=== PATIENT | female | born 1985 | race Caucasian/White ===

== ENCOUNTER 2016-05-11 23:15 | Emergency (ER) | payer MEDICAID ==
[2016-05-12 00:02] VITALS: BP 120/77
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
== END 2016-05-12 00:34 | disposition home or self-care (01) ==
LOC: JP.ED 23:15
DX: S42.91XD Fracture of right shoulder girdle, part unspecified, subsequent encounter for fracture with routine healing (principal); I10 Essential (primary) hypertension; J45.909 Unspecified asthma, uncomplicated; F41.9 Anxiety disorder, unspecified; F32.9 Major depressive disorder, single episode, unspecified; F17.210 Nicotine dependence, cigarettes, uncomplicated; E66.9 Obesity, unspecified; Z98.890 Other specified postprocedural states; Z79.899 Other long term (current) drug therapy; Z98.84 Bariatric surgery status; Z88.0 Allergy status to penicillin; Z88.1 Allergy status to other antibiotic agents; Z88.5 Allergy status to narcotic agent; Z88.8 Allergy status to other drugs, medicaments and biological substances; V89.2XXA Person injured in unspecified motor-vehicle accident, traffic, initial encounter
CPT/HCPCS: 99282; 99283

== ENCOUNTER 2016-05-13 16:12 | Emergency (ER) | payer MEDICAID ==
[2016-05-13 16:21] VITALS: BP 133/74
[2016-05-13] MEDS ORDERED: HYDROmorphone 1 MG/ML Syringe IVPUSH ONE ×2 (17:27→18:23)
[2016-05-13] MEDS ORDERED: Ondansetron 4 MG/2 ML SDV IVPUSH ONE (17:27)
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
[2016-05-13] MEDS ORDERED: Prochlorperazine 10 MG/2 ML SDV IVPUSH ONE (18:56)
[2016-05-13] MEDS ORDERED: levETIRAcetam 2,000 MG in Sodium Chloride 0.9% 100 ML IV ONE (20:15)
[2016-05-13] MEDS ORDERED: LORazepam 2 MG/ML MDV IVPUSH ONE (20:15)
[2016-05-13] MEDS ORDERED: Ketorolac 30 MG/ML SDV IVPUSH ONE (20:15)
[2016-05-13] MEDS ORDERED: Sodium Chloride 0.9% 100 ML ONE (20:46)
--- NOTE | 2016-05-14 08:32 | CR ---
Shoulder Comp Rt HISTORY: Fall, prior recent glenoid fracture COMPARISON: CT scan 05/09/2016. FINDINGS: Minimally displaced anterior inferior glenoid fracture seen on prior CT scan. No new fract ure or dislocation.
== END 2016-05-13 21:54 | disposition home or self-care (01) ==
LOC: JP.ED 16:12
DX: R56.9 Unspecified convulsions (principal); S00.31XA Abrasion of nose, initial encounter; S01.511A Laceration without foreign body of lip, initial encounter; W08.XXXA Fall from other furniture, initial encounter; Y92.019 Unspecified place in single-family (private) house as the place of occurrence of the external cause; R41.0 Disorientation, unspecified; M25.511 Pain in right shoulder; I10 Essential (primary) hypertension; J45.909 Unspecified asthma, uncomplicated; F41.8 Other specified anxiety disorders; D51.9 Vitamin B12 deficiency anemia, unspecified; F17.200 Nicotine dependence, unspecified, uncomplicated; Z88.0 Allergy status to penicillin; Z88.8 Allergy status to other drugs, medicaments and biological substances; Z79.899 Other long term (current) drug therapy
CPT/HCPCS: 36415; 70450; 70486; 73030; 80053; 80305; 81001; 83605; 84703; 85025; J0780; J1170; J1885; J1953; J2060; J2405; J7030; 96365; 96375; 96376; 99284; 99285-25

== ENCOUNTER 2016-06-06 11:21 | Emergency (ER) | payer MEDICAID ==
[2016-06-06 12:01] VITALS: BP 104/74
--- NOTE | 2016-06-06 12:06 | EDM.PDOC ---
[id number] TEETH AND FLU Time Seen by Provider: 06/06/16 12:04 Source of Information: Reports: Patient History Limitations: Reports: No limitations - History of Present Illness INITIAL COMMENTS - FREE TEXT/NARRATIVE: 31-year-old female with ongoing dental pain and also nausea and vomiting and diarrhea for the past 4 days. No fevers or chills. She was scheduled abdomen were done last week but was unable to make the appointment because of family emergencies. She took her last half of a hydrocodone earlier today, cannot get in to see her primary until Friday. She just finished clindamycin 3 days ago. Associated Symptoms: Reports: nausea/vomiting. Denies: fever/chills Tooth/Teeth Pain Score (Numeric/FACES): 9 - Related Data Allergies Allergy/AdvReac Type Severity Reaction Status Date / Time amoxicillin [Amoxicillin] Allergy Hives Verified 06/06/16 11:46 guaifenesin Allergy Cannot Verified 06/06/16 11:46 Remember meclizine Allergy Hives Verified 06/06/16 11:46 Penicillins Allergy Hives Verified 06/06/16 11:46 sulfamethoxazole Allergy Hives Verified 06/06/16 11:46 [From Bactrim] trimethoprim [From Bactrim] Allergy Hives Verified 06/06/16 11:46 oxycodone [Oxycodone] AdvReac Nausea and Verified 06/06/16 11:46 Vomiting propoxyphene AdvReac Nausea and Verified 06/06/16 11:46 Vomiting Home Meds: Home Meds Albuterol [Proventil Neb Soln] 1 ampule NEB Q4H PRN 12/09/12 [History] Albuterol [Ventolin HFA] 2 puff INH QID PRN 12/09/12 [History] Calcium Citrate/Vitamin D3 [Calcium Cit-Vit D 315-200] 1 tab PO BID 12/09/12 [ History] Cyanocobalamin/Folic Acid [B-12 1,000 Mcg Sub Tablet] 1 each SL DAILY 12/09/12 [ History] Ferrous Fumarate 1 mg PO DAILY 12/09/12 [History] Multivitamin [Multivitamins] 1 cap PO DAILY 12/09/12 [History] Vitamin B Complex [B Complex] 1 tab PO DAILY 12/09/12 [History] ALPRAZolam [Xanax] 0.5 mg PO BID PRN 09/28/14 [History] Ibuprofen [Advil] 800 mg PO QID PRN 09/28/14 [History] Gabapentin [Neurontin] 300 mg PO DAILY 04/12/16 [History] ARIPiprazole [Abilify] 2 mg PO DAILY 06/06/16 [History] Hydrocodone/Acetaminophen [[place] 10-325 Tablet] 1 each PO BID 06/06/16 [History] levETIRAcetam [Keppra Xr] 750 mg PO BID 06/06/16 [History] Past Medical History Cardiovascular History: Reports: Hypertension Respiratory History: Reports: Asthma, Bronchitis, recurrent, Pneumonia, recurrent Gastrointestinal History: Reports: Bowel obstruction, Cholelithiasis Genitourinary History: Reports: UTI, recurrent 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: Musculoskeletal History: Reports: Fracture Neurological History: Reports: Brain injury, Headaches, chronic, Migraines, Seizure, TIA Other Neuro History: minor stroke with meningitis Psychiatric History: Reports: Anxiety, Depression, Psych Hospitalization(s), Suicide attempt, Suicidal ideation Endocrine/Metabolic History: Reports: Obesity/BMI 30+ Hematologic History: Reports: Anemia, B12 deficiency, Blood transfusion(s), Folic acid - Infectious Disease History Infectious Disease History: Reports: Chicken pox - Past Surgical History HEENT Surgical History: Reports: Tonsillectomy GI Surgical History: Reports: Bariatric procedure, Colon, Colonoscopy, EGD Other GI Surgeries/Procedures: release SBO Female Surgical History: Reports: Breast biopsy, D&C Social & Family History - Tobacco Use Smoking Status *Q: Current Every Day Smoker Years of Tobacco use: 5 Packs/Tins Daily: 0.5 Used Tobacco, but Quit: No Month Tobacco Last Used: september Second Hand Smoke Exposure: Yes - Caffeine Use Caffeine Use: Reports: Coffee, Energy drinks, Soda, Tea - Alcohol Use Days Per Week of Alcohol Use: 0 - Recreational Drug Use Recreational Drug Use: No Other Recreational Drug Type: Pt. denies but sig. other states " I hope this isn 't because youre taking pills again" - Living Situation & Occupation Living situation: Reports: Occupation: unemployed (Lives with in [place], [place]) ED ROS GENERAL - Review of Systems Review Of Systems: See Below Constitutional: Denies: fever, chills HEENT: Reports: Dental pain Respiratory: Reports: No Symptoms GI/Abdominal: Reports: Diarrhea, Nausea, Vomiting. Denies: Abdominal pain : Reports: no symptoms Skin: Reports: no symptoms Neurological: Denies: Headache Psychiatric: Reports: No symptoms ED EXAM, GENERAL - Physical Exam Exam: See Below Exam Limited By: No limitations General Appearance: alert, no apparent distress Throat/Mouth: Other (Dental exam shows no obvious inflammation or deep caries) Respiratory/Chest: no respiratory distress, lungs clear GI/Abdominal: normal bowel sounds Neurological: alert, oriented Skin Exam: Warm, Dry Course - Vital Signs Last Recorded V/S: Last Vital Signs Temp 97.2 F 06/06/16 12:01 Pulse 85 06/06/16 12:01 Resp 16 06/06/16 12:01 BP 104/74 06/06/16 12:01 Pulse Ox 96 06/06/16 12:01 - Re-Assessments/Exams Free Text/Narrative Re-Assessment/Exam: 06/06/16 12:25 Patient will be started on Bactrim DS twice a day for the next 10 days, given some Zofran to use for nausea and will supply with 10 hydrocodone that she will make last until she can see her primary next week. I suggested a stool sample to check for C. difficile but she declined, so she was given a collection cup if the diarrhea persists. Departure - Departure Time of Disposition: 12:36 Disposition: Home, Self-Care 01 Condition: good Clinical Impression: Chronic dental pain, Gastroenteritis Instructions: Dental Caries Referrals: Karen Solitario MD [Primary Care Provider] - Forms: ED Department Discharge Care Plan Goals: Take antibiotic twice daily as prescribed. Use Zofran under your tongue 2-3 times daily for vomiting if needed, and hydrocodone for pain sparingly. Recheck with her regular doctor next week.
[2016-06-06] MEDS ORDERED: methylPREDNISolone Sodium Succinate 125 MG/2 ML SDV IVPUSH ONE (12:07)
== END 2016-06-06 12:36 | disposition home or self-care (01) ==
LOC: JP.ED 11:21
DX: K52.9 Noninfective gastroenteritis and colitis, unspecified (principal); K08.89 Other specified disorders of teeth and supporting structures; I10 Essential (primary) hypertension; J45.909 Unspecified asthma, uncomplicated; F41.9 Anxiety disorder, unspecified; F32.9 Major depressive disorder, single episode, unspecified; E66.9 Obesity, unspecified; F17.210 Nicotine dependence, cigarettes, uncomplicated; Z87.01 Personal history of pneumonia (recurrent); Z87.440 Personal history of urinary (tract) infections; Z79.899 Other long term (current) drug therapy; Z86.73 Personal history of transient ischemic attack (TIA), and cerebral infarction without residual deficits; Z86.2 Personal history of diseases of the blood and blood-forming organs and certain disorders involving the immune mechanism; Z98.890 Other specified postprocedural states; Z98.84 Bariatric surgery status; Z88.1 Allergy status to other antibiotic agents; Z88.0 Allergy status to penicillin; Z88.2 Allergy status to sulfonamides; Z88.8 Allergy status to other drugs, medicaments and biological substances
CPT/HCPCS: 96374; 99283; 99283-25

== ENCOUNTER 2016-06-24 12:01 | Emergency (ER) | payer MEDICAID ==
[2016-06-24 12:42] VITALS: BP 158/85
[2016-06-24] MEDS ORDERED: Ketorolac 60 MG/2 ML SDV IM ONE (13:34)
--- NOTE | 2016-06-24 13:37 | EDM.PDOC ---
ED HPI Trauma - General Chief Complaint: Upper Extremity Injury/Pain Stated Complaint: FELL GOING UPSTAIRS RT SHOULDER SEVER PAIN Time Seen by Provider: 06/24/16 12:45 Source: Reports: Patient History Limitations: Reports: No limitations - History of Present Illness INITIAL COMMENTS - FREE TEXT/NARRATIVE: 31-year-old female who was just recently healing from a right glenoid fracture fell forward on the stairs today injuring her right shoulder. She felt a popping sensation and is now having significant pain in the posterior shoulder. She feels she is unable to move her arm. No swelling or bruising. The incident happened just one half hour ago. Occurred When: just prior to arrival Occurred Where: home Method of Injury: direct blow, fall Severity: moderate Pain/Injury Location: Reports: upper extremity, right Consciousness: Reports: no loss of consciousness Associated Symptoms: Reports: denies other symptoms Allergies/ADRs: Allergies amoxicillin [Amoxicillin] Allergy (Verified 06/24/16 12:42) Hives guaifenesin Allergy (Verified 06/24/16 12:42) Cannot Remember meclizine Allergy (Verified 06/24/16 12:42) Hives Penicillins Allergy (Verified 06/24/16 12:42) Hives sulfamethoxazole [From Bactrim] Allergy (Verified 06/24/16 12:42) Hives trimethoprim [From Bactrim] Allergy (Verified 06/24/16 12:42) Hives oxycodone [Oxycodone] Adverse Reaction (Verified 06/24/16 12:42) Nausea and Vomiting States only the liquid causes problem. She states she does fine with the pills. propoxyphene Adverse Reaction (Verified 06/24/16 12:42) Nausea and Vomiting Home Medications: Ambulatory Orders Albuterol [Proventil Neb Soln] 1 ampule NEB Q4H PRN 12/09/12 [Confirmed 06/24/16 ] Albuterol [Ventolin HFA] 2 puff INH QID PRN 12/09/12 [Confirmed 06/24/16] Calcium Citrate/Vitamin D3 [Calcium Cit-Vit D 315-200] 1 tab PO BID 12/09/12 [ Confirmed 06/24/16] Cyanocobalamin/Folic Acid [B-12 1,000 Mcg Sub Tablet] 1 each SL DAILY 12/09/12 [ Confirmed 06/24/16] Ferrous Fumarate 1 mg PO DAILY 12/09/12 [Confirmed 06/24/16] Multivitamin [Multivitamins] 1 cap PO DAILY 12/09/12 [Confirmed 06/24/16] Vitamin B Complex [B Complex] 1 tab PO DAILY 12/09/12 [Confirmed 06/24/16] ALPRAZolam [Xanax] 0.5 mg PO BID PRN 09/28/14 [Confirmed 06/24/16] Ibuprofen [Advil] 800 mg PO QID PRN 09/28/14 [Confirmed 06/24/16] Gabapentin [Neurontin] 300 mg PO DAILY 04/12/16 [Confirmed 06/24/16] ARIPiprazole [Abilify] 2 mg PO DAILY 06/06/16 [Confirmed 06/24/16] Hydrocodone/Acetaminophen [[place] 10-325 Tablet] 1 each PO BID 06/06/16 [ Confirmed 06/24/16] levETIRAcetam [Keppra Xr] 750 mg PO BID 06/06/16 [Confirmed 06/24/16] Past Medical History Cardiovascular History: Reports: Hypertension Respiratory History: Reports: Asthma, Bronchitis, recurrent, Pneumonia, recurrent Gastrointestinal History: Reports: Bowel obstruction, Cholelithiasis Genitourinary History: Reports: UTI, recurrent 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: Musculoskeletal History: Reports: Fracture Neurological History: Reports: Brain injury, Headaches, chronic, Migraines, Seizure, TIA Other Neuro History: minor stroke with meningitis Psychiatric History: Reports: Anxiety, Depression, Psych Hospitalization(s), Suicide attempt, Suicidal ideation Endocrine/Metabolic History: Reports: Obesity/BMI 30+ Hematologic History: Reports: Anemia, B12 deficiency, Blood transfusion(s), Folic acid - Infectious Disease History Infectious Disease History: Reports: Chicken pox - Past Surgical History HEENT Surgical History: Reports: Tonsillectomy GI Surgical History: Reports: Bariatric procedure, Colon, Colonoscopy, EGD Other GI Surgeries/Procedures: release SBO Female Surgical History: Reports: Breast biopsy, D&C Social & Family History - Tobacco Use Smoking Status *Q: Current Every Day Smoker Years of Tobacco use: 5 Packs/Tins Daily: 0.5 Used Tobacco, but Quit: No Month Tobacco Last Used: september Second Hand Smoke Exposure: Yes - Caffeine Use Caffeine Use: Reports: Soda - Alcohol Use Days Per Week of Alcohol Use: 0 - Recreational Drug Use Recreational Drug Use: No Other Recreational Drug Type: Pt. denies but sig. other states " I hope this isn 't because youre taking pills again" - Living Situation & Occupation Living situation: Reports: Occupation: unemployed (Lives with in [place], [place]) Review of Systems - Review of Systems Review Of Systems: See Below Constitutional: Denies: fever Respiratory: Reports: No Symptoms Cardiovascular: Reports: no symptoms Musculoskeletal: Reports: shoulder pain Skin: Reports: no symptoms Trauma Exam - Physical Exam Exam: See Below Exam Limited By: No limitations General Appearance: Reports: alert, no apparent distress (Looks uncomfortable but not distressed) Head: Reports: atraumatic Respiratory Exam: Reports: no respiratory distress Cardiovascular: Reports: regular rate, rhythm Extremities: Reports: other (She has palpation tenderness over the a.c. joint and posterior right shoulder. There is no asymmetry or swelling or abrasion. She has discomfort with passive range of motion of the right shoulder.) Course - Vital Signs Last Recorded V/S: Last Vital Signs Temp 97.3 F 06/24/16 12:39 Pulse 97 06/24/16 12:39 Resp 20 06/24/16 12:39 BP 158/85 H 06/24/16 12:39 Pulse Ox 97 06/24/16 12:39 - Orders/Labs/Meds Meds: Medications Discontinued Medications Generic Name Dose Route Start Last Admin Trade Name Yisel PRN Reason Stop Dose Admin Ketorolac Tromethamine 60 mg 06/24/16 13:34 06/24/16 14:20 Toradol IM 06/24/16 13:35 60 mg ONETIME ONE Administration - Re-Assessments/Exams Free Text/Narrative Re-Assessment/Exam: 06/24/16 13:36 A right shoulder x-ray was obtained and is completely normal. She was given 60 mg of Toradol IM and I discussed her case with orthopedics at the clinic who is following her injury. 06/24/16 15:08 She is going to continue wearing her sling, avoid physical therapy until recheck with orthopedics later this week. They are going to give her a call. Departure - Departure Time of Disposition: 15:14 Disposition: Home, Self-Care 01 Condition: good Clinical Impression: Right shoulder strain Qualifiers: Encounter type: initial encounter Qualified Code(s): S46.911A - Strain of unspecified muscle, fascia and tendon at shoulder and upper arm level, right arm , initial encounter Referrals: PCP,None [Primary Care Provider] - Forms: ED Department Discharge Additional Instructions: APPT AT [facility] FridayJune AT 9AM WITH ORTHO Care Plan Goals: Wear sling for comfort, avoid physical therapy until recheck with orthopedics later this week. They will call you.
--- NOTE | 2016-06-24 13:46 | CR ---
Shoulder Comp Rt INDICATION: fall,pain FINDINGS: Negative right shoulder.
== END 2016-06-24 15:15 | disposition home or self-care (01) ==
LOC: JP.ED 12:01
DX: S46.911A Strain of unspecified muscle, fascia and tendon at shoulder and upper arm level, right arm, initial encounter (principal); I10 Essential (primary) hypertension; J45.909 Unspecified asthma, uncomplicated; F41.9 Anxiety disorder, unspecified; F32.9 Major depressive disorder, single episode, unspecified; F17.210 Nicotine dependence, cigarettes, uncomplicated; E66.9 Obesity, unspecified; Z68.38 Body mass index [BMI] 38.0-38.9, adult; Z98.84 Bariatric surgery status; Z98.890 Other specified postprocedural states; Z79.899 Other long term (current) drug therapy; Z88.0 Allergy status to penicillin; Z88.1 Allergy status to other antibiotic agents; Z88.5 Allergy status to narcotic agent; Z88.8 Allergy status to other drugs, medicaments and biological substances; W19.XXXA Unspecified fall, initial encounter; Y92.009 Unspecified place in unspecified non-institutional (private) residence as the place of occurrence of the external cause
CPT/HCPCS: 73030; 96372; 99284; J1885; 99283

== ENCOUNTER 2017-03-25 22:18 | Emergency (ER) | payer MEDICAID ==
[2017-03-25 22:38] VITALS: BP 121/64
--- NOTE | 2017-03-25 23:04 | EDM.PDOC ---
ED HPI GENERAL MEDICAL PROBLEM - General Chief Complaint: ENT Problem Stated Complaint: TOOT PAIN R SIDE Time Seen by Provider: 03/25/17 22:52 Source of Information: Reports: Patient History Limitations: Reports: No Limitations - History of Present Illness INITIAL COMMENTS - FREE TEXT/NARRATIVE: Dental Pain; this is a 32 year old female, presents to ER with her SO. She reports dental pain for the past 6 days. She is eating and drinking without nausea, vomiting, denies fever, chills or facial swelling. She is requesting pain medications to numb the pain. She has restricted MA. Duration: Day(s): (six), Chronic Location: Reports: Other (dental pain) Quality: Reports: Other (dental pain) Associated Symptoms: Reports: No Other Symptoms - Related Data Allergies Allergy/AdvReac Type Severity Reaction Status Date / Time amoxicillin [Amoxicillin] Allergy Hives Verified 06/24/16 12:42 guaifenesin Allergy Cannot Verified 06/24/16 12:42 Remember meclizine Allergy Hives Verified 06/24/16 12:42 Penicillins Allergy Hives Verified 06/24/16 12:42 sulfamethoxazole Allergy Hives Verified 06/24/16 12:42 [From Bactrim] trimethoprim [From Bactrim] Allergy Hives Verified 06/24/16 12:42 oxycodone [Oxycodone] AdvReac Nausea and Verified 06/24/16 12:42 Vomiting propoxyphene AdvReac Nausea and Verified 06/24/16 12:42 Vomiting Home Meds: Home Meds Albuterol [Proventil Neb Soln] 1 ampule NEB Q4H PRN 12/09/12 [History] Albuterol [Ventolin HFA] 2 puff INH QID PRN 12/09/12 [History] Calcium Citrate/Vitamin D3 [Calcium Cit-Vit D 315-200] 1 tab PO BID 12/09/12 [ History] Cyanocobalamin/Folic Acid [B-12 1,000 Mcg Sub Tablet] 1 each SL DAILY 12/09/12 [ History] Ferrous Fumarate 1 mg PO DAILY 12/09/12 [History] Multivitamin [Multivitamins] 1 cap PO DAILY 12/09/12 [History] Vitamin B Complex [B Complex] 1 tab PO DAILY 12/09/12 [History] ALPRAZolam [Xanax] 0.5 mg PO BID PRN 09/28/14 [History] Ibuprofen [Advil] 800 mg PO QID PRN 09/28/14 [History] Gabapentin [Neurontin] 300 mg PO DAILY 04/12/16 [History] ARIPiprazole [Abilify] 2 mg PO DAILY 06/06/16 [History] Hydrocodone/Acetaminophen [[place] 10-325 Tablet] 1 each PO BID 06/06/16 [History] levETIRAcetam [Keppra Xr] 750 mg PO BID 06/06/16 [History] Past Medical History Cardiovascular History: Reports: Hypertension Respiratory History: Reports: Asthma, Bronchitis, Recurrent, Pneumonia, Recurrent Gastrointestinal History: Reports: Bowel Obstruction, Cholelithiasis Genitourinary History: Reports: UTI, 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: Musculoskeletal History: Reports: Fracture Neurological History: Reports: Brain Injury, Headaches, Chronic, Migraines, Seizure, TIA Other Neuro History: minor stroke with meningitis Psychiatric History: Reports: Anxiety, Depression, Psych Hospitalization(s), Suicide Attempt, Suicidal Ideation Endocrine/Metabolic History: Reports: Obesity/BMI 30+ Hematologic History: Reports: Anemia, B12 Deficiency, Blood Transfusion(s), Folic Acid - Infectious Disease History Infectious Disease History: Reports: Chicken Pox - Past Surgical History HEENT Surgical History: Reports: Tonsillectomy GI Surgical History: Reports: Bariatric Procedure, Cholecystectomy, Colon, Colonoscopy, EGD Female Surgical History: Reports: Breast Biopsy, D&C Social & Family History - Tobacco Use Smoking Status *Q: Current Every Day Smoker Years of Tobacco use: 5 Packs/Tins Daily: 0.5 Used Tobacco, but Quit: No Month Tobacco Last Used: september Second Hand Smoke Exposure: Yes - Caffeine Use Caffeine Use: Reports: Soda - Alcohol Use Days Per Week of Alcohol Use: 0 - Recreational Drug Use Recreational Drug Use: No Other Recreational Drug Type: Pt. denies but sig. other states " I hope this isn 't because youre taking pills again" - Living Situation & Occupation Living situation: Reports: Occupation: Unemployed ED ROS ENT - Review of Systems Review Of Systems: See Below Constitutional: Reports: Other (dental pain) HEENT: Reports: Dental Pain ED EXAM, ENT - Physical Exam Exam: See Below Exam Limited By: No Limitations General Appearance: Alert, WD/WN, No Apparent Distress Eye Exam: Bilateral Eye: Normal Inspection Head: Atraumatic, Normocephalic, Other (no facial edema is noted) Neck: Supple Respiratory/Chest: No Respiratory Distress Course - Vital Signs Last Recorded V/S: Last Vital Signs Temp 36.1 C 03/25/17 22:42 Pulse 88 03/25/17 22:42 Resp 16 03/25/17 22:42 BP 121/64 03/25/17 22:42 Pulse Ox 100 03/25/17 22:42 - Re-Assessments/Exams Free Text/Narrative Re-Assessment/Exam: 03/25/17 Ms. Torres is having dental pain for 6 days without facial edema, fever, chills, nausea, vomiting. She is eating and drinking. request pain management only. discussed with Ms. Torres, she is restricted MA, this is a non-emergency dental condition, therefore she will need to follow up with her Primary Care Provider. Also advised can speak with Hospital Bodily Injury Adjuster to discuss complete details of restricted MA. Advised to take Tylenol or orajel for dental pain. At this point, Ms. Torres became very hostile, swearing at Provider, calling her a F_ _cking B_ _ch and other names. then got up off exam table, swore some more and left the room slamming the door. Departure - Departure Time of Disposition: 22:55 Disposition: Home, Self-Care 01 Condition: Good Clinical Impression: Chronic dental pain - Discharge Information Referrals: Shawna Laws, [employer] OPERATOR [Primary Care Provider] - Forms: ED Department Discharge Care Plan Goals: -Advised to follow up with Primary Care Provider -Take Tylenol or oragel for pain. - Problem List & Annotations (1) Chronic dental pain SNOMED Code(s): 64856498 Code(s): K08.9 - DISORDER OF TEETH AND SUPPORTING STRUCTURES, UNSPECIFIED; G89.29 - OTHER CHRONIC PAIN Status: Acute Priority: Low - Problem List Review Problem List Initiated/Reviewed/Updated: Yes - Assessment/Plan Plan: -Advised to follow up with Primary Care Provider -Take Tylenol or oragel for pain.
== END 2017-03-25 22:56 | disposition home or self-care (01) ==
LOC: JP.ED 22:18
DX: K08.89 Other specified disorders of teeth and supporting structures (principal); G89.29 Other chronic pain; I10 Essential (primary) hypertension; J45.909 Unspecified asthma, uncomplicated; F32.9 Major depressive disorder, single episode, unspecified; F17.210 Nicotine dependence, cigarettes, uncomplicated; Z79.899 Other long term (current) drug therapy; Z88.0 Allergy status to penicillin; Z88.1 Allergy status to other antibiotic agents; Z88.2 Allergy status to sulfonamides; Z88.8 Allergy status to other drugs, medicaments and biological substances; Z88.6 Allergy status to analgesic agent
CPT/HCPCS: 99282; 99283

== ENCOUNTER 2018-03-27 07:35 | Emergency (ER) | payer MEDICAID ==
[2018-03-27 07:59] VITALS: BP 166/108
--- NOTE | 2018-03-27 08:13 | EDM.PDOC ---
ED HPI GENERAL MEDICAL PROBLEM - General Chief Complaint: ENT Problem Stated Complaint: TOOTH PAIN Time Seen by Provider: 03/27/18 08:07 Source of Information: Reports: Patient History Limitations: Reports: No Limitations - History of Present Illness INITIAL COMMENTS - FREE TEXT/NARRATIVE: 33 years old female patient presented with a chief complaint of dental pain that has been going on for over 1 week. Worse last night. She has been taking Tylenol and Orajel that does not seem to be helping much. She stated that she wanted to see her doctor today but it's too early and the clinics not open yet. Denies any fever or facial swelling. She is scheduled for tooth extractions . Onset: Today Face/Facial Pain Score (Numeric/FACES): 10 - Related Data Allergies Allergy/AdvReac Type Severity Reaction Status Date / Time amoxicillin [Amoxicillin] Allergy Hives Verified 06/24/16 12:42 guaifenesin Allergy Cannot Verified 06/24/16 12:42 Remember meclizine Allergy Hives Verified 06/24/16 12:42 Penicillins Allergy Hives Verified 06/24/16 12:42 sulfamethoxazole Allergy Hives Verified 06/24/16 12:42 [From Bactrim] trimethoprim [From Bactrim] Allergy Hives Verified 06/24/16 12:42 oxycodone [Oxycodone] AdvReac Nausea and Verified 06/24/16 12:42 Vomiting propoxyphene AdvReac Nausea and Verified 06/24/16 12:42 Vomiting Home Meds: Home Meds Gabapentin [Neurontin] 300 mg PO DAILY 04/12/16 [History] levETIRAcetam [Keppra Xr] 750 mg PO BID 06/06/16 [History] Past Medical History - Past Health History Medical/Surgical History: Denies Medical/Surgical History Cardiovascular History: Reports: Hypertension Respiratory History: Reports: Asthma, Bronchitis, Recurrent, Pneumonia, Recurrent Gastrointestinal History: Reports: Bowel Obstruction, Cholelithiasis Genitourinary History: Reports: UTI, 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: Musculoskeletal History: Reports: Fracture Neurological History: Reports: Brain Injury, Headaches, Chronic, Migraines, Seizure, TIA Other Neuro History: minor stroke with meningitis Psychiatric History: Reports: Anxiety, Depression, Psych Hospitalization(s), Suicide Attempt, Suicidal Ideation Endocrine/Metabolic History: Reports: Obesity/BMI 30+ Hematologic History: Reports: Anemia, B12 Deficiency, Blood Transfusion(s), Folic Acid - Infectious Disease History Infectious Disease History: Reports: Chicken Pox - Past Surgical History HEENT Surgical History: Reports: Tonsillectomy GI Surgical History: Reports: Bariatric Procedure, Cholecystectomy, Colon, Colonoscopy, EGD Female Surgical History: Reports: Breast Biopsy, D&C Social & Family History - Tobacco Use Smoking Status *Q: Heavy Tobacco Smoker Years of Tobacco use: 15 Packs/Tins Daily: 0.5 - Caffeine Use Caffeine Use: Reports: None - Recreational Drug Use Recreational Drug Use: No - Living Situation & Occupation Living situation: Reports: Occupation: Unemployed ED ROS ENT - Review of Systems Review Of Systems: ROS reveals no pertinent complaints other than HPI. ED EXAM, ENT - Physical Exam Exam: See Below Exam Limited By: No Limitations General Appearance: Alert Nose: Normal Inspection Mouth/Throat: Normal Inspection, Other (Poor dentition., Dental caries. Mild abdominal erythema. No abscess swelling.). No: Throat Pain, Throat Swelling Respiratory/Chest: No Respiratory Distress, Lungs Clear Cardiovascular: Normal Peripheral Pulses, Regular Rate, Rhythm, No Murmur GI/Abdominal: Normal Bowel Sounds, Soft Course - Vital Signs Text/Narrative:: Patient was seen and examined shortly after arrival. Stable. Given 60 mg IM Toradol and 0.5 mg IM Dilaudid. Also given a prescription for clindamycin. Advised to follow with her primary doctor dentist as soon as possible. Come back if symptom Worsen. Continue Tylenol and ibuprofen, continue Orajel Patient agrees with the plan. Stable for discharge. Last Recorded V/S: Last Vital Signs Temp 36.2 C 03/27/18 07:56 Pulse 78 03/27/18 07:56 Resp 15 03/27/18 07:56 BP 166/108 H 03/27/18 07:56 Pulse Ox 98 03/27/18 07:56 - Orders/Labs/Meds Meds: Medications Discontinued Medications Generic Name Dose Route Start Last Admin Trade Name Freq PRN Reason Stop Dose Admin Hydromorphone HCl 0.5 mg 03/27/18 08:15 03/27/18 08:19 Dilaudid IM 03/27/18 08:16 0.5 mg ONETIME ONE Administration Ketorolac Tromethamine 60 mg 03/27/18 08:14 03/27/18 08:20 Toradol IM 03/27/18 08:15 60 mg ONETIME ONE Administration Departure - Departure Time of Disposition: 08:25 Disposition: Home, Self-Care 01 Condition: Good Clinical Impression: Pain, dental - Discharge Information Instructions: Tooth Injuries, [id number] Referrals: Matthew Corona MD [Primary Care Provider] - Forms: ED Department Discharge Additional Instructions: Continue Tylenol and ibuprofen for pain, Orajel, gargle with salt and water Close follow-up with your PCP See a dentist as soon as possible Come back if symptom worsen - Problem List Review Problem List Initiated/Reviewed/Updated: Yes - Assessment/Plan Plan: #1 clindamycin . 2 continue Tylenol and ibuprofen, Orajel for pain #3 close follow-up with PCP #4 follow-up with dentist as soon as possible Come back if symptom worsen
[2018-03-27] MEDS ORDERED: Ketorolac 60 MG/2 ML SDV IM ONE (08:14)
[2018-03-27] MEDS ORDERED: HYDROmorphone 0.5 MG/0.5 ML Syringe IM ONE (08:15)
== END 2018-03-27 08:30 | disposition home or self-care (01) ==
LOC: JP.ED 07:35
DX: K02.9 Dental caries, unspecified (principal); I10 Essential (primary) hypertension; F17.210 Nicotine dependence, cigarettes, uncomplicated; Z79.899 Other long term (current) drug therapy; Z88.8 Allergy status to other drugs, medicaments and biological substances; Z88.0 Allergy status to penicillin; Z88.2 Allergy status to sulfonamides
CPT/HCPCS: 96372; 99283; J1170; J1885

== ENCOUNTER 2018-04-02 23:22 | Emergency (ER) | payer MEDICAID ==
--- NOTE | 2018-04-03 00:03 | EDM.PDOC ---
ED HPI GENERAL MEDICAL PROBLEM - General Chief Complaint: Respiratory Problem Stated Complaint: COLD COUGH Time Seen by Provider: 04/02/18 23:45 Source of Information: Reports: Patient, Old Records History Limitations: Reports: No Limitations - History of Present Illness INITIAL COMMENTS - FREE TEXT/NARRATIVE: 33 yo female presents with fever, mild SOB, and an occasional cough. Has body aches. Did not have a flu vaccine this year. Is on clindamycin for a dental infection. Has been taking OTC antipyretics with only partial benefit. Onset: Gradual Onset Date: 04/02/18 Duration: Day(s): (1), Constant Location: Reports: Neck (throat), Chest, Other (extremities ache) Quality: Reports: Ache Severity: Moderate Improves with: Reports: Medication Worsens with: Reports: None Context: Reports: Other (See HPI) Associated Symptoms: Reports: Chest Pain, Cough, Fever/Chills, Shortness of Breath. 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 Anterior Chest Pain Score (Numeric/FACES): 10 - Related Data Allergies Allergy/AdvReac Type Severity Reaction Status Date / Time amoxicillin [Amoxicillin] Allergy Hives Verified 04/02/18 23:41 guaifenesin Allergy Cannot Verified 04/02/18 23:41 Remember meclizine Allergy Hives Verified 04/02/18 23:41 Penicillins Allergy Hives Verified 04/02/18 23:41 sulfamethoxazole Allergy Hives Verified 04/02/18 23:41 [From Bactrim] trimethoprim [From Bactrim] Allergy Hives Verified 04/02/18 23:41 oxycodone [Oxycodone] AdvReac Nausea and Verified 04/02/18 23:41 Vomiting propoxyphene AdvReac Nausea and Verified 04/02/18 23:41 Vomiting Home Meds: Home Meds Gabapentin [Neurontin] 300 mg PO BID 04/12/16 [History] levETIRAcetam [Keppra Xr] 750 mg PO BID 06/06/16 [History] Cephalexin [Keflex] 750 mg PO TID 04/02/18 [History] traMADol [Ultram] 50 mg PO Q4H PRN 04/02/18 [History] Past Medical History - Past Health History Medical/Surgical History: Denies Medical/Surgical History Cardiovascular History: Reports: Hypertension Respiratory History: Reports: Asthma, Bronchitis, Recurrent, Pneumonia, Recurrent Gastrointestinal History: Reports: Bowel Obstruction, Cholelithiasis Genitourinary History: Reports: UTI, Recurrent 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: Musculoskeletal History: Reports: Fracture Neurological History: Reports: Brain Injury, Headaches, Chronic, Migraines, Seizure, TIA Other Neuro History: minor stroke with meningitis Psychiatric History: Reports: Anxiety, Depression, Psych Hospitalization(s), Suicide Attempt, Suicidal Ideation Endocrine/Metabolic History: Reports: Obesity/BMI 30+ Hematologic History: Reports: Anemia, B12 Deficiency, Blood Transfusion(s), Folic Acid - Infectious Disease History Infectious Disease History: Reports: Chicken Pox - Past Surgical History HEENT Surgical History: Reports: Tonsillectomy GI Surgical History: Reports: Bariatric Procedure, Cholecystectomy, Colon, Colonoscopy, EGD Female Surgical History: Reports: Breast Biopsy, D&C Social & Family History - Tobacco Use Smoking Status *Q: Never Smoker Second Hand Smoke Exposure: No - Caffeine Use Caffeine Use: Reports: Coffee, Tea - Recreational Drug Use Recreational Drug Use: No - Living Situation & Occupation Living situation: Reports: Occupation: Unemployed ED ROS GENERAL - Review of Systems Review Of Systems: See Below Constitutional: Reports: No Symptoms HEENT: Reports: Throat Pain. Denies: Ear Discharge, Ear Pain, Eye Discharge, Eye Pain, Throat Swelling Respiratory: Reports: Shortness of Breath, Cough. Denies: Wheezing, Pleuritic Chest Pain, Sputum, Hemoptysis Cardiovascular: Reports: Dyspnea on Exertion. Denies: Edema Endocrine: Reports: No Symptoms GI/Abdominal: Reports: No Symptoms : Reports: No Symptoms Musculoskeletal: Reports: No Symptoms Skin: Reports: No Symptoms Neurological: Reports: No Symptoms ED EXAM, GENERAL - Physical Exam Exam: See Below Exam Limited By: No Limitations General Appearance: Alert, WD/WN, No Apparent Distress Eye Exam: Bilateral Eye: Normal Inspection Ears: Normal External Exam, Normal Canal, Hearing Grossly Normal, Normal TMs Ear Exam: Bilateral Ear: Auricle Normal, Canal Normal, TM normal Nose: Normal Inspection, Normal Mucosa, No Blood Throat/Mouth: Normal Inspection, Normal Lips, Normal Oropharynx, Normal Voice, No Airway Compromise Head: Atraumatic, Normocephalic Neck: Normal Inspection, Supple Respiratory/Chest: No Respiratory Distress, Lungs Clear, Normal Breath Sounds, No Accessory Muscle Use Cardiovascular: Regular Rate, Rhythm, No Edema, Tachycardia Extremities: Normal Inspection, Normal Range of Motion, Non-Tender, No Pedal Edema Neurological: Alert, Oriented, CN II-XII Intact, Normal Cognition, No Motor/ Sensory Deficits Psychiatric: Normal Affect, Normal Mood Skin Exam: Warm, Dry, Intact, Normal Color, No Rash Course - Vital Signs Last Recorded V/S: Last Vital Signs Temp 38.3 C H 04/02/18 23:40 Pulse 129 H 04/02/18 23:40 Resp 16 04/02/18 23:40 BP 136/66 04/02/18 23:40 Pulse Ox 97 04/02/18 23:40 - Orders/Labs/Meds Labs: Laboratory Tests 04/02/18 Range/Units 23:58 WBC 7.4 (4.5-11.0) K/uL RBC 4.36 (3.30-5.50) M/uL Hgb 12.8 D (12.0-15.0) g/dL Hct 40.1 (36.0-48.0) % MCV 92 (80-98) fL MCH 29 (27-31) pg MCHC 32 (32-36) % Plt Count 304 (150-400) K/uL Departure - Departure Time of Disposition: 00:37 Disposition: Home, Self-Care 01 Condition: Fair Clinical Impression: Viral syndrome - Discharge Information *PRESCRIPTION DRUG MONITORING PROGRAM REVIEWED*: No *COPY OF PRESCRIPTION DRUG MONITORING REPORT IN PATIENT GERRI: No Instructions: Viral Respiratory Infection, [id number] Referrals: Matthew Corona MD [Primary Care Provider] - Forms: ED Department Discharge Additional Instructions: Acetaminophen and ibuprofen per package instructions. Drink ample fluids so that your urine is light in color. Frequent hand washing to prevent spread. Rest. F/U with your provider if not improving.
[2018-04-03 00:38] VITALS: BP 136/66
== END 2018-04-03 00:46 | disposition home or self-care (01) ==
LOC: JP.ED 23:22
DX: B34.9 Viral infection, unspecified (principal); E66.9 Obesity, unspecified; Z88.1 Allergy status to other antibiotic agents; Z88.0 Allergy status to penicillin; Z88.8 Allergy status to other drugs, medicaments and biological substances
CPT/HCPCS: 36415; 85027; 87804; 87804-59; 99284

== ENCOUNTER 2018-04-23 22:20 | Emergency (ER) | payer MEDICAID ==
[2018-04-23 22:43] VITALS: BP 137/91
[2018-04-23] MEDS ORDERED: Ketorolac 60 MG/2 ML SDV IM ONE (23:06)
--- NOTE | 2018-04-23 23:13 | EDM.PDOC ---
ED HPI GENERAL MEDICAL PROBLEM - General Chief Complaint: ENT Problem Stated Complaint: DENTAL PAIN Time Seen by Provider: 04/23/18 22:47 Source of Information: Reports: Patient, Family (SO) History Limitations: Reports: No Limitations - History of Present Illness INITIAL COMMENTS - FREE TEXT/NARRATIVE: chief complaint: dental pain this is a 33 year old female presents to ER with SO and infant son. reports 1.5 weeks ago had 3 teeth pulled. has other multi teeth with severe decay. reports pain is worse and now has gum swelling. has tried to get into to see Dentist, no appointments available. this evening unable to tolerate the pain. has tried medicated mouth rinse, tramadol (out), Motrin and Tylenol without relief. now here for evaluation. 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, Home Treatments, NSAIDS dental pain Pain Score (Numeric/FACES): 10 - Related Data Allergies Allergy/AdvReac Type Severity Reaction Status Date / Time amoxicillin [Amoxicillin] Allergy Hives Verified 04/23/18 22:47 guaifenesin Allergy Cannot Verified 04/23/18 22:47 Remember meclizine Allergy Hives Verified 04/23/18 22:47 Penicillins Allergy Hives Verified 04/23/18 22:47 sulfamethoxazole Allergy Hives Verified 04/23/18 22:47 [From Bactrim] trimethoprim [From Bactrim] Allergy Hives Verified 04/23/18 22:47 oxycodone [Oxycodone] AdvReac Nausea and Verified 04/23/18 22:47 Vomiting propoxyphene AdvReac Nausea and Verified 04/23/18 22:47 Vomiting Home Meds: Home Meds Gabapentin [Neurontin] 300 mg PO BID 04/12/16 [History] levETIRAcetam [Keppra Xr] 750 mg PO BID 06/06/16 [History] ALPRAZolam [Xanax] 0.5 mg PO DAILY 04/23/18 [History] Escitalopram Oxalate 20 mg PO DAILY 04/23/18 [History] Past Medical History - Past Health History Medical/Surgical History: Denies Medical/Surgical History Cardiovascular History: Reports: Hypertension Respiratory History: Reports: Asthma, Bronchitis, Recurrent, Pneumonia, Recurrent Gastrointestinal History: Reports: Bowel Obstruction, Cholelithiasis Genitourinary History: Reports: UTI, Recurrent 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: Reports: Musculoskeletal History: Reports: Fracture Neurological History: Reports: Brain Injury, Headaches, Chronic, Migraines, Seizure, TIA Other Neuro History: minor stroke with meningitis Psychiatric History: Reports: Anxiety, Depression, Psych Hospitalization(s), Suicide Attempt, Suicidal Ideation Endocrine/Metabolic History: Reports: Obesity/BMI 30+ Hematologic History: Reports: Anemia, B12 Deficiency, Blood Transfusion(s), Folic Acid - Infectious Disease History Infectious Disease History: Reports: Chicken Pox - Past Surgical History HEENT Surgical History: Reports: Tonsillectomy GI Surgical History: Reports: Bariatric Procedure, Cholecystectomy, Colon, Colonoscopy, EGD Female Surgical History: Reports: Breast Biopsy, D&C Social & Family History - Tobacco Use Smoking Status *Q: Never Smoker - Caffeine Use Caffeine Use: Reports: Coffee - Recreational Drug Use Recreational Drug Use: No - Living Situation & Occupation Living situation: Reports: Occupation: Unemployed ED ROS ENT - Review of Systems Review Of Systems: See Below Constitutional: Reports: No Symptoms HEENT: Reports: Dental Pain Respiratory: Reports: No Symptoms Cardiovascular: Reports: No Symptoms Skin: Reports: No Symptoms ED EXAM, ENT - Physical Exam Exam: See Below Exam Limited By: No Limitations General Appearance: Alert, WD/WN, Mild Distress Eye Exam: Bilateral Eye: Normal Inspection Ears: Normal External Exam Nose: Normal Inspection Mouth/Throat: Dental Abcess (gum with inflammation, multi broken teeth due to cavities, 3 recent extractions noted.), Dental Pain, Dental Tenderness Head: Atraumatic, Normocephalic Neck: Normal Inspection, Supple, Non-Tender, Full Range of Motion Respiratory/Chest: No Respiratory Distress Course - Vital Signs Last Recorded V/S: Last Vital Signs Temp 36.2 C 04/23/18 22:50 Pulse 87 04/23/18 22:50 Resp 16 04/23/18 22:50 BP 137/91 H 04/23/18 22:50 Pulse Ox 97 04/23/18 22:50 - Orders/Labs/Meds Orders: toradol 60 mg im, given scripts for hydrocodone 5-325mg, clindamycin, Motrin. advise to follow up in Dental Clinic, return to ER if symptoms worsen or not improved Patient and SO agree with plan of care. Meds: Medications Discontinued Medications Generic Name Dose Route Start Last Admin Trade Name Yisel PRN Reason Stop Dose Admin Ketorolac Tromethamine 60 mg 04/23/18 23:06 Toradol IM 04/23/18 23:07 ONETIME ONE Departure - Departure Time of Disposition: 23:20 Disposition: Home, Self-Care 01 Condition: Good Clinical Impression: Dental caries, Pain, dental - Discharge Information *PRESCRIPTION DRUG MONITORING PROGRAM REVIEWED*: Not Applicable *COPY OF PRESCRIPTION DRUG MONITORING REPORT IN PATIENT GERRI: Not Applicable Instructions: Dental Extraction, Care After Referrals: Matthew Corona MD [Primary Care Provider] - Forms: ED Department Discharge Care Plan Goals: Dental Pain, dental infection -clindamycin 150mg ; take 2 tab every 8 hours til gone -Motrin 600mg one every 6 to 8 hours as needed for pain or fever -Hydrocodone 5-325mg one every 4 to 6 hours as needed for more acute pain -soft diet -follow up in Dental Clinic as soon as possible return to ER for any increase pain, fever, facial swelling, drainage or not improved - Problem List & Annotations (1) Dental caries SNOMED Code(s): 81365238 Code(s): K02.9 - DENTAL CARIES, UNSPECIFIED Status: Acute Priority: High Current Visit: Yes (2) Pain, dental SNOMED Code(s): 20988396 Code(s): K08.89 - OTHER SPECIFIED DISORDERS OF TEETH AND SUPPORTING STRUCTURES Status: Acute Priority: High Current Visit: Yes - Problem List Review Problem List Initiated/Reviewed/Updated: Yes - Assessment/Plan Plan: Dental Pain, dental infection -clindamycin 150mg ; take 2 tab every 8 hours til gone -Motrin 600mg one every 6 to 8 hours as needed for pain or fever -Hydrocodone 5-325mg one every 4 to 6 hours as needed for more acute pain -soft diet -follow up in Dental Clinic as soon as possible return to ER for any increase pain, fever, facial swelling, drainage or not improved
== END 2018-04-23 23:28 | disposition home or self-care (01) ==
LOC: JP.ED 22:20
DX: K02.9 Dental caries, unspecified (principal); J45.909 Unspecified asthma, uncomplicated; F32.9 Major depressive disorder, single episode, unspecified; F41.9 Anxiety disorder, unspecified; Z79.899 Other long term (current) drug therapy; Z88.1 Allergy status to other antibiotic agents; Z88.0 Allergy status to penicillin
CPT/HCPCS: 96372; 99283; J1885

== ENCOUNTER 2018-06-23 11:26 | Emergency (ER) | payer MEDICAID ==
[2018-06-23] MEDS ORDERED: HYDROmorphone 1 MG/ML Syringe IM ONE (13:19)
[2018-06-23] MEDS ORDERED: Baclofen 10 MG Tab PO ONE (13:19)
--- NOTE | 2018-06-23 14:18 | CRLCR ---
INDICATION: Fall with back pain TECHNIQUE: Lumbar spine with flexion-extension 4 view COMPARISON: None FINDINGS: Bones: Mild scoliosis. No subluxations. No fracture or bone lesion. No sign of abnormal motion on flexion and extension images. Joints: Disc spaces and facets are unremarkable. Soft tissues: Unremarkable. IMPRESSION: No sign of acute injury. Mild scoliosis. Otherwise unremarkable lumbar spine. Dictated by Shekhar Galvez MD @ 06/23/2018 2:15:56 PM Dictated by: Shekhar Galvez MD @ 06/23/2018 14:16:02 (Electronically Signed)
[2018-06-23 14:49] VITALS: BP 139/82
--- NOTE | 2018-06-23 15:06 | EDM.PDOC ---
ED HPI GENERAL MEDICAL PROBLEM - General Chief Complaint: Back Pain or Injury Stated Complaint: FELL DOWN STAIRS Time Seen by Provider: 06/23/18 12:40 Source of Information: Reports: Patient History Limitations: Reports: No Limitations - History of Present Illness INITIAL COMMENTS - FREE TEXT/NARRATIVE: pt fell 5-6 steps and she now has severe lower back pain radiating down the left leg. She has been using hydrocodone 10 and has not been getting relief of her pain. Onset: Other (Pt fell 2 days ago andthe painstarted at that time. ) Duration: Hour(s): Location: Reports: Back Associated Symptoms: Reports: No Other Symptoms Right Lower Back Pain Score (Numeric/FACES): 9 - Related Data Allergies Allergy/AdvReac Type Severity Reaction Status Date / Time amoxicillin [Amoxicillin] Allergy Hives Verified 06/23/18 12:39 guaifenesin Allergy Cannot Verified 06/23/18 12:39 Remember meclizine Allergy Hives Verified 06/23/18 12:39 Penicillins Allergy Hives Verified 06/23/18 12:39 sulfamethoxazole Allergy Hives Verified 06/23/18 12:39 [From Bactrim] trimethoprim [From Bactrim] Allergy Hives Verified 06/23/18 12:39 oxycodone [Oxycodone] AdvReac Nausea and Verified 06/23/18 12:39 Vomiting propoxyphene AdvReac Nausea and Verified 06/23/18 12:39 Vomiting Home Meds: Home Meds Gabapentin [Neurontin] 300 mg PO BID 04/12/16 [History] levETIRAcetam [Keppra Xr] 750 mg PO BID 06/06/16 [History] ALPRAZolam [Xanax] 0.5 mg PO DAILY 04/23/18 [History] Escitalopram Oxalate 20 mg PO DAILY 04/23/18 [History] Hydrocodone/Acetaminophen [Vicodin Hp 10-300 mg Tablet] 1 each PO Q6HR PRN 06/23 [History] Past Medical History - Past Health History Medical/Surgical History: Denies Medical/Surgical History HEENT History: Reports: Other (See Below) Other HEENT History: chronic dental pain Cardiovascular History: Reports: Hypertension Respiratory History: Reports: Asthma, Bronchitis, Recurrent, Pneumonia, Recurrent Gastrointestinal History: Reports: Bowel Obstruction, Cholelithiasis Genitourinary History: Reports: UTI, Recurrent 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: Musculoskeletal History: Reports: Fracture Neurological History: Reports: Brain Injury, Headaches, Chronic, Migraines, Seizure, TIA Other Neuro History: minor stroke with meningitis Psychiatric History: Reports: Anxiety, Depression, Psych Hospitalization(s), Suicide Attempt, Suicidal Ideation Endocrine/Metabolic History: Reports: Obesity/BMI 30+ Hematologic History: Reports: Anemia, B12 Deficiency, Blood Transfusion(s), Folic Acid - Infectious Disease History Infectious Disease History: Reports: Chicken Pox - Past Surgical History HEENT Surgical History: Reports: Tonsillectomy GI Surgical History: Reports: Bariatric Procedure, Cholecystectomy, Colon, Colonoscopy, EGD Female Surgical History: Reports: Breast Biopsy, D&C Social & Family History - Tobacco Use Smoking Status *Q: Former Smoker Used Tobacco, but Quit: Yes Month/Year Tobacco Last Used: 2 month - Caffeine Use Caffeine Use: Reports: Coffee, Energy Drinks, Soda, Tea - Recreational Drug Use Recreational Drug Use: No - Living Situation & Occupation Living situation: Reports: Occupation: Unemployed ED ROS GENERAL - Review of Systems Review Of Systems: See Below Constitutional: Reports: No Symptoms HEENT: Reports: No Symptoms Respiratory: Reports: No Symptoms Cardiovascular: Reports: No Symptoms Endocrine: Reports: No Symptoms GI/Abdominal: Reports: No Symptoms : Reports: No Symptoms Musculoskeletal: Reports: Other (pt has pain in the rt low back area. ) Skin: Reports: No Symptoms Neurological: Reports: Other (pt does have radicular pain down the rt leg. ) Psychiatric: Reports: Anxiety ED EXAM,LOWER BACK PAIN/INJURY - Physical Exam Exam: See Below Text/Narrative:: pt arrived with acute pain over the left buttock. This pain is worse with straight leg raising. She has no evidence of bruising. Exam Limited By: No Limitations General Appearance: Alert, Anxious, Moderate Distress Ears: Normal External Exam Nose: Normal Inspection Throat/Mouth: Normal Inspection Head: Atraumatic Neck: Normal Inspection Back Exam: Other (pt is tender over the rt buttock and at the exit of the sciatic nerve. She is not real tender over the spine. ) Course - Vital Signs Last Recorded V/S: Last Vital Signs Temp 35.4 C 06/23/18 12:28 Pulse 68 06/23/18 14:49 Resp 18 06/23/18 14:49 BP 139/82 06/23/18 14:49 Pulse Ox 100 06/23/18 14:49 - Orders/Labs/Meds Meds: Medications Discontinued Medications Generic Name Dose Route Start Last Admin Trade Name Yisel PRN Reason Stop Dose Admin Baclofen 10 mg 06/23/18 13:19 06/23/18 13:45 Lioresal PO 06/23/18 13:20 10 mg ONETIME ONE Administration Hydromorphone HCl 1 mg 06/23/18 13:19 06/23/18 13:45 Dilaudid IM 06/23/18 13:20 1 mg ONETIME ONE Administration - Re-Assessments/Exams Free Text/Narrative Re-Assessment/Exam: 06/23/18 15:08 xrays of the spine was obtained wich did not show fractures. Departure - Departure Time of Disposition: 15:08 Disposition: Home, Self-Care 01 Condition: Fair Clinical Impression: Right sciatic nerve pain - Discharge Information Instructions: Sciatica, [id number] Referrals: Matthew Corona MD [Primary Care Provider] - Forms: ED Department Discharge Care Plan Goals: rest, cool pack to the buttock area. appt in followup with Dr Corona in 5-6 days, increase hydrocodone 10 to 4 per day for the next 5 days with torodol 10mg tid, This was discussed wuith Dr Gonzales
== END 2018-06-23 15:22 | disposition home or self-care (01) ==
LOC: JP.ED 11:26
DX: M54.41 Lumbago with sciatica, right side (principal); M54.42 Lumbago with sciatica, left side; I10 Essential (primary) hypertension; J45.909 Unspecified asthma, uncomplicated; F41.9 Anxiety disorder, unspecified; F32.9 Major depressive disorder, single episode, unspecified; Z87.891 Personal history of nicotine dependence; Z88.1 Allergy status to other antibiotic agents; Z88.0 Allergy status to penicillin; Z88.2 Allergy status to sulfonamides; Z79.899 Other long term (current) drug therapy; Z88.8 Allergy status to other drugs, medicaments and biological substances; W10.9XXA Fall (on) (from) unspecified stairs and steps, initial encounter
CPT/HCPCS: 72110; 96372; 99283; A9270; J1170

== ENCOUNTER 2018-06-30 06:31 | Day surgery (SDC) | payer MEDICAID ==
[2018-06-30] MEDS ORDERED: Bupivacaine 0.5% 50 ML MDV ONE (06:47)
[2018-06-30] MEDS ORDERED: Lidocaine 1% with EPINEPHrine 1:100,000 50 ML MDV ONE (06:48)
[2018-06-30] MEDS ORDERED: Midazolam 1 MG/ML 2 ML SDV ONE (07:11)
[2018-06-30] MEDS ORDERED: fentaNYL 100 MCG/2 ML SDV ONE (07:11)
[2018-06-30] MEDS ORDERED: Propofol 200 MG/20 ML SDV ONE ×2 (07:11→07:54)
[2018-06-30] MEDS ORDERED: Levofloxacin/Dextrose 5%-Water 500 MG in Premix Bag 1 BAG IV ONE (07:20)
[2018-06-30] MEDS ORDERED: Glycopyrrolate 0.2 MG/ML 2 ML SDV IVPUSH ONE (07:20)
[2018-06-30] MEDS ORDERED: Dextrose 5%-Lactated Ringers 1,000 ML IV SCH (07:30)
[2018-06-30 09:12] VITALS: BP 125/77
--- NOTE | 2018-07-05 13:10 | OR ---
DATE OF PROCEDURE: 06/30/2018 PREOPERATIVE DIAGNOSES: 1. 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 2. Hidradenitis suppurativa of left thigh and perineal area. POSTOPERATIVE DIAGNOSES: 1. 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 2. Hidradenitis suppurativa involving left thigh and perineal area. OPERATIVE PROCEDURE: 1. Esophagogastroduodenoscopy with biopsies of gastric pouch for CLOtest (84094). 2. Excision of hidradenitis suppurativa left upper thigh and perineal area ([id number]). ANESTHESIA: Local plus IV sedation. INDICATION FOR PROCEDURE: This is a 33-year-old presenting with significant weight regain after previous successful Isma-en-Y gastric bypass to evaluate her anatomy and in anticipation of possible revision, she is undergoing upper GI endoscopy with biopsies and/or dilation as indicated. In addition, the patient has a focal area of what appears to be hidradenitis suppurativa in the upper left thigh and perineal area, which will be excised concurrently. Potential risks of the procedure including bleeding, infection, perforation at the time of the endoscopy were all reviewed, and the patient wishes to proceed. DETAILS OF PROCEDURE: The patient was taken to the operating room and placed in a left lateral decubitus position. IV sedation was administered, after which the upper GI endoscope was passed orally through the length of the esophagus into the gastric pouch and from there through the gastrojejunostomy and into Isma limb. 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 Through that opening, we visualized remainder of the bypassed stomach that could be well seen. It was also noted that the gastrojejunostomy itself was quite widened at this time and with those 2 factors in play, the patient at this point has relatively restriction present, biopsies were obtained from the gastric pouch and sent for CLOtest to assess for H. pylori status. Minimal bleeding from the biopsy site was seen and the procedure was then concluded. The patient was then placed in a supine position with the left leg somewhat frog-legged position. The area of hidradenitis suppurativa in the left upper thigh and perineal area was then prepped and draped and anesthetized with 1% lidocaine mixed with Marcaine. Elliptical incision in the transverse orientation was made, carried down through the skin and subcutaneous tissue, and the area of involvement which measured around 3 cm was then excised, maintaining a plane of dissection where there was definitely inflammation showing a complete removal of the area of concern. No purulence was encountered during the procedure. The incision was then closed with some 5-0 Vicryl stitch deep and a 5-0 Prolene stitch. Dressing applied. The patient was taken to the recovery room in satisfactory condition. The patient will be seen next Friday for followup. We will send out a letter of request to revise the Isma-en-Y gastric bypass to her insurance carrier at [facility]. Delgado Spears MD /[id number]
== END 2018-06-30 09:23 | disposition home or self-care (01) ==
LOC: JP.SDS 06:31
PROVIDERS: ATTEND Surgery
DX: K95.89 Other complications of other bariatric procedure (principal); L72.0 Epidermal cyst; E11.9 Type 2 diabetes mellitus without complications; F17.210 Nicotine dependence, cigarettes, uncomplicated; K21.9 Gastro-esophageal reflux disease without esophagitis; J45.909 Unspecified asthma, uncomplicated; E66.9 Obesity, unspecified; Z68.35 Body mass index [BMI] 35.0-35.9, adult
CPT/HCPCS: 11403; 12032; 43239; 81025; 87081; J1956; J2250; J2704; J3010; J3490; J7042; 88304

== ENCOUNTER 2018-08-05 18:35 | Emergency (ER) | payer MEDICAID ==
[2018-08-05 18:47] VITALS: BP 155/101
--- NOTE | 2018-08-05 19:08 | EDM.PDOC ---
ED HPI GENERAL MEDICAL PROBLEM - General Chief Complaint: ENT Problem Stated Complaint: TOOTH PAIN Time Seen by Provider: 08/05/18 18:52 Source of Information: Reports: Patient, Family, Old Records, RN Notes Reviewed History Limitations: Reports: No Limitations - History of Present Illness INITIAL COMMENTS - FREE TEXT/NARRATIVE: 33-year-old female presents emergency department today complaint of dental pain , she is severe dentition follows with dentistry and [place] however is unable to get into an appointment until September 21, she is currently on clindamycin and lidocaine topical for her dental pain. She is asking for further pain control if she feels she might have a breakthrough seizure due to her increasing pain Lower Gums Pain Score (Numeric/FACES): 9 - Related Data Allergies Allergy/AdvReac Type Severity Reaction Status Date / Time amoxicillin [Amoxicillin] Allergy Hives Verified 08/05/18 18:48 guaifenesin Allergy Cannot Verified 08/05/18 18:48 Remember meclizine Allergy Hives Verified 08/05/18 18:48 Penicillins Allergy Hives Verified 08/05/18 18:48 Sulfa (Sulfonamide Allergy Other Verified 08/05/18 18:48 Antibiotics) sulfamethoxazole Allergy Hives Verified 08/05/18 18:48 [From Bactrim] trimethoprim [From Bactrim] Allergy Hives Verified 08/05/18 18:48 oxycodone [Oxycodone] AdvReac Nausea and Verified 08/05/18 18:48 Vomiting propoxyphene AdvReac Nausea and Verified 08/05/18 18:48 Vomiting Home Meds: Home Meds Gabapentin [Neurontin] 300 mg PO TID 04/12/16 [History] levETIRAcetam [Keppra Xr] 750 mg PO BID 06/06/16 [History] Escitalopram Oxalate 20 mg PO DAILY 04/23/18 [History] Albuterol [Ventolin HFA] 2 puff IH QID 06/29/18 [History] Albuterol/Ipratropium [DuoNeb 3.0-0.5 MG/3 ML] 3 ml IH Q4H PRN 06/29/18 [History ] Cyanocobalamin (Vitamin B-12) [Cyanocobalamin Injection] 1,000 mcg PO ASDIRECTED 06/29/18 [History] Multivitamins with Iron [Chewable-Tramaine with Iron] 1 tab PO BID 06/29/18 [History ] Ondansetron [Zofran ODT] 4 mg PO Q4H PRN 06/29/18 [History] Past Medical History HEENT History: Reports: Impaired Vision, Other (See Below) Other HEENT History: chronic dental pain Cardiovascular History: Reports: Hypertension Respiratory History: Reports: Asthma, Bronchitis, Recurrent, Pneumonia, Recurrent Gastrointestinal History: Reports: Bowel Obstruction, Cholelithiasis Genitourinary History: Reports: UTI, Recurrent 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: Musculoskeletal History: Reports: Fracture Neurological History: Reports: Brain Injury, Headaches, Chronic, Migraines, Seizure, TIA Other Neuro History: minor stroke with meningitis Psychiatric History: Reports: Anxiety, Depression, Psych Hospitalization(s), Suicide Attempt, Suicidal Ideation Endocrine/Metabolic History: Reports: Obesity/BMI 30+ Hematologic History: Reports: Anemia, B12 Deficiency, Blood Transfusion(s), Folic Acid - Infectious Disease History Infectious Disease History: Reports: Chicken Pox - Past Surgical History Head Surgeries/Procedures: Reports: None HEENT Surgical History: Reports: Adenoidectomy, Tonsillectomy Respiratory Surgical History: Reports: None GI Surgical History: Reports: Bariatric Procedure, Cholecystectomy, Colon, Colonoscopy, EGD Female Surgical History: Reports: Breast Biopsy, D&C Neurological Surgical History: Reports: None Musculoskeletal Surgical History: Reports: None Dermatological Surgical History: Reports: None Social & Family History - Family History Family Medical History: Noncontributory - Tobacco Use Smoking Status *Q: Former Smoker Used Tobacco, but Quit: Yes Month/Year Tobacco Last Used: 06/2018 - Caffeine Use Caffeine Use: Reports: Coffee, Energy Drinks, Soda, Tea - Recreational Drug Use Recreational Drug Use: No - Living Situation & Occupation Living situation: Reports: Occupation: Unemployed ED ROS ENT - Review of Systems Review Of Systems: See Below Constitutional: Reports: No Symptoms HEENT: Reports: Dental Pain Respiratory: Reports: No Symptoms Cardiovascular: Reports: No Symptoms GI/Abdominal: Reports: No Symptoms ED EXAM, ENT - Physical Exam Exam: See Below Text/Narrative:: Mouth mucosa is moist and pink no erythema or exudate known soft palate dentition is poor multiple dental caries tenderness to palpation around the jaw neck is supple no thyromegaly no tracheal deviation no lymphadenopathy is appreciated Exam Limited By: No Limitations General Appearance: Alert, Mild Distress Respiratory/Chest: No Respiratory Distress Course - Vital Signs Last Recorded V/S: Last Vital Signs Temp 98.8 F 08/05/18 18:45 Pulse 102 H 08/05/18 18:45 Resp 17 08/05/18 18:45 BP 155/101 H 08/05/18 18:45 Pulse Ox 97 08/05/18 18:45 - Orders/Labs/Meds Meds: Medications Discontinued Medications Generic Name Dose Route Start Last Admin Trade Name Yisel PRN Reason Stop Dose Admin Fentanyl 100 mcg 08/05/18 19:03 Sublimaze IM 08/05/18 19:04 ONETIME ONE Departure - Departure Time of Disposition: 19:08 Disposition: Home, Self-Care 01 Condition: Poor Clinical Impression: Dental caries, Pain, dental - Discharge Information Referrals: Matthew Corona MD [Primary Care Provider] - Additional Instructions: Please report to the community [facility] tomorrow morning at 8 AM - Assessment/Plan Plan: Assessment Acuity = acute on chronic Site and laterality = dental pain Etiology = multiple dental caries Manifestations = none Location of injury = Home Lab values = none Plan Continue current medications of clindamycin and lidocaine topical, she was provided fentanyl 100 g 1 IM injection in the ED also set up for a referral to the community dental clinic for 8:00 in the morning This note was dictated using [employer] voice recognition software please call with any questions on syntax or grammar.
[2018-08-05] MEDS: fentaNYL 100 MCG/2 ML SDV IM ONE (19:11)
== END 2018-08-05 19:21 | disposition home or self-care (01) ==
LOC: JP.ED 18:35 → EEVIPCON 18:35 → JP.ED 19:21
DX: K02.9 Dental caries, unspecified (principal); I10 Essential (primary) hypertension; Z88.1 Allergy status to other antibiotic agents; Z88.8 Allergy status to other drugs, medicaments and biological substances; Z88.2 Allergy status to sulfonamides; Z79.899 Other long term (current) drug therapy; Z87.891 Personal history of nicotine dependence
CPT/HCPCS: 96372; 99282; J3010

== ENCOUNTER 2018-08-12 16:16 | Emergency (ER) | payer MEDICAID ==
[2018-08-12] MEDS ORDERED: Ketorolac 60 MG/2 ML SDV IM ONE (16:40)
[2018-08-12 16:53] VITALS: BP 136/75
--- NOTE | 2018-08-12 17:04 | EDM.PDOC ---
ED HPI GENERAL MEDICAL PROBLEM - General Chief Complaint: General Stated Complaint: SCIATIC NERVE PAIN, TOOTH PAIN Time Seen by Provider: 08/12/18 16:45 Source of Information: Reports: Patient, Old Records, RN History Limitations: Reports: No Limitations - History of Present Illness INITIAL COMMENTS - FREE TEXT/NARRATIVE: 33 yo female with chronic dental problems and intermittent episodes of R sided sciatica for years says her primary is not returning her calls. She is going to get a new provider. She has been promised a dental appt for tomorrow in [place] and john like pain meds to get her by until then. Has been taking any number of OTC agents without relief. No fever. Did have some teeth pulled recently and has more to go. Is on Keflex currently. Onset: Unknown/Unsure Duration: Chronic, Waxing/Waning Location: Reports: Face (mouth), Back (R buttocks and down her leg. 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: Acetaminophen, NSAIDS, Other Medication(s) (Gabapentin , topical agents) Lower Back Pain Score (Numeric/FACES): 8 - Related Data Allergies Allergy/AdvReac Type Severity Reaction Status Date / Time amoxicillin [Amoxicillin] Allergy Hives Verified 08/05/18 18:48 guaifenesin Allergy Cannot Verified 08/05/18 18:48 Remember meclizine Allergy Hives Verified 08/05/18 18:48 Penicillins Allergy Hives Verified 08/05/18 18:48 Sulfa (Sulfonamide Allergy Other Verified 08/05/18 18:48 Antibiotics) sulfamethoxazole Allergy Hives Verified 08/05/18 18:48 [From Bactrim] trimethoprim [From Bactrim] Allergy Hives Verified 08/05/18 18:48 oxycodone [Oxycodone] AdvReac Nausea and Verified 08/05/18 18:48 Vomiting propoxyphene AdvReac Nausea and Verified 08/05/18 18:48 Vomiting Home Meds: Home Meds Gabapentin [Neurontin] 300 mg PO TID 04/12/16 [History] levETIRAcetam [Keppra Xr] 750 mg PO BID 06/06/16 [History] Escitalopram Oxalate 20 mg PO DAILY 04/23/18 [History] Albuterol [Ventolin HFA] 2 puff IH QID 06/29/18 [History] Albuterol/Ipratropium [DuoNeb 3.0-0.5 MG/3 ML] 3 ml IH Q4H PRN 06/29/18 [History ] Cyanocobalamin (Vitamin B-12) [Cyanocobalamin Injection] 1,000 mcg PO ASDIRECTED 06/29/18 [History] Multivitamins with Iron [Chewable-Tramaine with Iron] 1 tab PO BID 06/29/18 [History ] Ondansetron [Zofran ODT] 4 mg PO Q4H PRN 06/29/18 [History] Acetaminophen/HYDROcodone [[place] 325-7.5 MG] 1 tab PO Q4H PRN #7 tab 08/12/18 [ Rx] Past Medical History - Past Health History Medical/Surgical History: Denies Medical/Surgical History HEENT History: Reports: Impaired Vision, Other (See Below) Other HEENT History: chronic dental pain Cardiovascular History: Reports: Hypertension Respiratory History: Reports: Asthma, Bronchitis, Recurrent, Pneumonia, Recurrent Gastrointestinal History: Reports: Bowel Obstruction, Cholelithiasis Genitourinary History: Reports: UTI, Recurrent 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: Musculoskeletal History: Reports: Fracture Neurological History: Reports: Brain Injury, Headaches, Chronic, Migraines, Seizure, TIA Other Neuro History: minor stroke with meningitis Psychiatric History: Reports: Anxiety, Depression, Psych Hospitalization(s), Suicide Attempt, Suicidal Ideation Endocrine/Metabolic History: Reports: Obesity/BMI 30+ Hematologic History: Reports: Anemia, B12 Deficiency, Blood Transfusion(s), Folic Acid - Infectious Disease History Infectious Disease History: Reports: Chicken Pox - Past Surgical History Head Surgeries/Procedures: Reports: None HEENT Surgical History: Reports: Adenoidectomy, Tonsillectomy Respiratory Surgical History: Reports: None GI Surgical History: Reports: Bariatric Procedure, Cholecystectomy, Colon, Colonoscopy, EGD Female Surgical History: Reports: Breast Biopsy, D&C Neurological Surgical History: Reports: None Musculoskeletal Surgical History: Reports: None Dermatological Surgical History: Reports: None Social & Family History - Family History Family Medical History: Noncontributory - Tobacco Use Smoking Status *Q: Never Smoker - Caffeine Use Caffeine Use: Reports: Soda - Recreational Drug Use Recreational Drug Use: No - Living Situation & Occupation Living situation: Reports: Occupation: Unemployed ED ROS GENERAL - Review of Systems Review Of Systems: See Below Constitutional: Reports: No Symptoms HEENT: Reports: Dental Pain Musculoskeletal: Reports: Back Pain (To R buttocks and down the back of her leg ) Skin: Reports: No Symptoms Neurological: Reports: Other (R sciatica) ED EXAM, GENERAL - Physical Exam Exam: See Below Exam Limited By: No Limitations General Appearance: Alert, WD/WN, No Apparent Distress Eye Exam: Bilateral Eye: Normal Inspection Ears: Normal External Exam, Normal Canal, Hearing Grossly Normal Ear Exam: Bilateral Ear: Auricle Normal, Canal Normal Nose: Normal Inspection, Normal Mucosa, No Blood Throat/Mouth: Normal Lips, Normal Oropharynx, Normal Voice, No Airway Compromise , Other (most teeth missing. Some have caps that are temporary.). No: Normal Teeth Head: Atraumatic, Normocephalic, Other (no facial swelling ) Neck: Normal Inspection. No: Lymphadenopathy (R), Lymphadenopathy (L) Respiratory/Chest: No Respiratory Distress, No Accessory Muscle Use Extremities: Normal Inspection Neurological: Alert, Oriented, CN II-XII Intact, Normal Cognition, No Motor/ Sensory Deficits Psychiatric: Normal Affect, Normal Mood Skin Exam: Warm, Dry, Intact, Normal Color, No Rash Course - Vital Signs Last Recorded V/S: Last Vital Signs Temp 36.9 C 08/12/18 16:24 Pulse 87 08/12/18 16:24 Resp 18 08/12/18 16:24 BP 136/75 08/12/18 16:24 Pulse Ox - Orders/Labs/Meds Meds: Medications Discontinued Medications Generic Name Dose Route Start Last Admin Trade Name Blackq PRN Reason Stop Dose Admin Ketorolac Tromethamine 60 mg 08/12/18 16:40 Toradol IM 08/12/18 16:41 ONETIME ONE Departure - Departure Time of Disposition: 17:06 Disposition: Home, Self-Care 01 Condition: Good Clinical Impression: Pain, dental Sciatica Qualifiers: Laterality: right Qualified Code(s): M54.31 - Sciatica, right side - Discharge Information *PRESCRIPTION DRUG MONITORING PROGRAM REVIEWED*: No *COPY OF PRESCRIPTION DRUG MONITORING REPORT IN PATIENT GERRI: No Prescriptions: Acetaminophen/HYDROcodone [[place] 325-7.5 MG] 1 tab PO Q4H PRN #7 tab PRN Reason: Pain Referrals: PCP,None [Primary Care Provider] -
== END 2018-08-12 17:23 | disposition home or self-care (01) ==
LOC: JP.ED 16:16
DX: M54.31 Sciatica, right side (principal); K08.89 Other specified disorders of teeth and supporting structures; I10 Essential (primary) hypertension; F41.9 Anxiety disorder, unspecified; F32.9 Major depressive disorder, single episode, unspecified; Z79.899 Other long term (current) drug therapy; Z88.0 Allergy status to penicillin; Z88.1 Allergy status to other antibiotic agents; Z88.6 Allergy status to analgesic agent; Z88.8 Allergy status to other drugs, medicaments and biological substances
CPT/HCPCS: 96372; 99282; J1885

== ENCOUNTER 2018-08-17 22:01 | Emergency (ER) | payer MEDICAID ==
[2018-08-17 22:20] VITALS: BP 130/83
[2018-08-17] MEDS ORDERED: LORazepam 2 MG/ML SDV IM ONE (22:59)
[2018-08-17] MEDS ORDERED: Ketorolac 60 MG/2 ML SDV IM ONE (23:01)
--- NOTE | 2018-08-17 23:06 | EDM.PDOC ---
ED HPI GENERAL MEDICAL PROBLEM - General Chief Complaint: Back Pain or Injury Stated Complaint: FELL DOWNSTAIRS Time Seen by Provider: 08/17/18 22:33 Source of Information: Reports: Patient, Family ( and Toddler at bedside) History Limitations: Reports: No Limitations - History of Present Illness INITIAL COMMENTS - FREE TEXT/NARRATIVE: chief complaint: acute generalized back pain and dental pain: this is a 33 year old female presents to ER with her and child. Reports this evening at about 8:30 pm was walking down the stairs, slipped and fell. sliding down the stairs on back and butt. During the fall bit down on her teeth which are already in pain from dental infection. She did not hit her head or have any alter consciousness. has bruising on her legs and side, also blisters on hands from trying to grab the rails to stop the fall. After fall she was able to get up and walk up the stairs, and out to car. And walked into the ER without any difficulty. She reports had a anxiety like attack from being in so much pain. Onset: Today Onset Date: 08/17/18 Onset Time: 20:30 Duration: Constant Location: Reports: Back Quality: Reports: Ache, Burning Severity: Moderate Improves with: Reports: Rest Worsens with: Reports: Movement Context: Reports: Other (fall at home) - Related Data Allergies Allergy/AdvReac Type Severity Reaction Status Date / Time amoxicillin [Amoxicillin] Allergy Hives Verified 08/17/18 22:20 guaifenesin Allergy Cannot Verified 08/17/18 22:20 Remember meclizine Allergy Hives Verified 08/17/18 22:20 Penicillins Allergy Hives Verified 08/17/18 22:20 Sulfa (Sulfonamide Allergy Other Verified 08/17/18 22:20 Antibiotics) sulfamethoxazole Allergy Hives Verified 08/17/18 22:20 [From Bactrim] trimethoprim [From Bactrim] Allergy Hives Verified 08/17/18 22:20 oxycodone [Oxycodone] AdvReac Nausea and Verified 08/17/18 22:20 Vomiting propoxyphene AdvReac Nausea and Verified 08/17/18 22:20 Vomiting Home Meds: Home Meds Gabapentin [Neurontin] 300 mg PO TID 04/12/16 [History] levETIRAcetam [Keppra Xr] 750 mg PO BID 06/06/16 [History] Escitalopram Oxalate 20 mg PO DAILY 04/23/18 [History] Albuterol [Ventolin HFA] 2 puff IH QID 06/29/18 [History] Albuterol/Ipratropium [DuoNeb 3.0-0.5 MG/3 ML] 3 ml IH Q4H PRN 06/29/18 [History ] Cyanocobalamin (Vitamin B-12) [Cyanocobalamin Injection] 1,000 mcg PO ASDIRECTED 06/29/18 [History] Multivitamins with Iron [Chewable-Tramaine with Iron] 1 tab PO BID 06/29/18 [History ] Ondansetron [Zofran ODT] 4 mg PO Q4H PRN 06/29/18 [History] Acetaminophen/HYDROcodone [[place] 325-7.5 MG] 1 tab PO Q4H PRN #7 tab 08/12/18 [ Rx] Past Medical History - Past Health History Medical/Surgical History: Denies Medical/Surgical History HEENT History: Reports: Impaired Vision, Other (See Below) Other HEENT History: chronic dental pain Cardiovascular History: Reports: Hypertension Respiratory History: Reports: Asthma, Bronchitis, Recurrent, Pneumonia, Recurrent Gastrointestinal History: Reports: Bowel Obstruction, Cholelithiasis Genitourinary History: Reports: UTI, Recurrent 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: Musculoskeletal History: Reports: Fracture Neurological History: Reports: Brain Injury, Headaches, Chronic, Migraines, Seizure, TIA Other Neuro History: minor stroke with meningitis Psychiatric History: Reports: Anxiety, Depression, Psych Hospitalization(s), Suicide Attempt, Suicidal Ideation Endocrine/Metabolic History: Reports: Obesity/BMI 30+ Hematologic History: Reports: Anemia, B12 Deficiency, Blood Transfusion(s), Folic Acid - Infectious Disease History Infectious Disease History: Reports: Chicken Pox - Past Surgical History Head Surgeries/Procedures: Reports: None HEENT Surgical History: Reports: Adenoidectomy, Tonsillectomy Respiratory Surgical History: Reports: None GI Surgical History: Reports: Bariatric Procedure, Cholecystectomy, Colon, Colonoscopy, EGD Female Surgical History: Reports: Breast Biopsy, D&C Neurological Surgical History: Reports: None Musculoskeletal Surgical History: Reports: None Dermatological Surgical History: Reports: None Social & Family History - Family History Family Medical History: Noncontributory - Tobacco Use Smoking Status *Q: Never Smoker - Caffeine Use Caffeine Use: Reports: Coffee, Energy Drinks, Soda - Recreational Drug Use Recreational Drug Use: No - Living Situation & Occupation Living situation: Reports: Occupation: Unemployed ED ROS GENERAL - Review of Systems Review Of Systems: See Below Constitutional: Reports: Other (generalized back pain and dental pain) HEENT: Reports: Dental Pain (chronic, awaiting dental procedure next week at [facility]) Respiratory: Reports: No Symptoms Cardiovascular: Reports: No Symptoms Endocrine: Reports: No Symptoms GI/Abdominal: Reports: Nausea (reports chronic nausea), Other (hx of gastric bypass) : Reports: No Symptoms Musculoskeletal: Reports: Back Pain (midline back pain, radiated to bilateral buttocks. ), Muscle Pain Skin: Reports: Bruising (lower legs, arms, blisters on palms of hands) Neurological: Reports: Pre-Existing Deficit Psychiatric: Reports: Anxiety (having a anxiety attack for fall and pain) Hematologic/Lymphatic: Reports: No Symptoms ED EXAM, GENERAL - Physical Exam Exam: See Below Exam Limited By: No Limitations General Appearance: Alert, WD/WN, Anxious, Moderate Distress, Obese Eye Exam: Bilateral Eye: EOMI, Normal Inspection, PERRL Ears: Normal External Exam, Normal Canal, Hearing Grossly Normal, Normal TMs Nose: Normal Inspection, Normal Mucosa, No Blood Throat/Mouth: Normal Inspection, Normal Lips, Normal Voice, No Airway Compromise , Inflammation (gum), Other (multi missing teeth, severe dental decay noted to remaining teeth. gums with inflammation) Head: Atraumatic, Normocephalic Neck: Normal Inspection, Supple, Non-Tender, Full Range of Motion Respiratory/Chest: No Respiratory Distress, Lungs Clear, Normal Breath Sounds, No Accessory Muscle Use, Chest Non-Tender Cardiovascular: Normal Peripheral Pulses, Regular Rate, Rhythm, No Edema, No Murmur Peripheral Pulses: 2+: Radial (L), Radial (R), Dorsalis Pedis (L), Dorsalis Pedis (R) GI/Abdominal: Normal Bowel Sounds, Soft, Non-Tender (Female) Exam: Deferred Rectal (Female) Exam: Deferred Back Exam: Normal Inspection (no bruising or abrasion are seen on buttocks or back.), Muscle Spasm (generalize back pain with palpation of spine, shoulders, buttocks. ) Extremities: Normal Inspection, Normal Range of Motion (able to move arms and legs without any limitations. walking without a limp.), Normal Capillary Refill Neurological: Alert, Oriented, CN II-XII Intact, Normal Cognition, Normal Gait, No Motor/Sensory Deficits Psychiatric: Anxious, Tearful Skin Exam: Warm, Dry, Intact, Ecchymosis (few scattered bruising noted to lower legs and arms. closed blisteres noted to palms of hands.) Lymphatic: No Adenopathy Course - Vital Signs Last Recorded V/S: Last Vital Signs Temp 36.6 C 08/17/18 22:17 Pulse 87 08/17/18 22:17 Resp 16 08/17/18 22:17 BP 130/83 08/17/18 22:17 Pulse Ox 98 08/17/18 22:17 - Orders/Labs/Meds Labs: Laboratory Tests 08/17/18 08/17/18 Range/Units 22:44 22:44 Urine Color Yellow Urine Appearance Clear Urine pH 5.0 (4.5-8.0) Ur Specific [place] 1.025 (1.008-1.030) Urine Protein Negative (NEGATIVE) mg/dL Urine Glucose (UA) Normal (NEGATIVE) mg/dL Urine Ketones Negative (NEGATIVE) mg/dL Urine Occult Blood Negative (NEGATIVE) Urine Nitrite Negative (NEGATIVE) Urine Bilirubin Negative (NEGATIVE) Urine Urobilinogen Normal (NORMAL) mg/dL Ur Leukocyte Esterase Negative (NEGATIVE) Urine RBC 0-5 (0-5) Urine WBC 0-5 (0-5) Ur Epithelial Cells Few Amorphous Sediment Urine Bacteria Few Urine Mucus Not seen Urine Opiates Screen Negative (NEGATIVE) Ur Oxycodone Screen Presumptive positive H (NEGATIVE) Urine Methadone Screen Negative (NEGATIVE) Ur Propoxyphene Screen Negative (NEGATIVE) Ur Barbiturates Screen Presumptive positive H (NEGATIVE) Ur Tricyclics Screen Negative (NEGATIVE) Ur Phencyclidine Scrn Negative (NEGATIVE) Ur Amphetamine Screen Negative (NEGATIVE) U Methamphetamines Scrn Negative (NEGATIVE) Urine MDMA Screen Negative (NEGATIVE) U Benzodiazepines Scrn Negative (NEGATIVE) U Cocaine Metab Screen Negative (NEGATIVE) U Marijuana (THC) Screen Negative (NEGATIVE) Meds: Medications Discontinued Medications Generic Name Dose Route Start Last Admin Trade Name Freq PRN Reason Stop Dose Admin Ketorolac Tromethamine 60 mg 08/17/18 23:01 Toradol IM 08/17/18 23:02 ONETIME ONE Lorazepam 1 mg 08/17/18 22:59 Ativan IM 08/17/18 23:00 ONETIME ONE - Re-Assessments/Exams Free Text/Narrative Re-Assessment/Exam: 08/17/18 discussed with Esther and , she is able to move all arms and legs without any limitations. exam is negative for acute bony injury. urine sample does not show any blood or infections. will treat for pain and panic attack. will give Ativan 1 mg IM and Toradol 60mg IM. Discharge medication Flexeril and Hydrocodone for pain and muscle spasms. advised to follow up in Primary Care Clinic for a recheck this week. Return to ER if has any worsen symptoms or any concerns. Esther and her agree with plan of care. Departure - Departure Time of Disposition: 23:01 Disposition: Home, Self-Care 01 Condition: Good Clinical Impression: Fall at home Qualifiers: Encounter type: initial encounter Qualified Code(s): W19.XXXA - Unspecified fall, initial encounter Back pain Qualifiers: Back pain location: back pain in unspecified location Back pain laterality: midline - Discharge Information *PRESCRIPTION DRUG MONITORING PROGRAM REVIEWED*: No *COPY OF PRESCRIPTION DRUG MONITORING REPORT IN PATIENT GERRI: No Instructions: Acute Back Pain, Adult Referrals: PCP,None [Primary Care Provider] - Forms: ED Department Discharge Care Plan Goals: Fall at home. acute back pain -Flexeril 10mg one tablet every 8 hours as needed for muscle pain #15 -continue over the counter Tylenol and Motrin for pain control -Hydrocodone 5-325mg one every 4 to 6 hours as needed for acute pain #6 -make appointment in Primary Care for recheck in next 2 to 3 days Return to ER if has increased pain, fever, chills, nausea, vomiting, rash or not improved. - Problem List & Annotations (1) Back pain SNOMED Code(s): 391027155 Code(s): M54.9 - DORSALGIA, UNSPECIFIED Status: Acute Priority: High Current Visit: Yes Qualifiers: Back pain location: back pain in unspecified location Back pain laterality : midline (2) Fall at home SNOMED Code(s): 54185050 Code(s): W19.XXXA - UNSPECIFIED FALL, INITIAL ENCOUNTER; Y92.009 - UNSP PLACE IN UNSP NON-INSTITUT (PRIVATE) RESIDENCE PLACE Status: Acute Priority: High Current Visit: Yes Qualifiers: Encounter type: initial encounter Qualified Code(s): W19.XXXA - Unspecified fall, initial encounter; Y92.009 - Unspecified place in unspecified non-institutional (private) residence as the place of occurrence of the external cause - Problem List Review Problem List Initiated/Reviewed/Updated: Yes - Assessment/Plan Plan: Fall at home. acute back pain -Flexeril 10mg one tablet every 8 hours as needed for muscle pain #15 -continue over the counter Tylenol and Motrin for pain control -Hydrocodone 5-325mg one every 4 to 6 hours as needed for acute pain #6 -make appointment in Primary Care for recheck in next 2 to 3 days Return to ER if has increased pain, fever, chills, nausea, vomiting, rash or not improved.
== END 2018-08-17 23:24 | disposition home or self-care (01) ==
LOC: JP.ED 22:01
DX: M54.9 Dorsalgia, unspecified (principal); I10 Essential (primary) hypertension; J45.909 Unspecified asthma, uncomplicated; F41.9 Anxiety disorder, unspecified; F32.9 Major depressive disorder, single episode, unspecified; Z88.1 Allergy status to other antibiotic agents; Z88.8 Allergy status to other drugs, medicaments and biological substances; Z88.5 Allergy status to narcotic agent; Z79.899 Other long term (current) drug therapy; Y92.009 Unspecified place in unspecified non-institutional (private) residence as the place of occurrence of the external cause; W10.9XXA Fall (on) (from) unspecified stairs and steps, initial encounter
CPT/HCPCS: 80305; 81001; 96372; 99283; J1885; J2060

== ENCOUNTER 2018-08-20 19:46 | Emergency (ER) | payer MEDICAID ==
[2018-08-20 20:06] VITALS: BP 148/89
[2018-08-20] MEDS ORDERED: Ketorolac 60 MG/2 ML SDV IM ONE (21:21)
--- NOTE | 2018-08-20 21:31 | EDM.PDOC ---
ED HPI GENERAL MEDICAL PROBLEM - General Chief Complaint: General Stated Complaint: SEVERE DENTAL PAIN Time Seen by Provider: 08/20/18 20:36 Source of Information: Reports: Patient, Family ( in room) History Limitations: Reports: No Limitations - History of Present Illness INITIAL COMMENTS - FREE TEXT/NARRATIVE: chief complaint: dental pain This is a 33 year old female presents to ER for dental pain. This is her 4 th. visit to the ER ( 08/05, 08/14, 08/17, 08/20) for pain control. She reports difficulty with contact to Primary Care Provider, was able to get Dental Appointment move to August 26 instead of the later date. report she is unable to eat or function due to the pain. denies fever or chills. 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, Home Treatments, NSAIDS, Other Medication(s) Tooth/Teeth Pain Score (Numeric/FACES): 10 - Related Data Allergies Allergy/AdvReac Type Severity Reaction Status Date / Time amoxicillin [Amoxicillin] Allergy Hives Verified 08/20/18 20:07 guaifenesin Allergy Cannot Verified 08/20/18 20:07 Remember meclizine Allergy Hives Verified 08/20/18 20:07 Penicillins Allergy Hives Verified 08/20/18 20:07 Sulfa (Sulfonamide Allergy Other Verified 08/20/18 20:07 Antibiotics) sulfamethoxazole Allergy Hives Verified 08/20/18 20:07 [From Bactrim] trimethoprim [From Bactrim] Allergy Hives Verified 08/20/18 20:07 oxycodone [Oxycodone] AdvReac Nausea and Verified 08/20/18 20:07 Vomiting propoxyphene AdvReac Nausea and Verified 08/20/18 20:07 Vomiting Home Meds: Home Meds Gabapentin [Neurontin] 300 mg PO TID 04/12/16 [History] levETIRAcetam [Keppra Xr] 750 mg PO BID 06/06/16 [History] Escitalopram Oxalate 20 mg PO DAILY 04/23/18 [History] Albuterol [Ventolin HFA] 2 puff IH QID 06/29/18 [History] Albuterol/Ipratropium [DuoNeb 3.0-0.5 MG/3 ML] 3 ml IH Q4H PRN 06/29/18 [History ] Cyanocobalamin (Vitamin B-12) [Cyanocobalamin Injection] 1,000 mcg PO ASDIRECTED 06/29/18 [History] Multivitamins with Iron [Chewable-Tramaine with Iron] 1 tab PO BID 06/29/18 [History ] Ondansetron [Zofran ODT] 4 mg PO Q4H PRN 06/29/18 [History] Past Medical History - Past Health History Medical/Surgical History: Denies Medical/Surgical History HEENT History: Reports: Impaired Vision, Other (See Below) Other HEENT History: chronic dental pain Cardiovascular History: Reports: Hypertension Respiratory History: Reports: Asthma, Bronchitis, Recurrent, Pneumonia, Recurrent Gastrointestinal History: Reports: Bowel Obstruction, Cholelithiasis Genitourinary History: Reports: UTI, Recurrent 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: Musculoskeletal History: Reports: Fracture Neurological History: Reports: Brain Injury, Headaches, Chronic, Migraines, Seizure, TIA Other Neuro History: minor stroke with meningitis Psychiatric History: Reports: Anxiety, Depression, Psych Hospitalization(s), Suicide Attempt, Suicidal Ideation Endocrine/Metabolic History: Reports: Obesity/BMI 30+ Hematologic History: Reports: Anemia, B12 Deficiency, Blood Transfusion(s), Folic Acid - Infectious Disease History Infectious Disease History: Reports: Chicken Pox - Past Surgical History Head Surgeries/Procedures: Reports: None HEENT Surgical History: Reports: Adenoidectomy, Tonsillectomy Cardiovascular Surgical History: Reports: None Respiratory Surgical History: Reports: None GI Surgical History: Reports: Bariatric Procedure, Cholecystectomy, Colon, Colonoscopy, EGD Female Surgical History: Reports: Breast Biopsy, D&C Endocrine Surgical History: Reports: None Neurological Surgical History: Reports: None Musculoskeletal Surgical History: Reports: None Dermatological Surgical History: Reports: None Social & Family History - Family History Family Medical History: Noncontributory - Tobacco Use Smoking Status *Q: Never Smoker Second Hand Smoke Exposure: No - Caffeine Use Caffeine Use: Reports: Coffee, Energy Drinks, Soda - Recreational Drug Use Recreational Drug Use: No - Living Situation & Occupation Living situation: Reports: Occupation: Unemployed ED ROS GENERAL - Review of Systems Review Of Systems: See Below Constitutional: Reports: Decreased Appetite, Other (dental pain) HEENT: Reports: Dental Pain Respiratory: Reports: No Symptoms Cardiovascular: Reports: No Symptoms Skin: Reports: No Symptoms Psychiatric: Reports: Agitation Hematologic/Lymphatic: Reports: No Symptoms Immunologic: Reports: No Symptoms ED EXAM, GENERAL - Physical Exam Exam: See Below Exam Limited By: No Limitations General Appearance: Moderate Distress (crying, holding face. confrontational), Obese, Other (neat and well groomed. wearing make up. but is in acute distress, making complaints about long waits in ER, not being treated with enought pain pills to last until appointment time. ) Eye Exam: Bilateral Eye: Normal Inspection, PERRL Ears: Normal External Exam, Normal Canal, Hearing Grossly Normal, Normal TMs Nose: Normal Inspection, Normal Mucosa Throat/Mouth: Other (multi missing teeth, remaining teeth are in poor conditions with severe cavities to gum line. gum with inflammation. no abscess or facial edema is noted.) Head: Atraumatic, Normocephalic, Facial Tenderness Neck: Normal Inspection, Supple, Non-Tender, Full Range of Motion Respiratory/Chest: No Respiratory Distress, Lungs Clear, Normal Breath Sounds Cardiovascular: Regular Rate, Rhythm, No Murmur Neurological: No Motor/Sensory Deficits Psychiatric: Anxious, Tearful (crying and hollaring about her pain.) Lymphatic: No Adenopathy Course - Vital Signs Last Recorded V/S: Last Vital Signs Temp 36.3 C 08/20/18 20:09 Pulse 78 08/20/18 20:09 Resp 16 08/20/18 20:09 BP 148/89 H 08/20/18 20:09 Pulse Ox 98 08/20/18 20:09 - Orders/Labs/Meds Meds: Medications Discontinued Medications Generic Name Dose Route Start Last Admin Trade Name Yisel PRN Reason Stop Dose Admin Ketorolac Tromethamine 60 mg 08/20/18 21:21 08/20/18 21:39 Toradol IM 08/20/18 21:22 60 mg ONETIME ONE Administration - Re-Assessments/Exams Free Text/Narrative Re-Assessment/Exam: 08/20/18 discussed with give Toradol 60 mg IM, InstyMeds will be Keflex 500mg , Hydrocodone 5-325mg one po every 4 to 6 hr prn #4. advise to follow up in Dental Clinic, will not give out large quantities of pain medication, its just not done in ER for dental pain. She will need to follow up in Primary Care for chronic pain medications. return to ER for acute pain management. Esther and her /Boyfriend agree with plan of care. Departure - Departure Time of Disposition: 21:26 Disposition: Home, Self-Care 01 Condition: Good Clinical Impression: Pain due to dental caries - Discharge Information *PRESCRIPTION DRUG MONITORING PROGRAM REVIEWED*: No *COPY OF PRESCRIPTION DRUG MONITORING REPORT IN PATIENT GERRI: No Instructions: Diet and Dental Disease Referrals: PCP,None [Primary Care Provider] - Forms: ED Department Discharge Care Plan Goals: Dental Pain, multi teeth with severe decay -start Keflex 500mg three times a day til gone -continue Motrin and Tylenol as directed for pain -Hydrocodone 5-325 mg take one every 4 to 6 hours as needed for pain #$ -apply warm heat to area of pain, example warm wash cloth to face for 20 minutes every 1 to 2 hours for comfort -keep Dental appoint, call in am for possible getting in sooner. Return to Clinic, Urgent Care or ER if not improved or symptoms worsen. - Problem List & Annotations (1) Pain due to dental caries SNOMED Code(s): 47121184, 43111193 Code(s): K02.9 - DENTAL CARIES, UNSPECIFIED Status: Acute Priority: Medium - Problem List Review Problem List Initiated/Reviewed/Updated: Yes - Assessment/Plan Assessment:: Dental Pain, multi teeth with severe decay -start Keflex 500mg three times a day til gone -continue Motrin and Tylenol as directed for pain -Hydrocodone 5-325 mg take one every 4 to 6 hours as needed for pain #$ -apply warm heat to area of pain, example warm wash cloth to face for 20 minutes every 1 to 2 hours for comfort -keep Dental appoint, call in am for possible getting in sooner. Return to Clinic, Urgent Care or ER if not improved or symptoms worsen.
== END 2018-08-20 21:43 | disposition home or self-care (01) ==
LOC: JP.ED 19:46
DX: K02.9 Dental caries, unspecified (principal); I10 Essential (primary) hypertension; J45.909 Unspecified asthma, uncomplicated; F41.9 Anxiety disorder, unspecified; F32.9 Major depressive disorder, single episode, unspecified; Z88.1 Allergy status to other antibiotic agents; Z88.8 Allergy status to other drugs, medicaments and biological substances; Z79.899 Other long term (current) drug therapy
CPT/HCPCS: 96372; 99282; J1885

== ENCOUNTER 2018-08-22 18:45 | Emergency (ER) | payer MEDICAID ==
[2018-08-22 20:42] VITALS: BP 130/84
--- NOTE | 2018-08-22 21:30 | EDM.PDOC ---
ED HPI GENERAL MEDICAL PROBLEM - General Chief Complaint: ENT Problem Stated Complaint: TOOTH Time Seen by Provider: 08/22/18 21:00 Source of Information: Reports: Patient History Limitations: Reports: No Limitations - History of Present Illness INITIAL COMMENTS - FREE TEXT/NARRATIVE: 33-year-old female with ongoing dental pain. Duration: Chronic Associated Symptoms: Denies: Fever/Chills, Nausea/Vomiting - Related Data Allergies Allergy/AdvReac Type Severity Reaction Status Date / Time amoxicillin [Amoxicillin] Allergy Hives Verified 08/22/18 20:35 guaifenesin Allergy Cannot Verified 08/22/18 20:35 Remember meclizine Allergy Hives Verified 08/22/18 20:35 Penicillins Allergy Hives Verified 08/22/18 20:35 Sulfa (Sulfonamide Allergy Other Verified 08/22/18 20:35 Antibiotics) sulfamethoxazole Allergy Hives Verified 08/22/18 20:35 [From Bactrim] trimethoprim [From Bactrim] Allergy Hives Verified 08/22/18 20:35 oxycodone [Oxycodone] AdvReac Nausea and Verified 08/22/18 20:35 Vomiting propoxyphene AdvReac Nausea and Verified 08/22/18 20:35 Vomiting Home Meds: Home Meds Gabapentin [Neurontin] 300 mg PO TID 04/12/16 [History] levETIRAcetam [Keppra Xr] 750 mg PO BID 06/06/16 [History] Escitalopram Oxalate 20 mg PO DAILY 04/23/18 [History] Albuterol [Ventolin HFA] 2 puff IH QID 06/29/18 [History] Albuterol/Ipratropium [DuoNeb 3.0-0.5 MG/3 ML] 3 ml IH Q4H PRN 06/29/18 [History ] Cyanocobalamin (Vitamin B-12) [Cyanocobalamin Injection] 1,000 mcg PO ASDIRECTED 06/29/18 [History] Multivitamins with Iron [Chewable-Tramaine with Iron] 1 tab PO BID 06/29/18 [History ] Ondansetron [Zofran ODT] 4 mg PO Q4H PRN 06/29/18 [History] Past Medical History - Past Health History Medical/Surgical History: Denies Medical/Surgical History HEENT History: Reports: Impaired Vision, Other (See Below) Other HEENT History: chronic dental pain Cardiovascular History: Reports: Hypertension Respiratory History: Reports: Asthma, Bronchitis, Recurrent, Pneumonia, Recurrent Gastrointestinal History: Reports: Bowel Obstruction, Cholelithiasis Genitourinary History: Reports: UTI, Recurrent 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: Musculoskeletal History: Reports: Fracture Neurological History: Reports: Brain Injury, Headaches, Chronic, Migraines, Seizure, TIA Other Neuro History: minor stroke with meningitis Psychiatric History: Reports: Anxiety, Depression, Psych Hospitalization(s), Suicide Attempt, Suicidal Ideation Endocrine/Metabolic History: Reports: Obesity/BMI 30+ Hematologic History: Reports: Anemia, B12 Deficiency, Blood Transfusion(s), Folic Acid - Infectious Disease History Infectious Disease History: Reports: Chicken Pox - Past Surgical History Head Surgeries/Procedures: Reports: None HEENT Surgical History: Reports: Adenoidectomy, Tonsillectomy Cardiovascular Surgical History: Reports: None Respiratory Surgical History: Reports: None GI Surgical History: Reports: Bariatric Procedure, Cholecystectomy, Colon, Colonoscopy, EGD Female Surgical History: Reports: Breast Biopsy, D&C Endocrine Surgical History: Reports: None Neurological Surgical History: Reports: None Musculoskeletal Surgical History: Reports: None Dermatological Surgical History: Reports: None Social & Family History - Family History Family Medical History: Noncontributory - Tobacco Use Smoking Status *Q: Current Every Day Smoker Years of Tobacco use: 12 Packs/Tins Daily: 0.2 - Caffeine Use Caffeine Use: Reports: Coffee, Energy Drinks, Soda - Living Situation & Occupation Living situation: Reports: Occupation: Unemployed ED ROS ENT - Review of Systems Review Of Systems: See Below Constitutional: Denies: Fever, Chills HEENT: Reports: Other (Dental pain, mostly mandibular on the left the second canine, also some molar tenderness in the upper bilateral maxillary molars) Respiratory: Reports: No Symptoms ED EXAM, ENT - Physical Exam Exam: See Below Exam Limited By: No Limitations General Appearance: Alert, Anxious, Other Mouth/Throat: Other (Acute distress but looks very uncomfortable widespread dental decay, edentulous over the majority of the gumline.) Head: Atraumatic Respiratory/Chest: No Respiratory Distress Neurological: Alert, Oriented Skin: Warm, Dry Course - Vital Signs Last Recorded V/S: Last Vital Signs Temp 96.6 F 08/22/18 20:41 Pulse 63 08/22/18 20:41 Resp 14 08/22/18 20:41 BP 130/84 08/22/18 20:41 Pulse Ox 98 08/22/18 20:41 - Re-Assessments/Exams Free Text/Narrative Re-Assessment/Exam: 08/22/18 23:24 Patient is transferring care to a new provider next week. She was given 20 hydrocodone to use sparingly over the next several days until she can establish care. Needs to continue the anti-inflammatories and keep her dental appointment as scheduled, it may be worthwhile to call to see if she can get on a waiting list to get her appointment moved sooner. Departure - Departure Time of Disposition: 21:55 Disposition: Home, Self-Care 01 Clinical Impression: Chronic dental pain - Discharge Information Instructions: Pain Medicine Instructions Referrals: PCP,None [Primary Care Provider] - Forms: ED Department Discharge Care Plan Goals: Continue with anti-inflammatories, antibiotic as directed and use stronger pain medication sparingly and keep your appointments as scheduled.
== END 2018-08-22 21:55 | disposition home or self-care (01) ==
LOC: JP.ED 18:45
DX: K08.89 Other specified disorders of teeth and supporting structures (principal); G89.29 Other chronic pain; I10 Essential (primary) hypertension; J45.909 Unspecified asthma, uncomplicated; Z88.1 Allergy status to other antibiotic agents; Z88.8 Allergy status to other drugs, medicaments and biological substances; Z88.2 Allergy status to sulfonamides; Z88.5 Allergy status to narcotic agent; Z79.899 Other long term (current) drug therapy
CPT/HCPCS: 99282

== ENCOUNTER 2018-08-30 18:21 | Emergency (ER) | payer MEDICAID ==
[2018-08-30 18:33] VITALS: BP 131/77
--- NOTE | 2018-08-30 19:04 | EDM.PDOC ---
ED HPI GENERAL MEDICAL PROBLEM - General Chief Complaint: ENT Problem Stated Complaint: TOOTH PAIN Time Seen by Provider: 08/30/18 18:35 Source of Information: Reports: Patient History Limitations: Reports: No Limitations - History of Present Illness INITIAL COMMENTS - FREE TEXT/NARRATIVE: 33 year old female present with concerns regarding right upper tooth pain and gum line pain. Tooth pain [id number] days ago and has progressively worsened. Pain as a constant pressure and stabling pain that worsens with eating, chewing , hot or cold exposure. Patient has not slept well for nearly a week. Patient is currently taking keflex due to PCN allergy and has 2-3 days of 10 days course remains. Patient admits to foul taste or drainage from painful tooth/ teeth. Patient has not noted some slight facial swelling and along the gum line. Patient states has noted a chip in the effected tooth. Patient has attempted to contacted a dentist for follow-up appointment in the near future. Patient haa been working with a dentist and majority of teeth have been pulled planning dentures. Patient does have a oral surgery appointment early September to get a number of her remaining teeth pulled. . Patient has taken any OTC some medications Tylenol, Ibuprofen, Naproxen, Lidocaine Viscous, Gabapentin today to help with pain and/or swelling. The OTC medications minimally improved symptoms. Patient denies any fever, chills, sweats, and shortness of breath, difficulty breathing or swallowing, chest pain, diarrhea, constipation. No pain or burning with urination. No upper respiratory tract symptoms. Tooth/Teeth Pain Score (Numeric/FACES): 10 - Related Data Allergies Allergy/AdvReac Type Severity Reaction Status Date / Time amoxicillin [Amoxicillin] Allergy Hives Verified 08/22/18 20:35 guaifenesin Allergy Cannot Verified 08/22/18 20:35 Remember meclizine Allergy Hives Verified 08/22/18 20:35 Penicillins Allergy Hives Verified 08/22/18 20:35 Sulfa (Sulfonamide Allergy Other Verified 08/22/18 20:35 Antibiotics) sulfamethoxazole Allergy Hives Verified 08/22/18 20:35 [From Bactrim] trimethoprim [From Bactrim] Allergy Hives Verified 08/22/18 20:35 oxycodone [Oxycodone] AdvReac Nausea and Verified 08/22/18 20:35 Vomiting propoxyphene AdvReac Nausea and Verified 08/22/18 20:35 Vomiting Home Meds: Home Meds Gabapentin [Neurontin] 300 mg PO TID 04/12/16 [History] levETIRAcetam [Keppra Xr] 750 mg PO BID 06/06/16 [History] Escitalopram Oxalate 20 mg PO DAILY 04/23/18 [History] Albuterol [Ventolin HFA] 2 puff IH QID 06/29/18 [History] Albuterol/Ipratropium [DuoNeb 3.0-0.5 MG/3 ML] 3 ml IH Q4H PRN 06/29/18 [History ] Cyanocobalamin (Vitamin B-12) [Cyanocobalamin Injection] 1,000 mcg PO ASDIRECTED 06/29/18 [History] Multivitamins with Iron [Chewable-Tramaine with Iron] 1 tab PO BID 06/29/18 [History ] Ondansetron [Zofran ODT] 4 mg PO Q4H PRN 06/29/18 [History] Chlorhexidine Gluconate 0.12% [Peridex 0.12% Rinse] 480 ml MM BID 10 Days #1 bottle 08/30/18 [Rx] Clindamycin HCl [Cleocin] 300 mg PO Q8H 10 Days #30 cap 08/30/18 [Rx] Gabapentin [Neurontin] 600 mg PO BEDTIME 30 Days #30 tablet 08/30/18 [Rx] Naproxen [Naprosyn] 500 mg PO Q8H PRN 10 Days #20 tab 08/30/18 [Rx] hydrOXYzine HCl [Atarax] 25 mg PO Q6H 10 Days #20 tab 08/30/18 [Rx] Past Medical History - Past Health History Medical/Surgical History: Denies Medical/Surgical History HEENT History: Reports: Impaired Vision, Other (See Below) Other HEENT History: chronic dental pain Cardiovascular History: Reports: Hypertension Respiratory History: Reports: Asthma, Bronchitis, Recurrent, Pneumonia, Recurrent Gastrointestinal History: Reports: Bowel Obstruction, Cholelithiasis Genitourinary History: Reports: UTI, Recurrent 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: Musculoskeletal History: Reports: Fracture Neurological History: Reports: Brain Injury, Headaches, Chronic, Migraines, Seizure, TIA Other Neuro History: minor stroke with meningitis Psychiatric History: Reports: Anxiety, Depression, Psych Hospitalization(s), Suicide Attempt, Suicidal Ideation Endocrine/Metabolic History: Reports: Obesity/BMI 30+ Hematologic History: Reports: Anemia, B12 Deficiency, Blood Transfusion(s), Folic Acid - Infectious Disease History Infectious Disease History: Reports: Chicken Pox - Past Surgical History Head Surgeries/Procedures: Reports: None HEENT Surgical History: Reports: Adenoidectomy, Tonsillectomy Cardiovascular Surgical History: Reports: None Respiratory Surgical History: Reports: None GI Surgical History: Reports: Bariatric Procedure, Cholecystectomy, Colon, Colonoscopy, EGD Female Surgical History: Reports: Breast Biopsy, D&C Endocrine Surgical History: Reports: None Neurological Surgical History: Reports: None Musculoskeletal Surgical History: Reports: None Dermatological Surgical History: Reports: None Social & Family History - Family History Family Medical History: Noncontributory - Caffeine Use Caffeine Use: Reports: Coffee, Energy Drinks, Soda - Recreational Drug Use Recreational Drug Use: No - Living Situation & Occupation Living situation: Reports: Occupation: Unemployed ED ROS ENT - Review of Systems Review Of Systems: ROS reveals no pertinent complaints other than HPI. ED EXAM, ENT - Physical Exam Exam: See Below Text/Narrative:: General: Alert attentive uncomfortable to due tooth pain. Eyes: EOMs intact. Conjunctivae without injection. Nose: Patent bilaterally. Mouth: Chipped tooth/teeth noted right upper and left posterior lower jaw. Tooth pain over Upper and lower gum line with ulceration at site were teeth are grinding or hitting soft gum tissue. No buccal mucosal swelling noted. Dental apical abscess is not with visualization or palpation over the affected tooth nerve root. Posterior oropharynx: No erythema, tonsillar exudates or enlargement noted. Ears: TMs pearly thomason, landmarks visualized. Neck: Supple. No midline tenderness. Full range of motion. No meningismus. Mild anterior cervical chain lymphadenopathy noted. Heart: Regular rate and rhythm without murmur. Chest: Clear to auscultation with good respiratory rate. No rhonchi, wheezes or rales heard throughout. No chest wall tenderness to palpation or retractions. Course - Vital Signs Last Recorded V/S: Last Vital Signs Temp 35.9 C 08/30/18 18:34 Pulse 78 08/30/18 18:34 Resp 16 08/30/18 18:34 BP 131/77 08/30/18 18:34 Pulse Ox 99 08/30/18 18:34 - Re-Assessments/Exams Free Text/Narrative Re-Assessment/Exam: Visit Evaluation/Treatment Course: Exam is completed shortly after patient arrived in examination room. EPIC was reviewed for patient's previous visits, past medical history, surgical history, current medications, allergies and immunizations. Discussed medications given. Stop Keflex and start Clindamycin. Discussed NSAID , Gabapentin, Tylenol, Ward mouth wash and Sensodyne tooth paste. Patient is instructed to see or contact dentist of choice for evaluation and further treatment. Patient is given numerous follow-up dental care options. The patient has no questions or continued concerns at time of discharge. 08/30/18 19:18 Departure - Departure Time of Disposition: 19:18 Disposition: Home, Self-Care 01 Clinical Impression: Fracture of tooth, Acute pain of mouth - Discharge Information Prescriptions: Chlorhexidine Gluconate 0.12% [Peridex 0.12% Rinse] 480 ml MM BID 10 Days #1 bottle Clindamycin HCl [Cleocin] 300 mg PO Q8H 10 Days #30 cap Gabapentin [Neurontin] 600 mg PO BEDTIME 30 Days #30 tablet hydrOXYzine HCl [Atarax] 25 mg PO Q6H 10 Days #20 tab Naproxen [Naprosyn] 500 mg PO Q8H PRN 10 Days #20 tab PRN Reason: Pain Instructions: Tooth Injuries, [id number], Dental Extraction, Care After, Easy -to-Read Referrals: Esther Mackenzie PA [Primary Care Provider] - Forms: ED Department Discharge Additional Instructions: DENTAL 1. STOP Keflex Start Clindamycin 300mg TID until gone. 2. STOP IBUPROFEN START NAPROXEN WITH FOOD DIRECTED FOR INFLAMMATION, PAIN AND SWELLING. 3. GABAPENTIN 300mg as directed. Increase to 600mg at night. 4. Sensodyne tooth paste (apply to painful tooth as much as needed to help wtih pain) 5. Purchase mouth guard to wear at night to prevent current teeth from rubbing soft gum line. 6. Peridex mouth wash as directed to decrease bacterial load in mouth. 7. Ward 1-2 as directed at night for moderate to severe pain #10 8. CONTINUE WORKING WITH YOUR DENTIST OF CHOICE FOR AVAILABLE APPOINTMENT. 9. Return for repeat evaluation if increase, changes, new or worsen symptoms. Discharge Instructions Dental Pain You have been seen today for a toothache. Your pain may be caused by an exposed nerve, an infection (pulpitis), a root abscess (pocket of pus), or other problems. You will need to see a dentist for a solution to your tooth problem. Emergency Department care is only to help control your problem until you can see a dentist; we cannot provide complete dental care. Today, we did not find any sign that your toothache was caused by any dangerous or life-threatening condition, but sometimes symptoms develop over time and cannot be found during an emergency visit, so it is very important that you follow up with your dentist. Please follow-up as instructed by your provider today. Return to the clinic or Local Emergency Department if: You develop a new fever over 100.4F. You cannot open your mouth normally, cannot move your tongue well, or cannot swallow. You have new or increased swelling of your face or neck. You develop drainage of pus or foul smelling material from around your tooth. What can I do to help myself? Take any antibiotic the provider may have prescribed for you today. Avoid very hot or very cold foods as both can cause pain. Make an appointment to see a dentist as soon as possible. Dentists are generally not on-staff at hospitals so we cannot refer to you to dentist but we may be able to provide a list of dental clinics to help you. If you were given a prescription for medicine here today, be sure toread all of the information (including the package insert) that comes with your prescription. This will include important information about the medicine, its side effects, and any warnings that you need to know about. The pharmacist who fills the prescription can provide more information and answer questions you may have about the medicine. If you have questions or concerns that the pharmacist cannot address, please call or return to the Emergency Department. Remember that you can always come back to the Emergency Department if you are not able to see your regular provider in the amount of time listed above, if you get any new symptoms, or if there is anything that worries you.
== END 2018-08-30 19:57 | disposition home or self-care (01) ==
LOC: JP.ED 18:21
DX: K03.81 Cracked tooth (principal); I10 Essential (primary) hypertension; F41.9 Anxiety disorder, unspecified; F32.9 Major depressive disorder, single episode, unspecified; J45.909 Unspecified asthma, uncomplicated; Z86.73 Personal history of transient ischemic attack (TIA), and cerebral infarction without residual deficits; Z79.899 Other long term (current) drug therapy; Z88.0 Allergy status to penicillin; Z88.2 Allergy status to sulfonamides; Z88.6 Allergy status to analgesic agent; Z88.8 Allergy status to other drugs, medicaments and biological substances
CPT/HCPCS: 99282

== ENCOUNTER 2018-09-07 10:29 | Emergency (ER) | payer MEDICAID ==
[2018-09-07 10:44] VITALS: BP 114/70
--- NOTE | 2018-09-07 11:42 | EDM.PDOC ---
ED HPI GENERAL MEDICAL PROBLEM - General Chief Complaint: ENT Problem Stated Complaint: TOOTH ACHE Time Seen by Provider: 09/07/18 11:25 Source of Information: Reports: Patient, Family History Limitations: Reports: No Limitations - History of Present Illness INITIAL COMMENTS - FREE TEXT/NARRATIVE: 33-year-old female with ongoing dental pain, saw her primary care provider and was given a prescription for hydrocodone to help with dental pain until she can have definitive treatment on September 21. Unfortunately the insurance company will not only not pay for it, but the pharmacy will not allow her to pay for the medication with her money. Calls to the dentist, her primary care, her pharmacy , and her insurance all told her to "go to the ER". Associated Symptoms: Reports: Headaches. Denies: Fever/Chills, Loss of Appetite Tooth/Teeth Pain Score (Numeric/FACES): 10 - Related Data Allergies Allergy/AdvReac Type Severity Reaction Status Date / Time amoxicillin [Amoxicillin] Allergy Hives Verified 09/07/18 10:55 guaifenesin Allergy Cannot Verified 09/07/18 10:55 Remember meclizine Allergy Hives Verified 09/07/18 10:55 Penicillins Allergy Hives Verified 09/07/18 10:55 Sulfa (Sulfonamide Allergy Other Verified 09/07/18 10:55 Antibiotics) sulfamethoxazole Allergy Hives Verified 09/07/18 10:55 [From Bactrim] trimethoprim [From Bactrim] Allergy Hives Verified 09/07/18 10:55 oxycodone [Oxycodone] AdvReac Nausea and Verified 09/07/18 10:55 Vomiting propoxyphene AdvReac Nausea and Verified 09/07/18 10:55 Vomiting Home Meds: Home Meds Gabapentin [Neurontin] 300 mg PO TID 04/12/16 [History] levETIRAcetam [Keppra Xr] 750 mg PO BID 06/06/16 [History] Escitalopram Oxalate 20 mg PO DAILY 04/23/18 [History] Albuterol [Ventolin HFA] 2 puff IH QID 06/29/18 [History] Albuterol/Ipratropium [DuoNeb 3.0-0.5 MG/3 ML] 3 ml IH Q4H PRN 06/29/18 [History ] Cyanocobalamin (Vitamin B-12) [Cyanocobalamin Injection] 1,000 mcg PO ASDIRECTED 06/29/18 [History] Multivitamins with Iron [Chewable-Tramaine with Iron] 1 tab PO BID 06/29/18 [History ] Ondansetron [Zofran ODT] 4 mg PO Q4H PRN 06/29/18 [History] Chlorhexidine Gluconate 0.12% [Peridex 0.12% Rinse] 480 ml MM BID 10 Days #1 bottle 08/30/18 [Rx] Clindamycin HCl [Cleocin] 300 mg PO Q8H 10 Days #30 cap 08/30/18 [Rx] Gabapentin [Neurontin] 600 mg PO BEDTIME 30 Days #30 tablet 08/30/18 [Rx] Naproxen [Naprosyn] 500 mg PO Q8H PRN 10 Days #20 tab 08/30/18 [Rx] hydrOXYzine HCl [Atarax] 25 mg PO Q6H 10 Days #20 tab 08/30/18 [Rx] Past Medical History - Past Health History Medical/Surgical History: Denies Medical/Surgical History HEENT History: Reports: Impaired Vision, Other (See Below) Other HEENT History: chronic dental pain Cardiovascular History: Reports: Hypertension Respiratory History: Reports: Asthma, Bronchitis, Recurrent, Pneumonia, Recurrent Gastrointestinal History: Reports: Bowel Obstruction, Cholelithiasis Genitourinary History: Reports: UTI, Recurrent 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: Musculoskeletal History: Reports: Fracture Neurological History: Reports: Brain Injury, Headaches, Chronic, Migraines, Seizure, TIA Other Neuro History: minor stroke with meningitis Psychiatric History: Reports: Anxiety, Depression, Psych Hospitalization(s), Suicide Attempt, Suicidal Ideation Endocrine/Metabolic History: Reports: Obesity/BMI 30+ Hematologic History: Reports: Anemia, B12 Deficiency, Blood Transfusion(s), Folic Acid - Infectious Disease History Infectious Disease History: Reports: Chicken Pox - Past Surgical History HEENT Surgical History: Reports: Adenoidectomy, Tonsillectomy GI Surgical History: Reports: Bariatric Procedure, Cholecystectomy, Colon, Colonoscopy, EGD Female Surgical History: Reports: Breast Biopsy, D&C Neurological Surgical History: Reports: None Social & Family History - Family History Family Medical History: Noncontributory - Tobacco Use Smoking Status *Q: Never Smoker - Caffeine Use Caffeine Use: Reports: Coffee, Energy Drinks, Soda - Recreational Drug Use Recreational Drug Use: No - Living Situation & Occupation Living situation: Reports: Occupation: Unemployed ED ROS ENT - Review of Systems Review Of Systems: See Below Constitutional: Denies: Fever, Chills Respiratory: Denies: Shortness of Breath Cardiovascular: Denies: Chest Pain GI/Abdominal: Denies: Abdominal Pain Neurological: Reports: Headache ED EXAM, ENT - Physical Exam Exam: See Below Exam Limited By: No Limitations General Appearance: Alert, No Apparent Distress (Looks uncomfortable but not distressed) Mouth/Throat: Other (She does have two extraction sites of the upper second molars which both look clean and healing. There is tenderness to palpation or percussion of the upper left first canine) Course - Vital Signs Last Recorded V/S: Last Vital Signs Temp 97.2 F 09/07/18 10:54 Pulse 71 09/07/18 10:54 Resp 12 09/07/18 10:54 BP 114/70 09/07/18 10:54 Pulse Ox 100 09/07/18 10:54 - Re-Assessments/Exams Free Text/Narrative Re-Assessment/Exam: 09/07/18 11:41 Discussed with her primary provider, Esther Mackenzie, the recent prescription and it was confirmed. Patient was discharged with 20 hydrocodone 5 mg tablets to use sparingly until her dentist appointment. She should continue with anti- inflammatories and antibiotics as prescribed. Departure - Departure Time of Disposition: 12:10 Disposition: Home, Self-Care 01 Clinical Impression: Acute pain of mouth - Discharge Information Instructions: Dental Abscess, [id number] Referrals: Esther Mackenzie PA [Primary Care Provider] - Forms: ED Department Discharge Care Plan Goals: Continue with antibiotics and anti-inflammatories, use stronger pain medications sparingly until you are able to be seen by the dentist for definitive treatment.
== END 2018-09-07 12:00 | disposition home or self-care (01) ==
LOC: JP.ED 10:29
DX: K13.79 Other lesions of oral mucosa (principal); I10 Essential (primary) hypertension; J45.909 Unspecified asthma, uncomplicated; Z88.1 Allergy status to other antibiotic agents; Z88.2 Allergy status to sulfonamides; Z88.0 Allergy status to penicillin; Z88.8 Allergy status to other drugs, medicaments and biological substances; Z79.899 Other long term (current) drug therapy; Z98.890 Other specified postprocedural states; Z90.49 Acquired absence of other specified parts of digestive tract; Z98.84 Bariatric surgery status; Z86.2 Personal history of diseases of the blood and blood-forming organs and certain disorders involving the immune mechanism
CPT/HCPCS: 99282

== ENCOUNTER 2018-12-01 13:00 | Inpatient (IN) | payer MEDICAID ==
[~2018-12-01 13:00] MED LIST: Acetaminophen 500 MG Tab PO ONE; Albuterol/Ipratropium 3.0-0.5 MG/3 ML Neb Soln NEB ONE; Dexamethasone 4 MG/ML SDV ONE; Dextrose 5%-Lactated Ringers 1,000 ML IV SCH; Gabapentin 300 MG Cap PO ONE; Glycopyrrolate 0.2 MG/ML 5 ML MDV ONE; Ketamine 50 MG in Sodium Chloride 0.9% 49.5 ML IV SCH; Ketamine 500 MG/5 ML MDV IV SCH; Lidocaine 0.4%/D5W 2 GM/500 ML BAG IV SCH; Lidocaine 2% 100 MG/5 ML Syringe IVPUSH SCH; Neostigmine Methylsulfate 1 MG/ML 5 ML Syringe ONE; Ondansetron 4 MG/2 ML SDV ONE; Propofol 200 MG/20 ML SDV ONE; Rocuronium 50 MG/5 ML Vial ONE; Scopolamine 1.5 MG Transdermal Patch TOP SCH; Succinylcholine 200 MG/10 ML MDV ONE; cefOXitin 2 GM in Sodium Chloride 0.9% 50 ML IV ONE; fentaNYL 250 MCG/5 ML SDV ONE
[2018-12-03] MEDS ORDERED: Acetaminophen 500 MG Tab PO ONE (06:00)
[2018-12-03] MEDS ORDERED: Scopolamine 1.5 MG Transdermal Patch TOP SCH (06:00)
[2018-12-03] MEDS ORDERED: cefOXitin 2 GM in Sodium Chloride 0.9% 50 ML IV ONE ×2 (06:00→07:30)
[2018-12-03] MEDS ORDERED: Gabapentin 300 MG Cap PO ONE (06:00)
[2018-12-03] MEDS ORDERED: Dextrose 5%-Lactated Ringers 1,000 ML IV SCH (06:00)
[2018-12-03] MEDS ORDERED: Albuterol/Ipratropium 3.0-0.5 MG/3 ML Neb Soln NEB ONE (06:00)
[2018-12-03] MEDS ORDERED: cefOXitin 2 GM Vial ONE (06:57)
[2018-12-03] MEDS ORDERED: Ondansetron 4 MG/2 ML SDV ONE (07:06)
[2018-12-03] MEDS ORDERED: Propofol 200 MG/20 ML SDV ONE (07:06)
[2018-12-03] MEDS ORDERED: Succinylcholine 200 MG/10 ML MDV ONE (07:06)
[2018-12-03] MEDS ORDERED: Dexamethasone 4 MG/ML SDV ONE (07:06)
[2018-12-03] MEDS ORDERED: fentaNYL 100 MCG/2 ML SDV ONE (07:06)
[2018-12-03] MEDS ORDERED: Rocuronium 50 MG/5 ML Vial ONE ×2 (07:06→08:39)
[2018-12-03] MEDS ORDERED: fentaNYL 250 MCG/5 ML SDV ONE ×2 (07:06→09:11)
[2018-12-03] MEDS ORDERED: Neostigmine Methylsulfate 1 MG/ML 5 ML Syringe ONE (07:06)
[2018-12-03] MEDS ORDERED: Glycopyrrolate 0.2 MG/ML 5 ML MDV ONE (07:06)
[2018-12-03] MEDS ORDERED: Meropenem 500 MG SDV ONE (07:36)
[2018-12-03] MEDS ORDERED: Ketamine 500 MG/5 ML MDV IV SCH (08:00)
[2018-12-03] MEDS ORDERED: Ketamine 50 MG in Sodium Chloride 0.9% 49.5 ML IV SCH (08:00)
[2018-12-03] MEDS ORDERED: Lidocaine 2% 100 MG/5 ML Syringe IVPUSH SCH (08:00)
[2018-12-03] MEDS ORDERED: Sodium Chloride 0.9% 10 ML ONE (08:08)
[2018-12-03] MEDS ORDERED: Lidocaine 1% with EPINEPHrine 1:100,000 50 ML MDV ONE (08:38)
[2018-12-03] MEDS ORDERED: Bupivacaine 0.5% 50 ML MDV ONE (08:38)
[2018-12-03] MEDS ORDERED: diphenhydrAMINE 50 MG/ML SDV IVPUSH PRN (10:38)
[2018-12-03] MEDS ORDERED: Metoclopramide 10 MG/2 ML SDV IVPUSH PRN (10:38)
[2018-12-03] MEDS ORDERED: Albuterol/Ipratropium 3.0-0.5 MG/3 ML Neb Soln INH PRN (10:38)
[2018-12-03] MEDS ORDERED: Ondansetron 4 MG/2 ML SDV IVPUSH PRN (10:38)
[2018-12-03] MEDS ORDERED: Labetalol 20 MG/4 ML Syringe IVPUSH PRN (10:38)
[2018-12-03] MEDS: Lidocaine 0.4%/D5W 2 GM/500 ML BAG IV SCH (11:13)
[2018-12-03] MEDS: HYDROmorphone 0.5 MG/0.5 ML Syringe IVPUSH PRN ×2 (11:14→13:30)
[2018-12-03] MEDS: Dextrose 5%-Lactated Ringers 1,000 ML IV SCH ×2 (11:20→18:01)
[2018-12-03] MEDS: Albuterol/Ipratropium 3.0-0.5 MG/3 ML Neb Soln INH SCH ×3 (12:08→20:05)
[2018-12-03] MEDS: hydrOXYzine HCl 100 MG/2 ML SDV IM PRN ×2 (12:08→17:12)
[2018-12-03] MEDS: HYDROmorphone 1 MG/ML Syringe IV PRN ×5 (13:33→22:14)
[2018-12-03] MEDS ORDERED: Pantoprazole 40 MG Vial IVPUSH SCH (14:00)
[2018-12-03] MEDS: cefOXitin 2 GM in Sodium Chloride 0.9% 50 ML IV SCH ×2 (14:33→19:47)
[2018-12-03] MEDS: Sodium Ferric Gluconate Cmplex 250 MG in Sodium Chloride 0.9% 100 ML IV SCH (14:34)
[2018-12-03] MEDS: Gabapentin 250 MG/5 ML Solution ML 470 ML Bottle PO SCH ×2 (14:35→20:05)
[2018-12-03] MEDS: Acetaminophen Soln 650 MG/20.3 ML UD Cup PO SCH ×2 (14:35→19:47)
[2018-12-03] MEDS ORDERED: MVI, Adult with Vitamin K 10 ML, Thiamine 200 MG, Chromium/Copper/Mang/Selen/Zn 1 ML in... IV SCH ×4 (16:00)
[2018-12-03] MEDS: Heparin Sodium 5,000 Units/ML Vial SUBCUT SCH (19:41)
[2018-12-03] MEDS: levETIRAcetam 250 MG Tab PO SCH (20:06)
[2018-12-03] MEDS ORDERED: KEPPRA 750 MG PO SCH (21:00)
[2018-12-03] MEDS: Zolpidem 5 MG Tab PO PRN (21:29)
[2018-12-04] MEDS: HYDROmorphone 1 MG/ML Syringe IV PRN ×3 (00:04→04:50)
[2018-12-04] MEDS: Dextrose 5%-Lactated Ringers 1,000 ML IV SCH ×3 (00:10→07:37)
[2018-12-04] MEDS: hydrOXYzine HCl 100 MG/2 ML SDV IM PRN ×3 (00:24→13:50)
[2018-12-04] MEDS: Acetaminophen Soln 650 MG/20.3 ML UD Cup PO SCH ×4 (01:25→19:51)
[2018-12-04] MEDS: cefOXitin 2 GM in Sodium Chloride 0.9% 50 ML IV SCH ×3 (01:25→17:33)
[2018-12-04] MEDS ORDERED: Iopamidol 612 MG/ML 50 ML SDV PO STA (03:44)
[2018-12-04] MEDS: Heparin Sodium 5,000 Units/ML Vial SUBCUT SCH ×2 (05:23→17:41)
--- NOTE | 2018-12-04 06:21 | CRLCR ---
INDICATION: Bowel resection. History of Isma-en-Y. TECHNIQUE: Two views of the abdomen/pelvis were obtained after administration of oral contrast. COMPARISON: 11/25/2018 CT abdomen and pelvis. FINDINGS: Nonspecific bowel gas pattern. Right upper quadrant surgical clips. Midline surgical charlie. Oral contrast material is noted opacifying the gastric pouch in the alimentary limb of the small bowel. No extraluminal contrast is identified. The imaged lung bases are clear. 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 No extraluminal contrast identified. Dictated by Torsten Ceja MD @ Dec 04 2018 6:15AM Signed by Dr. Torsten Ceja @ Dec 04 2018 6:20AM
[2018-12-04] MEDS: Albuterol/Ipratropium 3.0-0.5 MG/3 ML Neb Soln INH SCH ×4 (07:12→21:03)
[2018-12-04] MEDS: HYDROmorphone 2 MG Tab PO PRN ×5 (07:52→23:54)
[2018-12-04] MEDS: Celecoxib 200 MG Cap PO SCH (07:59)
[2018-12-04] MEDS: Lidocaine 0.4%/D5W 2 GM/500 ML BAG IV SCH (08:00)
[2018-12-04] MEDS: levETIRAcetam 250 MG Tab PO SCH ×2 (08:02→21:04)
[2018-12-04] MEDS: Multivitamins with Iron Tab.Chew PO SCH (08:03)
[2018-12-04] MEDS: SCOPOLAMINE PATCH CHECK TOP SCH (08:03)
[2018-12-04] MEDS ORDERED: Multivitamins with Iron/Calcium/Folic Acid/Minerals Tab PO SCH (09:00)
--- NOTE | 2018-12-04 09:44 | PN ---
DATE OF SERVICE: 12/04/2018 SUBJECTIVE: Esther is postoperative day #1. She has been up ambulating. She took her dressing off. Hunter intact. She has been getting her IV Dilaudid. Lidocaine will be done around 10 a.m. She has also received 1 dose of iron IV and will be getting the second dose today. Remains afebrile. Oral intake 2260. Urine output 4250. OBJECTIVE: GENERAL: Esther Fernandez is a 33-year-old female. She is alert and orientated. VITAL SIGNS: TPR 95.6, 89, 18. Blood pressure 103/90. HEENT: Negative. NECK: Supple. HEART: Regular rate and rhythm. LUNGS: Clear. ABDOMEN: Dressing is on. Dry and intact. Abdominal binder is on. EXTREMITIES: Without peripheral edema. ASSESSMENT: Exploratory laparotomy with lysis of extensive adhesions. 1. Reduction of small bowel volvulus and closure of internal hernia. 2. Small bowel resection. 3. Rectosigmoid colon resection. 4. Repair of recurrent incarcerated incisional hernia. 5. Repair of incarcerated umbilical hernia. 6. Placement of Interceed mesh. POSTOPERATIVE DIAGNOSES: Partial small bowel obstruction secondary to: 1. Small bowel volvulus. 2. 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 3. Chronic small bowel volvulus. 4. Recurrent incarcerated incisional hernia. 5. Incarcerated umbilical hernia. 6. Extensive intraabdominal adhesions. Surgeon Delgado Spears MD. Date of surgery 12/03/2018. PLAN: 1. Saline lock IV. 2. Step 3 gastric bypass diet. 3. Dilaudid 2 mg 1 to 2 every 4 hours p.r.n. pain. 4. Dressing off may shower. 5. Discontinue IV Dilaudid. 6. Plan discharge in a.m. 7. We will evaluate p.r.n. or in a.m. Cristine Rico PA-C /[id number]
[2018-12-04] MEDS: Gabapentin 250 MG/5 ML Solution ML 470 ML Bottle PO SCH ×3 (10:02→21:09)
[2018-12-04] MEDS: Sodium Ferric Gluconate Cmplex 250 MG in Sodium Chloride 0.9% 100 ML IV SCH (12:23)
--- NOTE | 2018-12-04 13:39 | OR ---
DATE OF PROCEDURE: 12/03/2018 SURGEON: Delgado Spears MD PREOPERATIVE DIAGNOSIS: Partial small bowel obstruction. POSTOPERATIVE DIAGNOSES: 1. Partial small bowel obstruction secondary to: a. Small bowel volvulus. b. 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 2. Chronic sigmoid colon volvulus. 3. Recurrent incarcerated incisional hernia. 4. Incarcerated umbilical hernia. 5. Extensive intraabdominal adhesions. OPERATIVE PROCEDURES: Exploratory laparotomy with lysis of extensive adhesions and: 1. Reduction of small bowel volvulus and closure of internal hernia (15983). 2. Small bowel resection (30068). 3. Rectosigmoid colon resection with coloproctostomy (89433). 4. Repair of recurrent incarcerated incisional hernia (65163). 5. Repair of incarcerated umbilical hernia (64592). 6. Placement of Vicryl mesh to displaced pelvic and abdominal wall from underlying viscera to limit recurrent adhesion formation (88650). ANESTHESIA: General. NECK CUTTER: Cristine Rico PA-C. INDICATION FOR PROCEDURE: This is a 33-year-old presenting with a picture of partial small bowel obstruction. Plan is to proceed with a limited exploratory laparotomy with lysis of adhesions, detection of any identifiable volvulus, possible bowel resection. Potential risks of the procedure including bleeding, infection, injury to underlying viscera, problems with staple lines leaking, as well as possible recurrence of the bowel obstruction problem over time were all reviewed with the patient, and she wishes to proceed. DETAILS OF PROCEDURE: The patient was taken to the operating room. After general endotracheal anesthesia was induced, the Mena catheter was inserted and the abdomen prepped and draped. An incision from the umbilicus roughly a handsbreadth towards the xiphoid was made and carried down through the full-thickness of the abdominal wall. Upon entering the cavity, the patient was noted to have some mesh present in the intraperitoneal location. This was divided for the length of the incision. Some adhesions from that to the omentum were taken down with a combination of electrocautery and surgical charlie. At that point, general exploration was undertaken. The patient noted to have an area of significant duskiness of the bowel. As one followed the Isma limb down, that appeared to be unremarkable. As one traced from the jejunojejunostomy to the biliopancreatic limb, that appeared to have prolapsed through a defect underlying the jejunojejunostomy. As this was reduced, this did become quite pink and venous congestion pattern resolved. The common limb likewise was noted to be in normal position. At this point, the point where the Isma limb entered the jejunojejunostomy was noted to be somewhat stenotic, and this area was therefore resected. The volvulus proximal to the jejunojejunostomy and Isma limb component was divided with a ANGEL stapler. Small bowel proximal to this was then divided and excised with ANGEL charlie at both the bowel side and the mesentery, and that specimen was delivered from the field. At this point, GI tract continuity was then reestablished with anastomosis of the Isma limb to the bowel roughly 20 cm distal to the original jejunojejunostomy. This was accomplished with internal firing of the Endo-ANGEL 60 mm stapler. Common opening was then closed transversely with the same stapler and the angles of anastomosis were reinforced with some 3- 0 Vicryl stitch. The mesenteric defect at both the old jejunojejunostomy and the new anastomosis were both closed separately with running 2-0 silk stitch to provide some permanency to the closure. An additional finding was that of a strikingly enlarged sigmoid colon. At the base of the omega type loop, there was a crease where the bowel was flipping over on itself, and this appeared to be a chronic sigmoid volvulus. This area was then untwisted, and then the bowel consisting of the upper rectum was divided, as was the mid sigmoid colon. The coloproctostomy was then accomplished with a [id number] anastomosis using 2 internal firings of the Endo-ANGEL 60 mm stapler. Common opening was then closed transversely with the same stapler and angles of anastomosis and mesenteric defect approximated with some 3-0 Vicryl stitch. This anastomosis was also reinforced with 4 mL of fibrin sealant. During course of the entry into the abdomen, the patient was noted to have recurrent incarcerated hernia. This was located just above the previous mesh level and this was excised. The patient also had an incarcerated umbilical hernia. Both of these contained some omentum and preperitoneal fat within them. Those contents were then also excised. The abdomen was irrigated with meropenem-containing saline solution. Bilateral subcostal transversus abdominis plane blocks were placed, and initially the lower half of the previously placed mesh was then closed with 0 prolene stitch. Once this was longterm closed, to limit recurrent adhesion formation, Interceed mesh was then placed underneath the area of the mesh and from there down towards the pelvis to displace the underlying viscera from those areas and to limit recurrent adhesion formation. The remainder of the mesh was then reapproximated with 0 Prolene stitch. Over this, the fascia was then closed with a #2 Vicryl stitch, subcutaneous tissue with a layer of 3-0 Vicryl stitch deep, and a 4-0 Vicryl subdermal stitch and charlie for the skin. Prior to closure of the fascia, the wound was also anesthetized with 0.5% Marcaine and 1% lidocaine. With the mesh being present within the bowel resection prior to initiating any of the bowel workup, meropenem soaked sponges were placed along the edges of the incision, thus covering up the mesh. Once the bowel component was completed, those areas were removed, as were all of the instruments and gloves used during that phase. Both resections and anastomoses were extremely clean with no gross spill however. The overall approach was designed to attempt to spare the mesh, knowing there would be a small chance of wound infection, but removal of the mesh would almost certainly result in recurrence of the hernia, so judgement was made to try to spare the mesh, as outlined above. The patient was taken to the recovery room in satisfactory condition. Physician pharmacy sales assistant, Cristine Rico, played an essential role in assisting in this case, helping to position the patient, retract structures as needed, as well as suturing and cutting sutures when indicated. Her presence improved patient safety and decreased operative time. One final note in this case is the final limb lengths included a Isma limb length of 100 cm, biliopancreatic limb length of 180 cm, and common limb length of 380 cm. Delgado Spears MD /[id number]
[2018-12-04] MEDS: FLUoxetine 10 MG Cap PO SCH (14:27)
[2018-12-04] MEDS ORDERED: Pantoprazole 40 MG Delayed-Release Granules 1 Packet PO SCH (16:30)
[2018-12-04] MEDS: Ondansetron 4 MG Tab.DIS PO PRN (18:24)
[2018-12-04] MEDS: Zolpidem 5 MG Tab PO PRN (21:03)
[2018-12-05] MEDS: Ondansetron 4 MG Tab.DIS PO PRN ×2 (02:58→08:59)
[2018-12-05] MEDS: Acetaminophen Soln 650 MG/20.3 ML UD Cup PO SCH ×2 (03:04→08:54)
[2018-12-05] MEDS: hydrOXYzine HCl 100 MG/2 ML SDV IM PRN ×2 (03:09→07:34)
[2018-12-05] MEDS: HYDROmorphone 2 MG Tab PO PRN ×2 (04:43→08:52)
[2018-12-05] MEDS: Heparin Sodium 5,000 Units/ML Vial SUBCUT SCH (06:15)
[2018-12-05 07:15] VITALS: BP 106/65; PULSE 103
[2018-12-05] MEDS: Albuterol/Ipratropium 3.0-0.5 MG/3 ML Neb Soln INH SCH (07:28)
[2018-12-05] MEDS: Celecoxib 200 MG Cap PO SCH (08:54)
[2018-12-05] MEDS: Multivitamins with Iron Tab.Chew PO SCH (08:55)
[2018-12-05] MEDS: levETIRAcetam 250 MG Tab PO SCH (08:55)
[2018-12-05] MEDS: SCOPOLAMINE PATCH CHECK TOP SCH (08:56)
[2018-12-05] MEDS: FLUoxetine 10 MG Cap PO SCH (09:00)
[2018-12-05] MEDS: Gabapentin 250 MG/5 ML Solution ML 470 ML Bottle PO SCH (09:00)
[2018-12-05] MEDS ORDERED: Cyanocobalamin (Vitamin B12) 1,000 MCG/ML SDV IM ONE (09:00)
--- NOTE | 2018-12-05 12:01 | DISCH ---
ADMISSION DIAGNOSES: Partial small bowel obstruction and low ferritin. DISCHARGE DIAGNOSES: Exploratory laparotomy with lysis of extensive adhesions and, 1. Reduction of small bowel volvulus and closure of internal hernia. 2. Small bowel resection. 3. Rectosigmoid colon resection with coloproctostomy. 4. Repair of recurrent incarcerated incisional hernia. 5. Repair of incarcerated umbilical hernia. 6. Placement of Vicryl mesh to displace pelvic and abdominal green from underlying viscera to limit recurrent adhesion formation for. Postoperative Diagnoses: 1. Partial small bowel obstruction secondary to. a. Small bowel volvulus. b. Stricture at the point of junction of the Isma limb with jejunojejunostomy. c. Chronic sigmoid colon volvulus. d. Recurrent incarcerated incisional hernia. e. Incarcerated umbilical hernia. f. Extensive intraabdominal adhesions. Low ferritin requiring iron infusions. HISTORY: Esther Fernandez is a 33-year-old who had a partial small bowel obstruction. After preoperative evaluation, discussion of possible risks and possible complications, she wished to proceed with surgical procedure. HOSPITAL COURSE: Esther Fernandez had her surgery on 12/03/2018. She had no complications. On postoperative day #1, her IV rate was decreased and saline locked. She was started on a step-3 gastric bypass diet and changed to Dilaudid for pain. Her dressing came off, and she was able to shower. On postoperative day #2, she had 2 bowel movements. Pain was managed. She was able to be discharged to home. PHYSICAL EXAMINATION: GENERAL: Esther Fernandez is a 33-year-old female. VITAL SIGNS: Height is 5 feet 4 inches. Weight is 261 pounds. TPR is 97.3, 103, 18, and blood pressure is 106/65. HEENT: Negative. NECK: Supple. HEART: Regular rate and rhythm. LUNGS: Clear. ABDOMEN: [place] intact. Abdominal binder is on. EXTREMITIES: Without peripheral edema. DISPOSITION: Discharged to home. CONDITION: Stable and improving. FOLLOWUP: Followup appointment with Cristine Rico PA-C, on 12/16/2018, at 11:00 a.m. DISCHARGE MEDICATIONS: Dilaudid 2 mg every 4 hours p.r.n. pain, #42. She is to resume home medications of Ventolin inhaler 2 puffs every 6 hours p.r.n., Prozac 10 mg oral daily, Neurontin 300 mg oral 3 times a day, Reglan 10 mg oral every 6 hours, multivitamin one tablet twice a day, Zofran 4 mg every 6 hours p.r.n. nausea, Ambien 10 mg oral at bedtime, hydroxyzine 25 mg every 6 hours for pain and itching, mg p.o. twice daily. DISCHARGE DIET: Step-3 gastric bypass diet. Drink 8 to 10 glasses of water a day. ACTIVITY: No lifting greater than 10 pounds for 6 weeks. Walk at least 6 times inside your house. Driving, do not drive for 1 week and while on pain medication. Shower/bathing: May shower. DISCHARGE INSTRUCTIONS: Notify provider if any fever, increased pain, nausea, or vomiting. Keep site clean and dry. Wear abdominal binder for 6 weeks and then as tolerated. Use incentive spirometer 10 times every hour while awake.
== END 2018-12-05 10:00 | disposition home or self-care (01) | DRG 330 ==
LOC: JP.SDSSCHI 12-03 05:35 → JP.SDS 12-03 05:35 → EDSTATUS 12-03 09:00 → JP.MS 12-03 09:40
PROVIDERS: ADMIT Surgery; ATTEND Surgery
PROC: 0DS80ZZ Reposition Small Intestine, Open Approach (ICD-10-PCS; principal; 2018-12-03)
PROC: 0WQF0ZZ Repair Abdominal Wall, Open Approach (ICD-10-PCS; 2018-12-03)
PROC: 0DB80ZZ Excision of Small Intestine, Open Approach (ICD-10-PCS; 2018-12-03)
PROC: 0DBN0ZZ Excision of Sigmoid Colon, Open Approach (ICD-10-PCS; 2018-12-03)
PROC: 0D1N0ZP Bypass Sigmoid Colon to Rectum, Open Approach (ICD-10-PCS; 2018-12-03)
PROC: 0DNW0ZZ Release Peritoneum, Open Approach (ICD-10-PCS; 2018-12-03)
PROC: 3E0M05Z Introduction of Adhesion Barrier into Peritoneal Cavity, Open Approach (ICD-10-PCS; 2018-12-03)
DX: K56.2 Volvulus (principal); K43.0 Incisional hernia with obstruction, without gangrene; K42.0 Umbilical hernia with obstruction, without gangrene; K90.9 Intestinal malabsorption, unspecified; Z68.41 Body mass index [BMI] 40.0-44.9, adult; K56.51 Intestinal adhesions [bands], with partial obstruction; F31.9 Bipolar disorder, unspecified; F17.210 Nicotine dependence, cigarettes, uncomplicated; M79.7 Fibromyalgia; E66.01 Morbid (severe) obesity due to excess calories; F41.0 Panic disorder [episodic paroxysmal anxiety]; K21.9 Gastro-esophageal reflux disease without esophagitis; K76.0 Fatty (change of) liver, not elsewhere classified; L68.0 Hirsutism; J45.20 Mild intermittent asthma, uncomplicated; Z79.891 Long term (current) use of opiate analgesic; Z79.899 Other long term (current) drug therapy; Z88.0 Allergy status to penicillin; Z88.1 Allergy status to other antibiotic agents; Z88.2 Allergy status to sulfonamides; Z88.5 Allergy status to narcotic agent; Z98.84 Bariatric surgery status; Z86.14 Personal history of Methicillin resistant Staphylococcus aureus infection
CPT/HCPCS: 74240; 81025; 88302; 88307; 94640; A9270-GY; C9113; J0171; J0330; J0694; J1100; J1170; J1644; J2001; J2185; J2405; J2704; J2710; J2795; J2916; J3010; J3410; J3411; J3420; J3490; J7030; J7042; J7050; J7620-GY; Q9967

== ENCOUNTER 2018-12-05 17:10 | Inpatient (IN) | payer MEDICAID ==
[2018-12-05] MEDS ORDERED: Ondansetron 4 MG/2 ML SDV IVPUSH ONE (17:22)
[2018-12-05] MEDS ORDERED: Sodium Chloride 0.9% 1,000 ML IV SCH ×2 (17:30→19:00)
--- NOTE | 2018-12-05 17:30 | EDM.PDOC ---
<Brielle Snell - Last Filed: 12/05/18 18:16> ED HPI GENERAL MEDICAL PROBLEM - General Chief Complaint: Chest Pain Stated Complaint: CHEST PAIN Time Seen by Provider: 12/05/18 17:23 Source of Information: Reports: Patient History Limitations: Reports: No Limitations - History of Present Illness INITIAL COMMENTS - FREE TEXT/NARRATIVE: pt arrived with chest pain. She has been vomiting all day. #-4 days ago she had surgery for a bowel obstruction and a hernia. She as discharged today and she has been vomiting all day. The chest pain started this afternoon. Onset: Today, Other (pt was discharged from the hosp and she started to vomit shortly after discharge. ) Duration: Hour(s): Location: Reports: Chest, Abdomen Associated Symptoms: Reports: Chest Pain, Diaphoresis, Nausea/Vomiting, Shortness of Breath - Related Data Allergies Allergy/AdvReac Type Severity Reaction Status Date / Time amoxicillin [Amoxicillin] Allergy Hives Verified 12/03/18 06:29 guaifenesin Allergy Cannot Verified 12/03/18 06:29 Remember meclizine Allergy Hives Verified 12/03/18 06:29 Penicillins Allergy Hives Verified 12/03/18 06:29 Sulfa (Sulfonamide Allergy Other Verified 12/03/18 06:29 Antibiotics) sulfamethoxazole Allergy Hives Verified 12/03/18 06:29 [From Bactrim] trimethoprim [From Bactrim] Allergy Hives Verified 12/03/18 06:29 oxycodone [Oxycodone] AdvReac Nausea and Verified 12/03/18 06:29 Vomiting propoxyphene AdvReac Nausea and Verified 12/03/18 06:29 Vomiting Home Meds: Home Meds Gabapentin [Neurontin] 300 mg PO TID 04/12/16 [History] Albuterol [Ventolin HFA] 2 puff IH QID 06/29/18 [History] Albuterol/Ipratropium [DuoNeb 3.0-0.5 MG/3 ML] 3 ml IH Q4H PRN 06/29/18 [History ] Multivitamins with Iron [Chewable-Tramaine with Iron] 1 tab PO BID 06/29/18 [History ] hydrOXYzine HCl [hydrOXYzine] 25 mg PO Q6H 10 Days #20 tab 08/30/18 [Rx] FLUoxetine [PROzac] 10 mg PO DAILY 11/27/18 [History] Ibuprofen [Motrin] 800 mg PO Q8H PRN 11/27/18 [History] Metoclopramide HCl [Reglan] 10 mg PO Q6H PRN 11/27/18 [History] Ondansetron HCl [Zofran] 4 mg PO Q6H PRN 11/27/18 [History] Zolpidem Tartrate [Ambien] 10 mg PO BEDTIME PRN 11/27/18 [History] levETIRAcetam [Levetiracetam] 1,125 mg PO BID 12/03/18 [History] HYDROmorphone [Dilaudid] 2 mg PO Q4H PRN #42 tab 12/04/18 [Rx] Past Medical History - Past Health History Medical/Surgical History: Denies Medical/Surgical History HEENT History: Reports: Impaired Vision, Other (See Below) Other HEENT History: chronic dental pain Cardiovascular History: Reports: Hypertension Respiratory History: Reports: Asthma, Bronchitis, Recurrent, Pneumonia, Recurrent Gastrointestinal History: Reports: Bowel Obstruction, Cholelithiasis Genitourinary History: Reports: UTI, Recurrent [employer] WORK[employer] History: Reports: Musculoskeletal History: Reports: Fracture Neurological History: Reports: Brain Injury, Headaches, Chronic, Migraines, Seizure, TIA Other Neuro History: minor stroke with meningitis Psychiatric History: Reports: Anxiety, Depression, Psych Hospitalization(s), Suicide Attempt, Suicidal Ideation Endocrine/Metabolic History: Reports: Obesity/BMI 30+ Hematologic History: Reports: Anemia, B12 Deficiency, Blood Transfusion(s), Folic Acid - Infectious Disease History Infectious Disease History: Reports: MRSA - Past Surgical History Head Surgeries/Procedures: Reports: None HEENT Surgical History: Reports: Adenoidectomy, Tonsillectomy GI Surgical History: Reports: Bariatric Procedure, Cholecystectomy, Colon, Colonoscopy, EGD Female Surgical History: Reports: Breast Biopsy, D&C Neurological Surgical History: Reports: None Dermatological Surgical History: Reports: None Social & Family History - Family History Family Medical History: Noncontributory - Caffeine Use Caffeine Use: Reports: Soda - Living Situation & Occupation Living situation: Reports: Occupation: Unemployed ED ROS GENERAL - Review of Systems Review Of Systems: See Below Constitutional: Reports: No Symptoms HEENT: Reports: No Symptoms Respiratory: Reports: No Symptoms Cardiovascular: Reports: Chest Pain Endocrine: Reports: No Symptoms GI/Abdominal: Reports: Nausea, Vomiting, Other (pt is having chest pain. ) : Reports: No Symptoms Musculoskeletal: Reports: No Symptoms Neurological: Reports: No Symptoms ED EXAM, GENERAL - Physical Exam Exam: See Below Free Text/Narrative:: pt arrived with marked vomiting and she has chest pain. She felt sob. Exam Limited By: No Limitations General Appearance: Alert, Anxious, Moderate Distress Ears: Normal TMs Nose: Normal Inspection Throat/Mouth: Normal Inspection Head: Atraumatic Neck: Normal Inspection Respiratory/Chest: No Respiratory Distress Cardiovascular: Regular Rate, Rhythm GI/Abdominal: Tender, Other (mild distention. ) Rectal (Female) Exam: Deferred Back Exam: Normal Inspection Extremities: Normal Inspection Course - Vital Signs Last Recorded V/S: Last Vital Signs Temp 99.6 F 12/06/18 03:00 Pulse 105 H 12/06/18 03:00 Resp 14 12/06/18 03:00 BP 118/64 12/06/18 03:00 Pulse Ox 96 12/06/18 03:00 - Orders/Labs/Meds Orders: Active Orders 24 hr Category Date Time Status EKG Documentation Completion [RC] ASDIRECTED Care 12/05/18 17:22 Active CULTURE URINE [RM] Stat Lab 12/05/18 18:50 Received Iopamidol [Isovue-300 (61%)] Med 12/05/18 19:00 Active 100 ml IV . DIRECTED Sodium Chloride 0.9% [Normal Saline] 1,000 ml Med 12/05/18 17:30 Active IV ASDIRECTED Sodium Chloride 0.9% [Normal Saline] 1,000 ml Med 12/05/18 19:00 Active IV ASDIRECTED Sodium Chloride 0.9% [Normal Saline] 100 ml Med 12/05/18 19:00 Active IV ASDIRECTED EKG 12 Lead [EK] Routine Ther 12/05/18 17:22 Ordered Medication Orders Benzocaine/Menthol (Cepacol Sore Throat) 1 lozenge MUCMEM Q1H PRN PRN Reason: Sore Throat Diphenhydramine HCl (Benadryl) 50 mg IVPUSH Q4H PRN PRN Reason: Itching Hydromorphone HCl (Dilaudid Automation Qa Tester 15 Mg In Ns 30 Ml) 0 mg IV ASDIRECTED PRN; Protocol PRN Reason: Pain Last Admin: 12/05/18 22:26 Dose: 15 mg Hydroxyzine HCl (Vistaril) 50 mg IM Q4H PRN PRN Reason: Nausea Sodium Chloride (Normal Saline) 1,000 mls @ 999 mls/hr IV ASDIRECTED DOMINIQUE Last Admin: 12/05/18 18:07 Dose: 999 mls/hr Sodium Chloride (Normal Saline) 100 mls @ 3 mls/sec IV ASDIRECTED DOMINIQUE Last Admin: 12/05/18 18:57 Dose: 3 mls/sec Sodium Chloride (Normal Saline) 1,000 mls @ 999 mls/hr IV ASDIRECTED DOMINIQUE Clindamycin Phosphate 900 mg/ (Sodium Chloride) 106 mls @ 200 mls/hr IV Q8H [facility] Last Admin: 12/05/18 23:56 Dose: 200 mls/hr Sodium Chloride (Normal Saline) 1,000 mls @ 125 mls/hr IV ASDIRECTED DOMINIQUE Iopamidol (Isovue-300 (61%)) 100 ml IV . DIRECTED [facility] Last Admin: 12/05/18 18:57 Dose: 100 ml Ketorolac Tromethamine (Toradol) 30 mg IVPUSH Q6H [facility] Stop: 12/06/18 16:31 Last Admin: 12/06/18 00:00 Dose: 30 mg Levetiracetam (Keppra) 1,125 mg PO BID [facility] Last Admin: 12/06/18 00:14 Dose: 1,125 mg Naloxone HCl (Narcan) 0.4 mg IVPUSH Q2M PRN PRN Reason: Respiratory Distress Promethazine HCl (Phenergan) 25 mg IM Q6H PRN PRN Reason: Nausea Zolpidem Tartrate (Ambien) 10 mg PO BEDTIME [facility] Last Admin: 12/06/18 00:04 Dose: 10 mg Labs: Laboratory Tests 12/05/18 12/05/18 12/05/18 Range/Units 17:34 17:34 17:34 WBC 9.0 (4.5-11.0) K/uL RBC 3.54 (3.30-5.50) M/uL Hgb 9.6 L D (12.0-15.0) g/dL Hct 31.8 L (36.0-48.0) % MCV 90 (80-98) fL MCH 27 (27-31) pg MCHC 30 L (32-36) % Plt Count 265 (150-400) K/uL Neut % (Auto) 70 H (36-66) % Lymph % (Auto) 14 L (24-44) % Reynolds % (Auto) 13 H (2-6) % Eos % (Auto) 3 (2-4) % Baso % (Auto) 0 (0-1) % Sodium 137 L (140-148) mmol/L Potassium 4.3 (3.6-5.2) mmol/L Chloride 102 (100-108) mmol/L Carbon Dioxide 27 (21-32) mmol/L Anion Gap 12.3 (5.0-14.0) mmol/L BUN 7 (7-18) mg/dL Creatinine 0.6 (0.6-1.0) mg/dL Est Cr Clr Drug Dosing TNP Estimated GFR (MDRD) > 60 (>60) Glucose 91 (74-106) mg/dL Calcium 8.7 (8.5-10.1) mg/dL Total Bilirubin 0.5 D (0.2-1.0) mg/dL AST 38 H D (15-37) U/L ALT 46 D (12-78) U/L Alkaline Phosphatase 88 (46-116) U/L Troponin I < 0.017 (0.000-0.056) ng/mL Total Protein 6.3 L (6.4-8.2) g/dL Albumin 3.0 L (3.4-5.0) g/dL Globulin 3.3 (2.3-3.5) g/dL Albumin/Globulin Ratio 0.9 L (1.2-2.2) Urine Color (YELLOW) Urine Appearance (CLEAR) Urine pH (5.0-8.0) Ur Specific [place] (1.008-1.030) Urine Protein (NEGATIVE) mg/dL Urine Glucose (UA) (NEGATIVE) mg/dL Urine Ketones (NEGATIVE) mg/dL Urine Occult Blood (NEGATIVE) Urine Nitrite (NEGATIVE) Urine Bilirubin (NEGATIVE) Urine Urobilinogen (0.2-1.0) EU/dL Ur Leukocyte Esterase (NEGATIVE) Urine RBC (0-5) Urine WBC (0-5) Ur Epithelial Cells Amorphous Sediment Urine Bacteria Urine Mucus 12/05/18 Range/Units 18:30 WBC (4.5-11.0) K/uL RBC (3.30-5.50) M/uL Hgb (12.0-15.0) g/dL Hct (36.0-48.0) % MCV (80-98) fL MCH (27-31) pg MCHC (32-36) % Plt Count (150-400) K/uL Neut % (Auto) (36-66) % Lymph % (Auto) (24-44) % Reynolds % (Auto) (2-6) % Eos % (Auto) (2-4) % Baso % (Auto) (0-1) % Sodium (140-148) mmol/L Potassium (3.6-5.2) mmol/L Chloride (100-108) mmol/L Carbon Dioxide (21-32) mmol/L Anion Gap (5.0-14.0) mmol/L BUN (7-18) mg/dL Creatinine (0.6-1.0) mg/dL Est Cr Clr Drug Dosing Estimated GFR (MDRD) (>60) Glucose (74-106) mg/dL Calcium (8.5-10.1) mg/dL Total Bilirubin (0.2-1.0) mg/dL AST (15-37) U/L ALT (12-78) U/L Alkaline Phosphatase (46-116) U/L Troponin I (0.000-0.056) ng/mL Total Protein (6.4-8.2) g/dL Albumin (3.4-5.0) g/dL Globulin (2.3-3.5) g/dL Albumin/Globulin Ratio (1.2-2.2) Urine Color Yellow (YELLOW) Urine Appearance Cloudy A (CLEAR) Urine pH 6.5 (5.0-8.0) Ur Specific [place] 1.025 (1.008-1.030) Urine Protein Negative (NEGATIVE) mg/dL Urine Glucose (UA) Negative (NEGATIVE) mg/dL Urine Ketones Negative (NEGATIVE) mg/dL Urine Occult Blood Small H (NEGATIVE) Urine Nitrite Positive H (NEGATIVE) Urine Bilirubin Negative (NEGATIVE) Urine Urobilinogen 0.2 (0.2-1.0) EU/dL Ur Leukocyte Esterase Small H (NEGATIVE) Urine RBC 10-20 H (0-5) Urine WBC 5-10 H (0-5) Ur Epithelial Cells Many Amorphous Sediment Not seen Urine Bacteria Many Urine Mucus Not seen Meds: Medications Generic Name Dose Route Start Last Admin Trade Name Freq PRN Reason Stop Dose Admin Benzocaine/Menthol 1 lozenge 12/05/18 22:24 Cepacol Sore Throat MUCMEM Q1H PRN Sore Throat Diphenhydramine HCl 50 mg 12/05/18 22:24 Benadryl IVPUSH Q4H PRN Itching Hydromorphone HCl 0 mg 12/05/18 22:26 12/05/18 22:26 Dilaudid Automation Qa Tester 15 Mg In Ns 30 Ml IV 15 mg ASDIRECTED PRN Administration Pain Protocol Hydroxyzine HCl 50 mg 12/05/18 22:24 Vistaril IM Q4H PRN Nausea Sodium Chloride 1,000 mls @ 999 mls/hr 12/05/18 17:30 12/05/18 18:07 Normal Saline IV 999 mls/hr ASDIRECTED DOMINIQUE Administration Sodium Chloride 100 mls @ 3 mls/sec 12/05/18 19:00 12/05/18 18:57 Normal Saline IV 3 mls/sec ASDIRECTED DOMINIQUE Administration Sodium Chloride 1,000 mls @ 999 mls/hr 12/05/18 19:00 Normal Saline IV ASDIRECTED DOMINIQUE Clindamycin Phosphate 900 mg/ 106 mls @ 200 mls/hr 12/05/18 22:30 12/05/18 23 :56 Sodium Chloride IV 200 mls/hr Q8H DOMINIQUE Administration Sodium Chloride 1,000 mls @ 125 mls/hr 12/05/18 23:45 Normal Saline IV ASDIRECTED DOMINIQUE Iopamidol 100 ml 12/05/18 19:00 12/05/18 18:57 Isovue-300 (61%) IV 100 ml . DIRECTED DOMINIQUE Administration Ketorolac Tromethamine 30 mg 12/05/18 22:30 12/06/18 00:00 Toradol IVPUSH 12/06/18 16:31 30 mg Q6H DOMINIQUE Administration Levetiracetam 1,125 mg 12/05/18 23:45 12/06/18 00:14 Keppra PO 1,125 mg BID DOMINIQUE Administration Naloxone HCl 0.4 mg 12/05/18 22:26 Narcan IVPUSH Q2M PRN Respiratory Distress Promethazine HCl 25 mg 12/05/18 22:24 Phenergan IM Q6H PRN Nausea Zolpidem Tartrate 10 mg 12/05/18 23:44 12/06/18 00:04 Ambien PO 10 mg BEDTIME DOMINIQUE Administration Discontinued Medications Generic Name Dose Route Start Last Admin Trade Name Yisel PRN Reason Stop Dose Admin Dexamethasone Confirm 12/05/18 20:44 Dexamethasone Administered 12/05/18 20:45 Dose 4 mg .ROUTE .STK-MED ONE Fentanyl Confirm 12/05/18 20:43 Sublimaze Administered 12/05/18 20:44 Dose 250 mcg .ROUTE .STK-MED ONE Fentanyl Confirm 12/05/18 21:29 Sublimaze Administered 12/05/18 21:30 Dose 250 mcg .ROUTE .STK-MED ONE Glycopyrrolate Confirm 12/05/18 20:44 Robinul Administered 12/05/18 20:45 Dose 1 mg .ROUTE .STK-MED ONE Ceftriaxone Sodium 1 gm/ 50 mls @ 100 mls/hr 12/05/18 19:23 12/05/18 19:55 Sodium Chloride IV 12/05/18 19:52 100 mls/hr ONETIME ONE Administration Lactated Ringer's Confirm 12/05/18 21:11 Ringers, Lactated Administered 12/05/18 21:12 Dose 1,000 mls @ as directed .ROUTE .STK-MED ONE Sodium Chloride Confirm 12/05/18 21:48 Normal Saline Administered 12/05/18 21:49 Dose 10 mls @ as directed .ROUTE .STK-MED ONE Lactated Ringer's Confirm 12/05/18 22:16 Ringers, Lactated Administered 12/05/18 22:17 Dose 1,000 mls @ as directed .ROUTE .STK-MED ONE Meropenem Confirm 12/05/18 21:48 12/05/18 21:50 Merrem Administered 12/05/18 21:49 500 mg Dose Administration 500 mg .ROUTE .STK-MED ONE Neostigmine Methylsulfate Confirm 12/05/18 20:44 Neostigmine Administered 12/05/18 20:45 Dose 5 mg .ROUTE .STK-MED ONE Ondansetron HCl 4 mg 12/05/18 17:22 12/05/18 18:07 Zofran IVPUSH 12/05/18 17:23 4 mg ONETIME ONE Administration Ondansetron HCl Confirm 12/05/18 20:44 Zofran Administered 12/05/18 20:45 Dose 4 mg .ROUTE .STK-MED ONE Propofol Confirm 12/05/18 20:44 Diprivan 20 Ml Administered 12/05/18 20:45 Dose 200 mg .ROUTE .STK-MED ONE Rocuronium Rippey Confirm 12/05/18 20:44 Zemuron Administered 12/05/18 20:45 Dose 50 mg .ROUTE .STK-MED ONE Rocuronium Rippey Confirm 12/05/18 21:39 Zemuron Administered 12/05/18 21:40 Dose 50 mg .ROUTE .STK-MED ONE Sodium Chloride 10 ml 12/05/18 18:46 12/05/18 18:57 Saline Flush FLUSH 12/05/18 18:47 10 ml ONETIME ONE Administration Zolpidem Tartrate 10 mg 12/06/18 21:00 Ambien PO BEDTIME DOMINIQUE - Re-Assessments/Exams Free Text/Narrative Re-Assessment/Exam: 12/05/18 18:18 pt has a normal trop. . Her abdoman is tender and does feel mildly distended. Departure - Departure Disposition: Admitted As Inpatient 68 Clinical Impression: Small bowel obstruction UTI (urinary tract infection) Qualifiers: Urinary tract infection type: acute cystitis Hematuria presence: without hematuria Qualified Code(s): N30.00 - Acute cystitis without hematuria Nausea and vomiting Qualifiers: Vomiting type: unspecified Vomiting Intractability: non-intractable Qualified Code(s): R11.2 - Nausea with vomiting, unspecified <Sylvain Joseph - Last Filed: 12/06/18 03:37> Course - Re-Assessments/Exams Free Text/Narrative Re-Assessment/Exam: 12/05/18 19:25 Care turned over from Dr. Snell. Patient looked improved after IV fluids. Urine is positive for nitrite, many bacteria so culture was initiated and she' ll be given 1 g of Rocephin IV. CT of the abdomen and pelvis pending. She wants to go home if possible. 12/05/18 19:39 IMPRESSION: 1. Severe distention of the Isma-en-Y limb is noted measuring up to 5.5 cm and extending to the distal anastomosis. Findings are consistent with small bowel obstruction and possibly due to anastomotic obstruction or stricture. Dictated by Gerson Gee MD @ 12/05/2018 7:28:[address] findings were discussed with Cristine Rico, and she will discuss with surgery for admission and definitive care. Departure - Departure Time of Disposition: 21:03
[2018-12-05] MEDS ORDERED: Sodium Chloride 0.9% 10 ML Syringe FLUSH ONE (18:46)
[2018-12-05] MEDS ORDERED: Sodium Chloride 0.9% 100 ML IV SCH (19:00)
[2018-12-05] MEDS ORDERED: Iopamidol 612 MG/ML 100 ML Bottle IV SCH (19:00)
[2018-12-05] MEDS ORDERED: cefTRIAXone 1 GM in Sodium Chloride 0.9% 50 ML IV ONE (19:23)
--- NOTE | 2018-12-05 19:30 | CRLCT ---
INDICATION: Vomiting and distended abdomen TECHNIQUE: CT Abdomen and pelvis with i.v. contrast. Coronal and sagittal reformats were obtained. CONTRAST: 100 mL Isovue 300 COMPARISON: 11/25/2018 FINDINGS: Lower chest: Unremarkable. Liver: Unremarkable. Spleen: Unremarkable. Pancreas: Unremarkable. Gallbladder: Previous cholecystectomy noted without significant intra- or extrahepatic biliary ductal dilatation seen. Kidney: There is a 1.3 cm cyst present in the lower pole of the right kidney. Adrenal: Unremarkable. Bowel: Patient status post gastric bypass. Severe distention of the Isma-en-Y limb is noted measuring up to 5.5 cm and extending to the distal anastomosis. Moderate to severe fluid distention of the distal esophagus is present and likely due to gastroesophageal reflux. The appendix is normal in appearance and size. The lumen of the appendix is hyperdense which may be due to retained barium. Vascular: Unremarkable. Lymph: Unremarkable. Peritoneum: Unremarkable. No pneumoperitoneum is seen. No significant ascites is noted. Pelvis: Unremarkable. Soft tissue: Unremarkable. Bone: Unremarkable for age. IMPRESSION: 1. Severe distention of the Isma-en-Y limb is noted measuring up to 5.5 cm and extending to the distal anastomosis. Findings are consistent with small bowel obstruction and possibly due to anastomotic obstruction or stricture. Dictated by Gerson Gee MD @ 12/05/2018 7:28:40 PM Please note that all CT scans at this facility use dose modulation, iterative reconstruction, and/or weight-based dosing when appropriate to reduce radiation dose to as low as reasonably achievable. Dictated by: Gerson Gee MD @ 12/05/2018 19:29:26 (Electronically Signed)
[2018-12-05] MEDS ORDERED: fentaNYL 250 MCG/5 ML SDV ONE ×2 (20:43→21:29)
[2018-12-05] MEDS ORDERED: Neostigmine Methylsulfate 1 MG/ML 5 ML Syringe ONE (20:44)
[2018-12-05] MEDS ORDERED: Ondansetron 4 MG/2 ML SDV ONE (20:44)
[2018-12-05] MEDS ORDERED: Propofol 200 MG/20 ML SDV ONE (20:44)
[2018-12-05] MEDS ORDERED: Glycopyrrolate 0.2 MG/ML 5 ML MDV ONE (20:44)
[2018-12-05] MEDS ORDERED: Dexamethasone 4 MG/ML SDV ONE (20:44)
[2018-12-05] MEDS ORDERED: Rocuronium 50 MG/5 ML Vial ONE ×2 (20:44→21:39)
[2018-12-05] MEDS ORDERED: Lactated Ringers 1,000 ML ONE ×2 (21:11→22:16)
[2018-12-05] MEDS ORDERED: Sodium Chloride 0.9% 10 ML ONE (21:48)
[2018-12-05] MEDS ORDERED: Meropenem 500 MG SDV ONE (21:48)
[2018-12-05] MEDS ORDERED: diphenhydrAMINE 50 MG/ML SDV IVPUSH PRN (22:24)
[2018-12-05] MEDS ORDERED: Benzocaine/Cetylpyridinium/Menthol Lozenge MUCMEM PRN (22:24)
[2018-12-05] MEDS ORDERED: HYDROmorphone/Normal Saline 15 MG/30 ML PCA IV PRN (22:26)
[2018-12-05] MEDS ORDERED: Naloxone 0.4 MG/ML SDV IVPUSH PRN (22:26)
[2018-12-05] MEDS ORDERED: Clindamycin Phosphate 900 MG in Sodium Chloride 0.9% 100 ML IV SCH (22:30)
[2018-12-06] MEDS: Zolpidem 5 MG Tab PO SCH ×2 (00:04→21:12)
[2018-12-06] MEDS: levETIRAcetam 250 MG Tab PO SCH ×3 (00:14→20:33)
[2018-12-06] MEDS: Ketorolac 30 MG/ML SDV IVPUSH SCH ×4 (04:48→16:15)
[2018-12-06] MEDS: Sodium Chloride 0.9% 1,000 ML IV SCH ×3 (06:22→23:49)
[2018-12-06] MEDS: Clindamycin Phosphate 900 MG in Sodium Chloride 0.9% 100 ML IV SCH ×2 (08:46→16:15)
--- NOTE | 2018-12-06 11:08 | PN ---
DATE OF SERVICE: 12/06/2018 SUBJECTIVE: The patient is doing well today. Pain is well controlled. No nausea, vomiting, shortness of breath, or chest pain. She is passing small amount of gas. OBJECTIVE: VITAL SIGNS: Stable. Temperature 98.4, blood pressure 115/58, and pulse 70. RESPIRATORY: Lungs clear to auscultation bilaterally. CARDIOVASCULAR: Regular rhythm and rate. ABDOMEN: Dressing intact. Drain output is 125 mL, serosanguineous. LABORATORY DATA: Laboratory results show a normal white blood cell count, hemoglobin 9.1, and creatinine is 0.5. ASSESSMENT: Status post revision of jejunojejunal anastomosis. PLAN: We will continue to await GI function. Continue IV fluids at this time. Miguel Gunderson MD /[id number]
[2018-12-06] MEDS: Promethazine 25 MG/ML SDV IM PRN ×2 (14:19→20:33)
[2018-12-06] MEDS: hydrOXYzine HCl 100 MG/2 ML SDV IM PRN ×2 (14:28→19:17)
[2018-12-06] MEDS ORDERED: Zolpidem 5 MG Tab PO SCH (21:00)
[2018-12-07] MEDS: Clindamycin Phosphate 900 MG in Sodium Chloride 0.9% 100 ML IV SCH ×2 (00:24→07:43)
[2018-12-07] MEDS: hydrOXYzine HCl 100 MG/2 ML SDV IM PRN (01:45)
[2018-12-07 07:36] VITALS: BP 106/56; PULSE 105
[2018-12-07] MEDS: Sodium Chloride 0.9% 1,000 ML IV SCH (07:43)
[2018-12-07] MEDS ORDERED: HYDROmorphone 2 MG Tab PO PRN (07:51)
[2018-12-07] MEDS ORDERED: Non-Formulary Medication 1 Each (Zolpidem Tartrate [Ambien] 10 MG) PO PRN (07:53)
--- NOTE | 2018-12-07 08:08 | CONS ---
DATE OF SERVICE: 12/05/2018 REFERRING PHYSICIAN: Brielle Snell MD CONSULTING PHYSICIAN: Miguel Gunderson MD REASON FOR CONSULTATION: Abdominal pain. HISTORY OF PRESENT ILLNESS: This is a 33-year-old female who has had ongoing abdominal pain. The patient has been discharged less than 24 hours previously. She underwent an exploratory laparotomy with lysis of adhesions, reduction of small bowel volvulus with internal hernia, small bowel resection, rectosigmoid colon resection, repair of incarcerated incisional hernia, repair of incarcerated umbilical hernia, and placement of Vicryl mesh on 12/03/2018. The patient notes she has not been passing gas nor has she had bowel movements. She has had significant nausea and vomiting. Her pain is described, on a 1 to 10 scale, she rates it a 10/10. PAST MEDICAL HISTORY: Chronic dental issues, asthma, bronchitis, pneumonia, history of multiple bowel obstructions, cholelithiasis, urinary tract infections, brain injury, chronic migraine, seizures, TIAs, history of stroke, meningitis, anxiety, depression, suicidal attempts, gallbladder resection, colonoscopy, EGDs, breast biopsies, D and Cs, adenoids, and tonsillectomy. SOCIAL HISTORY: She does smoke. REVIEW OF SYSTEMS: GENERAL: As above. CONSTITUTIONAL: The patient has abdominal pain. HEENT: No upper respiratory tract infections. RESPIRATORY: History of pneumonia, however, no reported symptoms today. CARDIOVASCULAR: No chest pain. ENDOCRINE: Not applicable. GI: As above. GENITOURINARY: No dysuria. MUSCULOSKELETAL: No history. NEUROLOGIC: No history. PHYSICAL EXAMINATION: VITAL SIGNS: Temperature 98.6, blood pressure 135/77, pulse 104, and respirations 18. GENERAL: The patient has abdominal pain. Lying flat in the bed. HEENT: Pupils are equal. NECK: Supple. LUNGS: Clear. CARDIOVASCULAR: Regular rhythm and rate. ABDOMEN: Distended/obese. EXTREMITIES: Full range of motion. NEUROLOGIC: Oriented x3. PSYCH: No gross depression. LABORATORY DATA: Laboratory results show a white blood cell count of 9,000 and creatinine is 0.5. IMAGING: I did review the CT scan, which showed severe distention of the Isma-en-Y limb up to 5.5 cm consistent with small bowel obstruction at anastomosis. ASSESSMENT: Small bowel obstruction. PLAN: The patient will be taken to the operating room for reopening of recent laparotomy and evaluation of current status of her GI tract. Most likely, this is a narrowing or an adhesion of the jejunojejunal anastomosis. The patient was counseled on risks, benefits, alternatives, and limitations including, but not limited to infection, bleeding, injury to abdominal structures, requirement for revisional intestinal operations, pneumonia, respiratory tract issues, cardiovascular issues, and other risks not listed here. The patient understands these risks and wishes to proceed. Miguel Gunderson MD /[id number]
--- NOTE | 2018-12-07 08:18 | OR ---
DATE OF PROCEDURE: 12/05/2018 SURGEON: Miguel Gunderson MD PROCEDURES: 1. Reopening of recent laparotomy (71868). 2. New anastomosis of the Isma-en-Y limb to the common channel (37841). 3. New anastomosis of the biliopancreatic limb to the common channel ([id number]). 4. Repair of ventral/incisional hernia, recurrent (41778). COMPLICATIONS: None. MACHINE QUILT STUFFER: None. ANESTHESIA: General/local. RISKS: Risks, benefits, alternatives, and limitations including, but not limited to infection, bleeding, anastomotic failure, abscess formation, cardiovascular compromise, my experience with the procedure, and other risks not listed here were explained to the patient, and they wished to proceed. PROCEDURE IN DETAIL: The patient was placed in supine position, prepped and draped. The hunter from the previous laparotomy were removed. This was then carried down, removing and cutting the Vicryl sutures. The abdomen was entered, and the mesh was encountered. This was mobilized and deflected inferiorly. The small bowel Isma-en-Y limb was encountered immediately. This was significantly distended, approximately 6 cm in size. This was carried down to the anastomosis, and it was noted that the common channel was completely decompressed with the Isma-en-Y limb being significantly large in size. Fluid was not able to be passed from the Isma-en-Y limb to the common channel. Therefore, the decision was made at this time to re-do the jejunojejunal anastomosis. This was performed by removing the old anastomosis by transecting these with hernandez load staplers and using Gy 45s for the vascular aspect of the small bowel. Once this was removed, this was sent for specimen. Of note, there was no evidence of perforation or leak associated with this anastomosis. The Isma-en-Y limb would be reconstructed upstream. This was performed extracorporeally with several towels and lap sponges to maximize the protection from gross spillage. This was performed in a double-staple load fashion using two 60 tans by creating a defect in the antimesenteric side of the small bowel, performing the staple firings and then using 4 Allis clamps to close the defect and subsequently closing with hernandez load stapler. The anastomosis at this point would then be larger than 6 cm. Of note, Vicryl stitches were used to approximate the bowel prior to firing. The biliopancreatic/common channel anastomosis was performed next. This was performed in the exact same manner and fashion, also extracorporeally double-load hunter and transection of the opening. This also had a nice viable pathway as fluid could be moved between this without difficulty. The mesenteric defects were then closed in running Vicryl sutures. The towels, laps, and gloves were then all exchanged, after thorough extracorporeal irrigation of both anastomoses with meropenem-based solution. Tisseel was then used to reinforce the anastomosis. This was then placed back in the abdomen. Of note, the patient, in the recent laparotomy, had a colon anastomosis also. The colon was not pulled, mobilized, or interrogated due to the concern that manipulating this will lead to anastomotic failure and a leak. Therefore, this was not inspected during this procedure, as a CT scan was noted the Isma-en-Y was the underlying issue, which was found during this procedure to be true. A 10 flat Prashant-H[place]os[place] drain was then placed in proximity to the anastomosis. The hernia was then repaired by reapproximating the mesh with interrupted Vicryl sutures. The fascia was then closed with #1 Vicryl suture in a running fashion. Subcutaneous tissues were closed with 3-0 Vicryl after reapproximating. Glove and gowns were then changed again. Hunter were applied. Dressings were applied. The patient tolerated the procedure well. Miguel Gunderson MD /[id number]
[2018-12-07] MEDS ORDERED: LEVETIRACETAM PO SCH (09:00)
[2018-12-07] MEDS ORDERED: Gabapentin 300 MG Cap PO SCH (09:00)
[2018-12-07] MEDS ORDERED: FLUoxetine 10 MG Cap PO SCH (09:00)
[2018-12-07] MEDS ORDERED: Acetaminophen 325 MG Tab PO PRN (09:34)
[2018-12-07] MEDS ORDERED: Albuterol 8 GM Inhaler INH SCH (11:00)
[2018-12-07] MEDS: levETIRAcetam 250 MG Tab PO SCH (11:02)
[2018-12-07] MEDS ORDERED: Cefdinir 300 MG Cap PO SCH (12:00)
--- NOTE | 2018-12-08 21:16 | DISCH ---
DISCHARGE DIAGNOSIS: Status post revision of jejunojejunal anastomosis. SUMMARY OF HOSPITAL COURSE: A 33-year-old female, who presented with intense abdominal pain. The patient underwent a CT scan which showed approximately 6 cm Isma-en-Y limb with an obstruction at the jejunojejunal anastomosis. The patient was taken to the operating room and was noted to have an obstruction of the aforementioned anastomosis. The patient underwent revision of this. Prior to discharge, the patient's pain was well controlled. She had no nausea, vomiting, shortness of breath, or chest pain. She is having bowel movements and tolerating a bariatric diet. FOLLOWUP: Follow up with Surgery in 7 to 14 days. ACTIVITY: No lifting greater than 30 pounds x30 days. DISCHARGE MEDICATIONS: Same medications as recent discharge.
== END 2018-12-07 12:40 | disposition home or self-care (01) | DRG 328 ==
LOC: JP.ED 17:10 → JP.SDS 20:59 → JP.2SS 22:24
PROVIDERS: ADMIT Surgery; ATTEND Surgery
PROC: 0WUF0JZ Supplement Abdominal Wall with Synthetic Substitute, Open Approach (ICD-10-PCS; principal; 2018-12-05)
PROC: 0D160ZA Bypass Stomach to Jejunum, Open Approach (ICD-10-PCS; 2018-12-05)
PROC: 0F190ZB Bypass Common Bile Duct to Small Intestine, Open Approach (ICD-10-PCS; 2018-12-05)
DX: K56.609 Unspecified intestinal obstruction, unspecified as to partial versus complete obstruction (principal); H54.7 Unspecified visual loss; I10 Essential (primary) hypertension; J45.909 Unspecified asthma, uncomplicated; G43.909 Migraine, unspecified, not intractable, without status migrainosus; F41.9 Anxiety disorder, unspecified; F32.9 Major depressive disorder, single episode, unspecified; E66.9 Obesity, unspecified; Z86.73 Personal history of transient ischemic attack (TIA), and cerebral infarction without residual deficits; Z88.0 Allergy status to penicillin; Z88.2 Allergy status to sulfonamides; Z88.5 Allergy status to narcotic agent; Z79.899 Other long term (current) drug therapy
CPT/HCPCS: 36415; 74177; 80048; 80053; 81001; 84484; 85025; 85027; 87086; 87088; 87186; 93005; 94640; 94762; 96361; 96365; 96375; 99285-25; A9270-GY; J0696; J1100; J1170; J1885; J2185; J2405; J2550; J2704; J2710; J3010; J3410; J3490; J7030; J7050; J7120; Q9967

== ENCOUNTER 2019-01-10 19:27 | Emergency (ER) | payer MEDICAID ==
[2019-01-10 19:44] VITALS: BP 140/69; PULSE 90
--- NOTE | 2019-01-10 19:48 | EDM.PDOC ---
ED HPI GENERAL MEDICAL PROBLEM - General Chief Complaint: Abdominal Pain Stated Complaint: SOB ABD PAIN Time Seen by Provider: 01/10/19 19:48 Source of Information: Reports: Patient History Limitations: Reports: No Limitations - History of Present Illness INITIAL COMMENTS - FREE TEXT/NARRATIVE: 33 years old male patient presented with a chief complaint of abdominal pain. She is status post bowel resection on December 07 for bowel obstruction. She has been doing well since surgery until 2 days ago when she started having abdominal pain mainly epigastric. Denies any nausea or vomiting. Denies any fever. No radiation. Pain is worse when she try to take a deep breath. Denies any urinary symptom. She is having bowel movements. Denies any chest pain. - Related Data Allergies Allergy/AdvReac Type Severity Reaction Status Date / Time amoxicillin [Amoxicillin] Allergy Hives Verified 01/10/19 19:45 guaifenesin Allergy Cannot Verified 01/10/19 19:45 Remember meclizine Allergy Hives Verified 01/10/19 19:45 Penicillins Allergy Hives Verified 01/10/19 19:45 Sulfa (Sulfonamide Allergy Other Verified 01/10/19 19:45 Antibiotics) sulfamethoxazole Allergy Hives Verified 01/10/19 19:45 [From Bactrim] trimethoprim [From Bactrim] Allergy Hives Verified 01/10/19 19:45 oxycodone [Oxycodone] AdvReac Nausea and Verified 01/10/19 19:45 Vomiting propoxyphene AdvReac Nausea and Verified 01/10/19 19:45 Vomiting Home Meds: Home Meds Gabapentin [Neurontin] 300 mg PO TID 04/12/16 [History] Albuterol [Ventolin HFA] 2 puff IH QID 06/29/18 [History] Albuterol/Ipratropium [DuoNeb 3.0-0.5 MG/3 ML] 3 ml IH Q4H PRN 06/29/18 [History ] Multivitamins with Iron [Chewable-Tramaine with Iron] 1 tab PO BID 06/29/18 [History ] hydrOXYzine HCl [hydrOXYzine] 25 mg PO Q6H 10 Days #20 tab 08/30/18 [Rx] FLUoxetine [PROzac] 10 mg PO DAILY 11/27/18 [History] Ibuprofen [Motrin] 800 mg PO Q8H PRN 11/27/18 [History] Metoclopramide HCl [Reglan] 10 mg PO Q6H PRN 11/27/18 [History] Ondansetron HCl [Zofran] 4 mg PO Q6H PRN 11/27/18 [History] Zolpidem Tartrate [Ambien] 10 mg PO BEDTIME PRN 11/27/18 [History] levETIRAcetam [Levetiracetam] 1,125 mg PO BID 12/03/18 [History] Cefdinir [Omnicef] 300 mg PO BID #19 cap 12/07/18 [Rx] Past Medical History - Past Health History Medical/Surgical History: Denies Medical/Surgical History HEENT History: Reports: Impaired Vision, Other (See Below) Other HEENT History: chronic dental pain Cardiovascular History: Reports: Hypertension Respiratory History: Reports: Asthma, Bronchitis, Recurrent, Pneumonia, Recurrent Gastrointestinal History: Reports: Bowel Obstruction, Cholelithiasis Genitourinary History: Reports: UTI, Recurrent 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: Musculoskeletal History: Reports: Fracture Neurological History: Reports: Brain Injury, Headaches, Chronic, Migraines, Seizure, TIA Other Neuro History: minor stroke with meningitis Psychiatric History: Reports: Anxiety, Depression, Psych Hospitalization(s), Suicide Attempt, Suicidal Ideation Endocrine/Metabolic History: Reports: Obesity/BMI 30+ Hematologic History: Reports: Anemia, B12 Deficiency, Blood Transfusion(s), Folic Acid - Infectious Disease History Infectious Disease History: Reports: MRSA - Past Surgical History Head Surgeries/Procedures: Reports: None HEENT Surgical History: Reports: Adenoidectomy, Tonsillectomy GI Surgical History: Reports: Bariatric Procedure, Cholecystectomy, Colon, Colonoscopy, EGD Female Surgical History: Reports: Breast Biopsy, D&C Neurological Surgical History: Reports: None Dermatological Surgical History: Reports: None Social & Family History - Family History Family Medical History: Noncontributory - Caffeine Use Caffeine Use: Reports: Soda - Living Situation & Occupation Living situation: Reports: Occupation: Unemployed ED ROS GENERAL - Review of Systems Review Of Systems: ROS reveals no pertinent complaints other than HPI. ED EXAM, GI/ABD - Physical Exam Exam: See Below Exam Limited By: No Limitations General Appearance: Alert, WD/WN, No Apparent Distress Eyes: Bilateral: Normal Appearance, EOMI Ears: Normal External Exam, Normal Canal, Hearing Grossly Normal, Normal TMs Head: Atraumatic, Normocephalic Neck: Normal Inspection, Supple, Non-Tender, Full Range of Motion Respiratory/Chest: No Respiratory Distress, Lungs Clear, Normal Breath Sounds, No Accessory Muscle Use, Chest Non-Tender Cardiovascular: Normal Peripheral Pulses, Regular Rate, Rhythm, No Edema, No Gallop, No JVD, No Murmur, No Rub GI/Abdominal Exam: Normal Bowel Sounds, Other (Diffuse abdominal tenderness. No guarding no rebound.) Extremities: Normal Inspection, Normal Range of Motion, Non-Tender, Normal Capillary Refill, No Pedal Edema Neurological: Alert, Oriented, CN II-XII Intact, Normal Cognition, Normal Gait, Normal Reflexes, No Motor/Sensory Deficits Course - Vital Signs Last Recorded V/S: Last Vital Signs Temp 35.9 C 01/10/19 19:51 Pulse 90 01/10/19 19:51 Resp 20 01/10/19 19:51 BP 140/69 01/10/19 19:51 Pulse Ox 94 L 01/10/19 19:51 - Orders/Labs/Meds Orders: Active Orders 24 hr Category Date Time Status Iopamidol [Isovue-300 (61%)] Med 01/10/19 20:00 Active 150 ml IV . DIRECTED Medication Orders Iopamidol (Isovue-300 (61%)) 150 ml IV . DIRECTED DOMINIQUE Labs: Laboratory Tests 01/10/19 01/10/19 01/10/19 Range/Units 20:16 20:16 20:16 WBC 6.7 (4.5-11.0) K/uL RBC 4.16 (3.30-5.50) M/uL Hgb 11.9 L D (12.0-15.0) g/dL Hct 37.9 (36.0-48.0) % MCV 91 (80-98) fL MCH 29 (27-31) pg MCHC 31 L (32-36) % Plt Count 247 (150-400) K/uL Neut % (Auto) 55 (36-66) % Lymph % (Auto) 31 (24-44) % Upson % (Auto) 9 H (2-6) % Eos % (Auto) 4 (2-4) % Baso % (Auto) 0 (0-1) % Sodium 138 L (140-148) mmol/L Potassium 3.8 (3.6-5.2) mmol/L Chloride 107 (100-108) mmol/L Carbon Dioxide 23 (21-32) mmol/L Anion Gap 11.8 (5.0-14.0) mmol/L BUN 12 D (7-18) mg/dL Creatinine 0.7 (0.6-1.0) mg/dL Est Cr Clr Drug Dosing 96.33 mL/min Estimated GFR (MDRD) > 60 (>60) Glucose 91 (74-106) mg/dL Lactic Acid 1.4 (0.4-2.0) mmol/L Calcium 8.4 L (8.5-10.1) mg/dL Total Bilirubin 0.1 L D (0.2-1.0) mg/dL AST 17 (15-37) U/L ALT 24 (12-78) U/L Alkaline Phosphatase 93 (46-116) U/L C-Reactive Protein 0.32 H (0.0-0.3) mg/dL Total Protein 6.4 (6.4-8.2) g/dL Albumin 3.2 L (3.4-5.0) g/dL Globulin 3.2 (2.3-3.5) g/dL Albumin/Globulin Ratio 1.0 L (1.2-2.2) Lipase 62 L (73-393) U/L HCG, Qual Urine Color (YELLOW) Urine Appearance (CLEAR) Urine pH (5.0-8.0) Ur Specific [place] (1.008-1.030) Urine Protein (NEGATIVE) mg/dL Urine Glucose (UA) (NEGATIVE) mg/dL Urine Ketones (NEGATIVE) mg/dL Urine Occult Blood (NEGATIVE) Urine Nitrite (NEGATIVE) Urine Bilirubin (NEGATIVE) Urine Urobilinogen (0.2-1.0) EU/dL Ur Leukocyte Esterase (NEGATIVE) Urine RBC (0-5) Urine WBC (0-5) Ur Epithelial Cells Amorphous Sediment Urine Bacteria Urine Mucus 01/10/19 01/10/19 Range/Units 20:16 20:27 WBC (4.5-11.0) K/uL RBC (3.30-5.50) M/uL Hgb (12.0-15.0) g/dL Hct (36.0-48.0) % MCV (80-98) fL MCH (27-31) pg MCHC (32-36) % Plt Count (150-400) K/uL Neut % (Auto) (36-66) % Lymph % (Auto) (24-44) % Upson % (Auto) (2-6) % Eos % (Auto) (2-4) % Baso % (Auto) (0-1) % Sodium (140-148) mmol/L Potassium (3.6-5.2) mmol/L Chloride (100-108) mmol/L Carbon Dioxide (21-32) mmol/L Anion Gap (5.0-14.0) mmol/L BUN (7-18) mg/dL Creatinine (0.6-1.0) mg/dL Est Cr Clr Drug Dosing mL/min Estimated GFR (MDRD) (>60) Glucose (74-106) mg/dL Lactic Acid (0.4-2.0) mmol/L Calcium (8.5-10.1) mg/dL Total Bilirubin (0.2-1.0) mg/dL AST (15-37) U/L ALT (12-78) U/L Alkaline Phosphatase (46-116) U/L C-Reactive Protein (0.0-0.3) mg/dL Total Protein (6.4-8.2) g/dL Albumin (3.4-5.0) g/dL Globulin (2.3-3.5) g/dL Albumin/Globulin Ratio (1.2-2.2) Lipase (73-393) U/L HCG, Qual Negative Urine Color Yellow (YELLOW) Urine Appearance Clear (CLEAR) Urine pH 6.0 (5.0-8.0) Ur Specific [place] 1.025 (1.008-1.030) Urine Protein Negative (NEGATIVE) mg/dL Urine Glucose (UA) Negative (NEGATIVE) mg/dL Urine Ketones Negative (NEGATIVE) mg/dL Urine Occult Blood Negative (NEGATIVE) Urine Nitrite Negative (NEGATIVE) Urine Bilirubin Negative (NEGATIVE) Urine Urobilinogen 0.2 (0.2-1.0) EU/dL Ur Leukocyte Esterase Small H (NEGATIVE) Urine RBC Not seen (0-5) Urine WBC 10-20 H (0-5) Ur Epithelial Cells Many Amorphous Sediment Not seen Urine Bacteria Many Urine Mucus Few Meds: Medications Generic Name Dose Route Start Last Admin Trade Name Freq PRN Reason Stop Dose Admin Iopamidol 150 ml 01/10/19 20:00 Isovue-300 (61%) IV . DIRECTED DOMINIQUE Discontinued Medications Generic Name Dose Route Start Last Admin Trade Name Freq PRN Reason Stop Dose Admin Sodium Chloride 1,000 mls @ 500 mls/hr 01/10/19 19:51 01/10/19 20:50 Normal Saline IV 01/10/19 21:50 500 mls/hr .BOLUS STA Administration Sodium Chloride 80 mls @ 3.5 mls/sec 01/10/19 19:59 Normal Saline IV 01/10/19 20:00 ONETIME ONE Morphine Sulfate 4 mg 01/10/19 20:03 01/10/19 20:14 Morphine IVPUSH 01/10/19 20:04 4 mg ONETIME ONE Administration Morphine Sulfate 4 mg 01/10/19 21:19 01/10/19 21:31 Morphine IVPUSH 01/10/19 21:20 4 mg ONETIME ONE Administration Sodium Chloride 10 ml 01/10/19 19:59 01/10/19 20:15 Saline Flush FLUSH 01/10/19 20:00 10 ml ONETIME ONE Administration - Radiology Interpretation Free Text/Narrative:: Patient was seen and examined shortly after arrival. Stable. Given 1 L normal saline bolus, 4 mg IV morphine. Lab and imaging reviewed with the patient.new common bile duct dilation of unclear significance. Normal LfT. patient abdominal pain improved but did not completely resolved. Given 4 more milligram of IV morphine. She still complaining of pain. I did consult with Dr. Spears general surgeon denture contour wire specialist and he recommended admission overnight. He accepted admission for further management. Patient agrees with the plan. Stable for admission. Departure - Departure Time of Disposition: 21:55 Disposition: Admitted As Inpatient 68 Condition: Fair Clinical Impression: Abdominal pain - Discharge Information *PRESCRIPTION DRUG MONITORING PROGRAM REVIEWED*: Not Applicable *COPY OF PRESCRIPTION DRUG MONITORING REPORT IN PATIENT GERRI: Not Applicable Referrals: Esther Mackenzie PA [Primary Care Provider] - Forms: ED Department Discharge - My Orders Last 24 Hours: My Active Orders 01/10/19 20:00 Iopamidol [Isovue-300 (61%)] 150 ml IV . DIRECTED - Assessment/Plan Last 24 Hours: My Active Orders 01/10/19 20:00 Iopamidol [Isovue-300 (61%)] 150 ml IV . DIRECTED Plan: admission to Dr. Spears
[2019-01-10] MEDS ORDERED: Sodium Chloride 0.9% 1,000 ML IV STA (19:51)
[2019-01-10] MEDS ORDERED: Sodium Chloride 0.9% 80 ML IV ONE (19:59)
[2019-01-10] MEDS ORDERED: Iopamidol 612 MG/ML 150 ML Bottle IV SCH (20:00)
[2019-01-10] MEDS ORDERED: Morphine 4 MG/ML Syringe IVPUSH ONE ×2 (20:03→21:19)
[2019-01-10] MEDS: Sodium Chloride 0.9% 10 ML Syringe FLUSH ONE ×2 (20:15→22:03)
--- NOTE | 2019-01-10 21:24 | CRLCT ---
INDICATION: Abdominal pain. COMPARISON: 12/21/2018 TECHNIQUE: CT examination of the abdomen and pelvis was performed with the uneventful intravenous administration of 135 cc of Isovue-300 while 3 mm thick axial sections were obtained from the lung bases through the pubic symphysis. Oral contrast was not administered. Please note that all CT scans at this facility use dose modulation, iterative reconstruction, and/or weight-based dosing when appropriate to reduce radiation dose to as low as reasonably achievable. FINDINGS: In the abdomen, the liver has new mild intrahepatic biliary ductal dilatation. This is accompanied by new moderate dilatation of the common bile duct, measuring 10 millimeters in caliber. The dilatation extends through the pancreatic head, with no distinct choledocholithiasis or pancreatic head mass. Recommend correlation with the patient`s LFTs. Again seen are changes of cholecystectomy with surgical clips in the gallbladder fossa. The liver is otherwise normal in appearance. The spleen, pancreas, and adrenals are normal in appearance. Again seen is a 14 millimeter cyst in the lower interpolar right kidney. The kidneys are otherwise normal in appearance. The abdominal aorta is normal in caliber with no sign of dilatation. There is no sign of retroperitoneal mass or adenopathy. Again seen are changes of gastric bypass surgery with multiple lines of charlie in the gastric fundus and a patent esophagojejunostomy. Again seen is a small bowel anastomosis in the left upper quadrant with mild dilatation of the small bowel in the area of the anastomosis, but no sign of obstruction or stricture. The distal stomach, the rest of the loops of small bowel, and colon in the abdomen are normal in appearance. The midline anterior abdominal wall incision is unchanged in appearance with no sign of any fluid collection. In the pelvis, the appendix is nonvisualized, but there is no sign of an inflammatory process in the area of the appendix. Again seen is a colonic anastomosis in the mid sigmoid colon with no sign of any stricture or mass. The loops of small bowel and the rest of colon in the pelvis are normal in appearance. The right ovary is now seen to have a cyst measuring 2.9 centimeters in diameter. The uterus and left ovary are normal in appearance. There is a mild amount of free fluid in the pelvis, more prominent to the right, nonspecific. This is new compared to the previous study. The urinary bladder is normal in appearance. There is no sign of pelvic or inguinal mass or adenopathy. The lung bases are clear. There is mild scoliosis of the lumbar spine convex towards the left. There is moderate anterior angulation of the distal 3 coccygeal segments without any coccygeal swelling, consistent with an old, healed coccygeal fracture. IMPRESSION: CT of the abdomen shows new mild intrahepatic biliary ductal dilatation and new moderate dilatation of the common bile duct, measuring up to 10 millimeters in caliber. No definite choledocholithiasis or obstructing pancreatic head mass. Recommend correlation with LFTs. Again seen are changes of cholecystectomy. Again seen are changes of gastric bypass surgery. There continues to be moderate dilatation of the small bowel loop where the Isma-en-Y anastomosis is made, with no sign of any obstruction. CT of the pelvis shows new mild amount of free fluid, nonspecific. New 2.9 centimeter cyst in the right ovary. Stable appearance of mid sigmoid resection and anastomosis. Please note that all CT scans at this facility use dose modulation, iterative reconstruction, and/or weight-based dosing when appropriate to reduce radiation dose to as low as reasonably achievable. Dictated by Gerardo Guaman MD @ Jan 10 2019 9:07PM Signed by Dr. Gerardo Guaman @ Jan 10 2019 9:22PM
[2019-01-10] MEDS ORDERED: Naloxone 0.4 MG/ML SDV IVPUSH PRN (22:09)
[2019-01-10] MEDS ORDERED: HYDROmorphone/Normal Saline 15 MG/30 ML PCA IV PRN (22:09)
[2019-01-10] MEDS ORDERED: Ondansetron 4 MG/2 ML SDV IVPUSH PRN (22:11)
[2019-01-10] MEDS ORDERED: Dextrose 5%-Lactated Ringers 1,000 ML IV SCH (22:15)
== END 2019-01-10 23:00 | disposition left against medical advice (07) ==
LOC: JP.ED 19:27
DX: R10.13 Epigastric pain (principal); I10 Essential (primary) hypertension; J45.909 Unspecified asthma, uncomplicated; G40.909 Epilepsy, unspecified, not intractable, without status epilepticus; F41.9 Anxiety disorder, unspecified; F32.9 Major depressive disorder, single episode, unspecified; E66.9 Obesity, unspecified; Z68.41 Body mass index [BMI] 40.0-44.9, adult; Z88.0 Allergy status to penicillin; Z88.8 Allergy status to other drugs, medicaments and biological substances; Z88.2 Allergy status to sulfonamides; Z88.5 Allergy status to narcotic agent; Z88.1 Allergy status to other antibiotic agents; Z86.73 Personal history of transient ischemic attack (TIA), and cerebral infarction without residual deficits; Z90.49 Acquired absence of other specified parts of digestive tract; Z98.890 Other specified postprocedural states; Z79.899 Other long term (current) drug therapy
CPT/HCPCS: 36415; 74177; 80053; 81001; 83605; 83690; 84703; 85025; 86140; 96361; 96374; 96376; 99285; J2270; J7030

== ENCOUNTER 2019-01-10 23:45 | Observation (INO) | payer MEDICAID ==
[2019-01-10] MEDS ORDERED: Ondansetron 4 MG/2 ML SDV IV PRN (23:57)
[2019-01-11] MEDS ORDERED: Naloxone 0.4 MG/ML SDV IVPUSH PRN (00:02)
[2019-01-11] MEDS ORDERED: HYDROmorphone/Normal Saline 15 MG/30 ML PCA IV PRN (00:02)
[2019-01-11] MEDS ORDERED: Dextrose 5%-Lactated Ringers 1,000 ML IV SCH (00:15)
[2019-01-11] MEDS: Morphine 2 MG/ML Syringe IVPUSH PRN ×6 (01:39→13:04)
[2019-01-11] MEDS ORDERED: Zolpidem 5 MG Tab PO ONE (02:01)
--- NOTE | 2019-01-11 05:59 | CRLCR ---
Indication: Abdominal pain Technique: Abdomen 2 view Comparison: Abdomen and pelvis CT 01/10/2019 Findings/Impression: Surgical clips are present in the right upper quadrant. Contrast is present within the bladder consistent with recent IV contrast administration. Suture material seen within the left mid abdomen. Air is seen within colon which is normal in caliber with a large amount of stool within the colon. There are several small bowel loops in the mid abdomen which appear mildly dilated and are considered suspicious for a small bowel obstruction. Dictated by Paulino Sepulveda MD @ Jan 11 2019 5:52AM Signed by Dr. Paulino Sepulveda @ Jan 11 2019 5:57AM
[2019-01-11] MEDS ORDERED: Dextrose 5%-Lact Ringers w/KCl 1,000 ML IV SCH (07:15)
[2019-01-11 07:51] VITALS: BP 106/63
[2019-01-11] MEDS ORDERED: levETIRAcetam 250 MG Tab PO SCH (09:15)
--- NOTE | 2019-01-11 09:57 | PN ---
DATE OF SERVICE: 01/11/2019 SUBJECTIVE: Esther presented to the emergency room for severe abdominal pain. It is in her mid epigastric area, right and left upper quadrants, and will radiate to her entire abdomen. She states she had surgery for partial small bowel obstruction on December 07, 2018. States 2 days ago she developed the midepigastric abdominal pain. States it is a 10/10. Denies any nausea, vomiting, fevers, chills. Having diarrhea, stools 5-6 a day, and denies any red blood or mucus in her stool. She has not tried anything for this pain. Nothing aggravates the pain. She said it persists there all the time. ALLERGIES: AMOXICILLIN, GUAIFENESIN, MECLIZINE, PENICILLIN, SULFA, BACTRIM, TRIMETHOPRIM, OXYCODONE, PROPOXYPHENE, AND MOST RECENTLY DOXYCYCLINE. HOME MEDICATIONS: See EMR. PAST MEDICAL HISTORY: Wears corrective lenses, chronic dental pain, hypertension, asthma, recurrent pneumonia, recurrent UTI, brain injury, history of seizures, TIAs, chronic headaches, had a minor stroke with meningitis. Reports depression and anxiety, has been hospitalized for suicide attempt and suicide ideation. History of iron deficiency anemia, B12 deficiency, history of MRSA. PAST SURGICAL HISTORY: Tonsillectomy and adenoidectomy, cholecystectomy, small bowel obstruction, status post Isma-en-Y gastric bypass surgery, breast biopsy, and D and C. SOCIAL HISTORY: , unemployed. Has 1 son, about 20 months old. FAMILY HISTORY: Noncontributory. PHYSICAL EXAMINATION: GENERAL: Esther Fernandez is a 33-year-old female. Height is 5 feet 3 inches. Weight is 242 pounds. VITAL SIGNS: TPR; 96.6, 90, 20. Blood pressure 140/69. HEENT: Negative. NECK: Supple. HEART: Regular rate and rhythm. LUNGS: Clear. ABDOMEN: Tenderness in the midepigastric area and right and left upper quadrant. Midline incision is healing well. EXTREMITIES: Without peripheral edema. NEUROLOGIC: Intact. PSYCHIATRIC: Mood and affect appropriate. ASSESSMENT: 1. Upper abdominal pain. 2. Elevated liver function tests. 3. Status post duodenal switch. 4. Unspecified surgical malabsorption. 5. B12 deficiency. 6. Iron deficiency anemia. 7. Vitamin B12 and B1 deficiency. 8. Depression. 9. Asthma. PLAN: 1. Check MRCP to correlate with common bile duct dilation noted on CT scan. 2. N.p.o. with ice chips only. 3. IV D5LR with 20 mEq KCl. 4. Dietary consult. 5. Call Delgado Spears MD, with results of MRCP. 6. We will evaluate p.r.n. or in a.m. Cristine Rico PA-C /[id number]
[2019-01-11 11:33] VITALS: PULSE 73
--- NOTE | 2019-01-11 13:14 | MR ---
Cholangiopancreatography CLINICAL HISTORY: Abdominal pain, elevated liver enzymes, biliary dilatation COMPARISON: CT 01/10/2019 TECHNIQUE: Multiple images of the biliary system were obtained. All images were obtained on a 1.5 Trudy Siemens unit. FINDINGS: Limited study due to moderate motion artifact. There is prominence of the intrahepatic biliary tree. Common bile duct measures 9 mm which is mildly dilated even for a cholecystectomy patient. The duct gradually tapers to 7 mm in the intrapancreatic portion. There is a rather abrupt tapering to the 2 mm diameter with a right angle towards the ampulla. The the very distal common duct is not seen. No filling defects are identified. The pancreatic duct is mildly prominent but measures within normal limits. IMPRESSION: Previous cholecystectomy Biliary dilatation which the is a recent change between CTs of the abdomen from 12/21 to 01/10/2019. No filling defects are identified but there is a rather broad tapering of the distal common duct just before the ampulla. This could represent some stricture formation or possibly an ampullary lesion. No definite stone is seen
[2019-01-11] MEDS ORDERED: Zolpidem 5 MG Tab PO SCH (21:00)
== END 2019-01-11 14:40 | disposition home or self-care (01) ==
LOC: JP.MS 23:45
PROVIDERS: ADMIT Surgery; ATTEND Surgery
DX: R10.13 Epigastric pain (principal); R10.11 Right upper quadrant pain; R10.12 Left upper quadrant pain; R79.89 Other specified abnormal findings of blood chemistry; K91.2 Postsurgical malabsorption, not elsewhere classified; E53.8 Deficiency of other specified B group vitamins; E51.9 Thiamine deficiency, unspecified; F32.9 Major depressive disorder, single episode, unspecified; J45.909 Unspecified asthma, uncomplicated; I10 Essential (primary) hypertension; F41.9 Anxiety disorder, unspecified; Z98.84 Bariatric surgery status; Z88.0 Allergy status to penicillin; Z88.8 Allergy status to other drugs, medicaments and biological substances; Z88.2 Allergy status to sulfonamides; Z88.1 Allergy status to other antibiotic agents; Z88.5 Allergy status to narcotic agent
CPT/HCPCS: 36415; 74019; 74181; 74181-26; 80053; 83735; 84100; 85027; 96361; 96374; 96375; 96376; A9270-GY; G0378; J2270; J2405; J3480; J7042

== ENCOUNTER 2019-02-15 20:49 | Emergency (ER) | payer MEDICAID ==
[2019-02-15 21:34] VITALS: BP 133/82; PULSE 97
[2019-02-15] MEDS ORDERED: Metoclopramide 10 MG/2 ML SDV IVPUSH ONE (22:05)
[2019-02-15] MEDS ORDERED: Lactated Ringers 1,000 ML IV ONE (22:05)
[2019-02-15] MEDS ORDERED: diphenhydrAMINE 50 MG/ML SDV IVPUSH ONE (22:06)
[2019-02-15] MEDS ORDERED: Atropine/Diphenoxylate 0.025-2.5 MG Tab PO ONE (22:06)
[2019-02-15] MEDS ORDERED: Ketorolac 30 MG/ML SDV IVPUSH ONE (22:08)
--- NOTE | 2019-02-15 22:12 | EDM.PDOC ---
ED HPI GENERAL MEDICAL PROBLEM - General Chief Complaint: Back Pain or Injury Stated Complaint: MEDICAL Time Seen by Provider: 02/15/19 21:55 Source of Information: Reports: Patient, Old Records History Limitations: Reports: No Limitations - History of Present Illness INITIAL COMMENTS - FREE TEXT/NARRATIVE: 33 yo female presents with low back pain that radiates down her R leg and concurrent diarrhea and vomiting. No fever. Feels thirsty. Has a pHx of ? L5 disc herniation. Has not tried to get into the clinic for this yet. Sx's x about 24 hrs. Onset Date: 02/14/19 Duration: Day(s): (1), Constant Location: Reports: Back (low) Quality: Reports: Ache Severity: Moderate Improves with: Reports: Rest Worsens with: Reports: Movement Context: Reports: Other (see HPI) Associated Symptoms: Reports: Nausea/Vomiting, Other (diarrhea). 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) (usual meds only) Back Pain Score (Numeric/FACES): 8 - Related Data Allergies Allergy/AdvReac Type Severity Reaction Status Date / Time amoxicillin [Amoxicillin] Allergy Hives Verified 02/15/19 21:30 guaifenesin Allergy Cannot Verified 02/15/19 21:30 Remember meclizine Allergy Hives Verified 02/15/19 21:30 Penicillins Allergy Hives Verified 02/15/19 21:30 Sulfa (Sulfonamide Allergy Other Verified 02/15/19 21:30 Antibiotics) sulfamethoxazole Allergy Hives Verified 02/15/19 21:30 [From Bactrim] trimethoprim [From Bactrim] Allergy Hives Verified 02/15/19 21:30 oxycodone [Oxycodone] AdvReac Nausea and Verified 02/15/19 21:30 Vomiting propoxyphene AdvReac Nausea and Verified 02/15/19 21:30 Vomiting Home Meds: Home Meds Gabapentin [Neurontin] 300 mg PO TID 04/12/16 [History] Albuterol [Ventolin HFA] 2 puff IH QID 06/29/18 [History] Albuterol/Ipratropium [DuoNeb 3.0-0.5 MG/3 ML] 3 ml IH Q4H PRN 06/29/18 [History ] Multivitamin with Iron [Chewable-Tramaine with Iron] 1 tab PO BID 06/29/18 [History] hydrOXYzine HCl [hydrOXYzine] 25 mg PO Q6H 10 Days #20 tab 08/30/18 [Rx] FLUoxetine [PROzac] 10 mg PO DAILY 11/27/18 [History] Metoclopramide HCl [Reglan] 10 mg PO Q6H PRN 11/27/18 [History] Ondansetron HCl [Zofran] 4 mg PO Q6H PRN 11/27/18 [History] Zolpidem Tartrate [Ambien] 10 mg PO BEDTIME PRN 11/27/18 [History] levETIRAcetam [Levetiracetam] 1,125 mg PO BID 12/03/18 [History] Cyclobenzaprine [Flexeril] 10 mg PO TID PRN 01/11/19 [History] Past Medical History HEENT History: Reports: Impaired Vision, Other (See Below) Other HEENT History: chronic dental pain Cardiovascular History: Reports: Hypertension Respiratory History: Reports: Asthma, Bronchitis, Recurrent, Pneumonia, Recurrent Gastrointestinal History: Reports: Bowel Obstruction, Cholelithiasis Genitourinary History: Reports: UTI, Recurrent 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: Musculoskeletal History: Reports: Fracture Neurological History: Reports: Brain Injury, Headaches, Chronic, Migraines, Seizure, TIA Other Neuro History: minor stroke with meningitis Psychiatric History: Reports: Anxiety, Depression, Psych Hospitalization(s), Suicide Attempt, Suicidal Ideation Endocrine/Metabolic History: Reports: Obesity/BMI 30+ Hematologic History: Reports: Anemia, B12 Deficiency, Blood Transfusion(s), Folic Acid - Infectious Disease History Infectious Disease History: Reports: Meningitis - Past Surgical History Head Surgeries/Procedures: Reports: None HEENT Surgical History: Reports: Adenoidectomy, Tonsillectomy GI Surgical History: Reports: Bariatric Procedure, Cholecystectomy, Colon, Colonoscopy, EGD Female Surgical History: Reports: Breast Biopsy, D&C Neurological Surgical History: Reports: None Musculoskeletal Surgical History: Reports: None Dermatological Surgical History: Reports: None Social & Family History - Family History Family Medical History: Noncontributory - Tobacco Use Smoking Status *Q: Current Every Day Smoker Years of Tobacco use: 10 Packs/Tins Daily: 0.5 - Caffeine Use Caffeine Use: Reports: Soda - Recreational Drug Use Recreational Drug Use: No - Living Situation & Occupation Living situation: Reports: Occupation: Unemployed ED ROS GENERAL - Review of Systems Review Of Systems: See Below Constitutional: Reports: No Symptoms HEENT: Reports: No Symptoms Respiratory: Reports: No Symptoms Cardiovascular: Reports: No Symptoms GI/Abdominal: Reports: Abdominal Pain (mild diffuse), Diarrhea, Nausea, Vomiting. Denies: Black Stool, Bloody Stool, Constipation, Distension, Hematemesis, Hematochezia, Melena : Reports: No Symptoms Musculoskeletal: Reports: Back Pain (low) Skin: Reports: No Symptoms Neurological: Reports: No Symptoms Psychiatric: Reports: No Symptoms ED EXAM,LOWER BACK PAIN/INJURY - Physical Exam Exam: See Below Exam Limited By: No Limitations General Appearance: Alert, WD/WN, Mild Distress, Obese Eye Exam: Bilateral Eye: Normal Inspection Ears: Normal External Exam, Normal Canal, Hearing Grossly Normal Nose: Normal Inspection, No Blood Throat/Mouth: Normal Inspection, Normal Lips, Normal Oropharynx, Normal Voice, No Airway Compromise Head: Atraumatic, Normocephalic Neck: Normal Inspection Respiratory/Chest: No Respiratory Distress, Lungs Clear, Normal Breath Sounds, No Accessory Muscle Use Cardiovascular: Regular Rate, Rhythm, No Edema GI/Abdominal: Normal Bowel Sounds, Soft, No Distention, Tender (diffusely). No : Non-Tender, Distended, Guarding, Rigid, Rebound, Abnormal Bowel Sounds, Hernia Back Exam: Normal Inspection, Decreased Range of Motion. No: CVA Tenderness (R) , CVA Tenderness (L) Extremities: Normal Inspection, Normal Range of Motion, Non-Tender, No Pedal Edema Neurological: Alert, Normal Mood/Affect, CN II-XII Intact, No Motor/Sensory Deficits, Oriented x 3, Straight Leg Raise (R) DTR - Lower Extremities: 2+: Knee (R), Knee (L) Psychiatric: Normal Affect, Normal Mood Skin Exam: Warm, Dry, Intact, Normal Color, No Rash Course - Vital Signs Last Recorded V/S: Last Vital Signs Temp 36.6 C 02/15/19 21:40 Pulse 97 02/15/19 21:40 Resp 16 02/15/19 21:40 BP 133/82 02/15/19 21:40 Pulse Ox 98 02/15/19 21:40 - Orders/Labs/Meds Orders: Active Orders 24 hr Category Date Time Status Lactated Ringers [Ringers, Lactated] 1,000 ml Med 02/15/19 23:15 Active IV BOLUS Medication Orders Lactated Ringer's (Ringers, Lactated) 1,000 mls @ 1,000 mls/hr IV BOLUS DOMINIQUE Last Admin: 02/15/19 23:52 Dose: 1,000 mls/hr Labs: Laboratory Tests 02/15/19 02/15/19 02/15/19 Range/Units 22:18 22:18 22:37 WBC 12.6 H (4.5-11.0) K/uL RBC 4.49 (3.30-5.50) M/uL Hgb 13.0 D (12.0-15.0) g/dL Hct 41.5 (36.0-48.0) % MCV 92 (80-98) fL MCH 29 (27-31) pg MCHC 31 L (32-36) % Plt Count 401 H (150-400) K/uL Sodium 143 (140-148) mmol/L Potassium 3.8 (3.6-5.2) mmol/L Chloride 110 H (100-108) mmol/L Carbon Dioxide 18 L (21-32) mmol/L Anion Gap 18.8 H (5.0-14.0) mmol/L BUN 6 L (7-18) mg/dL Creatinine 0.9 (0.6-1.0) mg/dL Est Cr Clr Drug Dosing 78.21 mL/min Estimated GFR (MDRD) > 60 (>60) Glucose 67 L (74-106) mg/dL Calcium 8.5 (8.5-10.1) mg/dL Urine Color Yellow (YELLOW) Urine Appearance Slightly cloudy A (CLEAR) Urine pH 5.0 (5.0-8.0) Ur Specific [place] >= 1.030 (1.008-1.030) Urine Protein 100 H (NEGATIVE) mg/dL Urine Glucose (UA) Negative (NEGATIVE) mg/dL Urine Ketones Negative (NEGATIVE) mg/dL Urine Occult Blood Moderate H (NEGATIVE) Urine Nitrite Negative (NEGATIVE) Urine Bilirubin Negative (NEGATIVE) Urine Urobilinogen 0.2 (0.2-1.0) EU/dL Ur Leukocyte Esterase Negative (NEGATIVE) Urine RBC 5-10 H (0-5) Urine WBC 5-10 H (0-5) Ur Epithelial Cells Moderate Amorphous Sediment Few Urine Bacteria Moderate Urine Mucus Not seen Urine HCG, Qual 02/16/19 Range/Units 01:03 WBC (4.5-11.0) K/uL RBC (3.30-5.50) M/uL Hgb (12.0-15.0) g/dL Hct (36.0-48.0) % MCV (80-98) fL MCH (27-31) pg MCHC (32-36) % Plt Count (150-400) K/uL Sodium (140-148) mmol/L Potassium (3.6-5.2) mmol/L Chloride (100-108) mmol/L Carbon Dioxide (21-32) mmol/L Anion Gap (5.0-14.0) mmol/L BUN (7-18) mg/dL Creatinine (0.6-1.0) mg/dL Est Cr Clr Drug Dosing mL/min Estimated GFR (MDRD) (>60) Glucose (74-106) mg/dL Calcium (8.5-10.1) mg/dL Urine Color (YELLOW) Urine Appearance (CLEAR) Urine pH (5.0-8.0) Ur Specific [place] (1.008-1.030) Urine Protein (NEGATIVE) mg/dL Urine Glucose (UA) (NEGATIVE) mg/dL Urine Ketones (NEGATIVE) mg/dL Urine Occult Blood (NEGATIVE) Urine Nitrite (NEGATIVE) Urine Bilirubin (NEGATIVE) Urine Urobilinogen (0.2-1.0) EU/dL Ur Leukocyte Esterase (NEGATIVE) Urine RBC (0-5) Urine WBC (0-5) Ur Epithelial Cells Amorphous Sediment Urine Bacteria Urine Mucus Urine HCG, Qual Negative Meds: Medications Generic Name Dose Route Start Last Admin Trade Name Freq PRN Reason Stop Dose Admin Lactated Ringer's 1,000 mls @ 1,000 mls/hr 02/15/19 23:15 02/15/19 23:52 Ringers, Lactated IV 1,000 mls/hr BOLUS DOMINIQUE Administration Discontinued Medications Generic Name Dose Route Start Last Admin Trade Name Freq PRN Reason Stop Dose Admin Acetaminophen 1,000 mg 02/15/19 22:59 02/15/19 23:05 Tylenol Extra Strength PO 02/15/19 23:00 1,000 mg ONETIME ONE Administration Diphenhydramine HCl 25 mg 02/15/19 22:06 02/15/19 22:50 Benadryl IVPUSH 02/15/19 22:07 25 mg ONETIME ONE Administration Diphenoxylate HCl/Atropine 2 tab 02/15/19 22:06 02/15/19 22:50 Lomotil 0.025-2.5 Mg PO 02/15/19 22:07 2 tab ONETIME ONE Administration Hydromorphone HCl 2 mg 02/15/19 23:58 02/16/19 00:09 Dilaudid PO 02/15/19 23:59 2 mg NOW STA Administration Lactated Ringer's 1,000 mls @ 1,000 mls/hr 02/15/19 22:05 02/15/19 22:49 Ringers, Lactated IV 02/15/19 23:04 1,000 mls/hr BOLUS ONE Administration Sodium Chloride 85 mls @ 3.5 mls/sec 02/16/19 01:11 02/16/19 01:25 Normal Saline IV 02/16/19 01:12 3.5 mls/sec ASDIRECTED STA Administration Iopamidol 150 ml 02/16/19 01:11 02/16/19 01:25 Isovue-300 (61%) IV 02/16/19 01:12 150 ml . DIRECTED STA Administration Ketorolac Tromethamine 30 mg 02/15/19 22:08 02/15/19 22:50 Toradol IVPUSH 02/15/19 22:09 30 mg ONETIME ONE Administration Metoclopramide HCl 10 mg 02/15/19 22:05 02/15/19 22:50 Reglan IVPUSH 02/15/19 22:06 10 mg ONETIME ONE Administration - Radiology Interpretation Free Text/Narrative:: CT abd/pelvis with IV contrast- IMPRESSION: No acute intra-abdominal process identified. Cyst on the left ovary, likely physiologic. Status post gastric bypass procedure and cholecystectomy. Please note that all CT scans at this facility use dose modulation, iterative reconstruction, and/or weight-based dosing when appropriate to reduce radiation dose to as low as reasonably achievable. Dictated by Latha Brown MD @ Feb 16 2019 1:58AM CT Results Date: 02/16/19 Departure - Departure Time of Disposition: 02:20 Disposition: Home, Self-Care 01 Condition: Fair Clinical Impression: Dehydration, Vomiting and diarrhea Low back pain Qualifiers: Chronicity: acute Back pain laterality: right Sciatica presence: with sciatica Sciatica laterality: sciatica of right side Qualified Code(s): M54.41 - Lumbago with sciatica, right side - Discharge Information *PRESCRIPTION DRUG MONITORING PROGRAM REVIEWED*: No *COPY OF PRESCRIPTION DRUG MONITORING REPORT IN PATIENT GERRI: No Instructions: Diarrhea, Adult, [id number], Nausea, Adult, [id number] Referrals: Esther Mackenzie PA [Primary Care Provider] - Forms: ED Department Discharge Additional Instructions: Use loperamide per package instructions for diarrhea control. Use your nausea medicine as needed. You may take acetaminophen again after 4 hrs if needed for pain relief. Contact your provider as soon as possible for follow up unless your symptoms resolve. - My Orders Last 24 Hours: My Active Orders 02/15/19 23:15 Lactated Ringers [Ringers, Lactated] 1,000 ml IV BOLUS - Assessment/Plan Last 24 Hours: My Active Orders 02/15/19 23:15 Lactated Ringers [Ringers, Lactated] 1,000 ml IV BOLUS
[2019-02-15] MEDS ORDERED: Acetaminophen 500 MG Tab PO ONE (22:59)
[2019-02-15] MEDS ORDERED: Lactated Ringers 1,000 ML IV SCH (23:15)
[2019-02-15] MEDS ORDERED: HYDROmorphone 2 MG Tab PO STA (23:58)
[2019-02-16] MEDS ORDERED: Iopamidol 612 MG/ML 150 ML Bottle IV STA (01:11)
--- NOTE | 2019-02-16 02:00 | CRLCT ---
INDICATION: Abdominal pain TECHNIQUE: CT abdomen and pelvis acquired with 150 cc Isovue 300 IV contrast. COMPARISON: January 10, 2019 FINDINGS: Lower chest: Unremarkable. Liver: Unremarkable. Spleen: Unremarkable. Pancreas: Unremarkable. Gallbladder and bile ducts: S/p cholecystectomy. Adrenal glands: Unremarkable. Kidneys: Unremarkable. GI tract: Status post gastric bypass procedure. Appendix is normal. Vascular structures: Unremarkable. Lymph nodes: Unremarkable. Miscellaneous: Unremarkable. No free air or significant free fluid. Pelvic Organs: 1.7 cm cyst on the left ovary, likely physiologic. Bones: Unremarkable for age. IMPRESSION: No acute intra-abdominal process identified. Cyst on the left ovary, likely physiologic. Status post gastric bypass procedure and cholecystectomy. Please note that all CT scans at this facility use dose modulation, iterative reconstruction, and/or weight-based dosing when appropriate to reduce radiation dose to as low as reasonably achievable. Dictated by Latha Brown MD @ Feb 16 2019 1:58AM Signed by Dr. Latha Brown @ Feb 16 2019 1:58AM
[2019-02-16] MEDS ORDERED: Acetaminophen/HYDROcodone 325-5 MG Tab PO ONE (02:13)
== END 2019-02-16 02:27 | disposition home or self-care (01) ==
LOC: JP.ED 20:49
DX: E86.0 Dehydration (principal); R11.2 Nausea with vomiting, unspecified; R19.7 Diarrhea, unspecified; I10 Essential (primary) hypertension; J45.909 Unspecified asthma, uncomplicated; F32.9 Major depressive disorder, single episode, unspecified; E66.9 Obesity, unspecified; G40.909 Epilepsy, unspecified, not intractable, without status epilepticus; F17.210 Nicotine dependence, cigarettes, uncomplicated; Z88.1 Allergy status to other antibiotic agents; Z88.8 Allergy status to other drugs, medicaments and biological substances; Z88.0 Allergy status to penicillin; Z88.2 Allergy status to sulfonamides; Z68.41 Body mass index [BMI] 40.0-44.9, adult; Z79.899 Other long term (current) drug therapy; Z86.73 Personal history of transient ischemic attack (TIA), and cerebral infarction without residual deficits
CPT/HCPCS: 36415; 74177; 80048; 81001; 81025; 85027; 96361; 96374; 96375; 99284; A9270; J1200; J1885; J2765; J7030; J7120

== ENCOUNTER 2019-03-28 18:54 | Emergency (ER) | payer MEDICAID ==
[2019-03-28 19:06] VITALS: BP 130/75; PULSE 82
[2019-03-28] MEDS ORDERED: Ketorolac 60 MG/2 ML SDV IM ONE (19:16)
[2019-03-28] MEDS ORDERED: Acetaminophen 500 MG Tab PO ONE (19:16)
--- NOTE | 2019-03-28 19:22 | EDM.PDOC ---
ED HPI GENERAL MEDICAL PROBLEM - General Chief Complaint: General Stated Complaint: FALL, LEFT SIDE LOWER,LEFT ARM PAIN Time Seen by Provider: 03/28/19 19:10 Source of Information: Reports: Patient, Old Records, RN History Limitations: Reports: No Limitations - History of Present Illness INITIAL COMMENTS - FREE TEXT/NARRATIVE: 34 yo female fell on her basement stairs yesterday. Her pain was not severe yesterday. Today has bruising to her L forearm and L buttocks areas. Her last pain medicine was ibuprofen before lunch today. Is able to walk unassisted. No other areas of injury reported. 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) Left Arm Pain Score (Numeric/FACES): 8 left lower back/upper buttox Pain Score (Numeric/FACES): 8 bilateral legs Pain Score (Numeric/FACES): 8 - Related Data Allergies Allergy/AdvReac Type Severity Reaction Status Date / Time amoxicillin [Amoxicillin] Allergy Hives Verified 02/15/19 21:30 guaifenesin Allergy Cannot Verified 02/15/19 21:30 Remember meclizine Allergy Hives Verified 02/15/19 21:30 Penicillins Allergy Hives Verified 02/15/19 21:30 Sulfa (Sulfonamide Allergy Other Verified 02/15/19 21:30 Antibiotics) sulfamethoxazole Allergy Hives Verified 02/15/19 21:30 [From Bactrim] trimethoprim [From Bactrim] Allergy Hives Verified 02/15/19 21:30 oxycodone [Oxycodone] AdvReac Nausea and Verified 02/15/19 21:30 Vomiting propoxyphene AdvReac Nausea and Verified 02/15/19 21:30 Vomiting Home Meds: Home Meds Gabapentin [Neurontin] 300 mg PO TID 04/12/16 [History] Albuterol [Ventolin HFA] 2 puff IH QID 06/29/18 [History] Albuterol/Ipratropium [DuoNeb 3.0-0.5 MG/3 ML] 3 ml IH Q4H PRN 06/29/18 [History ] Multivitamin with Iron [Chewable-Tramaine with Iron] 1 tab PO BID 06/29/18 [History] hydrOXYzine HCL [hydrOXYzine] 25 mg PO Q6H 10 Days #20 tab 08/30/18 [Rx] FLUoxetine [PROzac] 10 mg PO DAILY 11/27/18 [History] Metoclopramide HCl [Reglan] 10 mg PO Q6H PRN 11/27/18 [History] Ondansetron HCl [Zofran] 4 mg PO Q6H PRN 11/27/18 [History] Zolpidem Tartrate [Ambien] 10 mg PO BEDTIME PRN 11/27/18 [History] levETIRAcetam [Levetiracetam] 1,125 mg PO BID 12/03/18 [History] Cyclobenzaprine [Flexeril] 10 mg PO TID PRN 01/11/19 [History] Past Medical History HEENT History: Reports: Impaired Vision, Other (See Below) Other HEENT History: chronic dental pain Cardiovascular History: Reports: Hypertension Respiratory History: Reports: Asthma, Bronchitis, Recurrent, Pneumonia, Recurrent Gastrointestinal History: Reports: Bowel Obstruction, Cholelithiasis Genitourinary History: Reports: UTI, Recurrent 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: Musculoskeletal History: Reports: Fracture Neurological History: Reports: Brain Injury, Headaches, Chronic, Migraines, Seizure, TIA Other Neuro History: minor stroke with meningitis Psychiatric History: Reports: Anxiety, Depression, Psych Hospitalization(s), Suicide Attempt, Suicidal Ideation Endocrine/Metabolic History: Reports: Obesity/BMI 30+ Hematologic History: Reports: Anemia, B12 Deficiency, Blood Transfusion(s), Folic Acid - Infectious Disease History Infectious Disease History: Reports: Meningitis - Past Surgical History Head Surgeries/Procedures: Reports: None HEENT Surgical History: Reports: Adenoidectomy, Tonsillectomy GI Surgical History: Reports: Bariatric Procedure, Cholecystectomy, Colon, Colonoscopy, EGD Female Surgical History: Reports: Breast Biopsy, D&C Neurological Surgical History: Reports: None Musculoskeletal Surgical History: Reports: None Dermatological Surgical History: Reports: None Social & Family History - Family History Family Medical History: Noncontributory - Caffeine Use Caffeine Use: Reports: Soda - Living Situation & Occupation Living situation: Reports: Occupation: Unemployed ED ROS GENERAL - Review of Systems Review Of Systems: See Below Constitutional: Reports: No Symptoms HEENT: Reports: No Symptoms Respiratory: Reports: No Symptoms Cardiovascular: Reports: No Symptoms Musculoskeletal: Reports: Arm Pain (L forearm), Other (L buttocks) Skin: Reports: Bruising (L forearm and L buttocks) ED EXAM, GENERAL - Physical Exam Exam: See Below Exam Limited By: No Limitations General Appearance: Alert, WD/WN, No Apparent Distress, Obese Eye Exam: Bilateral Eye: PERRL Ears: Normal External Exam, Normal Canal, Hearing Grossly Normal Ear Exam: Bilateral Ear: Auricle Normal, Canal Normal Nose: Normal Inspection, No Blood Throat/Mouth: Normal Inspection, Normal Lips, Normal Oropharynx, Normal Voice, No Airway Compromise Head: Atraumatic, Normocephalic Neck: Normal Inspection, Supple Respiratory/Chest: No Respiratory Distress, No Accessory Muscle Use Back Exam: Normal Inspection, Full Range of Motion. No: CVA Tenderness (R), CVA Tenderness (L), Paraspinal Tenderness, Vertebral Tenderness Extremities: Normal Range of Motion, No Pedal Edema, Other (walks without limping, L arm full ROM with no weakness. ). No: Pedal Edema, Limited Range of Motion, Redness Neurological: Alert, Oriented, CN II-XII Intact, Normal Cognition, No Motor/ Sensory Deficits Psychiatric: Normal Affect, Normal Mood Skin Exam: Warm, Dry, Intact, No Rash, Ecchymosis (L forearm and L buttocks) Course - Vital Signs Last Recorded V/S: Last Vital Signs Temp 36.1 C 03/28/19 19:05 Pulse 82 03/28/19 19:05 Resp 16 03/28/19 19:05 BP 130/75 03/28/19 19:05 Pulse Ox 97 03/28/19 19:05 - Orders/Labs/Meds Orders: Active Orders 24 hr Category Date Time Status Acetaminophen [Tylenol Extra Strength] Med 03/28/19 19:16 Once 1,000 mg PO ONETIME ONE Ketorolac [Toradol] Med 03/28/19 19:16 Once 60 mg IM ONETIME ONE Departure - Departure Time of Disposition: 19:35 Disposition: Home, Self-Care 01 Condition: Good Clinical Impression: Traumatic ecchymosis of left forearm Qualifiers: Encounter type: initial encounter Qualified Code(s): S50.12XA - Contusion of left forearm, initial encounter Contusion of buttock Qualifiers: Encounter type: initial encounter Qualified Code(s): S30.0XXA - Contusion of lower back and pelvis, initial encounter - Discharge Information *PRESCRIPTION DRUG MONITORING PROGRAM REVIEWED*: No *COPY OF PRESCRIPTION DRUG MONITORING REPORT IN PATIENT GERRI: No Instructions: Contusion, [id number] Referrals: Esther Mackenzie PA [Primary Care Provider] - Additional Instructions: Take ibuprofen 600 mg every 6 hrs with food, next dose after 1 am tonight. Add acetaminophen up to 1000 mg every 6 hrs for added relief. Recheck with your provider as needed. Sepsis Event Note - Focused Exam Vital Signs: Vital Signs Temp Pulse Resp BP Pulse Ox 03/28/19 19:05 36.1 C 82 16 130/75 97 Date Exam was Performed: 03/28/19 Time Exam was Performed: 19:16 - My Orders Last 24 Hours: My Active Orders 03/28/19 19:16 Acetaminophen [Tylenol Extra Strength] 1,000 mg PO ONETIME ONE Ketorolac [Toradol] 60 mg IM ONETIME ONE - Assessment/Plan Last 24 Hours: My Active Orders 03/28/19 19:16 Acetaminophen [Tylenol Extra Strength] 1,000 mg PO ONETIME ONE Ketorolac [Toradol] 60 mg IM ONETIME ONE
== END 2019-03-28 19:35 | disposition home or self-care (01) ==
LOC: JP.ED 18:54
DX: S50.12XA Contusion of left forearm, initial encounter (principal); S30.0XXA Contusion of lower back and pelvis, initial encounter; I10 Essential (primary) hypertension; J45.909 Unspecified asthma, uncomplicated; F41.9 Anxiety disorder, unspecified; F32.9 Major depressive disorder, single episode, unspecified; E66.9 Obesity, unspecified; Z68.41 Body mass index [BMI] 40.0-44.9, adult; Z86.73 Personal history of transient ischemic attack (TIA), and cerebral infarction without residual deficits; Z88.1 Allergy status to other antibiotic agents; Z88.2 Allergy status to sulfonamides; Z88.0 Allergy status to penicillin; Z88.8 Allergy status to other drugs, medicaments and biological substances; Z88.5 Allergy status to narcotic agent; Z79.899 Other long term (current) drug therapy; W10.9XXA Fall (on) (from) unspecified stairs and steps, initial encounter
CPT/HCPCS: 96372; 99282; 99283; A9270; J1885

== ENCOUNTER 2019-05-17 19:41 | Inpatient (IN) | payer MEDICAID ==
[2019-05-17] MEDS ORDERED: HYDROmorphone 1 MG/ML Syringe IVPUSH ONE (19:46)
[2019-05-17] MEDS ORDERED: Ondansetron 4 MG/2 ML SDV IVPUSH ONE (19:47)
--- NOTE | 2019-05-17 19:54 | EDM.PDOC ---
ED HPI GENERAL MEDICAL PROBLEM - General Chief Complaint: Abdominal Pain Stated Complaint: VOMITING AND STOMACH PAIN Time Seen by Provider: 05/17/19 19:51 Source of Information: Reports: Patient, Old Records, RN History Limitations: Reports: No Limitations - History of Present Illness INITIAL COMMENTS - FREE TEXT/NARRATIVE: 34 yo female s/p Isma-N-Y presents with abdominal pain, vomiting, and diarrhea. Sx's on and off for months. Getting much worse today. Had a recent CT scan that was unremarkable. No fever. No bleeding. The diarrhea is really not new, but the vomiting is new today and coincided with an increase in her abdominal pain. Describes the pain as her worst pain ever. Onset: Today (much worse today.) Onset Date: 05/17/19 Duration: Hour(s):, Getting Worse Location: Reports: Abdomen (under her surgical scar mid abdomen. ) Quality: Reports: Ache, Other (cramping, pain ebbs and flows) Severity: Severe Improves with: Reports: None Worsens with: Reports: Other (? time) Context: Reports: Other (see HPI) Associated Symptoms: Reports: Nausea/Vomiting. Denies: Fever/Chills Treatments WOOD MILLER: Reports: Other (see below) (none) Upper Abdomen Pain Score (Numeric/FACES): 10 - Related Data Allergies Allergy/AdvReac Type Severity Reaction Status Date / Time amoxicillin [Amoxicillin] Allergy Hives Verified 05/17/19 19:46 guaifenesin Allergy Cannot Verified 05/17/19 19:46 Remember meclizine Allergy Hives Verified 05/17/19 19:46 Penicillins Allergy Hives Verified 05/17/19 19:46 Sulfa (Sulfonamide Allergy Other Verified 05/17/19 19:46 Antibiotics) sulfamethoxazole Allergy Hives Verified 05/17/19 19:46 [From Bactrim] trimethoprim [From Bactrim] Allergy Hives Verified 05/17/19 19:46 oxycodone [Oxycodone] AdvReac Nausea and Verified 05/17/19 19:46 Vomiting propoxyphene AdvReac Nausea and Verified 05/17/19 19:46 Vomiting Home Meds: Home Meds Gabapentin [Neurontin] 300 mg PO TID 04/12/16 [History] Albuterol [Ventolin HFA] 2 puff IH QID PRN 06/29/18 [History] Albuterol/Ipratropium [DuoNeb 3.0-0.5 MG/3 ML] 3 ml IH Q4H PRN 06/29/18 [History ] Multivitamin with Iron [Chewable-Tramaine with Iron] 1 tab PO BID 06/29/18 [History] hydrOXYzine HCL [hydrOXYzine] 25 mg PO Q6H 10 Days #20 tab 08/30/18 [Rx] FLUoxetine [PROzac] 10 mg PO DAILY 11/27/18 [History] Metoclopramide HCl [Reglan] 10 mg PO Q6H PRN 11/27/18 [History] Ondansetron HCl [Zofran] 4 mg PO Q6H PRN 11/27/18 [History] Zolpidem Tartrate [Ambien] 10 mg PO BEDTIME PRN 11/27/18 [History] levETIRAcetam [Levetiracetam] 1,125 mg PO BID 12/03/18 [History] Hydrocodone/Acetaminophen [[place] 5-325 Tablet] 1 each PO Q6H PRN 05/17/19 [ History] Past Medical History HEENT History: Reports: Impaired Vision, Other (See Below) Other HEENT History: chronic dental pain Cardiovascular History: Reports: Hypertension Respiratory History: Reports: Asthma, Bronchitis, Recurrent, Pneumonia, Recurrent Gastrointestinal History: Reports: Bowel Obstruction, Cholelithiasis Genitourinary History: Reports: UTI, Recurrent KITMAN History: Reports: Musculoskeletal History: Reports: Fracture Neurological History: Reports: Brain Injury, Headaches, Chronic, Migraines, Seizure, TIA Other Neuro History: minor stroke with meningitis Psychiatric History: Reports: Anxiety, Depression, Psych Hospitalization(s), Suicide Attempt, Suicidal Ideation Endocrine/Metabolic History: Reports: Obesity/BMI 30+ Hematologic History: Reports: Anemia, B12 Deficiency, Blood Transfusion(s), Folic Acid - Infectious Disease History Infectious Disease History: Reports: Meningitis - Past Surgical History Head Surgeries/Procedures: Reports: None HEENT Surgical History: Reports: Adenoidectomy, Tonsillectomy GI Surgical History: Reports: Bariatric Procedure, Cholecystectomy, Colon, Colonoscopy, EGD Female Surgical History: Reports: Breast Biopsy, D&C Neurological Surgical History: Reports: None Musculoskeletal Surgical History: Reports: None Dermatological Surgical History: Reports: None Social & Family History - Family History Family Medical History: Noncontributory - Caffeine Use Caffeine Use: Reports: Soda - Living Situation & Occupation Living situation: Reports: Occupation: Unemployed ED ROS GENERAL - Review of Systems Review Of Systems: See Below Constitutional: Reports: No Symptoms HEENT: Reports: No Symptoms Respiratory: Reports: No Symptoms Cardiovascular: Reports: No Symptoms GI/Abdominal: Reports: Abdominal Pain, Diarrhea, Nausea, Vomiting. Denies: Black Stool, Bloody Stool, Constipation, Distension, Hematemesis, Hematochezia, Melena : Reports: No Symptoms Musculoskeletal: Reports: No Symptoms Skin: Reports: No Symptoms Neurological: Reports: No Symptoms Psychiatric: Reports: No Symptoms ED EXAM, GI/ABD - Physical Exam Exam: See Below Exam Limited By: No Limitations General Appearance: Alert, WD/WN, Moderate Distress, Obese Eyes: Bilateral: Normal Appearance Ears: Normal External Exam, Normal Canal, Hearing Grossly Normal, Normal TMs Nose: Normal Inspection, No Blood Throat/Mouth: Normal Lips, Normal Voice, No Airway Compromise, Other (dry oral mucosa) Head: Atraumatic, Normocephalic Neck: Normal Inspection Respiratory/Chest: No Respiratory Distress, Lungs Clear, Normal Breath Sounds, No Accessory Muscle Use Cardiovascular: Regular Rate, Rhythm, No Edema GI/Abdominal Exam: Normal Bowel Sounds, Soft, No Distention, Tender (mid abdomen ), Other (Old, vertical surical scar present mid abdomen.). No: Non-Tender, Distended Back Exam: Normal Inspection. No: CVA Tenderness (R), CVA Tenderness (L) Extremities: Normal Inspection, Normal Range of Motion, Non-Tender, No Pedal Edema Neurological: Alert, Oriented, CN II-XII Intact, Normal Cognition, No Motor/ Sensory Deficits Psychiatric: Normal Affect, Normal Mood Skin Exam: Warm, Dry, Intact, Normal Color, No Rash Course - Vital Signs Text/Narrative:: Dr. Spears called @ 2130h, will admit. Last Recorded V/S: Last Vital Signs Temp 36.7 C 05/17/19 20:13 Pulse 90 05/17/19 20:13 Resp 20 05/17/19 20:13 BP 130/82 05/17/19 20:13 Pulse Ox 98 05/17/19 20:13 - Orders/Labs/Meds Orders: Active Orders 24 hr Category Date Time Status Iopamidol [Isovue-300 (61%)] Med 05/17/19 20:00 Active 100 ml IV . DIRECTED Lactated Ringers [Ringers, Lactated] 1,000 ml Med 05/17/19 20:00 Active IV ASDIRECTED Sodium Chloride 0.9% [Normal Saline] 100 ml Med 05/17/19 20:00 Active IV ASDIRECTED Medication Orders Lactated Ringer's (Ringers, Lactated) 1,000 mls @ 500 mls/hr IV ASDIRECTED DOMINIQUE Last Admin: 05/17/19 20:03 Dose: 500 mls/hr Sodium Chloride (Normal Saline) 100 mls @ 3 mls/sec IV ASDIRECTED DOMINIQUE Last Admin: 05/17/19 20:32 Dose: 3 mls/sec Iopamidol (Isovue-300 (61%)) 100 ml IV . DIRECTED DOMINIQUE Last Admin: 05/17/19 20:32 Dose: 100 ml Labs: Laboratory Tests 05/17/19 05/17/19 05/17/19 Range/Units 19:53 19:56 19:56 WBC 14.7 H (4.5-11.0) K/uL RBC 4.87 (3.30-5.50) M/uL Hgb 14.1 (12.0-15.0) g/dL Hct 45.3 (36.0-48.0) % MCV 93 (80-98) fL MCH 29 (27-31) pg MCHC 31 L (32-36) % Plt Count 488 H (150-400) K/uL Sodium 136 L (140-148) mmol/L Potassium 4.6 (3.6-5.2) mmol/L Chloride 103 (100-108) mmol/L Carbon Dioxide 20 L (21-32) mmol/L Anion Gap 17.6 H (5.0-14.0) mmol/L BUN 16 D (7-18) mg/dL Creatinine 0.8 (0.6-1.0) mg/dL Est Cr Clr Drug Dosing 87.18 mL/min Estimated GFR (MDRD) > 60 (>60) Glucose 93 (74-106) mg/dL Calcium 8.7 (8.5-10.1) mg/dL Total Bilirubin 0.1 L (0.2-1.0) mg/dL Direct Bilirubin 0.10 (0.0-0.2) mg/dL Indirect Bilirubin 0 AST 20 D (15-37) U/L ALT 41 D (12-78) U/L Alkaline Phosphatase 109 (46-116) U/L Total Protein 6.8 (6.4-8.2) g/dL Albumin 3.8 (3.4-5.0) g/dL Globulin 3.0 (2.3-3.5) g/dL Albumin/Globulin Ratio 1.3 (1.2-2.2) Lipase (73-393) U/L Urine Color (YELLOW) Urine Appearance (CLEAR) Urine pH (5.0-8.0) Ur Specific [place] (1.008-1.030) Urine Protein (NEGATIVE) mg/dL Urine Glucose (UA) (NEGATIVE) mg/dL Urine Ketones (NEGATIVE) mg/dL Urine Occult Blood (NEGATIVE) Urine Nitrite (NEGATIVE) Urine Bilirubin (NEGATIVE) Urine Urobilinogen (0.2-1.0) EU/dL Ur Leukocyte Esterase (NEGATIVE) Urine RBC (0-5) Urine WBC (0-5) Ur Epithelial Cells Amorphous Sediment Urine Bacteria Urine Mucus 05/17/19 05/17/19 Range/Units 19:56 20:42 WBC (4.5-11.0) K/uL RBC (3.30-5.50) M/uL Hgb (12.0-15.0) g/dL Hct (36.0-48.0) % MCV (80-98) fL MCH (27-31) pg MCHC (32-36) % Plt Count (150-400) K/uL Sodium (140-148) mmol/L Potassium (3.6-5.2) mmol/L Chloride (100-108) mmol/L Carbon Dioxide (21-32) mmol/L Anion Gap (5.0-14.0) mmol/L BUN (7-18) mg/dL Creatinine (0.6-1.0) mg/dL Est Cr Clr Drug Dosing mL/min Estimated GFR (MDRD) (>60) Glucose (74-106) mg/dL Calcium (8.5-10.1) mg/dL Total Bilirubin (0.2-1.0) mg/dL Direct Bilirubin (0.0-0.2) mg/dL Indirect Bilirubin AST (15-37) U/L ALT (12-78) U/L Alkaline Phosphatase (46-116) U/L Total Protein (6.4-8.2) g/dL Albumin (3.4-5.0) g/dL Globulin (2.3-3.5) g/dL Albumin/Globulin Ratio (1.2-2.2) Lipase 62 L (73-393) U/L Urine Color Yellow (YELLOW) Urine Appearance Cloudy A (CLEAR) Urine pH 6.0 (5.0-8.0) Ur Specific [place] >= 1.030 (1.008-1.030) Urine Protein Negative (NEGATIVE) mg/dL Urine Glucose (UA) Negative (NEGATIVE) mg/dL Urine Ketones Negative (NEGATIVE) mg/dL Urine Occult Blood Negative (NEGATIVE) Urine Nitrite Negative (NEGATIVE) Urine Bilirubin Negative (NEGATIVE) Urine Urobilinogen 0.2 (0.2-1.0) EU/dL Ur Leukocyte Esterase Trace H (NEGATIVE) Urine RBC 0-5 (0-5) Urine WBC 0-5 (0-5) Ur Epithelial Cells Many Amorphous Sediment Not seen Urine Bacteria Moderate Urine Mucus Rare Meds: Medications Generic Name Dose Route Start Last Admin Trade Name Freq PRN Reason Stop Dose Admin Lactated Ringer's 1,000 mls @ 500 mls/hr 05/17/19 20:00 05/17/19 20:03 Ringers, Lactated IV 500 mls/hr ASDIRECTED DOMINIQUE Administration Sodium Chloride 100 mls @ 3 mls/sec 05/17/19 20:00 05/17/19 20:32 Normal Saline IV 3 mls/sec ASDIRECTED DOMINIQUE Administration Iopamidol 100 ml 05/17/19 20:00 05/17/19 20:32 Isovue-300 (61%) IV 100 ml . DIRECTED DOMINIQUE Administration Discontinued Medications Generic Name Dose Route Start Last Admin Trade Name Freq PRN Reason Stop Dose Admin Hydromorphone HCl 1 mg 05/17/19 19:46 05/17/19 20:04 Dilaudid IVPUSH 05/17/19 19:47 1 mg ONETIME ONE Administration Ondansetron HCl 4 mg 05/17/19 19:47 05/17/19 19:57 Zofran IVPUSH 05/17/19 19:48 4 mg ONETIME ONE Administration Sodium Chloride 10 ml 05/17/19 19:51 05/17/19 20:32 Saline Flush FLUSH 05/17/19 19:52 10 ml ONETIME ONE Administration - Radiology Interpretation Free Text/Narrative:: CT abd/pelvis with IV contrast-Impression: 1. Biliary dilatation, with the common bile duct measuring up to 10 mm, new since 05/14/2019. Further evaluation is recommended with ultrasound. 2. Mild distention of the excluded stomach with fluid, of uncertain clinical significance. Please note that all CT scans at this facility use dose modulation, iterative reconstruction, and/or weight-based dosing when appropriate to reduce radiation dose to as low as reasonably achievable. Dictated by Lisa Looney MD @ May 17 2019 8:47PM CT Results Date: 05/17/19 Departure - Departure Time of Disposition: 21:35 Disposition: Admitted As Inpatient 68 Condition: Fair Clinical Impression: Common bile duct calculus, Mild dehydration - Discharge Information *PRESCRIPTION DRUG MONITORING PROGRAM REVIEWED*: Not Applicable *COPY OF PRESCRIPTION DRUG MONITORING REPORT IN PATIENT GERRI: Not Applicable Referrals: Esther Mackenzie PA [Primary Care Provider] - Forms: ED Department Discharge Sepsis Event Note - Focused Exam Vital Signs: Vital Signs Temp Pulse Resp BP Pulse Ox 05/17/19 20:13 36.7 C 90 20 130/82 98 05/17/19 19:48 36.7 C 90 20 130/82 98 Date Exam was Performed: 05/17/19 Time Exam was Performed: 21:30 - My Orders Last 24 Hours: My Active Orders 05/17/19 20:00 Iopamidol [Isovue-300 (61%)] 100 ml IV . DIRECTED Lactated Ringers [Ringers, Lactated] 1,000 ml IV ASDIRECTED Sodium Chloride 0.9% [Normal Saline] 100 ml IV ASDIRECTED - Assessment/Plan Last 24 Hours: My Active Orders 05/17/19 20:00 Iopamidol [Isovue-300 (61%)] 100 ml IV . DIRECTED Lactated Ringers [Ringers, Lactated] 1,000 ml IV ASDIRECTED Sodium Chloride 0.9% [Normal Saline] 100 ml IV ASDIRECTED
[2019-05-17] MEDS: Sodium Chloride 0.9% 10 ML Syringe FLUSH ONE ×2 (19:56→20:32)
[2019-05-17] MEDS ORDERED: Iopamidol 612 MG/ML 100 ML Bottle IV SCH (20:00)
[2019-05-17] MEDS ORDERED: Sodium Chloride 0.9% 100 ML IV SCH (20:00)
[2019-05-17] MEDS ORDERED: Lactated Ringers 1,000 ML IV SCH (20:00)
--- NOTE | 2019-05-17 21:09 | CRLCT ---
Indication: Abdominal pain, history of Isma-en-Y Technique: Contrast enhanced axial CT imaging through the abdomen and pelvis. 100 mL Isovue 300 contrast agent was administered intravenously. Sagittal and coronal reconstructions are provided. Comparison: CT abdomen pelvis with contrast 05/14/2019 Findings: There is no significant abnormality of the liver, spleen, pancreas, adrenal glands, and kidneys. A small renal cortical cyst is noted on the right. Cholecystectomy clips are again demonstrated. There is mild biliary dilatation, with the common bile duct measuring up to 10 mm, new since recent prior study. The portal vein is patent. There is normal caliber of the abdominal aorta. There is no abdominal lymphadenopathy. Isma-en-Y gastric bypass changes all are again noted. There is mild distention of the excluded stomach with fluid. There are no abnormally dilated small bowel loops. The appendix is noninflamed. There is no colonic wall thickening. No inflammatory changes are demonstrated in the mesentery. There is no free intraperitoneal fluid. There is no pneumoperitoneum. Degenerative changes are noted in the visualized lower thoracic spine. There is also a prominent calcified disc bulge at L4-5, with associated spinal stenosis. The included lung bases are clear. Impression: 1. Biliary dilatation, with the common bile duct measuring up to 10 mm, new since 05/14/2019. Further evaluation is recommended with ultrasound. 2. Mild distention of the excluded stomach with fluid, of uncertain clinical significance. Please note that all CT scans at this facility use dose modulation, iterative reconstruction, and/or weight-based dosing when appropriate to reduce radiation dose to as low as reasonably achievable. Dictated by Lisa Looney MD @ May 17 2019 8:47PM Signed by Dr. Lisa Looney @ May 17 2019 9:07PM
[2019-05-17] MEDS ORDERED: HYDROmorphone 0.5 MG/0.5 ML Syringe IVPUSH ONE (21:33)
[2019-05-17] MEDS: Dextrose 5%-Lactated Ringers 1,000 ML IV SCH ×2 (23:09→23:37)
[2019-05-17] MEDS: HYDROmorphone 1 MG/ML Syringe IVPUSH PRN (23:37)
[2019-05-17] MEDS ORDERED: Zolpidem 5 MG Tab PO ONE ×2 (23:42)
[2019-05-18] MEDS: HYDROmorphone 1 MG/ML Syringe IVPUSH PRN ×8 (05:13→22:39)
[2019-05-18] MEDS: Ondansetron 4 MG/2 ML SDV IVPUSH PRN ×2 (05:40→16:07)
[2019-05-18] MEDS: Dextrose 5%-Lactated Ringers 1,000 ML IV SCH ×2 (05:45→17:28)
[2019-05-18] MEDS: ALPRAZolam 0.5 MG Tab PO PRN ×2 (08:44→17:49)
[2019-05-18] MEDS ORDERED: Cyanocobalamin (Vitamin B12) 1,000 MCG/ML SDV IM ONE (09:00)
--- NOTE | 2019-05-18 12:22 | CRLMR ---
INDICATION: ct sent also,abd pain,532 images Indication: Biliary dilatation post cholecystectomy. Evaluate for common bile duct stone or mass. Technique: MRI of the abdomen without intravenous gadolinium, MRCP. Three plane localizer, 3 plane true FISP, axial T1 weighted in and out of phase, axial T2 weighted haste, and high-resolution, heavily T2 weighted 2D/3D MRCP images. No intravenous gadolinium administered. Comparison: CT of the abdomen and pelvis, 05/17/2019, 05/14/2019, 02/16/2019. Findings: There is no common bile duct stone or mass. There is mild dilation of intrahepatic biliary radicles, and the extrahepatic common duct measures up to 9 millimeters as it enters the head of the pancreas. There is no evidence for pancreatic divisum. There is no pancreatic duct dilation. No glandular atrophy or mass. The anterior pararenal space is clear. There is no hydronephrosis or perinephric fluid collection. Surgical changes are compatible with a prior gastric bypass. No pleural or pericardial effusion. Marrow signal intensity in the lower thoracic and lumbar spine is intact. There is a benign right renal cyst, lateral cortex, interpolar region, which measures 16 millimeters on image 26, series 6. The case was reviewed with Dr. Spears of the referring clinical service, 05/18/2019, 12:17 p.m. Impression: 1. Prior cholecystectomy. 2. Biliary dilatation is most likely related to reservoir effect. No common bile duct stone or mass. Dictated by Miguel Haji MD @ 05/18/2019 12:20:17 PM Dictated by: Miguel Haji MD @ 05/18/2019 12:20:26 (Electronically Signed)
[2019-05-18] MEDS: Gabapentin 300 MG Cap PO SCH ×3 (12:41→20:05)
[2019-05-18] MEDS: FLUoxetine 10 MG Cap PO SCH (12:41)
[2019-05-18] MEDS: levETIRAcetam 250 MG Tab PO SCH ×3 (12:44→20:21)
[2019-05-18] MEDS ORDERED: Sodium Ferric Gluconate Cmplex 250 MG in Sodium Chloride 0.9% 100 ML IV ONE (14:00)
[2019-05-18] MEDS ORDERED: diphenhydrAMINE 50 MG/ML SDV IV PRN (16:20)
[2019-05-18] MEDS: diphenhydrAMINE 25 MG Cap PO PRN ×2 (16:32→21:54)
[2019-05-18] MEDS: Zolpidem 5 MG Tab PO PRN (21:54)
[2019-05-19] MEDS: HYDROmorphone 1 MG/ML Syringe IVPUSH PRN ×8 (00:30→22:55)
[2019-05-19] MEDS: Dextrose 5%-Lactated Ringers 1,000 ML IV SCH ×3 (00:39→22:57)
[2019-05-19] MEDS: ALPRAZolam 0.5 MG Tab PO PRN ×3 (02:06→17:25)
[2019-05-19] MEDS ORDERED: Ketamine 500 MG/5 ML MDV IV SCH (08:15)
[2019-05-19] MEDS: levETIRAcetam 250 MG Tab PO SCH ×2 (09:35→20:06)
[2019-05-19] MEDS: FLUoxetine 10 MG Cap PO SCH (09:36)
[2019-05-19] MEDS: Gabapentin 300 MG Cap PO SCH ×3 (09:36→20:07)
[2019-05-19] MEDS ORDERED: Sodium Ferric Gluconate Cmplex 250 MG in Sodium Chloride 0.9% 100 ML IV ONE (10:00)
--- NOTE | 2019-05-19 15:08 | PN ---
DATE OF SERVICE: 05/18/2019 The patient has been clinically stable overnight. No major problems have been noted. She was admitted with somewhat dilated common bile duct and we will go ahead and do an MRCP today. On CT scan last week, she was noted to have periumbilical incisional hernia and she is mainly symptomatic at present. We will re-evaluate the patient's status after the MRCP has been completed today. Delgado Spears MD /[id number]
--- NOTE | 2019-05-19 15:44 | PN ---
DATE OF SERVICE: 05/19/2019 SUBJECTIVE: Silke was admitted through the emergency room with nausea, vomiting, postprandial pain. Vital signs have been stable. She reports pain in midepigastric area that radiates to her left and right upper quadrant associated with nausea, vomiting. Currently, pain is controlled. Nausea has been controlled with Zofran and Xanax. REVIEW OF SYSTEMS: Remainder of review of systems negative for any pertinent positives and negatives. OBJECTIVE: GENERAL: Esther Fernandez is a 34-year-old female. She is alert and orientated. VITAL SIGNS: TPR 97.9, 75, 16, blood pressure 109/59. HEENT: Negative. NECK: Supple. HEART: Regular rate and rhythm. LUNGS: Clear. ABDOMEN: Generalized tenderness noted with most of the pain in her right upper quadrant and mid epigastric area. EXTREMITIES: Without peripheral edema. ASSESSMENT: Partial small bowel obstruction. PLAN: Schedule and have consent signed for exploratory laparotomy with release of partial small bowel obstruction and repair of incarcerated incisional hernia. General anesthesia. TAP block. Ketamine bolus and drip. Magnesium bolus and drip. Meropenem 500 mg IV 1 time on-call to OR. N.p.o. after midnight. Good pulmonary toilet. We will evaluate p.r.n. or in a.m. Cristine Rico PA-C /[id number]
[2019-05-19] MEDS: Zolpidem 5 MG Tab PO PRN (21:00)
[2019-05-19] MEDS ORDERED: Acetaminophen/HYDROcodone 325-5 MG Tab PO PRN (22:29)
[2019-05-20] MEDS ORDERED: Rocuronium 50 MG/5 ML Vial ONE ×3 (07:58→11:21)
[2019-05-20] MEDS ORDERED: Glycopyrrolate 0.2 MG/ML 5 ML MDV ONE (07:58)
[2019-05-20] MEDS ORDERED: Succinylcholine 200 MG/10 ML MDV ONE (07:58)
[2019-05-20] MEDS ORDERED: Ondansetron 4 MG/2 ML SDV ONE (07:58)
[2019-05-20] MEDS ORDERED: Propofol 200 MG/20 ML SDV ONE (07:58)
[2019-05-20] MEDS ORDERED: Neostigmine Methylsulfate 1 MG/ML 5 ML Syringe ONE (07:58)
[2019-05-20] MEDS ORDERED: Dexamethasone 4 MG/ML SDV ONE (07:58)
[2019-05-20] MEDS ORDERED: Ketamine 50 MG in Sodium Chloride 0.9% 49.5 ML IV SCH (08:00)
[2019-05-20] MEDS ORDERED: fentaNYL 250 MCG/5 ML SDV ONE (08:00)
[2019-05-20] MEDS ORDERED: Meropenem 500 MG in Sodium Chloride 0.9% 50 ML IV ONE (08:00)
[2019-05-20] MEDS ORDERED: Ketamine 500 MG/5 ML MDV IV SCH ×2 (08:00)
--- NOTE | 2019-05-20 08:18 | PN ---
DATE OF SERVICE: 05/20/2019 SUBJECTIVE: Silke is n.p.o. for surgery today. She had a large bowel movement yesterday. Vital signs have been stable. Oral intake was 2440. Urine output is 4100. She did receive Ferrlecit IV 250 mg on 05/19/2019 and 05/20/2019 for a low ferritin. Pain remains the same. She was eating German fries last evening and orange juice. Activity has been good. REVIEW OF SYSTEMS: Remainder of review of systems negative for any pertinent positives and negatives. OBJECTIVE: GENERAL: Esther Fernandez is a 34-year-old female, alert and orientated. VITAL SIGNS: TPR at 07:09, 96.6, 67, 16, blood pressure 101/50. HEENT: Negative. NECK: Supple. HEART: Regular rate and rhythm. LUNGS: Clear. ABDOMEN: Soft, nontender. EXTREMITIES: Without peripheral edema. ASSESSMENT: Partial small bowel obstruction and incisional hernia. PLAN: 1. Remain n.p.o. for OR today. Orders to be written postoperatively. 2. We will evaluate p.r.n. or in a.m. Cristine Rico PA-C /[id number]
[2019-05-20] MEDS ORDERED: Meropenem 500 MG SDV ONE (08:29)
[2019-05-20] MEDS ORDERED: Lidocaine 1% with EPINEPHrine 1:100,000 50 ML MDV ONE (08:29)
[2019-05-20] MEDS ORDERED: Bupivacaine 0.5% 50 ML MDV ONE (08:29)
[2019-05-20] MEDS: HYDROmorphone 1 MG/ML Syringe IVPUSH PRN (09:20)
[2019-05-20] MEDS ORDERED: Albuterol/Ipratropium 3.0-0.5 MG/3 ML Neb Soln NEB ONE (10:00)
[2019-05-20] MEDS: Gabapentin 300 MG Cap PO SCH ×2 (10:09→18:47)
[2019-05-20] MEDS: FLUoxetine 10 MG Cap PO SCH (10:09)
[2019-05-20] MEDS ORDERED: Magnesium Sulfate 4.8 GM in Sodium Chloride 0.9% 250 ML IV ONE (10:15)
[2019-05-20] MEDS ORDERED: Magnesium Sulfate 3 GM in Sodium Chloride 0.9% 100 ML IV SCH (10:15)
[2019-05-20] MEDS: levETIRAcetam 250 MG Tab PO SCH ×2 (10:17→18:06)
[2019-05-20] MEDS ORDERED: fentaNYL 100 MCG/2 ML SDV IVPUSH ONE (12:46)
[2019-05-20] MEDS ORDERED: hydrOXYzine HCL 100 MG/2 ML SDV IM ONE (12:46)
[2019-05-20] MEDS ORDERED: Ondansetron 4 MG/2 ML SDV IVPUSH PRN (13:01)
[2019-05-20] MEDS ORDERED: diphenhydrAMINE 25 MG Cap PO PRN (13:01)
[2019-05-20] MEDS ORDERED: Naloxone 0.4 MG/ML SDV IVPUSH PRN (13:01)
[2019-05-20] MEDS ORDERED: HYDROmorphone/Normal Saline 15 MG/30 ML PCA IV PRN (13:01)
[2019-05-20] MEDS ORDERED: diphenhydrAMINE 50 MG/ML SDV IVPUSH PRN ×2 (13:01→14:39)
[2019-05-20] MEDS ORDERED: Naloxone 0.4 MG/ML SDV IV PRN (13:03)
[2019-05-20] MEDS: Ondansetron 4 MG/2 ML SDV IVPUSH PRN ×2 (14:05→18:06)
[2019-05-20] MEDS ORDERED: Calcium Gluconate 10% 1 GM/10 ML SDV IVPUSH PRN (14:39)
[2019-05-20] MEDS ORDERED: Acetaminophen 500 MG Tab PO PRN (14:39)
[2019-05-20] MEDS ORDERED: Metoclopramide 10 MG/2 ML SDV IVPUSH PRN (14:39)
[2019-05-20] MEDS ORDERED: Labetalol 20 MG/4 ML Syringe IVPUSH PRN (14:39)
[2019-05-20] MEDS ORDERED: hydrOXYzine HCL 100 MG/2 ML SDV IM PRN (14:39)
[2019-05-20] MEDS ORDERED: Dextrose 5%-Lactated Ringers 1,000 ML IV SCH (14:45)
[2019-05-20] MEDS: Meropenem 500 MG in Sodium Chloride 0.9% 50 ML IV SCH ×2 (15:25→21:30)
[2019-05-20] MEDS: Gabapentin 250 MG/5 ML Solution ML 470 ML Bottle PO SCH ×2 (15:36→21:34)
[2019-05-20] MEDS ORDERED: Pantoprazole 40 MG Vial IVPUSH SCH (16:00)
[2019-05-20] MEDS: MVI, Adult with Vitamin K 10 ML, Thiamine 200 MG, Chromium/Copper/Mang/Selen/Zn 1 ML in... IV SCH ×4 (16:19)
[2019-05-20] MEDS: Acetaminophen 500 MG Tab PO SCH ×2 (16:20→23:51)
[2019-05-20] MEDS: Cyclobenzaprine 10 MG Tab PO PRN (21:32)
[2019-05-20] MEDS: Zolpidem 5 MG Tab PO PRN (21:32)
[2019-05-20] MEDS: Heparin Sodium 5,000 Units/ML Vial SUBCUT SCH (21:34)
[2019-05-21] MEDS ORDERED: Iopamidol 612 MG/ML 50 ML SDV PO STA (02:06)
[2019-05-21] MEDS: Meropenem 500 MG in Sodium Chloride 0.9% 50 ML IV SCH ×3 (03:16→16:46)
[2019-05-21] MEDS: Cyclobenzaprine 10 MG Tab PO PRN ×2 (05:44→13:48)
--- NOTE | 2019-05-21 07:27 | CRLCR ---
Indication: Isma-en-Y gastric bypass revision Technique: Upper GI 3 views Comparison: None Findings/Impression: Unremarkable exam. No sign of oral contrast extravasation to suggest leak. No signs of obstruction. Dictated by Shekhar Galvez MD @ May 21 2019 7:20AM Signed by Dr. Shekhar Galvez @ May 21 2019 7:25AM
[2019-05-21] MEDS ORDERED: Dextrose 5%-Lactated Ringers 1,000 ML IV SCH (07:39)
[2019-05-21] MEDS ORDERED: diphenhydrAMINE 25 MG Cap PO PRN (08:02)
[2019-05-21] MEDS: Heparin Sodium 5,000 Units/ML Vial SUBCUT SCH ×2 (08:03→20:39)
[2019-05-21] MEDS: Acetaminophen 500 MG Tab PO SCH ×3 (08:04→23:23)
[2019-05-21] MEDS: levETIRAcetam 250 MG Tab PO SCH ×2 (08:05→20:38)
[2019-05-21] MEDS: FLUoxetine 10 MG Cap PO SCH (08:06)
[2019-05-21] MEDS: Celecoxib 200 MG Cap PO SCH ×2 (08:06→20:39)
[2019-05-21] MEDS: Gabapentin 250 MG/5 ML Solution ML 470 ML Bottle PO SCH ×3 (08:11→20:45)
[2019-05-21] MEDS: hydrOXYzine HCl 25 MG Tab PO PRN ×2 (08:11→15:11)
[2019-05-21] MEDS: ALPRAZolam 0.5 MG Tab PO PRN ×2 (08:22→13:33)
[2019-05-21] MEDS: Acetaminophen/HYDROcodone 325-5 MG Tab PO PRN ×4 (08:37→20:51)
--- NOTE | 2019-05-21 14:59 | PN ---
DATE OF SERVICE: 05/21/2019 SUBJECTIVE: Esther is postoperative day #1. Vital signs have been stable. She reports her pain is not controlled, has been using PALLIATIVE NURSE. Staff has stated that she has been resting comfortably and sleeping quite soundly, difficulty to arouse. She has ambulated twice and no other concerns or questions. OBJECTIVE: GENERAL: Esther Fernandez is a 34-year-old female. She is quite sleepy. VITAL SIGNS: TPR at 0729, 96.2, 64, 16, blood pressure 109/56. HEENT: Negative. NECK: Supple. HEART: Regular rate and rhythm. LUNGS: Clear. ABDOMEN: Dressings dry and intact. Abdominal binder is on. EXTREMITIES: Without peripheral edema. SCDs are on. ASSESSMENT: Exploratory laparotomy with lysis of extensive adhesions: 1. Small bowel resection. 2. Excision of elongated peritoneal implant. 3. Placement of Vicryl mesh for partial small bowel obstruction with stricture at the junction of the Isma limb and jejunojejunostomy, extensive intraperitoneal adhesions and elongated peritoneal implant, 8 cm. 4. Date of surgery 05/20/2019. Surgeon: Delgado Spears MD. PLAN: 1. Discontinue Mena catheter. 2. IV decrease rate to TKO. 3. Step 3 gastric bypass diet. 4. Dressing off, may shower. 5. Discontinue PALLIATIVE NURSE per patient's request. 6. Vicodin or [place] 5/325 mg 1 to 2 q. 4 hours p.r.n. pain. 7. Hydroxyzine/Atarax 25 mg p.o. q.4 hours p.r.n. pain. 8. Good pulmonary toilet. 9. We will evaluate p.r.n. or in a.m. Cristine Rico PA-C /[id number]
[2019-05-21] MEDS: MVI, Adult with Vitamin K 10 ML, Thiamine 200 MG, Chromium/Copper/Mang/Selen/Zn 1 ML in... IV SCH ×4 (15:56)
[2019-05-21] MEDS ORDERED: Pantoprazole 40 MG Delayed-Release Granules 1 Packet PO SCH (16:30)
[2019-05-21] MEDS: Zolpidem 5 MG Tab PO PRN (21:57)
[2019-05-22] MEDS: Acetaminophen/HYDROcodone 325-5 MG Tab PO PRN (07:28)
[2019-05-22] MEDS: Acetaminophen 500 MG Tab PO SCH (07:29)
[2019-05-22] MEDS: Heparin Sodium 5,000 Units/ML Vial SUBCUT SCH (08:00)
[2019-05-22] MEDS ORDERED: Magnesium Hydroxide 400 MG/5 ML Susp 30 ML Cup PO PRN (08:17)
[2019-05-22 08:23] VITALS: BP 125/65; PULSE 88
[2019-05-22] MEDS ORDERED: Cyanocobalamin (Vitamin B12) 1,000 MCG/ML SDV IM ONE (09:00)
[2019-05-22] MEDS: levETIRAcetam 250 MG Tab PO SCH (09:37)
[2019-05-22] MEDS: Gabapentin 250 MG/5 ML Solution ML 470 ML Bottle PO SCH (09:38)
[2019-05-22] MEDS: Celecoxib 200 MG Cap PO SCH (09:38)
[2019-05-22] MEDS: FLUoxetine 10 MG Cap PO SCH (09:38)
--- NOTE | 2019-05-24 13:39 | DISCH ---
FINAL DIAGNOSES: 1. Partial small bowel obstruction with stricture at the junction of the Isma limb and jejunojejunostomy. 2. Extensive intraabdominal adhesions. 3. Elongated peritoneal implant. 4. Bariatric surgery status. 5. History of asthma. 6. History of opiate abuse. 7. History of bronchitis. OPERATIVE PROCEDURES: This was done on 05/19, exploratory laparotomy with lysis of extensive adhesions: 1. Small bowel resection. 2. Excision of elongated peritoneal implant. 3. Placement of Vicryl mesh to limit recurrent adhesion formation between abdominopelvic wall and underlying viscera. SUMMARY: This is a 34-year-old female presenting with worsening abdominal pain. On CT scan, she was initially noted to have dilated common bile duct. An MRCP was subsequently undertaken which was normal other than a dilated common bile duct, likely related to the previous cholecystectomy status. She continued to have abdominal pain and underwent an exploration with partial small bowel obstruction noted with stricturing of the Isma limb up to the point where it penetrated the jejunojejunostomy. She also had elongated peritoneal implant along which there appeared to be some torsion of the small bowel. This was excised. Postoperatively, the patient has done well. She is fairly well and will be discharged home on her usual medications. She will be given additional [place] 5/325 tablets, #50, and also be sent home with some milk of magnesia. She will follow up with Cristine Rico in [facility] on 05/31/2019. She will be on a step-3 diet until that appointment.
--- NOTE | 2019-05-31 13:21 | OR ---
DATE OF PROCEDURE: 05/20/2019 SURGEON: Delgado Spears MD PREOPERATIVE DIAGNOSES: 1. 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 2. Extensive intraabdominal adhesions. 3. 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 OPERATIVE PROCEDURES: Exploratory laparotomy with lysis of extensive adhesions and: 1. Small bowel resection (83882). 2. Excision of elongated peritoneal implant (37567). 3. Placement of Vicryl mesh to displace pelvic and abdominal wall from underlying viscera to limit recurrent adhesion formation (31369). ANESTHESIA: General. BEAD WORKER SEWING: Cristine Rico PA-C INDICATIONS FOR PROCEDURE: The patient presented with a picture of partial small bowel obstruction. Plan is to proceed with exploratory laparotomy with release of obstruction with bowel resection as indicated. Potential risks including bleeding, infection, leaks from various GI tract closures, problems with the obstruction recurring were all reviewed along with the remote possibility of cardiopulmonary, septic, or hemorrhagic complications leading to , and the patient wishes to proceed. DETAILS OF PROCEDURE: The patient was taken to the operating room, placed in a supine position. After general endotracheal anesthesia was induced, the abdomen was prepped and draped and the Mena catheter had been inserted. A midline incision from the umbilicus roughly a handsbreadth toward the xiphoid was made and carried down through the full- thickness abdominal wall. Upon entering the peritoneal cavity, there were scattered adhesions between the anterior abdominal wall, omentum, and some loops of small bowel. These were eventually freed up. One notable finding was that of an elongated implant beginning in the right lower quadrant abdominal wall extending down towards the pelvis that was causing some distortion of the small bowel and this implant, which measured 8 cm in length, was excised. Eventually, the area of the jejunojejunostomy was identified to be somewhat problematic. Due to some rotation of adhesions, there was a fixed narrowing of the area of the Isma limb as it entered the jejunojejunostomy. This was divided off of this, flush with the jejunojejunostomy, with a ANGEL stapler. A small segment of the bowel was then resected with ANGEL charlie as well. The GI tract continuity was then accomplished with anastomosis of the Isma limb to the small bowel roughly 20 cm distal to the original anastomosis, this with [id number] internal firing of the Endo-ANGEL 60 mm stapler, common opening was then closed transversely with same stapler and the angles of anastomosis and mesenteric defect approximated with some 2-0 Vicryl stitch and in the case of the mesenteric defect with 2-0 silk stitch. At this point, no further problems were noted. The abdomen was irrigated with antibiotic-containing saline solution. Vicryl mesh was then placed from the depths of the pelvis along the pelvic sidewalls up against the abdominal wall, including underlying the incision, to limit recurrent adhesion formation. Bilateral transversus abdominis plane blocks were then placed and the fascia was anesthetized with 0.5% Marcaine mixed with lidocaine. Midline fascia was then approximated with a #2 Vicryl stitch, the subcutaneous tissue with 2 layers of 3-0 and 4-0 Vicryl stitch deep and then charlie for the skin. One additional aspect of this case was that the patient had some pre-existing intraperitoneal mesh, which was divided during the course of the procedure. After the decision was made to proceed with bowel resection, that mesh was cordoned off with antibiotic containing gauze and the bowel phase then completed. At that point, all the instruments used at that point and gloves and gowns were removed, and prior to closure of the primary fascia, the mesh was reapproximated with a running 0 Prolene stitch. Physician pediatric medical assistant, Cristine Rico, played an essential role in assisting in this case, helping to position the patient, retract structures as needed, as well as suturing and cutting sutures when indicated. Her presence improved patient safety and decreased operative time. Delgado Spears MD /[id number]
== END 2019-05-22 09:15 | disposition home or self-care (01) | DRG 330 ==
LOC: JP.ED 19:41 → JP.MS 21:30
PROVIDERS: ADMIT Surgery; ATTEND Surgery
PROC: 0DB80ZZ Excision of Small Intestine, Open Approach (ICD-10-PCS; principal; 2019-05-20)
PROC: 0DN80ZZ Release Small Intestine, Open Approach (ICD-10-PCS; 2019-05-20)
PROC: 0DNU0ZZ Release Omentum, Open Approach (ICD-10-PCS; 2019-05-20)
PROC: 0DPW0JZ Removal of Synthetic Substitute from Peritoneum, Open Approach (ICD-10-PCS; 2019-05-20)
PROC: 3E0M05Z Introduction of Adhesion Barrier into Peritoneal Cavity, Open Approach (ICD-10-PCS; 2019-05-20)
DX: K95.89 Other complications of other bariatric procedure (principal); K56.51 Intestinal adhesions [bands], with partial obstruction; K43.0 Incisional hernia with obstruction, without gangrene; Z68.41 Body mass index [BMI] 40.0-44.9, adult; K80.50 Calculus of bile duct without cholangitis or cholecystitis without obstruction; E86.0 Dehydration; J45.909 Unspecified asthma, uncomplicated; I10 Essential (primary) hypertension; F41.9 Anxiety disorder, unspecified; F32.9 Major depressive disorder, single episode, unspecified; E66.9 Obesity, unspecified; D64.9 Anemia, unspecified; Z88.0 Allergy status to penicillin; Z88.2 Allergy status to sulfonamides; Z88.8 Allergy status to other drugs, medicaments and biological substances; Z79.899 Other long term (current) drug therapy
CPT/HCPCS: 36415; 74177; 74181; 74240; 80048; 80053; 80076; 81001; 82728; 83690; 83735; 84100; 85025; 85027; 94640; 96361; 96374; 96375; 99285-25; A9270-GY; C1781; C9113; J0171; J0330; J1100; J1170; J1644; J2185; J2405; J2704; J2710; J2795; J2916; J3010; J3410; J3411; J3420; J3475; J3490; J7050; J7120; J7121; J7620-GY; Q9967

== ENCOUNTER 2019-06-19 22:34 | Emergency (ER) | payer MEDICAID ==
[2019-06-19 22:46] VITALS: BP 150/84; PULSE 84
--- NOTE | 2019-06-19 23:18 | EDM.PDOC ---
ED HPI GENERAL MEDICAL PROBLEM - General Chief Complaint: Lower Extremity Injury/Pain Stated Complaint: HURT RT PINKY TOE Time Seen by Provider: 06/19/19 22:45 Source of Information: Reports: Patient History Limitations: Reports: No Limitations - History of Present Illness INITIAL COMMENTS - FREE TEXT/NARRATIVE: 34-year-old female was wrestling around with her brother yesterday when he stepped on her little toe right foot. Today it is bruised and painful, no other injury. Onset: Sudden Duration: Hour(s): (Just over 24 hours ago) Location: Reports: Lower Extremity, Right Associated Symptoms: Reports: No Other Symptoms Right Toe-Little Pain Score (Numeric/FACES): 0 - Related Data Allergies Allergy/AdvReac Type Severity Reaction Status Date / Time amoxicillin [Amoxicillin] Allergy Hives Verified 06/19/19 22:48 guaifenesin Allergy Cannot Verified 06/19/19 22:48 Remember meclizine Allergy Hives Verified 06/19/19 22:48 Penicillins Allergy Hives Verified 06/19/19 22:48 Sulfa (Sulfonamide Allergy Other Verified 06/19/19 22:48 Antibiotics) sulfamethoxazole Allergy Hives Verified 06/19/19 22:48 [From Bactrim] trimethoprim [From Bactrim] Allergy Hives Verified 06/19/19 22:48 oxycodone [Oxycodone] AdvReac Nausea and Verified 06/19/19 22:48 Vomiting propoxyphene AdvReac Nausea and Verified 06/19/19 22:48 Vomiting Home Meds: Home Meds Gabapentin [Neurontin] 300 mg PO TID 04/12/16 [History] Albuterol [Ventolin HFA] 2 puff IH QID PRN 06/29/18 [History] Albuterol/Ipratropium [DuoNeb 3.0-0.5 MG/3 ML] 3 ml IH Q4H PRN 06/29/18 [History ] Multivitamin with Iron [Chewable-Tramaine with Iron] 1 tab PO BID 06/29/18 [History] FLUoxetine [PROzac] 10 mg PO DAILY 11/27/18 [History] Metoclopramide HCl [Reglan] 10 mg PO Q6H PRN 11/27/18 [History] Ondansetron HCl [Zofran] 4 mg PO Q6H PRN 11/27/18 [History] Zolpidem Tartrate [Ambien] 10 mg PO BEDTIME PRN 11/27/18 [History] levETIRAcetam [Levetiracetam] 1,125 mg PO BID 12/03/18 [History] hydrOXYzine HCL [hydrOXYzine] 25 mg PO Q6H PRN 05/18/19 [History] Past Medical History HEENT History: Reports: Impaired Vision, Other (See Below) Other HEENT History: chronic dental pain Cardiovascular History: Reports: Hypertension Respiratory History: Reports: Asthma, Bronchitis, Recurrent, Pneumonia, Recurrent Gastrointestinal History: Reports: Bowel Obstruction, Cholelithiasis Genitourinary History: Reports: UTI, Recurrent 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: Musculoskeletal History: Reports: Fracture Neurological History: Reports: Brain Injury, Headaches, Chronic, Migraines, Seizure, TIA Other Neuro History: minor stroke with meningitis Psychiatric History: Reports: Anxiety, Depression, Psych Hospitalization(s), Suicide Attempt, Suicidal Ideation Endocrine/Metabolic History: Reports: Obesity/BMI 30+ Hematologic History: Reports: Anemia, B12 Deficiency, Blood Transfusion(s), Folic Acid - Infectious Disease History Infectious Disease History: Reports: Chicken Pox - Past Surgical History Head Surgeries/Procedures: Reports: None HEENT Surgical History: Reports: Adenoidectomy, Tonsillectomy GI Surgical History: Reports: Bariatric Procedure, Cholecystectomy, Colon, Colonoscopy, EGD Female Surgical History: Reports: Breast Biopsy, D&C Neurological Surgical History: Reports: None Musculoskeletal Surgical History: Reports: None Dermatological Surgical History: Reports: None Social & Family History - Family History Family Medical History: Noncontributory - Tobacco Use Smoking Status *Q: Current Every Day Smoker Years of Tobacco use: 10 Packs/Tins Daily: 0.5 - Caffeine Use Caffeine Use: Reports: Coffee - Recreational Drug Use Recreational Drug Use: No - Living Situation & Occupation Living situation: Reports: Occupation: Unemployed Review of Systems - Review of Systems Review Of Systems: See Below Constitutional: Denies: Fever Respiratory: Denies: Shortness of Breath Cardiovascular: Denies: Chest Pain Skin: Reports: Bruising (Little toe was bruised) Neurological: Denies: Paresthesia ED EXAM, GENERAL - Physical Exam Exam: See Below Exam Limited By: No Limitations General Appearance: Alert, No Apparent Distress Respiratory/Chest: No Respiratory Distress Extremities: Other (Exam of the right foot reveals an ecchymotic, tender right little toe, no significant deformity) Psychiatric: Normal Affect, Normal Mood Course - Vital Signs Last Recorded V/S: Last Vital Signs Temp 96.0 F L 06/19/19 22:55 Pulse 84 06/19/19 22:55 Resp 16 06/19/19 22:55 BP 150/84 H 06/19/19 22:55 Pulse Ox 96 06/19/19 22:55 - Orders/Labs/Meds Orders: Active Orders 24 hr Category Date Time Status Toes Fifth Digit Rt T9 [CR] Stat Exams 06/19/19 23:00 Taken - Re-Assessments/Exams Free Text/Narrative Re-Assessment/Exam: 06/19/19 23:16 X-ray shows a small avulsion fracture of the middle phalanx without significant displacement. The small toe was luke taped to the fourth toe and she was encouraged to increase activity as tolerated, elevate the foot when able. Departure - Departure Time of Disposition: 23:23 Disposition: Home, Self-Care 01 Clinical Impression: Fx phalanx, foot-closed Qualifiers: Encounter type: initial encounter Toe: lesser toe Phalanx: middle Fracture alignment: displaced Laterality: right Qualified Code(s): S92.521A - Displaced fracture of middle phalanx of right lesser toe(s), initial encounter for closed fracture - Discharge Information Instructions: Toe Fracture, [id number] Referrals: Esther Mackenzie PA [Primary Care Provider] - Forms: ED Department Discharge Care Plan Goals: Luke taping to reduce motion and elevation of the foot when able will be helpful. Wear good support shoes and increase activity as tolerated. Consider rechecking in 7 to 10 days if not improving satisfactorily. Sepsis Event Note - Evaluation Sepsis Screening Result: No Definite Risk - Focused Exam Vital Signs: Vital Signs Temp Pulse Resp BP Pulse Ox 06/19/19 22:55 96.0 F L 84 16 150/84 H 96 06/19/19 22:45 96.0 F L 84 16 150/84 H 96 Date Exam was Performed: 06/20/19 Time Exam was Performed: 00:37 - My Orders Last 24 Hours: My Active Orders 06/19/19 23:00 Toes Fifth Digit Rt T9 [CR] Stat - Assessment/Plan Last 24 Hours: My Active Orders 06/19/19 23:00 Toes Fifth Digit Rt T9 [CR] Stat
--- NOTE | 2019-06-21 10:12 | CR ---
Toes Fifth Digit Rt T9 CLINICAL HISTORY: Trauma FINDINGS: There is a minimally displaced fracture of the base of the fifth middle phalanx with involvement of the articular margin IMPRESSION: Fracture middle phalanx
== END 2019-06-19 23:23 | disposition home or self-care (01) ==
LOC: JP.ED 22:34
DX: S92.521A Displaced fracture of middle phalanx of right lesser toe(s), initial encounter for closed fracture (principal); J45.909 Unspecified asthma, uncomplicated; I10 Essential (primary) hypertension; F41.9 Anxiety disorder, unspecified; F32.9 Major depressive disorder, single episode, unspecified; E66.9 Obesity, unspecified; Z68.41 Body mass index [BMI] 40.0-44.9, adult; F17.210 Nicotine dependence, cigarettes, uncomplicated; Z88.1 Allergy status to other antibiotic agents; Z88.0 Allergy status to penicillin; Z88.2 Allergy status to sulfonamides; Z88.8 Allergy status to other drugs, medicaments and biological substances; Z88.5 Allergy status to narcotic agent; W50.0XXA Accidental hit or strike by another person, initial encounter
CPT/HCPCS: 73660-26-T9; 73660-T9; 99283-25

== ENCOUNTER 2019-07-07 18:15 | Emergency (ER) | payer MEDICAID ==
[2019-07-07 18:30] VITALS: BP 112/67; PULSE 103
[2019-07-07] MEDS ORDERED: HYDROmorphone 1 MG/ML Syringe IM ONE (19:57)
--- NOTE | 2019-07-07 20:00 | EDM.PDOC ---
ED HPI GENERAL MEDICAL PROBLEM - General Chief Complaint: General Stated Complaint: FEELING SICK Time Seen by Provider: 07/07/19 19:54 Source of Information: Reports: Patient, RN Notes Reviewed History Limitations: Reports: No Limitations - History of Present Illness INITIAL COMMENTS - FREE TEXT/NARRATIVE: 34-year-old female presents emergency department a complaint of right-sided sciatic pain, she states she is tried her usual medications unfortunately she is having a flareup of her pain causing her to get migraines she does have an appointment with her primary care tomorrow she would like something for pain just with that she can sleep tonight right side sciatic nerve pain Pain Score (Numeric/FACES): 8 headache Pain Score (Numeric/FACES): 9 - Related Data Allergies Allergy/AdvReac Type Severity Reaction Status Date / Time amoxicillin [Amoxicillin] Allergy Hives Verified 06/19/19 22:48 guaifenesin Allergy Cannot Verified 06/19/19 22:48 Remember meclizine Allergy Hives Verified 06/19/19 22:48 Penicillins Allergy Hives Verified 06/19/19 22:48 Sulfa (Sulfonamide Allergy Other Verified 06/19/19 22:48 Antibiotics) sulfamethoxazole Allergy Hives Verified 06/19/19 22:48 [From Bactrim] trimethoprim [From Bactrim] Allergy Hives Verified 06/19/19 22:48 oxycodone [Oxycodone] AdvReac Nausea and Verified 06/19/19 22:48 Vomiting propoxyphene AdvReac Nausea and Verified 06/19/19 22:48 Vomiting Home Meds: Home Meds Gabapentin [Neurontin] 300 mg PO TID 04/12/16 [History] Albuterol [Ventolin HFA] 2 puff IH QID PRN 06/29/18 [History] Albuterol/Ipratropium [DuoNeb 3.0-0.5 MG/3 ML] 3 ml IH Q4H PRN 06/29/18 [History ] Multivitamin with Iron [Chewable-Tramaine with Iron] 1 tab PO BID 06/29/18 [History] FLUoxetine [PROzac] 10 mg PO DAILY 11/27/18 [History] Metoclopramide HCl [Reglan] 10 mg PO Q6H PRN 11/27/18 [History] Zolpidem Tartrate [Ambien] 10 mg PO BEDTIME PRN 11/27/18 [History] ondansetron HCL [Zofran] 4 mg PO Q6H PRN 11/27/18 [History] levETIRAcetam [Levetiracetam] 1,125 mg PO BID 12/03/18 [History] hydrOXYzine HCL [hydrOXYzine] 25 mg PO Q6H PRN 05/18/19 [History] Past Medical History HEENT History: Reports: Impaired Vision, Other (See Below) Other HEENT History: chronic dental pain Cardiovascular History: Reports: Hypertension Respiratory History: Reports: Asthma, Bronchitis, Recurrent, Pneumonia, Recurrent Gastrointestinal History: Reports: Bowel Obstruction, Cholelithiasis Genitourinary History: Reports: UTI, 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: Musculoskeletal History: Reports: Fracture Neurological History: Reports: Brain Injury, Headaches, Chronic, Migraines, Seizure, TIA Other Neuro History: minor stroke with meningitis Psychiatric History: Reports: Anxiety, Depression, Psych Hospitalization(s), Suicide Attempt, Suicidal Ideation Endocrine/Metabolic History: Reports: Obesity/BMI 30+ Hematologic History: Reports: Anemia, B12 Deficiency, Blood Transfusion(s), Folic Acid - Infectious Disease History Infectious Disease History: Reports: Chicken Pox - Past Surgical History Head Surgeries/Procedures: Reports: None HEENT Surgical History: Reports: Adenoidectomy, Tonsillectomy GI Surgical History: Reports: Bariatric Procedure, Cholecystectomy, Colon, Colonoscopy, EGD Female Surgical History: Reports: Breast Biopsy, D&C Neurological Surgical History: Reports: None Musculoskeletal Surgical History: Reports: None Dermatological Surgical History: Reports: None Social & Family History - Family History Family Medical History: Noncontributory - Caffeine Use Caffeine Use: Reports: Coffee - Living Situation & Occupation Living situation: Reports: Occupation: Unemployed ED ROS GENERAL - Review of Systems Review Of Systems: See Below Constitutional: Reports: No Symptoms Musculoskeletal: Reports: Other (Right-sided hip pain) ED EXAM, GENERAL - Physical Exam Exam: See Below Exam Limited By: No Limitations General Appearance: Alert, WD/WN, No Apparent Distress Respiratory/Chest: No Respiratory Distress Course - Vital Signs Last Recorded V/S: Last Vital Signs Temp 98.0 F 07/07/19 19:47 Pulse 103 H 07/07/19 19:47 Resp 16 07/07/19 19:47 BP 112/67 07/07/19 19:47 Pulse Ox 92 L 07/07/19 19:47 - Orders/Labs/Meds Orders: Active Orders 24 hr Category Date Time Status HYDROmorphone [Dilaudid] Med 07/07/19 19:57 Once 1 mg IM ONETIME ONE Departure - Departure Time of Disposition: 19:59 Disposition: Home, Self-Care 01 Condition: Fair Clinical Impression: Right sided sciatica - Discharge Information Instructions: Sciatica Referrals: Esther Mackenzie PA [Primary Care Provider] - Additional Instructions: Please follow-up with your primary care provider tomorrow Sepsis Event Note - Evaluation Sepsis Screening Result: No Definite Risk - Focused Exam Vital Signs: Vital Signs Temp Pulse Resp BP Pulse Ox 07/07/19 19:47 98.0 F 103 H 16 112/67 92 L 07/07/19 18:29 98.0 F 103 H 16 112/67 92 L Date Exam was Performed: 07/07/19 Time Exam was Performed: 19:57 - My Orders Last 24 Hours: My Active Orders 07/07/19 19:57 HYDROmorphone [Dilaudid] 1 mg IM ONETIME ONE - Assessment/Plan Last 24 Hours: My Active Orders 07/07/19 19:57 HYDROmorphone [Dilaudid] 1 mg IM ONETIME ONE Plan: Assessment Acuity = acute Site and laterality = right sided sciatic pain Etiology = unknown Manifestations = none Location of injury = Home Lab values = none Plan Provided 1 mg Dilaudid IM she will follow-up with her primary care tomorrow This note was dictated using [employer] voice recognition software please call with any questions on syntax or grammar.
== END 2019-07-07 20:12 | disposition home or self-care (01) ==
LOC: JP.ED 18:15
DX: M54.31 Sciatica, right side (principal); I10 Essential (primary) hypertension; J45.909 Unspecified asthma, uncomplicated; E66.9 Obesity, unspecified; Z68.39 Body mass index [BMI] 39.0-39.9, adult; R56.9 Unspecified convulsions; Z86.73 Personal history of transient ischemic attack (TIA), and cerebral infarction without residual deficits; Z88.1 Allergy status to other antibiotic agents; Z88.0 Allergy status to penicillin; Z88.2 Allergy status to sulfonamides; Z88.5 Allergy status to narcotic agent; Z79.899 Other long term (current) drug therapy
CPT/HCPCS: 96372; 99283; J1170

== ENCOUNTER 2019-07-29 01:58 | Emergency (ER) | payer MEDICAID ==
[2019-07-29] MEDS ORDERED: Bacitracin Oint 1 GM U/D Packet TOP ONE (02:13)
[2019-07-29] MEDS ORDERED: Diphtheria,Pertussis(Acell),Tetanus Vaccine 0.5 ML SDV IM ONE (02:16)
[2019-07-29 02:22] VITALS: BP 134/89; PULSE 117
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
== END 2019-07-29 02:38 | disposition home or self-care (01) ==
LOC: JP.ED 01:58
DX: S61.211A Laceration without foreign body of left index finger without damage to nail, initial encounter (principal); M25.561 Pain in right knee; I10 Essential (primary) hypertension; J45.909 Unspecified asthma, uncomplicated; R56.9 Unspecified convulsions; Z86.73 Personal history of transient ischemic attack (TIA), and cerebral infarction without residual deficits; F41.9 Anxiety disorder, unspecified; F32.9 Major depressive disorder, single episode, unspecified; E66.9 Obesity, unspecified; Z68.41 Body mass index [BMI] 40.0-44.9, adult; Z88.1 Allergy status to other antibiotic agents; Z88.2 Allergy status to sulfonamides; Z88.0 Allergy status to penicillin; Z88.8 Allergy status to other drugs, medicaments and biological substances; Z88.5 Allergy status to narcotic agent; Z79.899 Other long term (current) drug therapy; Z23 Encounter for immunization; F17.210 Nicotine dependence, cigarettes, uncomplicated; W26.0XXA Contact with knife, initial encounter
CPT/HCPCS: 12001; 90471; 90715; 99282; J2001

== ENCOUNTER 2019-08-13 20:05 | Emergency (ER) | payer MEDICAID ==
[2019-08-13 20:33] VITALS: BP 115/70; PULSE 66
--- NOTE | 2019-08-13 20:50 | EDM.PDOC ---
ED HPI GENERAL MEDICAL PROBLEM - General Chief Complaint: ENT Problem Stated Complaint: SORE THROAT Time Seen by Provider: 08/13/19 20:38 Source of Information: Reports: Patient History Limitations: Reports: No Limitations - History of Present Illness INITIAL COMMENTS - FREE TEXT/NARRATIVE: Esther presents with a sore throat for 24 hours. She has tried use of tylenol without much pain relief. She also complains of hoarse voice. She denies fever, chills, nausea, vomiting or other concerns. sore throat Pain Score (Numeric/FACES): 8 - Related Data Allergies Allergy/AdvReac Type Severity Reaction Status Date / Time amoxicillin [Amoxicillin] Allergy Hives Verified 08/13/19 20:44 guaifenesin Allergy Cannot Verified 08/13/19 20:44 Remember meclizine Allergy Hives Verified 08/13/19 20:44 Penicillins Allergy Hives Verified 08/13/19 20:44 Sulfa (Sulfonamide Allergy Other Verified 08/13/19 20:44 Antibiotics) sulfamethoxazole Allergy Hives Verified 08/13/19 20:44 [From Bactrim] trimethoprim [From Bactrim] Allergy Hives Verified 08/13/19 20:44 oxycodone [Oxycodone] AdvReac Nausea and Verified 08/13/19 20:44 Vomiting propoxyphene AdvReac Nausea and Verified 08/13/19 20:44 Vomiting Home Meds: Home Meds Celecoxib 100 mg PO BID 08/13/19 [History] levETIRAcetam [Levetiracetam] 1,125 mg PO BID 08/13/19 [History] Past Medical History HEENT History: Reports: Impaired Vision, Other (See Below) Other HEENT History: chronic dental pain Cardiovascular History: Reports: Hypertension Respiratory History: Reports: Asthma, Bronchitis, Recurrent, Pneumonia, Recurrent Gastrointestinal History: Reports: Bowel Obstruction, Cholelithiasis Genitourinary History: Reports: UTI, Recurrent 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: Musculoskeletal History: Reports: Fracture Neurological History: Reports: Brain Injury, Headaches, Chronic, Migraines, Seizure, TIA Other Neuro History: minor stroke with meningitis Psychiatric History: Reports: Anxiety, Depression, Psych Hospitalization(s), Suicide Attempt, Suicidal Ideation Endocrine/Metabolic History: Reports: Obesity/BMI 30+ Hematologic History: Reports: Anemia, B12 Deficiency, Blood Transfusion(s), Folic Acid - Infectious Disease History Infectious Disease History: Reports: Chicken Pox - Past Surgical History Head Surgeries/Procedures: Reports: None HEENT Surgical History: Reports: Adenoidectomy, Tonsillectomy GI Surgical History: Reports: Bariatric Procedure, Cholecystectomy, Colon, Colonoscopy, EGD Female Surgical History: Reports: Breast Biopsy, D&C Neurological Surgical History: Reports: None Musculoskeletal Surgical History: Reports: None Dermatological Surgical History: Reports: None Social & Family History - Family History Family Medical History: Noncontributory - Caffeine Use Caffeine Use: Reports: None - Living Situation & Occupation Living situation: Reports: Occupation: Unemployed ED ROS ENT - Review of Systems Review Of Systems: See Below Constitutional: Reports: No Symptoms HEENT: Reports: Other (sore throat) Respiratory: Reports: No Symptoms Cardiovascular: Reports: No Symptoms Endocrine: Reports: No Symptoms GI/Abdominal: Reports: No Symptoms Musculoskeletal: Reports: No Symptoms Skin: Reports: No Symptoms Neurological: Reports: No Symptoms Psychiatric: Reports: No Symptoms Hematologic/Lymphatic: Reports: No Symptoms Immunologic: Reports: No Symptoms ED EXAM, ENT - Physical Exam Exam: See Below Exam Limited By: No Limitations General Appearance: Alert, WD/WN, No Apparent Distress Eye Exam: Bilateral Eye: Normal Inspection, PERRL Ears: Normal External Exam, Normal Canal, Hearing Grossly Normal, Normal TMs Nose: Normal Inspection, Normal Mucousa, No Blood Mouth/Throat: Normal Gums, Normal Lips, Pharyngeal Erythema, Throat Pain, Other (no tonsils present). No: Gum Swelling, Throat Swelling, Tongue Swelling, Uvular Deviation, Uvular Edema Head: Atraumatic, Normocephalic Neck: Normal Inspection, Supple, Non-Tender, Full Range of Motion. No: Lymphadenopathy (R), Lymphadenopathy (L) Respiratory/Chest: No Respiratory Distress, Lungs Clear, Normal Breath Sounds, No Accessory Muscle Use, Chest Non-Tender Cardiovascular: Normal Peripheral Pulses, Regular Rate, Rhythm, No Edema, No Gallop, No Murmur, No Rub Extremities: Normal Inspection, Normal Range of Motion, Non-Tender, No Pedal Edema, Normal Capillary Refill Neurological: Alert, Oriented, Normal Cognition, Normal Gait, Normal Reflexes, No Motor/Sensory Deficits Psychiatric: Normal Affect, Normal Mood Skin: Warm, Dry, Intact, Normal Color, No Rash Course - Vital Signs Last Recorded V/S: Last Vital Signs Temp 35.8 C L 08/13/19 21:11 Pulse 66 08/13/19 21:11 Resp 16 08/13/19 21:11 BP 115/70 08/13/19 21:11 Pulse Ox 98 08/13/19 21:11 - Orders/Labs/Meds Orders: Active Orders 24 hr Category Date Time Status CULTURE STREP A CONFIRMATION [RM] Stat Lab 08/13/19 20:54 Results STREP SCRN A RAPID W CULT CONF [RM] Stat Lab 08/13/19 20:54 Results Labs: Strep screen negative Departure - Departure Time of Disposition: 21:19 Disposition: Home, Self-Care 01 Condition: Good Clinical Impression: Tonsillitis - Discharge Information *PRESCRIPTION DRUG MONITORING PROGRAM REVIEWED*: Not Applicable *COPY OF PRESCRIPTION DRUG MONITORING REPORT IN PATIENT GERRI: Not Applicable Referrals: Esther Mackenize PA [Primary Care Provider] - Forms: ED Department Discharge Additional Instructions: Strep screen negative. Push fluids to stay hydrated. Take acetaminophen (tylenol) 1000mg by mouth three times a day as needed for pain. Salt water gargles with 1/4 tsp salt to 8ox warm water four times a day. Follow up with primary in 7 to 10 days if no improvement. Sepsis Event Note - Focused Exam Vital Signs: Vital Signs Temp Pulse Resp BP Pulse Ox 08/13/19 21:11 35.8 C L 66 16 115/70 98 08/13/19 20:31 35.8 C L 66 16 115/70 98 Date Exam was Performed: 08/13/19 Time Exam was Performed: 21:18 - My Orders Last 24 Hours: My Active Orders 08/13/19 20:54 CULTURE STREP A CONFIRMATION [RM] Stat STREP SCRN A RAPID W CULT CONF [RM] Stat - Assessment/Plan Last 24 Hours: My Active Orders 08/13/19 20:54 CULTURE STREP A CONFIRMATION [RM] Stat STREP SCRN A RAPID W CULT CONF [RM] Stat Assessment:: Tonsillitis Plan: Strep screen negative Push fluids to stay hydrated. Take acetaminophen (tylenol) 1000mg by mouth three times a day as needed for pain. Salt water gargles with 1/4 tsp salt to 8ox warm water four times a day. Follow up with primary in 7 to 10 days if no improvement.
== END 2019-08-13 21:22 | disposition home or self-care (01) ==
LOC: JP.ED 20:05
DX: J03.90 Acute tonsillitis, unspecified (principal); E66.9 Obesity, unspecified; I10 Essential (primary) hypertension; R56.9 Unspecified convulsions; Z86.73 Personal history of transient ischemic attack (TIA), and cerebral infarction without residual deficits; Z88.1 Allergy status to other antibiotic agents; Z88.0 Allergy status to penicillin; Z88.2 Allergy status to sulfonamides; Z88.5 Allergy status to narcotic agent; Z88.8 Allergy status to other drugs, medicaments and biological substances; Z68.41 Body mass index [BMI] 40.0-44.9, adult
CPT/HCPCS: 87081; 87880-QW; 99283

== ENCOUNTER 2019-09-06 03:34 | Emergency (ER) | payer MEDICAID ==
[2019-09-06 03:43] VITALS: BP 124/82; PULSE 82
[2019-09-06] MEDS ORDERED: Ketorolac 60 MG/2 ML SDV IM ONE (04:09)
[2019-09-06] MEDS ORDERED: Acetaminophen 500 MG Tab PO ONE (04:10)
--- NOTE | 2019-09-06 04:15 | EDM.PDOC ---
ED HPI GENERAL MEDICAL PROBLEM - General Chief Complaint: Neck Problem Stated Complaint: FALL VIA NORTH Time Seen by Provider: 09/06/19 04:00 Source of Information: Reports: Patient, EMS, Old Records, RN History Limitations: Reports: No Limitations - History of Present Illness INITIAL COMMENTS - FREE TEXT/NARRATIVE: 34 yo female who is on multiple potentially sedating medications tripped on a box in her home tonight and fell. EMS was called and transported with stable vitals, but complaints of pain in several areas. No head injury reported. Has walked since the fall. Reports mild neck pain, posterior R shoulder pain, & R posterior hip pain. No tx prior to arrival other than the application of a C- collar. Onset: Today, Sudden Onset Date: 09/06/19 Duration: Minutes:, Constant, Improving Location: Reports: Neck, Pelvis (R posterior hip area. 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 Right Shoulder Pain Score (Numeric/FACES): 9 right abd Pain Score (Numeric/FACES): 6 - Related Data Allergies Allergy/AdvReac Type Severity Reaction Status Date / Time amoxicillin [Amoxicillin] Allergy Hives Verified 09/06/19 03:42 guaifenesin Allergy Cannot Verified 09/06/19 03:42 Remember meclizine Allergy Hives Verified 09/06/19 03:42 Penicillins Allergy Hives Verified 09/06/19 03:42 Sulfa (Sulfonamide Allergy Other Verified 09/06/19 03:42 Antibiotics) sulfamethoxazole Allergy Hives Verified 09/06/19 03:42 [From Bactrim] trimethoprim [From Bactrim] Allergy Hives Verified 09/06/19 03:42 oxycodone [Oxycodone] AdvReac Nausea and Verified 09/06/19 03:42 Vomiting propoxyphene AdvReac Nausea and Verified 09/06/19 03:42 Vomiting Home Meds: Home Meds Celecoxib 100 mg PO BID 08/13/19 [History] levETIRAcetam [Levetiracetam] 1,125 mg PO BID 08/13/19 [History] Albuterol/Ipratropium [Combivent Respimat] 1 puff INH Q6H PRN 09/06/19 [History] Eletriptan Hydrobromide [Eletriptan HBr] 1 tab PO ASDIRECTED PRN 09/06/19 [History] Fremanezumab-Vfrm [Ajovy Syringe] 1.5 ml SUBCUT Q30D 09/06/19 [History] Gabapentin [Neurontin] 1 cap PO TID 09/06/19 [History] Metoclopramide HCl 1 tab PO Q6H PRN 09/06/19 [History] Ubrogepant [Ubrelvy] 1 tab PO ASDIRECTED PRN 09/06/19 [History] Zolpidem Tartrate 1 tab PO BEDTIME 09/06/19 [History] tiZANidine [Zanaflex] 1 tab PO TID PRN 09/06/19 [History] Past Medical History HEENT History: Reports: Impaired Vision, Other (See Below) Other HEENT History: chronic dental pain Cardiovascular History: Reports: Hypertension Respiratory History: Reports: Asthma, Bronchitis, Recurrent, Pneumonia, Recurrent Gastrointestinal History: Reports: Bowel Obstruction, Cholelithiasis Genitourinary History: Reports: UTI, Recurrent 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: Musculoskeletal History: Reports: Fracture Neurological History: Reports: Brain Injury, Headaches, Chronic, Migraines, Seizure, TIA Other Neuro History: minor stroke with meningitis Psychiatric History: Reports: Anxiety, Depression, Psych Hospitalization(s), Suicide Attempt, Suicidal Ideation Endocrine/Metabolic History: Reports: Obesity/BMI 30+ Hematologic History: Reports: Anemia, B12 Deficiency, Blood Transfusion(s), Folic Acid - Infectious Disease History Infectious Disease History: Reports: Chicken Pox - Past Surgical History Head Surgeries/Procedures: Reports: None HEENT Surgical History: Reports: Adenoidectomy, Tonsillectomy GI Surgical History: Reports: Bariatric Procedure, Cholecystectomy, Colon, Colonoscopy, EGD Female Surgical History: Reports: Breast Biopsy, D&C Neurological Surgical History: Reports: None Musculoskeletal Surgical History: Reports: None Dermatological Surgical History: Reports: None Social & Family History - Family History Family Medical History: Noncontributory - Tobacco Use Smoking Status *Q: Current Every Day Smoker Years of Tobacco use: 16 Packs/Tins Daily: 0.5 - Caffeine Use Caffeine Use: Reports: Energy Drinks - Alcohol Use Days Per Week of Alcohol Use: 2 Number of Drinks Per Day: 2 Total Drinks Per Week: 4 - Recreational Drug Use Recreational Drug Use: No - Living Situation & Occupation Living situation: Reports: Occupation: Unemployed Review of Systems - Review of Systems Review Of Systems: See Below Constitutional: Reports: No Symptoms Eyes: Reports: No Symptoms Ears: Reports: No Symptoms Nose: Reports: No Symptoms Mouth/Throat: Reports: No Symptoms Respiratory: Reports: No Symptoms Cardiovascular: Reports: No Symptoms GI/Abdominal: Reports: No Symptoms Genitourinary: Reports: No Symptoms Musculoskeletal: Reports: Neck Pain, Shoulder Pain (R posterior), Back Pain (R posterior hip pain) Skin: Reports: No Symptoms Neurological: Reports: No Symptoms Psychiatric: Reports: No Symptoms ED EXAM, GENERAL - Physical Exam Exam: See Below Exam Limited By: No Limitations General Appearance: Alert, WD/WN, No Apparent Distress, Obese Eye Exam: Bilateral Eye: Normal Inspection Ears: Normal External Exam, Normal Canal, Hearing Grossly Normal, Normal TMs Ear Exam: Bilateral Ear: Auricle Normal, Canal Normal Nose: Normal Inspection, No Blood Throat/Mouth: Normal Inspection, Normal Lips, Normal Oropharynx, Normal Voice, No Airway Compromise Head: Atraumatic, Normocephalic Neck: Normal Inspection, Supple, Non-Tender, Full Range of Motion. No: Lymphadenopathy (R), Lymphadenopathy (L), Tender Lateral, Tender Midline Respiratory/Chest: No Respiratory Distress, Lungs Clear, Normal Breath Sounds, No Accessory Muscle Use Cardiovascular: Regular Rate, Rhythm, No Edema GI/Abdominal: Normal Bowel Sounds, Soft, Non-Tender, No Distention Back Exam: Normal Inspection. No: CVA Tenderness (R), CVA Tenderness (L) Extremities: Normal Inspection, Normal Range of Motion, Non-Tender, No Pedal Edema, Leg Pain (Moves all her extremities without difficulty). No: Pedal Edema Neurological: Alert, Oriented, CN II-XII Intact, Normal Cognition, No Motor/Sensory Deficits, Other (speech slurred, ? from her home meds) Psychiatric: Normal Affect, Normal Mood Skin Exam: Warm, Dry, Intact, Normal Color, No Rash Course - Vital Signs Last Recorded V/S: Last Vital Signs Temp 35.2 C L 09/06/19 03:38 Pulse 82 09/06/19 03:38 Resp 15 09/06/19 03:38 BP 124/82 09/06/19 03:38 Pulse Ox 99 09/06/19 03:38 - Orders/Labs/Meds Labs: Laboratory Tests 09/06/19 09/06/19 Range/Units 04:10 04:15 Urine Opiates Screen Negative (NEGATIVE) Ur Oxycodone Screen Negative (NEGATIVE) Urine Methadone Screen Negative (NEGATIVE) Ur Propoxyphene Screen Negative (NEGATIVE) Ur Barbiturates Screen Negative (NEGATIVE) Ur Tricyclics Screen Negative (NEGATIVE) Ur Phencyclidine Scrn Negative (NEGATIVE) Ur Amphetamine Screen Presumptive positive H (NEGATIVE) U Methamphetamines Scrn Presumptive positive H (NEGATIVE) Urine MDMA Screen Negative (NEGATIVE) U Benzodiazepines Scrn Negative (NEGATIVE) U Cocaine Metab Screen Negative (NEGATIVE) U Marijuana (THC) Screen Negative (NEGATIVE) Ethyl Alcohol < 3 mg/dL Meds: Medications Discontinued Medications Generic Name Dose Route Start Last Admin Trade Name Freq PRN Reason Stop Dose Admin Acetaminophen 1,000 mg 09/06/19 04:10 09/06/19 04:18 Tylenol Extra Strength PO 09/06/19 04:11 1,000 mg ONETIME ONE Administration Ketorolac Tromethamine 60 mg 09/06/19 04:09 09/06/19 04:19 Toradol IM 09/06/19 04:10 60 mg ONETIME ONE Administration Departure - Departure Time of Disposition: 04:50 Disposition: Home, Self-Care 01 Condition: Fair Clinical Impression: Methamphetamine use, Multiple contusions Fall Qualifiers: Encounter type: initial encounter Qualified Code(s): W19.XXXA - Unspecified fall, initial encounter - Discharge Information *PRESCRIPTION DRUG MONITORING PROGRAM REVIEWED*: No *COPY OF PRESCRIPTION DRUG MONITORING REPORT IN PATIENT GERRI: No Referrals: PCP,None [Primary Care Provider] - Forms: ED Department Discharge Additional Instructions: Take acetaminophen up to 1000 mg every 6 hrs as needed for pain relief. Ibuprofen up to 400 mg every 6 hrs as needed for pain relief. See Kiley Mackenzie early this week for recheck. Sepsis Event Note (ED) - Evaluation Sepsis Screening Result: No Definite Risk - Focused Exam Vital Signs: Vital Signs Temp Pulse Resp BP Pulse Ox 09/06/19 03:38 35.2 C L 82 15 124/82 99
== END 2019-09-06 04:50 | disposition home or self-care (01) ==
LOC: JP.ED 03:34
DX: S10.93XA Contusion of unspecified part of neck, initial encounter (principal); S70.01XA Contusion of right hip, initial encounter; S40.011A Contusion of right shoulder, initial encounter; F15.90 Other stimulant use, unspecified, uncomplicated; I10 Essential (primary) hypertension; J45.909 Unspecified asthma, uncomplicated; E66.9 Obesity, unspecified; Z68.39 Body mass index [BMI] 39.0-39.9, adult; F17.210 Nicotine dependence, cigarettes, uncomplicated; Z88.1 Allergy status to other antibiotic agents; Z88.0 Allergy status to penicillin; Z88.2 Allergy status to sulfonamides; Z88.8 Allergy status to other drugs, medicaments and biological substances; Z88.5 Allergy status to narcotic agent; Z79.899 Other long term (current) drug therapy; W01.0XXA Fall on same level from slipping, tripping and stumbling without subsequent striking against object, initial encounter; Y92.009 Unspecified place in unspecified non-institutional (private) residence as the place of occurrence of the external cause
CPT/HCPCS: 36415; 80305; 80307; 96372; 99284; A9270; J1885

== ENCOUNTER 2019-10-08 20:00 | Emergency (ER) | payer MEDICAID ==
[2019-10-08 20:33] VITALS: BP 108/65; PULSE 69
[2019-10-08] MEDS ORDERED: Ibuprofen 600 MG Tab PO ONE (20:39)
--- NOTE | 2019-10-08 20:41 | EDM.PDOC ---
ED HPI GENERAL MEDICAL PROBLEM - General Chief Complaint: Upper Extremity Injury/Pain Stated Complaint: HURT RIGHT HAND Time Seen by Provider: 10/08/19 20:35 Source of Information: Reports: Patient History Limitations: Reports: No Limitations - History of Present Illness INITIAL COMMENTS - FREE TEXT/NARRATIVE: Esther presents to the ED today with c/o right hand pain/swelling/bruising after punching a tree with her right hand about an hour prior to arrival. Patient took Tylenol without much relief. Patient denies any other injuries. 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: Cold Therapy Right Hand Pain Score (Numeric/FACES): 5 - Related Data Allergies Allergy/AdvReac Type Severity Reaction Status Date / Time amoxicillin [Amoxicillin] Allergy Hives Verified 10/08/19 20:36 guaifenesin Allergy Cannot Verified 10/08/19 20:36 Remember meclizine Allergy Hives Verified 10/08/19 20:36 Penicillins Allergy Hives Verified 10/08/19 20:36 Sulfa (Sulfonamide Allergy Other Verified 10/08/19 20:36 Antibiotics) sulfamethoxazole Allergy Hives Verified 10/08/19 20:36 [From Bactrim] trimethoprim [From Bactrim] Allergy Hives Verified 10/08/19 20:36 oxycodone [Oxycodone] AdvReac Nausea and Verified 10/08/19 20:36 Vomiting propoxyphene AdvReac Nausea and Verified 10/08/19 20:36 Vomiting Home Meds: Home Meds Celecoxib 100 mg PO BID 08/13/19 [History] levETIRAcetam [Levetiracetam] 1,125 mg PO BID 08/13/19 [History] Albuterol/Ipratropium [Combivent Respimat] 1 puff INH Q6H PRN 09/06/19 [History] Eletriptan Hydrobromide [Eletriptan HBr] 1 tab PO ASDIRECTED PRN 09/06/19 [History] Fremanezumab-Vfrm [Ajovy Syringe] 1.5 ml SUBCUT Q30D 09/06/19 [History] Gabapentin [Neurontin] 1 cap PO TID 09/06/19 [History] Metoclopramide HCl 1 tab PO Q6H PRN 09/06/19 [History] Ubrogepant [Ubrelvy] 1 tab PO ASDIRECTED PRN 09/06/19 [History] Zolpidem Tartrate 1 tab PO BEDTIME 09/06/19 [History] tiZANidine [Zanaflex] 1 tab PO TID PRN 09/06/19 [History] Past Medical History HEENT History: Reports: Impaired Vision, Other (See Below) Other HEENT History: chronic dental pain Cardiovascular History: Reports: Hypertension Respiratory History: Reports: Asthma, Bronchitis, Recurrent, Pneumonia, Recurrent Gastrointestinal History: Reports: Bowel Obstruction, Cholelithiasis Genitourinary History: Reports: UTI, Recurrent 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: Musculoskeletal History: Reports: Fracture Neurological History: Reports: Brain Injury, Headaches, Chronic, Migraines, Seizure, TIA Other Neuro History: minor stroke with meningitis Psychiatric History: Reports: Anxiety, Depression, Psych Hospitalization(s), Suicide Attempt, Suicidal Ideation Endocrine/Metabolic History: Reports: Obesity/BMI 30+ Hematologic History: Reports: Anemia, B12 Deficiency, Blood Transfusion(s), Folic Acid - Infectious Disease History Infectious Disease History: Reports: Chicken Pox - Past Surgical History Head Surgeries/Procedures: Reports: None HEENT Surgical History: Reports: Adenoidectomy, Tonsillectomy GI Surgical History: Reports: Bariatric Procedure, Cholecystectomy, Colon, Colonoscopy, EGD Female Surgical History: Reports: Breast Biopsy, D&C Neurological Surgical History: Reports: None Musculoskeletal Surgical History: Reports: None Dermatological Surgical History: Reports: None Social & Family History - Family History Family Medical History: Noncontributory - Caffeine Use Caffeine Use: Reports: Energy Drinks - Living Situation & Occupation Living situation: Reports: Occupation: Unemployed Review of Systems - Review of Systems Review Of Systems: Comprehensive ROS is negative, except as noted in HPI. ED EXAM, GENERAL - Physical Exam Exam: See Below Exam Limited By: No Limitations General Appearance: Alert, WD/WN, No Apparent Distress Nose: Normal Inspection Throat/Mouth: Normal Inspection Head: Atraumatic Neck: Normal Inspection Respiratory/Chest: No Respiratory Distress Cardiovascular: Regular Rate, Rhythm Back Exam: Normal Inspection Extremities: Other (right hand painful to palpation, dorsal aspect, bruising to distal 4th MCP, radial pulses cap refill intact) Neurological: Alert Psychiatric: Normal Affect Skin Exam: Warm, Dry, Intact Course - Vital Signs Last Recorded V/S: Last Vital Signs Temp 36.4 C 10/08/19 20:36 Pulse 69 10/08/19 20:36 Resp 16 10/08/19 20:36 BP 108/65 10/08/19 20:36 Pulse Ox 93 L 10/08/19 20:36 Right hand contusion ANDRES wrap applied. Xray negative. Ibuprofen/Tylenol per bottle instructions as needed. Follow up with PCP as needed. RICE encouraged. Patient agreeable to plan of care and discharged in stable instruction. - Orders/Labs/Meds Orders: Active Orders 24 hr Category Date Time Status Hand Comp Min 3V Rt [CR] Stat Exams 10/08/19 20:38 Taken Meds: Medications Discontinued Medications Generic Name Dose Route Start Last Admin Trade Name Yisel PRN Reason Stop Dose Admin Ibuprofen 600 mg 10/08/19 20:39 Motrin PO 10/08/19 20:40 ONETIME ONE Departure - Departure Time of Disposition: 21:30 Disposition: Home, Self-Care 01 Condition: Good Clinical Impression: Contusion of right hand Qualifiers: Encounter type: initial encounter Qualified Code(s): S60.221A - Contusion of ri ght hand, initial encounter - Discharge Information Instructions: Hand Contusion, [id number] Referrals: Esther Mackenzie PA [Primary Care Provider] - Forms: ED Department Discharge Additional Instructions: x-ray is negative for fracture. Ice, elevate, Tylenol/Ibuprofen for pain per bottle instructions as needed. Andres wrap for compression for the next couple of days. Sepsis Event Note (ED) - Evaluation Sepsis Screening Result: No Definite Risk - Focused Exam Vital Signs: Vital Signs Temp Pulse Resp BP Pulse Ox 10/08/19 20:36 36.4 C 69 16 108/65 93 L 10/08/19 20:31 36.4 C 69 16 108/65 93 L - My Orders Last 24 Hours: My Active Orders 10/08/19 20:38 Hand Comp Min 3V Rt [CR] Stat - Assessment/Plan Last 24 Hours: My Active Orders 10/08/19 20:38 Hand Comp Min 3V Rt [CR] Stat
--- NOTE | 2019-10-11 10:31 | CR ---
Hand Comp Min 3V Rt CLINICAL HISTORY: Pain, trauma FINDINGS: There is no acute fracture or dislocation of the hand. Impression: Negative
== END 2019-10-08 21:10 | disposition home or self-care (01) ==
LOC: JP.ED 20:00
DX: S60.221A Contusion of right hand, initial encounter (principal); I10 Essential (primary) hypertension; J45.909 Unspecified asthma, uncomplicated; Z86.73 Personal history of transient ischemic attack (TIA), and cerebral infarction without residual deficits; F41.9 Anxiety disorder, unspecified; F32.9 Major depressive disorder, single episode, unspecified; R56.9 Unspecified convulsions; E66.9 Obesity, unspecified; Z68.41 Body mass index [BMI] 40.0-44.9, adult; Z88.1 Allergy status to other antibiotic agents; Z88.0 Allergy status to penicillin; Z88.2 Allergy status to sulfonamides; Z88.8 Allergy status to other drugs, medicaments and biological substances; Z88.5 Allergy status to narcotic agent; Z79.899 Other long term (current) drug therapy; W22.8XXA Striking against or struck by other objects, initial encounter
CPT/HCPCS: 73130-26-RT; 73130-RT; 99283-25

== ENCOUNTER 2020-04-09 16:05 | Emergency (ER) | payer MEDICAID ==
[2020-04-09 16:24] VITALS: BP 104/50; PULSE 76
--- NOTE | 2020-04-09 16:36 | EDM.PDOC ---
ED HPI GENERAL MEDICAL PROBLEM - General Chief Complaint: BIG DATA ADMIN Problem Stated Complaint: 13 WKS PG/CRAMPING AND BACK PAIN Time Seen by Provider: 04/09/20 16:20 Source of Information: Reports: Patient, RN History Limitations: Reports: No Limitations - History of Present Illness INITIAL COMMENTS - FREE TEXT/NARRATIVE: 35-year-old 6 AB 4 para 1 at 13 weeks complains of some lower abdominal crampy pain and epigastric crampy pain last evening and today. She was concerned about it but she does have an appointment with her OB doctor tomorrow. She has no other system complaints and her urine is working fine. No vaginal bleeding - Related Data Allergies Allergy/AdvReac Type Severity Reaction Status Date / Time amoxicillin [Amoxicillin] Allergy Hives Verified 04/09/20 16:30 guaifenesin Allergy Cannot Verified 04/09/20 16:30 Remember meclizine Allergy Hives Verified 04/09/20 16:30 Penicillins Allergy Hives Verified 04/09/20 16:30 Sulfa (Sulfonamide Allergy Other Verified 04/09/20 16:30 Antibiotics) sulfamethoxazole Allergy Hives Verified 04/09/20 16:30 [From Bactrim] trimethoprim [From Bactrim] Allergy Hives Verified 04/09/20 16:30 oxycodone [Oxycodone] AdvReac Nausea and Verified 04/09/20 16:30 Vomiting propoxyphene AdvReac Nausea and Verified 04/09/20 16:30 Vomiting Home Meds: Home Meds Celecoxib 100 mg PO BID 08/13/19 [History] levETIRAcetam [Levetiracetam] 1,125 mg PO BID 08/13/19 [History] Albuterol/Ipratropium [Combivent Respimat] 1 puff INH Q6H PRN 09/06/19 [History] Eletriptan Hydrobromide [Eletriptan HBr] 1 tab PO ASDIRECTED PRN 09/06/19 [History] Fremanezumab-Vfrm [Ajovy Syringe] 1.5 ml SUBCUT Q30D 09/06/19 [History] Gabapentin [Neurontin] 1 cap PO TID 09/06/19 [History] Metoclopramide HCl 1 tab PO Q6H PRN 09/06/19 [History] Ubrogepant [Ubrelvy] 1 tab PO ASDIRECTED PRN 09/06/19 [History] Zolpidem Tartrate 1 tab PO BEDTIME 09/06/19 [History] Butalbit/Acetamin/Caff/Codeine [Nlzcik-Aphc-Blgnewhtptq-Codein] 1 each PO ASDIRECTED 04/09/20 [History] Past Medical History HEENT History: Reports: Impaired Vision, Other (See Below) Other HEENT History: chronic dental pain Cardiovascular History: Reports: Hypertension Respiratory History: Reports: Asthma, Bronchitis, Recurrent, Pneumonia, Recurrent Gastrointestinal History: Reports: Bowel Obstruction, Cholelithiasis Genitourinary History: Reports: UTI, Recurrent BIG DATA ADMIN History: Reports: Musculoskeletal History: Reports: Fracture Neurological History: Reports: Brain Injury, Headaches, Chronic, Migraines, Seizure, TIA Other Neuro History: minor stroke with meningitis Psychiatric History: Reports: Anxiety, Depression, Psych Hospitalization(s), Suicide Attempt, Suicidal Ideation Endocrine/Metabolic History: Reports: Obesity/BMI 30+ Hematologic History: Reports: Anemia, B12 Deficiency, Blood Transfusion(s), Folic Acid - Infectious Disease History Infectious Disease History: Reports: Chicken Pox - Past Surgical History Head Surgeries/Procedures: Reports: None HEENT Surgical History: Reports: Adenoidectomy, Tonsillectomy GI Surgical History: Reports: Bariatric Procedure, Cholecystectomy, Colon, Colonoscopy, EGD Female Surgical History: Reports: Breast Biopsy, D&C Neurological Surgical History: Reports: None Musculoskeletal Surgical History: Reports: None Dermatological Surgical History: Reports: None Social & Family History - Family History Family Medical History: No Pertinent Family History - Caffeine Use Caffeine Use: Reports: Coffee, Soda - Living Situation & Occupation Living situation: Reports: Occupation: Unemployed ED ROS GENERAL - Review of Systems Review Of Systems: See Below Constitutional: Reports: No Symptoms (Systems reviewed and all are negative other than the 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 Vital signs okay. She is relatively large in nature Head exam is negative Abdomen is very large with slight tenderness in the lower abdomen but barely discernible. No masses no rebound normal bowel sounds. Skin extremities are normal. Course - Vital Signs Text/Narrative:: This patient has had multiple miscarriages and has 1 normal to term. She now has a male 13-week and concerned. However no indication at this juncture to do a pelvic ultrasound and that she has minimal symptoms and has an OB appointment tomorrow Last Recorded V/S: Last Vital Signs Temp 36.1 C 04/09/20 16:19 Pulse 76 04/09/20 16:19 Resp 16 04/09/20 16:19 BP 104/50 L 04/09/20 16:19 Pulse Ox 98 04/09/20 16:19 Departure - Departure Time of Disposition: 16:40 Disposition: Home, Self-Care 01 Condition: Good Clinical Impression: - Discharge Information Referrals: She Howard DO [Primary Care Provider] - Forms: ED Department Discharge Additional Instructions: You have an OB appointment tomorrow, please keep that appointment Sepsis Event Note (ED) - Focused Exam Vital Signs: Vital Signs Temp Pulse Resp BP Pulse Ox 04/09/20 16:19 36.1 C 76 16 104/50 L 98
== END 2020-04-09 16:43 | disposition home or self-care (01) ==
LOC: JP.ED 16:05
DX: O99.891 Other specified diseases and conditions complicating pregnancy (principal); R10.30 Lower abdominal pain, unspecified; I10 Essential (primary) hypertension; J45.909 Unspecified asthma, uncomplicated; R56.9 Unspecified convulsions; E66.9 Obesity, unspecified; Z68.42 Body mass index [BMI] 45.0-49.9, adult; Z88.0 Allergy status to penicillin; Z88.8 Allergy status to other drugs, medicaments and biological substances; Z88.2 Allergy status to sulfonamides; Z88.5 Allergy status to narcotic agent; Z88.1 Allergy status to other antibiotic agents; Z79.899 Other long term (current) drug therapy; Z86.73 Personal history of transient ischemic attack (TIA), and cerebral infarction without residual deficits; Z3A.13 13 weeks gestation of pregnancy
CPT/HCPCS: 99282; 99283

== ENCOUNTER 2020-05-14 00:05 | Emergency (ER) | payer MEDICAID ==
[2020-05-14 00:30] VITALS: BP 114/67; PULSE 97
--- NOTE | 2020-05-14 00:52 | EDM.PDOC ---
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 Patient states that she went to the bathroom and when she wiped she saw a light pink on the toilet paper which worried her. Patient has a history of 4 previous miscarriages and one full-term . She recently underwent an OB ultrasound is unremarkable. She has subsequently had 2 additional episodes of voiding without any events for spotting. She has not had any cramping. She is just very nervous because of the previous miscarriages. - Related Data Allergies Allergy/AdvReac Type Severity Reaction Status Date / Time amoxicillin [Amoxicillin] Allergy Hives Verified 04/09/20 16:30 guaifenesin Allergy Cannot Verified 04/09/20 16:30 Remember meclizine Allergy Hives Verified 04/09/20 16:30 Penicillins Allergy Hives Verified 04/09/20 16:30 Sulfa (Sulfonamide Allergy Other Verified 04/09/20 16:30 Antibiotics) sulfamethoxazole Allergy Hives Verified 04/09/20 16:30 [From Bactrim] trimethoprim [From Bactrim] Allergy Hives Verified 04/09/20 16:30 oxycodone [Oxycodone] AdvReac Nausea and Verified 04/09/20 16:30 Vomiting propoxyphene AdvReac Nausea and Verified 04/09/20 16:30 Vomiting Home Meds: Home Meds Celecoxib 100 mg PO BID 08/13/19 [History] levETIRAcetam [Levetiracetam] 1,125 mg PO BID 08/13/19 [History] Albuterol/Ipratropium [Combivent Respimat] 1 puff INH Q6H PRN 09/06/19 [History] Eletriptan Hydrobromide [Eletriptan HBr] 1 tab PO ASDIRECTED PRN 09/06/19 [History] Fremanezumab-Vfrm [Ajovy Syringe] 1.5 ml SUBCUT Q30D 09/06/19 [History] Gabapentin [Neurontin] 1 cap PO TID 09/06/19 [History] Metoclopramide HCl 1 tab PO Q6H PRN 09/06/19 [History] Ubrogepant [Ubrelvy] 1 tab PO ASDIRECTED PRN 09/06/19 [History] Zolpidem Tartrate 1 tab PO BEDTIME 09/06/19 [History] Butalbit/Acetamin/Caff/Codeine [Qaepvb-Nyjo-Iyhlmsodnxr-Codein] 1 each PO ASDIRECTED 04/09/20 [History] Past Medical History HEENT History: Reports: Impaired Vision, Other (See Below) Other HEENT History: chronic dental pain Cardiovascular History: Reports: Hypertension Respiratory History: Reports: Asthma, Bronchitis, Recurrent, Pneumonia, Recurrent Gastrointestinal History: Reports: Bowel Obstruction, Cholelithiasis Genitourinary History: Reports: UTI, Recurrent 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 MERCHANDISING MANAGER History: Reports: Musculoskeletal History: Reports: Fracture Neurological History: Reports: Brain Injury, Headaches, Chronic, Migraines, Seizure, TIA Other Neuro History: minor stroke with meningitis Psychiatric History: Reports: Anxiety, Depression, Psych Hospitalization(s), Suicide Attempt, Suicidal Ideation Endocrine/Metabolic History: Reports: Obesity/BMI 30+ Hematologic History: Reports: Anemia, B12 Deficiency, Blood Transfusion(s), Folic Acid - Infectious Disease History Infectious Disease History: Reports: Chicken Pox - Past Surgical History Head Surgeries/Procedures: Reports: None HEENT Surgical History: Reports: Adenoidectomy, Tonsillectomy GI Surgical History: Reports: Bariatric Procedure, Cholecystectomy, Colon, Colonoscopy, EGD Female Surgical History: Reports: Breast Biopsy, D&C Neurological Surgical History: Reports: None Musculoskeletal Surgical History: Reports: None Dermatological Surgical History: Reports: None Social & Family History - Family History Family Medical History: No Pertinent Family History - Caffeine Use Caffeine Use: Reports: Coffee, Soda - Living Situation & Occupation Living situation: Reports: Occupation: Unemployed ED ROS GENERAL - Review of Systems Review Of Systems: See Below Constitutional: Reports: No Symptoms HEENT: Reports: No Symptoms Respiratory: Reports: No Symptoms Cardiovascular: Reports: No Symptoms Endocrine: Reports: No Symptoms GI/Abdominal: Reports: No Symptoms : Reports: Other (Patient reports episode of small amount of spotting but denies any cramping. She used the bathroom and wiped and saw a small amount of faint pink on the toilet paper. She is voided twice since then with no recurrence of those signs.) Musculoskeletal: Reports: No Symptoms Skin: Reports: No Symptoms Neurological: Reports: No Symptoms Psychiatric: Reports: No Symptoms Hematologic/Lymphatic: Reports: No Symptoms Immunologic: Reports: No Symptoms ED EXAM - Physical Exam Exam: See Below Exam Limited By: No Limitations General Appearance: Alert, No Apparent Distress, Obese GI/Abdominal Exam: Normal Bowel Sounds, Soft, Non-Tender Fundal Height In cm: 14 (3 difficult to feel the fundus due to the adiposity.) Heart Tones: Present Heart Tones per Min: 136 Movement: Active Back Exam: Normal Inspection, Full Range of Motion Course - Vital Signs Last Recorded V/S: Last Vital Signs Temp 36.2 C 05/14/20 00:29 Pulse 97 05/14/20 00:29 Resp 16 05/14/20 00:29 BP 114/67 05/14/20 00:29 Pulse Ox 100 05/14/20 00:29 - Re-Assessments/Exams Free Text/Narrative Re-Assessment/Exam: 05/14/20 00:51 bedside Doppler interrogation for heart tones. The heart rate was 136 bpm. The fetus was quite active. As the bleeding has completely subsided and there is no evidence of cramping with the spotting, this is likely a small subchorionic hemorrhage and really does not require further work-up at this time. Patient should follow-up with her GRAIN MERCHANDISING MANAGER as needed. Indications return to the ED were discussed and she was discharged in satisfactory condition. Departure - Departure Time of Disposition: 00:47 Disposition: Home, Self-Care 01 Clinical Impression: Second trimester bleeding - Discharge Information *PRESCRIPTION DRUG MONITORING PROGRAM REVIEWED*: Not Applicable *COPY OF PRESCRIPTION DRUG MONITORING REPORT IN PATIENT GERRI: Not Applicable Instructions: Subchorionic Hematoma Referrals: PCP,None [Primary Care Provider] - Care Plan Goals: The heart rate today is normal at 136 bpm. Again this is likely due to a subchorionic hemorrhage which is a small amount of bleeding between the placenta and the uterus. It typically is nothing to worry about and you may have intermittent spotting for the next couple of days as your uterus tries to get rid of the small bleed. Follow-up with your GRAIN MERCHANDISING MANAGER as before. Sepsis Event Note (ED) - Focused Exam Vital Signs: Vital Signs Temp Pulse Resp BP Pulse Ox 05/14/20 00:29 36.2 C 97 16 114/67 100 - Problem List & Annotations (1) Second trimester bleeding SNOMED Code(s): 420528788 Code(s): O46.92 - ANTEPARTUM HEMORRHAGE, UNSPECIFIED, SECOND TRIMESTER Status: Acute Priority: Medium Current Visit: Yes - Problem List Review Problem List Initiated/Reviewed/Updated: Yes
== END 2020-05-14 01:03 | disposition home or self-care (01) ==
LOC: JP.ED 00:05
DX: O20.9 Hemorrhage in early pregnancy, unspecified (principal); O99.512 Diseases of the respiratory system complicating pregnancy, second trimester; J45.909 Unspecified asthma, uncomplicated; O99.212 Obesity complicating pregnancy, second trimester; O10.912 Unspecified pre-existing hypertension complicating pregnancy, second trimester; E66.9 Obesity, unspecified; Z88.0 Allergy status to penicillin; Z88.2 Allergy status to sulfonamides; Z88.5 Allergy status to narcotic agent; Z88.8 Allergy status to other drugs, medicaments and biological substances; Z3A.15 15 weeks gestation of pregnancy; Z79.899 Other long term (current) drug therapy
CPT/HCPCS: 99282; 99284-25

== ENCOUNTER 2020-12-13 02:35 | Emergency (ER) | payer MEDICAID ==
[2020-12-13] MEDS ORDERED: Clotrimazole 10 MG Troche PO ONE (03:07)
[2020-12-13 03:21] VITALS: BP 115/70; PULSE 79
--- NOTE | 2020-12-13 03:33 | EDM.PDOC ---
ED HPI GENERAL MEDICAL PROBLEM - General Chief Complaint: ENT Problem Stated Complaint: SORE THROAT Time Seen by Provider: 12/13/20 03:00 Source of Information: Reports: Patient History Limitations: Reports: No Limitations - History of Present Illness INITIAL COMMENTS - FREE TEXT/NARRATIVE: 35-year-old female who has had a cough and cold with a sore throat for the past several weeks, she has been through 2 courses of antibiotics and steroids. Tonight she woke up and was having problems swallowing especially on the right side of her throat so came in to be seen. No fevers or chills. Onset: Unknown/Unsure Duration: Week(s): (Symptoms have been waxing and waning for a couple weeks) Worsens with: Reports: Other (Swallowing is painful) Associated Symptoms: Reports: Cough, Malaise. Denies: Shortness of Breath (Occasional cough) throat Pain Score (Numeric/FACES): 8 - Related Data Allergies Allergy/AdvReac Type Severity Reaction Status Date / Time amoxicillin [Amoxicillin] Allergy Hives Verified 12/13/20 02:48 guaifenesin Allergy Cannot Verified 12/13/20 02:48 Remember meclizine Allergy Hives Verified 12/13/20 02:48 Penicillins Allergy Hives Verified 12/13/20 02:48 Sulfa (Sulfonamide Allergy Other Verified 12/13/20 02:48 Antibiotics) sulfamethoxazole Allergy Hives Verified 12/13/20 02:48 [From Bactrim] trimethoprim [From Bactrim] Allergy Hives Verified 12/13/20 02:48 oxycodone [Oxycodone] AdvReac Nausea and Verified 12/13/20 02:48 Vomiting propoxyphene AdvReac Nausea and Verified 12/13/20 02:48 Vomiting Home Meds: Home Meds levETIRAcetam [Levetiracetam] 1,125 mg PO BID 08/13/19 [History] Albuterol/Ipratropium [Combivent Respimat] 1 puff INH Q6H PRN 09/06/19 [History] Metoclopramide HCl 1 tab PO Q6H PRN 09/06/19 [History] Zolpidem Tartrate 1 tab PO BEDTIME 09/06/19 [History] Butalbit/Acetamin/Caff/Codeine [Vwsaaj-Qwiq-Mwnfulpnbsl-Codein] 1 each PO ASDIRECTED 04/09/20 [History] ARIPiprazole [Abilify] 5 mg PO DAILY 12/13/20 [History] Cefdinir [Omnicef] 300 mg PO BID 12/13/20 [History] Zaleplon [Sonata] 10 mg PO DAILY 12/13/20 [History] Past Medical History HEENT History: Reports: Impaired Vision, Other (See Below) Other HEENT History: chronic dental pain Cardiovascular History: Reports: Hypertension Respiratory History: Reports: Asthma, Bronchitis, Recurrent, Pneumonia, Recurrent Gastrointestinal History: Reports: Bowel Obstruction, Cholelithiasis Genitourinary History: Reports: UTI, Recurrent 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: , Other (See Below) Other UTILITY MECHANIC SUPERVISOR History: Musculoskeletal History: Reports: Fracture Neurological History: Reports: Brain Injury, Headaches, Chronic, Migraines, Seizure, TIA Other Neuro History: minor stroke with meningitis Psychiatric History: Reports: Anxiety, Depression, Psych Hospitalization(s), Suicide Attempt, Suicidal Ideation Endocrine/Metabolic History: Reports: Obesity/BMI 30+ Hematologic History: Reports: Anemia, B12 Deficiency, Blood Transfusion(s), Folic Acid - Infectious Disease History Infectious Disease History: Reports: Chicken Pox - Past Surgical History Head Surgeries/Procedures: Reports: None HEENT Surgical History: Reports: Adenoidectomy, Tonsillectomy Cardiovascular Surgical History: Reports: None Respiratory Surgical History: Reports: None GI Surgical History: Reports: Bariatric Procedure, Cholecystectomy, Colon, Colonoscopy, EGD Other GI Surgeries/Procedures: release SBO Female Surgical History: Reports: Breast Biopsy, D&C Endocrine Surgical History: Reports: None Neurological Surgical History: Reports: None Musculoskeletal Surgical History: Reports: None Dermatological Surgical History: Reports: None Social & Family History - Family History Family Medical History: No Pertinent Family History - Tobacco Use Tobacco Use Status *Q: Current Every Day Tobacco User Years of Tobacco use: 10 Packs/Tins Daily: 0.2 - Caffeine Use Caffeine Use: Reports: Soda - Recreational Drug Use Recreational Drug Use: No - Living Situation & Occupation Living situation: Reports: Occupation: Unemployed ED ROS ENT - Review of Systems Review Of Systems: See Below Constitutional: Denies: Fever, Chills HEENT: Reports: Throat Pain Respiratory: Denies: Shortness of Breath, Cough Cardiovascular: Denies: Chest Pain GI/Abdominal: Denies: Nausea, Vomiting : Reports: No Symptoms Skin: Reports: No Symptoms Neurological: Denies: Headache ED EXAM, ENT - Physical Exam Exam: See Below Exam Limited By: No Limitations General Appearance: Alert, No Apparent Distress Eye Exam: Bilateral Eye: Normal Inspection Ears: Normal TMs Mouth/Throat: Other (Tonsils are absent, there is some pharyngeal erythema and some white coating on the right tonsillar pillar) Neck: No: Lymphadenopathy (R), Lymphadenopathy (L) Respiratory/Chest: No Respiratory Distress, Lungs Clear Neurological: Alert, Oriented Course - Vital Signs Last Recorded V/S: Last Vital Signs Temp 97.1 F 12/13/20 02:55 Pulse 79 12/13/20 02:55 Resp 14 12/13/20 02:55 BP 115/70 12/13/20 02:55 Pulse Ox 93 L 12/13/20 02:55 - Orders/Labs/Meds Orders: Active Orders 24 hr Category Date Time Status CULTURE STREP A CONFIRMATION [RM] Routine Lab 12/13/20 03:09 Results STREP SCRN A RAPID W CULT CONF [RM] Routine Lab 12/13/20 03:09 Results Meds: Medications Discontinued Medications Generic Name Dose Route Start Last Admin Trade Name Freq PRN Reason Stop Dose Admin Clotrimazole 10 mg 12/13/20 03:07 12/13/20 03:26 Clotrimazole 10 Mg Rajan PO 12/13/20 03:08 10 mg ONETIME ONE Administration - Re-Assessments/Exams Free Text/Narrative Re-Assessment/Exam: 12/13/20 03:32 Rapid strep was obtained and I asked the lab to look for signs of fungus or yeast. Strep was negative, there was no definitive findings of yeast. She was given a Mycelex rajan to suck on tonight and a prescription for 10 additional ones to take 3 times a day until gone. 12/13/20 03:47 Strep is negative but there was evidence of yeast on the microscopic exam. Departure - Departure Time of Disposition: 03:51 Disposition: Home, Self-Care 01 Clinical Impression: Pharyngitis, Thrush, oral - Discharge Information Instructions: Oral Thrush, Adult, [id number] Referrals: She Howard DO [Primary Care Provider] - Forms: ED Department Discharge Care Plan Goals: Consider stopping the antibiotic and use the lozenges for the next 3 days until gone. If improved, do not restart the antibiotic. Recheck at the clinic at any time if you feel you are not improving satisfactorily. Sepsis Event Note (ED) - Evaluation Sepsis Screening Result: No Definite Risk - Focused Exam Vital Signs: Vital Signs Temp Pulse Resp BP Pulse Ox 12/13/20 02:55 97.1 F 79 14 115/70 93 L 12/13/20 02:53 97.1 F 79 14 115/70 93 L - My Orders Last 24 Hours: My Active Orders 12/13/20 03:09 CULTURE STREP A CONFIRMATION [RM] Routine STREP SCRN A RAPID W CULT CONF [RM] Routine - Assessment/Plan Last 24 Hours: My Active Orders 12/13/20 03:09 CULTURE STREP A CONFIRMATION [RM] Routine STREP SCRN A RAPID W CULT CONF [RM] Routine
== END 2020-12-13 03:56 | disposition home or self-care (01) ==
LOC: JP.ED 02:35
DX: J02.9 Acute pharyngitis, unspecified (principal); B37.0 Candidal stomatitis; I10 Essential (primary) hypertension; J45.909 Unspecified asthma, uncomplicated; Z88.0 Allergy status to penicillin; Z88.1 Allergy status to other antibiotic agents; Z88.2 Allergy status to sulfonamides; Z88.5 Allergy status to narcotic agent; Z79.899 Other long term (current) drug therapy; E66.9 Obesity, unspecified; Z72.0 Tobacco use; Z68.41 Body mass index [BMI] 40.0-44.9, adult
CPT/HCPCS: 87081; 87220; 87880; 99283; A9270

== ENCOUNTER 2021-02-04 23:21 | Emergency (ER) | payer MEDICAID ==
[2021-02-04 23:45] VITALS: BP 123/70; PULSE 109
--- NOTE | 2021-02-05 01:17 | CRLCT ---
For Patients: As a result of the Century Cures Act, medical imaging exams and procedure reports are released immediately into your electronic medical record. You may view this report before your referring provider. If you have questions, please contact your health care provider. INDICATION: Abdominal pain, history of Isma-en-Y surgery. TECHNIQUE: Axial images were obtained from the diaphragm to the pubic symphysis. Reformats were obtained in the coronal and sagittal plane. IV Contrast: None Oral Contrast: None COMPARISON: Abdomen and pelvis CT 05/17/2019 FINDINGS: Lower chest: Minimal discoid atelectasis. Liver: Unremarkable. Normal in size and attenuation. No masses. Gallbladder and bile ducts: Status post cholecystectomy. Spleen: Unremarkable. Normal in size without mass. Pancreas: Minimal punctate calcification pancreatic tail which can be seen in chronic pancreatitis. Adrenal glands: Unremarkable. No nodules. Kidneys: Unremarkable. No masses, stones, or hydronephrosis. Vasculature: Unremarkable. GI tract: Status post Isma-en-Y gastric bypass. Trace free fluid. Fat containing umbilical hernia with trace fluid in the hernia sac. Appendix unremarkable. Multiple small bowel suture lines with some prominent loops of small bowel within the pelvis with more distal decompressed small bowel. Some colonic distention to the level of the mid descending colon. Pelvis: Bladder unremarkable. Bones: Unremarkable for age. IMPRESSION: 1. Status post Isma-en-Y gastric bypass with mildly dilated loops of small bowel with more decompressed distal small bowel. There is no well-defined single transition point although this appearance is suspicious for a low-grade small bowel obstruction. 2. Trace free fluid. 3. Fat containing umbilical hernia. Please note that all CT scans at this facility use dose modulation, iterative reconstruction, and/or weight-based dosing when appropriate to reduce radiation dose to as low as reasonably achievable. Dictated by Paulino Sepulveda MD @ 02/05/2021 1:15:59 AM (Electronically Signed)
[2021-02-05] MEDS ORDERED: HYDROmorphone 1 MG/ML Syringe IM ONE (01:20)
--- NOTE | 2021-02-05 01:34 | EDM.PDOC ---
ED HPI GENERAL MEDICAL PROBLEM - General Chief Complaint: Abdominal Pain Stated Complaint: ABD PAIN Time Seen by Provider: 02/04/21 23:55 Source of Information: Reports: Patient, Family History Limitations: Reports: No Limitations - History of Present Illness INITIAL COMMENTS - FREE TEXT/NARRATIVE: 35-year-old female with numerous abdominal surgeries and past bowel obstructions , presents with symptoms similar to her past episodes of bowel obstruction. She started developing pain last night after supper, felt distended and bloated and developed some diarrhea. She had difficulty sleeping last night, when she tried to eat today it got worse and tonight she was having trouble holding her baby because of the discomfort. She tried her pain medication and it did not help so she came in. She is still passing some loose stools but feels more distended in her abdomen and has diffuse abdominal pain. Nausea but no vomiting, no fevers or chills. No radiation of pain to her back. Onset: Gradual Duration: Hour(s): (Symptoms for 24 hours) Location: Reports: Abdomen (Especially central and upper abdomen) Quality: Reports: Sharp, Stabbing Improves with: Reports: None Worsens with: Reports: Eating, Movement Associated Symptoms: Reports: Loss of Appetite, Malaise, Nausea/Vomiting Bilateral Abdomen Pain Score (Numeric/FACES): 8 - Related Data Allergies Allergy/AdvReac Type Severity Reaction Status Date / Time amoxicillin [Amoxicillin] Allergy Hives Verified 02/04/21 23:47 guaifenesin Allergy Cannot Verified 02/04/21 23:47 Remember meclizine Allergy Hives Verified 02/04/21 23:47 Penicillins Allergy Hives Verified 02/04/21 23:47 Sulfa (Sulfonamide Allergy Other Verified 02/04/21 23:47 Antibiotics) sulfamethoxazole Allergy Hives Verified 02/04/21 23:47 [From Bactrim] trimethoprim [From Bactrim] Allergy Hives Verified 02/04/21 23:47 oxycodone [Oxycodone] AdvReac Nausea and Verified 02/04/21 23:47 Vomiting propoxyphene AdvReac Nausea and Verified 02/04/21 23:47 Vomiting Home Meds: Home Meds levETIRAcetam [Levetiracetam] 1,125 mg PO BID 08/13/19 [History] Albuterol/Ipratropium [Combivent Respimat] 1 puff INH Q6H PRN 09/06/19 [History] Metoclopramide HCl 1 tab PO Q6H PRN 09/06/19 [History] Zolpidem Tartrate 1 tab PO BEDTIME 09/06/19 [History] Butalbit/Acetamin/Caff/Codeine [Yjpncx-Egsi-Dutwlpallex-Codein] 1 each PO ASDIRECTED 04/09/20 [History] ARIPiprazole [Abilify] 5 mg PO DAILY 12/13/20 [History] Cefdinir [Omnicef] 300 mg PO BID 12/13/20 [History] Zaleplon [Sonata] 10 mg PO DAILY 12/13/20 [History] Past Medical History HEENT History: Reports: Impaired Vision, Other (See Below) Other HEENT History: chronic dental pain Cardiovascular History: Reports: Hypertension Respiratory History: Reports: Asthma, Bronchitis, Recurrent, Pneumonia, Recurrent Gastrointestinal History: Reports: Bowel Obstruction, Cholelithiasis Genitourinary History: Reports: UTI, Recurrent HEAD OF MUSIC History: Reports: , Other (See Below) Other HEAD OF MUSIC History: Musculoskeletal History: Reports: Fracture Neurological History: Reports: Brain Injury, Headaches, Chronic, Migraines, Seizure, TIA Other Neuro History: minor stroke with meningitis Psychiatric History: Reports: Anxiety, Depression, Psych Hospitalization(s), Suicide Attempt, Suicidal Ideation Endocrine/Metabolic History: Reports: Obesity/BMI 30+ Hematologic History: Reports: Anemia, B12 Deficiency, Blood Transfusion(s), Folic Acid - Infectious Disease History Infectious Disease History: Reports: Chicken Pox - Past Surgical History Head Surgeries/Procedures: Reports: None HEENT Surgical History: Reports: Adenoidectomy, Tonsillectomy Cardiovascular Surgical History: Reports: None Respiratory Surgical History: Reports: None GI Surgical History: Reports: Bariatric Procedure, Cholecystectomy, Colon, Colonoscopy, EGD Other GI Surgeries/Procedures: release SBO Female Surgical History: Reports: Breast Biopsy, D&C Endocrine Surgical History: Reports: None Neurological Surgical History: Reports: None Musculoskeletal Surgical History: Reports: None Dermatological Surgical History: Reports: None Social & Family History - Family History Family Medical History: No Pertinent Family History - Tobacco Use Tobacco Use Status *Q: Current Every Day Tobacco User Years of Tobacco use: 14 Packs/Tins Daily: 0.3 - Caffeine Use Caffeine Use: Reports: Coffee, Energy Drinks, Soda, Tea - Recreational Drug Use Recreational Drug Use: No - Living Situation & Occupation Living situation: Reports: Occupation: Unemployed ED ROS GENERAL - Review of Systems Review Of Systems: See Below (Nausea but no vomiting) Constitutional: Reports: Malaise, Decreased Appetite. Denies: Fever, Chills HEENT: Reports: No Symptoms Respiratory: Denies: Shortness of Breath Cardiovascular: Reports: No Symptoms GI/Abdominal: Reports: Abdominal Pain, Diarrhea, Nausea. Denies: Difficulty Swallowing, Hematemesis, Hematochezia, Melena, Vomiting : Reports: No Symptoms Skin: Reports: No Symptoms Neurological: Reports: No Symptoms ED EXAM, GI/ABD - Physical Exam Exam: See Below Exam Limited By: No Limitations General Appearance: Alert, Anxious, Mild Distress (Looks fairly uncomfortable ) Eyes: Bilateral: Normal Appearance (No jaundice) Head: Atraumatic Respiratory/Chest: No Respiratory Distress, Lungs Clear Cardiovascular: Regular Rate, Rhythm, Tachycardia (Mild tachycardia) GI/Abdominal Exam: Tender (Very tender to palpation across the anterior abdomen with some moderate guarding, less tenderness in the lower abdomen), Other (Somewhat high-pitched bowel sounds but present) Neurological: Alert, Oriented Psychiatric: Anxious Skin Exam: Warm, Dry Course - Vital Signs Last Recorded V/S: Last Vital Signs Temp 97.6 F 02/04/21 23:51 Pulse 109 H 02/04/21 23:51 Resp 22 H 02/04/21 23:51 BP 123/70 02/04/21 23:51 Pulse Ox 96 02/04/21 23:51 - Orders/Labs/Meds Labs: Laboratory Tests 02/05/21 02/05/21 02/05/21 Range/Units 00:10 00:10 00:10 WBC 11.4 H (4.5-11.0) K/uL RBC 3.89 (3.30-5.50) M/uL Hgb 11.1 L (12.0-15.0) g/dL Hct 35.8 L (36.0-48.0) % MCV 92 (80-98) fL MCH 29 (27-31) pg MCHC 31 L (32-36) % Plt Count 318 (150-400) K/uL Neut % (Auto) 68.3 H (36-66) % Lymph % (Auto) 19.7 L (24-44) % [place] % (Auto) 9.1 H (2-6) % Eos % (Auto) 2.6 (2-4) % Baso % (Auto) 0.3 (0-1) % Sodium 143 (140-148) mmol/L Potassium 4.1 (3.6-5.2) mmol/L Chloride 107 (100-108) mmol/L Carbon Dioxide 24 (21-32) mmol/L Anion Gap 12.5 (5.0-14.0) mmol/L BUN 10 D (7-18) mg/dL Creatinine 0.7 (0.6-1.0) mg/dL Est Cr Clr Drug Dosing 94.56 mL/min Estimated GFR (MDRD) > 60 (>60) Glucose 107 H (74-106) mg/dL Lactic Acid 1.4 (0.4-2.0) mmol/L Calcium 8.2 L (8.5-10.1) mg/dL Total Bilirubin 0.2 (0.2-1.0) mg/dL AST 28 (15-37) U/L ALT 42 (12-78) U/L Alkaline Phosphatase 112 (46-116) U/L Total Protein 5.9 L (6.4-8.2) g/dL Albumin 2.9 L (3.4-5.0) g/dL Globulin 3.0 (2.3-3.5) g/dL Albumin/Globulin Ratio 1.0 L (1.2-2.2) Lipase 87 (73-393) U/L Meds: Medications Discontinued Medications Generic Name Dose Route Start Last Admin Trade Name Freq PRN Reason Stop Dose Admin Hydromorphone HCl 1 mg 02/05/21 01:20 02/05/21 01:30 Hydromorphone 1 Mg/Ml Syringe IM 02/05/21 01:21 1 mg ONETIME ONE Administration - Re-Assessments/Exams Free Text/Narrative Re-Assessment/Exam: 02/05/21 01:31 CBC, CMP, lactic acid were obtained and a CT of the abdomen and pelvis was ordered. Lactic acid was normal, CMP was reassuring, white count was only minimally elevated. CT results are as follows IMPRESSION: 1. Status post Isma-en-Y gastric bypass with mildly dilated loops of small bowel with more decompressed distal small bowel. There is no well-defined single transition point although this appearance is suspicious for a low-grade small bowel obstruction. 2. Trace free fluid. 3. Fat containing umbilical hernia. Discussed with the patient and Dr. Spears, she wanted to try to just take clear liquids over the next 2 or 3 days to see if this will resolve on its own as she wanted to avoid surgery if possible. Dr. Spears and the patient were agreeable with this plan but if she is not improving satisfactorily over the next 48 hours, she develops a fever, or increased pain she needs to return or contact the surgery department at the clinic. Departure - Departure Time of Disposition: 01:44 Disposition: Home, Self-Care 01 Clinical Impression: Partial small bowel obstruction Abdominal pain Qualifiers: Abdominal location: upper abdomen, unspecified Qualified Code(s): R10.10 - Upper abdominal pain, unspecified - Discharge Information Instructions: Bowel Obstruction, [id number], Clear Liquid Diet, Adult Referrals: She Howard DO [Primary Care Provider] - Forms: ED Department Discharge Care Plan Goals: Clear liquids only for the next 24 to 48 hours other than medications. Increase diet only when pain is resolved. If not improved significantly in 24 to 48 hours, contact the surgery department or return to the emergency room. Return to the emergency room at any time if worsening such as fever or worsening pain. Sepsis Event Note (ED) - Evaluation Sepsis Screening Result: Possible Sepsis Risk - Focused Exam Vital Signs: Vital Signs Temp Pulse Resp BP Pulse Ox 02/04/21 23:51 97.6 F 109 H 22 H 123/70 96 02/04/21 23:43 97.6 F 109 H 22 H 123/70
== END 2021-02-05 01:45 | disposition home or self-care (01) ==
LOC: JP.ED 23:21
DX: K56.600 Partial intestinal obstruction, unspecified as to cause (principal); I10 Essential (primary) hypertension; E66.9 Obesity, unspecified; Z68.42 Body mass index [BMI] 45.0-49.9, adult; Z86.73 Personal history of transient ischemic attack (TIA), and cerebral infarction without residual deficits; Z88.0 Allergy status to penicillin; Z88.1 Allergy status to other antibiotic agents; Z88.5 Allergy status to narcotic agent; Z88.2 Allergy status to sulfonamides; Z88.8 Allergy status to other drugs, medicaments and biological substances; Z72.0 Tobacco use
CPT/HCPCS: 36415; 74176; 80053; 83605; 83690; 85025; 96372; 99284; J1170

== ENCOUNTER 2021-02-05 04:21 | Inpatient (IN) | payer MEDICAID ==
--- NOTE | 2021-02-05 04:39 | EDM.PDOC ---
ED HPI GENERAL MEDICAL PROBLEM - General Chief Complaint: Abdominal Pain Stated Complaint: [facility] Time Seen by Provider: 02/05/21 04:30 Source of Information: Reports: Patient, EMS History Limitations: Reports: No Limitations - History of Present Illness INITIAL COMMENTS - FREE TEXT/NARRATIVE: 35-year-old female who was diagnosed with a partial small bowel obstruction earlier this evening, she is just having too much pain to tolerate an attempt to have this resolve on its own. Persistent nausea as well. No fevers or chills. Onset: Gradual Duration: Day(s): (Pain for about 30 hours) Location: Reports: Abdomen (Central and upper abdomen) Associated Symptoms: Reports: Nausea/Vomiting Bilateral Upper Abdomen Pain Score (Numeric/FACES): 6 - Related Data Allergies Allergy/AdvReac Type Severity Reaction Status Date / Time amoxicillin [Amoxicillin] Allergy Hives Verified 02/05/21 05:10 guaifenesin Allergy Cannot Verified 02/05/21 05:10 Remember meclizine Allergy Hives Verified 02/05/21 05:10 Penicillins Allergy Hives Verified 02/05/21 05:10 Sulfa (Sulfonamide Allergy Other Verified 02/05/21 05:10 Antibiotics) sulfamethoxazole Allergy Hives Verified 02/05/21 05:10 [From Bactrim] trimethoprim [From Bactrim] Allergy Hives Verified 02/05/21 05:10 oxycodone [Oxycodone] AdvReac Nausea and Verified 02/05/21 05:10 Vomiting propoxyphene AdvReac Nausea and Verified 02/05/21 05:10 Vomiting Home Meds: Home Meds levETIRAcetam [Levetiracetam] 1,125 mg PO BID 08/13/19 [History] Albuterol/Ipratropium [Combivent Respimat] 1 puff INH Q6H PRN 09/06/19 [History] Metoclopramide HCl 1 tab PO Q6H PRN 09/06/19 [History] Zolpidem Tartrate 1 tab PO BEDTIME 09/06/19 [History] Butalbit/Acetamin/Caff/Codeine [Lyynxu-Oara-Lypoqpomnoq-Codein] 1 each PO ASDIRECTED 04/09/20 [History] ARIPiprazole [Abilify] 5 mg PO DAILY 12/13/20 [History] Cefdinir [Omnicef] 300 mg PO BID 12/13/20 [History] Zaleplon [Sonata] 10 mg PO DAILY 12/13/20 [History] ALPRAZolam [Xanax] 1 tab PO ASDIRECTED 02/05/21 [History] oxyCODONE HCl/Acetaminophen [Endocet 7.5-325 mg Tablet] 1 tab PO ASDIRECTED 02/05/21 [History] Past Medical History HEENT History: Reports: Impaired Vision, Other (See Below) Other HEENT History: chronic dental pain Cardiovascular History: Reports: Hypertension Respiratory History: Reports: Asthma, Bronchitis, Recurrent, Pneumonia, Recurrent Gastrointestinal History: Reports: Bowel Obstruction, Cholelithiasis Genitourinary History: Reports: UTI, Recurrent 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: , 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 (See Below) 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: Musculoskeletal History: Reports: Fracture Neurological History: Reports: Brain Injury, Headaches, Chronic, Migraines, Seizure, TIA Other Neuro History: minor stroke with meningitis Psychiatric History: Reports: Anxiety, Depression, Psych Hospitalization(s), Suicide Attempt, Suicidal Ideation Endocrine/Metabolic History: Reports: Obesity/BMI 30+ Hematologic History: Reports: Anemia, B12 Deficiency, Blood Transfusion(s), Folic Acid - Infectious Disease History Infectious Disease History: Reports: Chicken Pox - Past Surgical History Head Surgeries/Procedures: Reports: None HEENT Surgical History: Reports: Adenoidectomy, Tonsillectomy Cardiovascular Surgical History: Reports: None Respiratory Surgical History: Reports: None GI Surgical History: Reports: Bariatric Procedure, Cholecystectomy, Colon, Colonoscopy, EGD Other GI Surgeries/Procedures: release SBO Female Surgical History: Reports: Breast Biopsy, D&C Endocrine Surgical History: Reports: None Neurological Surgical History: Reports: None Musculoskeletal Surgical History: Reports: None Dermatological Surgical History: Reports: None Social & Family History - Family History Family Medical History: No Pertinent Family History - Caffeine Use Caffeine Use: Reports: Coffee, Energy Drinks, Soda, Tea - Living Situation & Occupation Living situation: Reports: Occupation: Unemployed ED ROS GENERAL - Review of Systems Review Of Systems: See Below Constitutional: Reports: Malaise. Denies: Fever, Chills HEENT: Reports: Other (Advanced dental decay) Respiratory: Denies: Shortness of Breath Cardiovascular: Denies: Chest Pain GI/Abdominal: Reports: Abdominal Pain, Diarrhea, Nausea. Denies: Vomiting Skin: Reports: No Symptoms Neurological: Reports: No Symptoms ED EXAM, GI/ABD - Physical Exam Exam: See Below Exam Limited By: No Limitations General Appearance: Alert, Mild Distress Eyes: Bilateral: Normal Appearance Head: Atraumatic Respiratory/Chest: No Respiratory Distress, Lungs Clear Cardiovascular: Regular Rate, Rhythm GI/Abdominal Exam: Tender (Very tender to palpation generally across the abdomen), Abnormal Bowel Sounds (Bowel sounds are now fairly quiet compared to earlier tonight) Neurological: Alert, Oriented Psychiatric: Anxious Skin Exam: Warm, Dry Course - Vital Signs Last Recorded V/S: Last Vital Signs Temp 97.9 F 02/06/21 06:58 Pulse 79 02/06/21 06:58 Resp 18 02/06/21 06:58 BP 112/59 L 02/06/21 06:58 Pulse Ox 93 L 02/06/21 06:58 - Orders/Labs/Meds Orders: Medication Orders Acetaminophen (Acetaminophen 325 Mg Tab) 650 mg PO Q6H PRN PRN Reason: Pain/Fever Albuterol/Ipratropium (Albuterol/Ipratropium 3.0-0.5 Mg/3 Ml Neb Soln) 3 ml NEB Q4H PRN PRN Reason: cough or wheezing Last Admin: 02/06/21 07:04 Dose: 3 ml Documented by: SHERLY Albuterol/Ipratropium (Albuterol/Ipratropium 4 Gm Inhalation [place]) 0 gm INH Q6H PRN PRN Reason: Wheezing Alprazolam (Alprazolam 0.25 Mg Tab) 0.25 mg PO BID DOMINIQUE Last Admin: 02/05/21 20:17 Dose: 0.25 mg Documented by: Admin: 02/05/21 13:52 Dose: 0.25 mg Documented by: SHERLY Ropivacaine 58 ml/Dexamethasone 8 mg/Epinephrine HCl 0.4 mg/ Sodium Chloride 19.6 ml 0 ml NERVRT ASDIRECTED [facility] Diphenhydramine HCl (Diphenhydramine 50 Mg/Ml Sdv) 25 mg IVPUSH Q6H PRN PRN Reason: Itching Diphenhydramine HCl (Diphenhydramine 25 Mg Cap) 25 mg PO Q6H PRN PRN Reason: Itching Fentanyl Citrate (Fentanyl/Normal Saline 600 Mcg/30 Ml Peoplesoft Administrator Vial) 0 mcg IV ASDIRECTED PRN; Protocol PRN Reason: Pain Last Admin: 02/05/21 08:07 Dose: 600 mcg Documented by: SHERLY Gabapentin (Gabapentin 400 Mg Cap) 400 mg PO TID [facility] Last Admin: 02/05/21 20:17 Dose: 400 mg Documented by: Admin: 02/05/21 13:54 Dose: 400 mg Documented by: Admin: 02/05/21 09:33 Dose: 400 mg Documented by: SHERLY Hydromorphone HCl (Hydromorphone 0.5 Mg/0.5 Ml Syringe) 0.5 mg IVPUSH Q2H PRN PRN Reason: Abdominal Pain Dextrose/Lactated Ringer's (Dextrose 5%-Lactated Ringers) 1,000 mls @ 150 mls/hr IV ASDIRECTED [facility] Last Admin: 02/06/21 04:52 Dose: 150 mls/hr Documented by: Infusion: 02/06/21 04:52 Dose: 150 mls/hr Documented by: Admin: 02/05/21 22:20 Dose: 150 mls/hr Documented by: JOSE Cefoxitin Sodium 2 gm/ Sodium (Chloride) 50 mls @ 100 mls/hr IV ONETIME ONE Stop: 02/06/21 09:29 Last Admin: 02/06/21 07:03 Dose: 100 mls/hr Documented by: SHERLY Ketamine HCl 15 mg/ Sodium (Chloride) 20 mls @ 20 mls/hr IV ASDIRECTED [facility] Ketamine HCl (Ketamine 500 Mg/5 Ml Mdv) 26 mg IV ASDIRECTED [facility] Levetiracetam (Levetiracetam 250 Mg Tab) 1,125 mg PO BID [facility] Last Admin: 02/05/21 20:17 Dose: 1,125 mg Documented by: Admin: 02/05/21 09:32 Dose: 1,125 mg Documented by: SHERLY Naloxone HCl (Naloxone 0.4 Mg/Ml Sdv) 0.04 mg IVPUSH Q3M PRN PRN Reason: Respiratory Depression Olanzapine (Olanzapine 5 Mg Tab) 5 mg PO BEDTIME [facility] Last Admin: 02/05/21 20:17 Dose: 5 mg Documented by: JOSE Ondansetron HCl (Ondansetron 4 Mg/2 Ml Sdv) 4 mg IVPUSH Q6H PRN PRN Reason: Nausea/Vomiting Pantoprazole Sodium (Pantoprazole 40 Mg Vial) 40 mg IVPUSH DAILY DOMINIQUE Last Admin: 02/05/21 09:33 Dose: 40 mg Documented by: SHERLY Ropinirole HCl (Ropinirole 0.5 Mg Tab) 0.5 - 1.5 mg PO BEDTIME PRN PRN Reason: RESTLESS LEGS Zolpidem Tartrate (Zolpidem 5 Mg Tab) 10 mg PO BEDTIME PRN PRN Reason: Insomnia Last Admin: 02/05/21 22:19 Dose: 10 mg Documented by: JOSE Labs: Laboratory Tests 02/05/21 Range/Units 00:01 Urine Opiates Screen Negative (NEGATIVE) Ur Oxycodone Screen Negative (NEGATIVE) Urine Methadone Screen Negative (NEGATIVE) Ur Propoxyphene Screen Negative (NEGATIVE) Ur Barbiturates Screen Negative (NEGATIVE) Ur Tricyclics Screen Presumptive positive H (NEGATIVE) Ur Phencyclidine Scrn Negative (NEGATIVE) Ur Amphetamine Screen Negative (NEGATIVE) U Methamphetamines Scrn Negative (NEGATIVE) Urine MDMA Screen Negative (NEGATIVE) U Benzodiazepines Scrn Presumptive positive H (NEGATIVE) U Cocaine Metab Screen Negative (NEGATIVE) U Marijuana (THC) Screen Negative (NEGATIVE) Meds: Medications Generic Name Dose Route Start Last Admin Trade Name Freq PRN Reason Stop Dose Admin Acetaminophen 650 mg 02/05/21 06:47 Acetaminophen 325 Mg Tab PO Q6H PRN Pain/Fever Albuterol/Ipratropium 3 ml 02/05/21 07:53 02/06/21 07:04 Albuterol/Ipratropium 3.0-0.5 Mg/3 Ml Neb Soln NEB 3 ml Q4H PRN Administration cough or wheezing Albuterol/Ipratropium 0 gm 02/05/21 07:54 Albuterol/Ipratropium 4 Gm Inhalation [place] INH Q6H PRN Wheezing Alprazolam 0.25 mg 02/05/21 12:00 02/05/21 20:17 Alprazolam 0.25 Mg Tab PO 0.25 mg BID DOMINIQUE Administration Ropivacaine 58 ml/ 0 ml 02/06/21 09:00 Dexamethasone 8 mg/ NERVRT Epinephrine HCl 0.4 mg/ Sodium ASDIRECTED DOMINIQUE Chloride 19.6 ml Diphenhydramine HCl 25 mg 02/05/21 07:00 Diphenhydramine 50 Mg/Ml Sdv IVPUSH Q6H PRN Itching Diphenhydramine HCl 25 mg 02/05/21 07:00 Diphenhydramine 25 Mg Cap PO Q6H PRN Itching Fentanyl Citrate 0 mcg 02/05/21 07:00 02/05/21 08:07 Fentanyl/Normal Saline 600 Mcg/30 Ml Peoples[employer] Administrator Vial IV 600 mcg ASDIRECTED PRN Administration Pain Protocol Gabapentin 400 mg 02/05/21 09:00 02/05/21 20:17 Gabapentin 400 Mg Cap PO 400 mg TID DOMINIQUE Administration Hydromorphone HCl 0.5 mg 02/05/21 06:10 Hydromorphone 0.5 Mg/0.5 Ml Syringe IVPUSH Q2H PRN Abdominal Pain Dextrose/Lactated Ringer's 1,000 mls @ 150 mls/hr 02/05/21 07:00 02/06/21 04:52 Dextrose 5%-Lactated Ringers IV 150 mls/hr ASDIRECTED DOMINIQUE Administration Cefoxitin Sodium 2 gm/ Sodium 50 mls @ 100 mls/hr 02/06/21 09:00 02/06/21 07:03 Chloride IV 02/06/21 09:29 100 mls/hr ONETIME ONE Administration Ketamine HCl 15 mg/ Sodium 20 mls @ 20 mls/hr 02/06/21 09:00 Chloride IV ASDIRECTED DOMINIQUE Ketamine HCl 26 mg 02/06/21 09:00 Ketamine 500 Mg/5 Ml Mdv IV ASDIRECTED DOM[facility] Levetiracetam 1,125 mg 02/05/21 09:00 02/05/21 20:17 Levetiracetam 250 Mg Tab PO 1,125 mg BID DOMINIQUE Administration Naloxone HCl 0.04 mg 02/05/21 07:00 Naloxone 0.4 Mg/Ml Sdv IVPUSH Q3M PRN Respiratory Depression Olanzapine 5 mg 02/05/21 21:00 02/05/21 20:17 Olanzapine 5 Mg Tab PO 5 mg BEDTIME DOMINIQUE Administration Ondansetron HCl 4 mg 02/05/21 06:47 Ondansetron 4 Mg/2 Ml Sdv IVPUSH Q6H PRN Nausea/Vomiting Pantoprazole Sodium 40 mg 02/05/21 09:00 02/05/21 09:33 Pantoprazole 40 Mg Vial IVPUSH 40 mg DAILY DOMINIQUE Administration Ropinirole HCl 0.5 - 1.5 mg 02/05/21 21:00 Ropinirole 0.5 Mg Tab PO BEDTIME PRN RESTLESS LEGS Zolpidem Tartrate 10 mg 02/05/21 21:05 02/05/21 22:19 Zolpidem 5 Mg Tab PO 10 mg BEDTIME PRN Administration Insomnia Discontinued Medications Generic Name Dose Route Start Last Admin Trade Name Yisel PRN Reason Stop Dose Admin Bupivacaine HCl Confirm 02/06/21 06:42 Bupivacaine 0.5% 50 Ml Mdv Administered 02/06/21 06:43 Dose 50 ml .ROUTE .STK-MED ONE Clonidine HCl 0.1 mg 02/05/21 09:00 02/05/21 09:31 Clonidine 0.1 Mg Tab PO Not Given BID DOMINIQUE Dexamethasone Confirm 02/06/21 07:07 Dexamethasone 4 Mg/Ml Sdv Administered 02/06/21 07:08 Dose 4 mg .ROUTE .STK-MED ONE Fentanyl Confirm 02/06/21 07:07 Fentanyl 250 Mcg/5 Ml Sdv Administered 02/06/21 07:08 Dose 250 mcg .ROUTE .STK-MED ONE Fentanyl Confirm 02/06/21 07:43 Fentanyl 250 Mcg/5 Ml Sdv Administered 02/06/21 07:44 Dose 250 mcg .ROUTE .STK-MED ONE Glycopyrrolate Confirm 02/06/21 07:07 Glycopyrrolate 0.2 Mg/Ml 5 Ml Mdv Administered 02/06/21 07:08 Dose 1 mg .ROUTE .STK-MED ONE Hydromorphone HCl 0.5 mg 02/05/21 04:42 02/05/21 04:55 Hydromorphone 0.5 Mg/0.5 Ml Syringe IVPUSH 02/05/21 04:43 0.5 mg ONETIME ONE Administration Dextrose/Lactated Ringer's 1,000 mls @ 250 mls/hr 02/05/21 06:15 Dextrose 5%-Lactated Ringers IV ASDIRECTED [facility] Multivitamins/Minerals 10 ml/ 1,013 mls @ 500 mls/hr 02/05/21 09:30 02/05/21 09:33 Thiamine HCl 200 mg/ Zinc 1 ml IV 02/05/21 11:31 500 mls/hr / Lactated Ringer's ONETIME ONE Administration Linezolid Confirm 02/06/21 06:42 Zyvox Administered 02/06/21 06:43 Dose 300 mls @ as directed .ROUTE .STK-MED ONE Lactated Ringer's Confirm 02/06/21 08:31 Ringers, Lactated Administered 02/06/21 08:32 Dose 1,000 mls @ as directed .ROUTE .STK-MED ONE Ketoconazole Confirm 02/06/21 07:43 Ketoconazole 2% Crm 30 Gm Tube Administered 02/06/21 07:44 Dose 30 gm .ROUTE .STK-MED ONE Labetalol HCl Confirm 02/06/21 08:25 Labetalol 20 Mg/4 Ml Syringe Administered 02/06/21 08:26 Dose 20 mg .ROUTE .STK-MED ONE Labetalol HCl Confirm 02/06/21 08:27 Labetalol 20 Mg/4 Ml Syringe Administered 02/06/21 08:28 Dose 20 mg .ROUTE .STK-MED ONE Lidocaine/Epinephrine Confirm 02/06/21 06:42 Lidocaine 1% With Epinephrine 1:100,000 50 Ml Mdv Administered 02/06/21 06:43 Dose 50 ml .ROUTE .STK-MED ONE Meropenem Confirm 02/06/21 06:42 Meropenem 500 Mg Sdv Administered 02/06/21 06:43 Dose 500 mg .ROUTE .STK-MED ONE Neostigmine Methylsulfate Confirm 02/06/21 07:07 Neostigmine Methylsulfate 1 Mg/Ml 5 Ml Syringe Administered 02/06/21 07:08 Dose 5 mg .ROUTE .STK-MED ONE Ondansetron HCl 4 mg 02/05/21 04:42 02/05/21 04:55 Ondansetron 4 Mg/2 Ml Sdv IVPUSH 02/05/21 04:43 4 mg ONETIME ONE Administration Ondansetron HCl 4 mg 02/05/21 06:11 Ondansetron 4 Mg Tab.Dis PO Q3H PRN Nausea/Vomiting Ondansetron HCl Confirm 02/06/21 07:07 Ondansetron 4 Mg/2 Ml Sdv Administered 02/06/21 07:08 Dose 4 mg .ROUTE .STK-MED ONE Propofol Confirm 02/06/21 07:07 Propofol 200 Mg/20 Ml Sdv Administered 02/06/21 07:08 Dose 200 mg .ROUTE .STK-MED ONE Rocuronium [place] Confirm 02/06/21 07:07 Rocuronium 50 Mg/5 Ml Vial Administered 02/06/21 07:08 Dose 50 mg .ROUTE .STK-MED ONE Rocuronium [place] Confirm 02/06/21 07:56 Rocuronium 50 Mg/5 Ml Vial Administered 02/06/21 07:57 Dose 50 mg .ROUTE .STK-MED ONE Succinylcholine Chloride Confirm 02/06/21 07:07 Succinylcholine 200 Mg/10 Ml Mdv Administered 02/06/21 07:08 Dose 200 mg .ROUTE .STK-MED ONE - Re-Assessments/Exams Free Text/Narrative Re-Assessment/Exam: 02/05/21 04:40 IV was started and she was given 0.5 mg of IV Dilaudid. Admission orders were made after discussing her case with Dr. Spears, she will be admitted with Dilaudid for pain control, Zofran for nausea and kept n.p.o. Departure - Departure Time of Disposition: 05:10 Disposition: Admitted As Inpatient 68 Clinical Impression: Small bowel obstruction Abdominal pain Qualifiers: Abdominal location: upper abdomen, unspecified Qualified Code(s): R10.10 - Upper abdominal pain, unspecified - Discharge Information
[2021-02-05] MEDS ORDERED: HYDROmorphone 0.5 MG/0.5 ML Syringe IVPUSH ONE (04:42)
[2021-02-05] MEDS ORDERED: Ondansetron 4 MG/2 ML SDV IVPUSH ONE (04:42)
[2021-02-05] MEDS ORDERED: HYDROmorphone 0.5 MG/0.5 ML Syringe IVPUSH PRN (06:10)
[2021-02-05] MEDS ORDERED: Ondansetron 4 MG Tab.DIS PO PRN (06:11)
[2021-02-05] MEDS ORDERED: Dextrose 5%-Lactated Ringers 1,000 ML IV SCH (06:15)
[2021-02-05] MEDS ORDERED: Ondansetron 4 MG/2 ML SDV IVPUSH PRN ×2 (06:47→07:00)
[2021-02-05] MEDS ORDERED: Acetaminophen 325 MG Tab PO PRN (06:47)
[2021-02-05] MEDS ORDERED: Naloxone 0.4 MG/ML SDV IVPUSH PRN (07:00)
[2021-02-05] MEDS ORDERED: diphenhydrAMINE 50 MG/ML SDV IVPUSH PRN (07:00)
[2021-02-05] MEDS ORDERED: diphenhydrAMINE 25 MG Cap PO PRN (07:00)
[2021-02-05] MEDS ORDERED: Albuterol/Ipratropium 3.0-0.5 MG/3 ML Neb Soln NEB PRN (07:53)
[2021-02-05] MEDS ORDERED: Albuterol/Ipratropium 4 GM Inhalation Spray INH PRN (07:54)
[2021-02-05] MEDS: fentaNYL/Normal Saline 600 MCG/30 ML PCA Vial IV PRN (08:07)
[2021-02-05 08:19] LABS: HEMOGLOBIN A1C 4.9 % (4.5-6.2)
[2021-02-05] MEDS ORDERED: MVI, Adult with Vitamin K 10 ML, Thiamine 200 MG, Chromium/Copper/Mang/Selen/Zn 1 ML in... IV ONE ×4 (09:00)
[2021-02-05] MEDS ORDERED: cloNIDine 0.1 MG Tab PO SCH (09:00)
[2021-02-05] MEDS ORDERED: MVI, Adult with Vitamin K 10 ML, Thiamine 200 MG, Zinc/Copper/Manganese/Selenium 1 ML i... IV ONE ×4 (09:30)
[2021-02-05] MEDS: levETIRAcetam 250 MG Tab PO SCH ×2 (09:32→20:17)
[2021-02-05] MEDS: Pantoprazole 40 MG Vial IVPUSH SCH (09:33)
[2021-02-05] MEDS: Gabapentin 400 MG Cap PO SCH ×3 (09:33→20:17)
--- NOTE | 2021-02-05 10:45 | HP ---
HISTORY OF PRESENT ILLNESS: Esther presented yesterday earlier in the day for postprandial abdominal pain. She was in the ER and decided to go home and try to manage the pain at home and not eating, but then presented back to the ED by ambulance. She reports her pain in the midepigastric area and radiating down to all 4 quadrants, associated with nausea, vomiting, and bloating. Last BM was yesterday. She reports she occasionally would have episodes like this, but they would resolve on their own. The pain is dull, achy, and constant. Most of her pain she states is in the mid epigastric, radiating to the left upper quadrant. Pain is relieved with pain medication. She currently is on IV fluids. CT scan was reviewed. Vital signs have been stable. PAST MEDICAL HISTORY: Includes: 1. Morbid obesity "treatment agreement," receiving 120 Percocet 7.5/325 mg every month. 2. Bipolar 1 disorder. 3. Moderate major depression. 4. Opioid abuse. 5. Prediabetes. 6. GERD. 7. Steatosis of liver, severe. 8. Fibromyalgia. 9. General anxiety disorder treated with Xanax. 10.Chronic bilateral low back pain. 11.Non-intractable epilepsy without status epilepticus. 12.Chronic mixed headache syndrome. 13.Dental decay. 14.Methamphetamine abuse. 15.Hirsutism. 16.History of Isma-en-Y gastric bypass surgery. 17.Unspecified surgical malabsorption. CURRENT MEDICATIONS: Include: 1. Alprazolam, Xanax 0.5 mg 1 tab by mouth 2 times a day p.r.n. anxiety. 2. Oxycodone/acetaminophen, Percocet 7.5/325 mg oral tablet 1 every 6 hours p.r.n. low back pain. 3. Gabapentin 400 mg 1 capsule 3 times a day. 4. Ambien 10 mg at bedtime p.r.n. sleep. 5. Zyprexa 5 mg 1 tablet by mouth every evening. 6. Requip 0.5 mg, take 1 to 3 tablets by mouth every night. 7. Zofran ODT 8 mg 1 tablet every 8 hours. 8. Clotrimazole, Mycelex 10 mg pippa dissolve, one 3 times a day. 9. Clonidine, Catapres 0.1 mg 1 tablet by mouth twice a day. 10.Ibuprofen 800 mg 1 tablet every 8 hours p.r.n. pain. 11.Advair 115-21 mcg 2 puffs into lungs 3 times a day. 12.Hydroxyzine 100 mg capsule 1 three times a day. 13.Butalbital, acetaminophen, caffeine (Fioricet, Esgic) 50-325-40 mg every 4 hours p.r.n. headache. 14.Extra-Strength Tylenol 500 mg take 2 every 6 hours p.r.n. pain. 15.Reglan 10 mg every 6 hours p.r.n. nausea. 16.Slow magnesium 1 tablet 1 time a day. 17.Vitamin B12 IM 1000 mcg once monthly. 18.Doxylamine, pyridoxine 2 tablets by mouth 3 times a day. 19. vitamin 1 tablet by mouth once a day. 20.Combivent inhaler 100 mcg inhalation 1 puff every 6 hours p.r.n. shortness of breath. 21.Ferrous sulfate 325 mg 1 tablet once a day. 22.Magnesium chloride calcium 1 tablet once a day. 23.Keppra 750 mg tablet 1 twice a day. 24.DuoNeb 0.5-2.5, 3 mg/3 mL into lungs every 4 hours. ALLERGIES: 1. AMOXICILLIN, HIVES AND PALPITATIONS. 2. BACTRIM, HIVES, HALLUCINATIONS. 3. GUAIFENESIN, HIVES. 4. PENICILLIN, HIVES AND PALPITATIONS. 5. SULFAMETHOXAZOLE W-TRIMETHOPRIM, HIVES. 6. DOXYCYCLINE, HALLUCINATIONS RASH. 7. MECLIZINE, HIVES, NAUSEA AND VOMITING. 8. OXYCODONE BASE, NAUSEA AND VOMITING. 9. PROPOXYPHENE N-ACETAMINOPHEN, NAUSEA AND VOMITING. 10.SULFA DRUGS, HIVES. 11.QUETIAPINE, ANXIETY. PAST SURGICAL HISTORY: 1. Breast biopsy. 2. Cholecystectomy. 3. D and C in 2007. 4. Several EGDs and dilatation. 5. Incision and drainage of rectal wall 12/28/2012. 6. Tonsillectomy at age 18. 7. Umbilical hernia repair 04/20/2013. 8. Gastric bypass 10/22/2012 with liver biopsy, consult weight 360.8, preop weight 363.6, height 64.2. 9. Reduction of volvulus, intussusception, internal hernia 04/20/2013. 10.12/03/2020, partial removal of colon with coloproctostomy. 11.12/05/2018, revision of the gastrojejunostomy anastomosis. 12.Exploratory laparotomy with lysis of extensive adhesions, small bowel resection on 05/20/2019. SOCIAL HISTORY: , unemployed, 2 boys, ages 3 and infant, approximately 3 to 4 months old. Smokes 1/2 pack of cigarettes a day. Does not drink caffeine. Alcohol use none. Carbonation none. FAMILY HISTORY: Positive for father having gastric cancer, diabetes, cardiovascular disease, coronary artery disease, neuro disease, hypertension, lipid elevation. He in 2009. Other family history consists of diabetes, cardiovascular disease, and obesity. REVIEW OF SYSTEMS: CONSTITUTIONAL: Denies any fever, chills, or night sweats. SKIN: Negative for rash, pigment changes, or lesions. HEENT: Denies headache, loss of hearing, blurred or double vision. Has poor dental condition. CARDIOVASCULAR: No chest pain or shortness of breath. RESPIRATORY: No cough. ENDOCRINE: No history of polyuria, polydipsia, hair loss, heat or cold intolerance. HEMATOLOGIC: Negative. LYMPH NODES: Negative for any lymph node swelling. GI: As above. : No UTI signs or symptoms. MUSCULOSKELETAL: Chronic low back pain. NEURO: No history of focal neurological symptoms, spells, memory changes. Last seizure unknown. PSYCHIATRIC: Anxiety and depression. Remainder of review of systems negative for any pertinent positives or negatives. OBJECTIVE: GENERAL: Esther is a 35-year-old female. She is alert and orientated. VITAL SIGNS: Height is 5 feet 2.99 inches, weight is 255 pounds. TPR is 97.2, 75, 18. Blood pressure 130/70. HEENT: Negative. NECK: Supple. HEART: Regular rate and rhythm without murmur. LUNGS: Clear. ABDOMEN: She has a midline incision, well healed. Tenderness in all 4 quadrants. EXTREMITIES: Without peripheral edema. SKIN: There is a rash noted under her lower abdominal fold. NEURO: Cranial nerves II through XII intact. MUSCULOSKELETAL: Negative. Deep tendon reflexes are 2+ and equal bilaterally. PSYCHIATRIC: Mood and affect appropriate. ASSESSMENT: 1. Partial small bowel obstruction. 2. SP Isma-en-Y gastric bypass surgery. 3. Unspecified surgical malabsorption. 4. Morbid obesity. 5. Asthma. 6. Steatosis of liver, severe. 7. Chronic non-intractable epilepsy without status epilepticus. 8. Chronic mixed headache syndrome. 9. "Treatment agreement" benzodiazepine use. 10.Bipolar 1 disorder. 11.Moderate major depression. 12.Generalized anxiety. PLAN: 1. Schedule and have consent signed for exploratory laparotomy for partial small bowel obstruction and possible bowel resection. Ketamine bolus and IV drip ordered. 2. Magnesium bolus with drip ordered. 3. Tap block. 4. Cefoxitin 2 g on-call IV to OR. 5. fentanyl LOANS CONSULTANT ordered. 6. Tylenol 650 mg q.4 hours p.r.n. pain. 7. Zofran 4 mg IV push every 6 hours p.r.n. nausea and vomiting. 8. Protonix 40 mg IV push daily. 9. Check CMP, CBC, ferritin, folic acid, hemoglobin A1c, magnesium, phosphorus, vitamin B12 and vitamin D, copper, zinc, and vitamin A. 10.Activity as tolerated. Ambulate q.i.d. 11.Telemetry and continuous pulse ox. 12.Intake and output ordered. 13.Incentive spirometer use 10 times every hour while awake. 14.DuoNeb q.i.d. and p.r.n. 15.We will evaluate p.r.n. or in a.m. Cristine Rico PA-C /[id number]
[2021-02-05] MEDS: ALPRAZolam 0.25 MG Tab PO SCH ×2 (13:52→20:17)
[2021-02-05] MEDS: OLANZapine 5 MG Tab PO SCH (20:17)
[2021-02-05] MEDS ORDERED: rOPINIRole 0.5 MG Tab PO PRN (21:00)
[2021-02-05] MEDS: Zolpidem 5 MG Tab PO PRN (22:19)
[2021-02-05] MEDS: Dextrose 5%-Lactated Ringers 1,000 ML IV SCH (22:20)
[2021-02-06] MEDS: Dextrose 5%-Lactated Ringers 1,000 ML IV SCH ×2 (04:52→20:13)
[2021-02-06] MEDS ORDERED: Meropenem 500 MG SDV ONE (06:42)
[2021-02-06] MEDS ORDERED: Lidocaine 1% with EPINEPHrine 1:100,000 50 ML MDV ONE (06:42)
[2021-02-06] MEDS ORDERED: Bupivacaine 0.5% 50 ML MDV ONE (06:42)
[2021-02-06] MEDS: cefOXitin 2 GM in Sodium Chloride 0.9% 50 ML IV ONE ×2 (07:03→11:14)
--- NOTE | 2021-02-06 07:06 | PN ---
DATE OF SERVICE: 02/06/2021 SUBJECTIVE: Esther is n.p.o. She will be going for surgery. Vital signs have been stable. Pain has been controlled with a SPEAKING UNIT ASSEMBLER. LABORATORY DATA: Vitamin D was 17, ferritin 14, B12 of 238. The rest are pending. PHYSICAL EXAMINATION: GENERAL: Esther is a 35-year-old female. She is alert, orientated. Reports pain on a pain scale of 1 to 10 at 0/10. VITAL SIGNS: TPR is 97, 75, 16, blood pressure 108/58. HEENT: Negative. NECK: Supple. HEART: Regular rate and rhythm. LUNGS: Reveal extensive wheezing in upper and lower lobes. Fairly good air exchange. Rhonchi with coughing. History of smoking. ABDOMEN: Minimal generalized tenderness in all 4 quadrants. EXTREMITIES: Negative. ASSESSMENT: Partial small bowel obstruction. PLAN: DuoNeb 1 time prior to surgery to be given now. We will evaluate p.r.n. Orders to be written postoperatively. Cristine Rico PA-C /[id number]
[2021-02-06] MEDS ORDERED: Ondansetron 4 MG/2 ML SDV ONE (07:07)
[2021-02-06] MEDS ORDERED: fentaNYL 250 MCG/5 ML SDV ONE ×2 (07:07→07:43)
[2021-02-06] MEDS ORDERED: Propofol 200 MG/20 ML SDV ONE (07:07)
[2021-02-06] MEDS ORDERED: Dexamethasone 4 MG/ML SDV ONE (07:07)
[2021-02-06] MEDS ORDERED: Glycopyrrolate 0.2 MG/ML 5 ML MDV ONE (07:07)
[2021-02-06] MEDS ORDERED: Rocuronium 50 MG/5 ML Vial ONE ×2 (07:07→07:56)
[2021-02-06] MEDS ORDERED: Succinylcholine 200 MG/10 ML MDV ONE (07:07)
[2021-02-06] MEDS ORDERED: Neostigmine Methylsulfate 1 MG/ML 5 ML Syringe ONE (07:07)
[2021-02-06] MEDS ORDERED: Ketoconazole 2% Crm 30 GM Tube ONE (07:43)
[2021-02-06] MEDS ORDERED: Labetalol 20 MG/4 ML Syringe ONE ×2 (08:25→08:27)
[2021-02-06] MEDS ORDERED: Lactated Ringers 1,000 ML ONE (08:31)
[2021-02-06] MEDS ORDERED: Magnesium Sulfate 3.4 GM in Sodium Chloride 0.9% 100 ML IV SCH (09:00)
[2021-02-06] MEDS ORDERED: Ketamine 15 MG in Sodium Chloride 0.9% 19.85 ML IV SCH (09:00)
[2021-02-06] MEDS ORDERED: Ketamine 500 MG/5 ML MDV IV SCH ×3 (09:00)
[2021-02-06] MEDS ORDERED: Magnesium Sulfate 3.7 GM in Sodium Chloride 0.9% 250 ML IV ONE (09:00)
[2021-02-06] MEDS ORDERED: Non-Formulary Medication 1 Each IV ONE ×2 (09:00)
[2021-02-06] MEDS ORDERED: Cyclobenzaprine 10 MG Tab PO PRN (09:34)
[2021-02-06] MEDS ORDERED: Ondansetron 4 MG/2 ML SDV IVPUSH PRN (10:00)
[2021-02-06] MEDS ORDERED: Metoclopramide 10 MG/2 ML SDV IVPUSH PRN (10:00)
[2021-02-06] MEDS ORDERED: hydrOXYzine HCL 100 MG/2 ML SDV IM PRN (10:00)
[2021-02-06] MEDS ORDERED: Labetalol 20 MG/4 ML Syringe IVPUSH PRN (10:00)
[2021-02-06] MEDS ORDERED: Pantoprazole 40 MG Vial IVPUSH SCH (10:00)
[2021-02-06] MEDS ORDERED: diphenhydrAMINE 50 MG/ML SDV IVPUSH PRN ×2 (10:00)
[2021-02-06] MEDS ORDERED: Acetaminophen 500 MG Tab PO PRN (10:00)
[2021-02-06] MEDS ORDERED: Albuterol/Ipratropium 3.0-0.5 MG/3 ML Neb Soln INH PRN (10:00)
[2021-02-06] MEDS ORDERED: Sodium Ferric Gluconate Cmplex 250 MG in Sodium Chloride 0.9% 100 ML IV SCH (11:00)
[2021-02-06] MEDS: Albuterol/Ipratropium 3.0-0.5 MG/3 ML Neb Soln INH SCH ×3 (11:21→20:15)
[2021-02-06] MEDS: Gabapentin 400 MG Cap PO SCH ×3 (11:30→20:17)
[2021-02-06] MEDS: levETIRAcetam 250 MG Tab PO SCH ×2 (11:30→20:17)
[2021-02-06] MEDS: Acetaminophen 500 MG Tab PO SCH ×2 (11:31→17:17)
[2021-02-06] MEDS: ALPRAZolam 0.25 MG Tab PO SCH ×2 (11:35→20:15)
[2021-02-06] MEDS: Pantoprazole 40 MG Vial IVPUSH SCH (12:08)
[2021-02-06] MEDS: cefOXitin 2 GM in Sodium Chloride 0.9% 50 ML IV SCH ×2 (14:38→20:12)
[2021-02-06] MEDS ORDERED: MVI, Adult with Vitamin K 10 ML, Thiamine 200 MG, Zinc/Copper/Manganese/Selenium 1 ML i... IV SCH ×4 (16:00)
[2021-02-06] MEDS: Heparin Sodium 5,000 Units/ML Vial SUBCUT SCH (17:17)
[2021-02-06] MEDS: fentaNYL/Normal Saline 600 MCG/30 ML PCA Vial IV PRN (18:35)
[2021-02-06] MEDS: Zolpidem 5 MG Tab PO PRN (20:15)
[2021-02-06] MEDS: OLANZapine 5 MG Tab PO SCH (20:18)
[2021-02-07] MEDS ORDERED: Iopamidol 612 MG/ML 50 ML SDV PO STA (01:24)
[2021-02-07] MEDS: cefOXitin 2 GM in Sodium Chloride 0.9% 50 ML IV SCH ×2 (02:16→08:01)
[2021-02-07] MEDS: Dextrose 5%-Lactated Ringers 1,000 ML IV SCH (02:16)
[2021-02-07] MEDS: Acetaminophen 500 MG Tab PO SCH (02:17)
[2021-02-07] MEDS: Heparin Sodium 5,000 Units/ML Vial SUBCUT SCH (05:50)
[2021-02-07] MEDS: Albuterol/Ipratropium 3.0-0.5 MG/3 ML Neb Soln INH SCH (07:11)
[2021-02-07 07:32] VITALS: BP 118/63; PULSE 120
[2021-02-07] MEDS: ALPRAZolam 0.25 MG Tab PO SCH (08:01)
[2021-02-07] MEDS: levETIRAcetam 250 MG Tab PO SCH (08:02)
[2021-02-07] MEDS: Gabapentin 400 MG Cap PO SCH (08:02)
--- NOTE | 2021-02-07 08:57 | CR ---
[facility] HISTORY: Postbariatric surgery/revision FINDINGS: Patient swallowed water-soluble contrast. Upright views of the abdomen show no evidence of extravasation or obstruction. There is persistent small bowel distention IMPRESSION: Status post bariatric surgery/revision No extravasation or obstruction seen
[2021-02-07] MEDS ORDERED: SCOPOLAMINE PATCH CHECK TOP SCH (09:00)
[2021-02-07] MEDS ORDERED: Celecoxib 200 MG Cap PO SCH (09:00)
--- NOTE | 2021-02-07 09:03 | DISCH ---
ADMISSION DIAGNOSES: 1. Partial small bowel obstruction. 2. Morbid obesity. BMI 45.2. 3. Status post Isma-en-Y gastric bypass surgery. 4. Unspecified surgical malabsorption. 5. B12 deficiency. 6. Iron deficiency anemia. 7. Opioid use agreement. 8. Asthma. DISCHARGE DIAGNOSES: Exploratory laparotomy with: 1. Small bowel resection. 2. Secondary enteroenterostomy to restore small bowel Isma-en-Y anatomy. 3. Repair of recurrent incarcerated incisional hernia. 4. Repair of recurrent incarcerated umbilical hernia. 5. Placement of Interceed mesh. POSTOPERATIVE DIAGNOSES: 1. Small bowel obstruction at the jejunojejunostomy. 2. Extensive abdominal adhesions. 3. Recurrent incarcerated incisional hernia. 4. Incarcerated recurrent umbilical hernia. Date of surgery: 02/10/2021. Surgeon: Delgado Spears MD. HISTORY: Esther Fernandez is a 35-year-old female, who presented to the emergency room with severe abdominal pain. After preoperative evaluation and discussion of possible risks and possible complications, she wished to proceed with surgical procedure. HOSPITAL COURSE: Esther was admitted through the emergency room on 02/05/2021. She was diagnosed with a partial small bowel obstruction earlier in the evening and went home hoping that it would resolve on its own, and when the pain increased and was intolerable, she came back to the emergency room by ambulance and was admitted. After preoperative evaluation and discussion of possible risks and possible complications, she did have her surgery on 02/06/2021. She had no postop complications and was ready to be discharged on 02/07/2021, postop day 1. LABORATORY DATA: On admission, hemoglobin 11.2, B12 of 238, ferritin was 14, vitamin D was 17.6, and folate was 9.6. The rest of her vitamin levels are pending. Her toxicology screen showed no opioids, but on Percocet per court agreement. Presumption positive for tricyclics and presumptive positive for benzodiazepines. The rest of toxicology screen was negative. SARS COVID test negative. Esther did receive 500 mg of postop iron gluconate and she was to get another dose today, but she needed to be discharged because her ride was coming. She will get this at postop. OBJECTIVE: GENERAL: Esther is a pleasant 35-year-old female. VITAL SIGNS: Height is 5 feet 3 inches, weight is 255 pounds. BMI is 45.2. TPR 97.9, 120, 18, blood pressure 118/63. HEENT: Negative. NECK: Supple. HEART: Regular rate and rhythm. LUNGS: Reveal extensive wheezing, but fairly good air exchange. ABDOMEN: Dressing dry and intact. Aquacel on. EXTREMITIES: Without peripheral edema. DISPOSITION: Discharged to home. CONDITION: Stable and improving. FOLLOWUP APPOINTMENT: With Cristine Rico PA-C, on 02/19/2021 at 9:15 a.m. Her second iron infusion will be set up at that time to be done at the hospital. HOME MEDICATIONS: Celebrex 200 mg p.o. b.i.d., #28; Colace 100 mg p.o. b.i.d., #60; and Dulcolax 10 mg tabs p.o. b.i.d., #60. She is to resume home medications per court agreement, Percocet 7.5/325 mg as directed, and resume her home medications. DIET: Step 2 gastric bypass diet for 2 days, then gradually progress to step 3. Drink 8 to 10 glasses of water a day. ACTIVITY: No lifting greater than 10 pounds for 6 weeks. OTHER ACTIVITY: Walk 6 times daily. Driving: Do not drive for 1 week. Shower/bathing: May shower. Wound incision care: Keep operative site clean and dry. Wear abdominal binder for 6 weeks. Take off Aquacel dressing in 2 days. Notify provider if any fever, increased pain, drainage, nausea, vomiting. OTHER SPECIAL INSTRUCTIONS: Use incentive spirometer 10 times every hour while awake for 1 week and come to get iron infusion on 02/19/2021 after clinic appointment on 02/19/2021. It will take about 4 hours. /[id number]
[2021-02-08] MEDS ORDERED: Cyanocobalamin (Vitamin B12) 1,000 MCG/ML SDV IM ONE (09:00)
--- NOTE | 2021-02-08 11:51 | OR ---
DATE OF PROCEDURE: 02/06/2021 SURGEON: Delgado Spears MD PREOPERATIVE DIAGNOSIS: Partial small bowel obstruction. POSTOPERATIVE DIAGNOSES: 1. Small bowel obstruction at jejunojejunostomy. 2. Extensive intraabdominal adhesions. 3. Recurrent incarcerated incisional hernia. 4. Incarcerated recurrent umbilical hernia. OPERATIVE PROCEDURES: Exploratory laparotomy with: 1. Small bowel resection (35387). 2. Secondary enteroenterostomy to restore small bowel Isma-en-Y anatomy (33556). 3. Repair of recurrent incarcerated incisional hernia (24570). 4. Repair of recurrent incarcerated umbilical hernia (58707). 5. Placement of Interceed mesh to limit recurrent adhesions between pelvis and underlying abdominal wall and underlying viscera (38620). ANESTHESIA: General. READING INSTRUCTOR: Cristine Rico PA-C INDICATIONS FOR PROCEDURE: A 35-year-old female presenting with picture of a partial small bowel obstruction. The plan is to proceed with exploratory laparotomy with lysis of adhesions, reduction of any volvulus or other areas of obstruction that might be identified, and possible bowel resection. Potential risks including bleeding, infection, leaks from various GI tract closures, problems with persistence or recurrence of the problem over time were reviewed, and the patient wishes to proceed. DETAILS OF PROCEDURE: The patient was taken to the operating room, and after general endotracheal anesthesia was induced, a Mena catheter was inserted and the abdomen prepped and draped. A midline incision from the umbilicus up towards the xiphoid was made. This was extended roughly a handsbreadth superiorly from the original level of the umbilicus. This was carried down through the skin and subcutaneous tissue. During the course of the dissection, 2 hernias were identified, both of which contained incarcerated omentum, one in the upper aspect of the incision, which would be an incisional hernia, and the second in the periumbilical area, where there was prolapse of tissue around the previously placed mesh in the umbilical region, both of these areas were reduced of their incarcerated components and subsequently repaired at the time of the fascial closure. The inspection of the small bowel revealed an area of stricturing at the point where the Isma limb entered the jejunojejunostomy and decision was made to proceed with dissection of those areas. The 3 components, all were then divided with ANGEL charlie as was the underlying mesentery and the specimen delivered from the field. Small bowel continuity was then initially re-established with enteroenterostomy between what had been the proximal-most common limb and distal most biliopancreatic limb. This was with internal firing of the Endo- ANGEL 60 mm stapler. Common opening closed transversely with same stapler. Angles of anastomosis and mesenteric defect were approximated with some 3-0 Vicryl stitch and 2-0 silk stitch respectively. GI tract continuity was then completed with re-establishment of Isma-en-Y anatomy by means of anastomosis between what had been the distal most Isma limb to the small bowel roughly 20 cm distal to the first anastomosis. With same sequence of charlie, closures were accomplished here, and at that point no further problems were noted intra-abdominally. Bilateral transversus abdominal plain blocks were placed and the fascia then closed with #2 Vicryl stitch which included the repair of the hernias. Of note, the patient did have some intraperitoneal mesh in the periumbilical area. This had been walled off with antibiotic solution during the bowel phase of the procedure, and new gloves and instruments were obtained after completion of the bowel phase of the procedure. Upon completion of the fascial closure, this layer area was anesthetized with 1% lidocaine mixed with Marcaine. Subcutaneous tissue was then approximated with 2 layers of 3-0 and 4-0 Vicryl stitch and the skin with 4-0 Vicryl subcuticular stitch. Dressing was applied. The patient was taken to the recovery room in satisfactory condition. Physician conservation assistant, Cristine Rico, played an essential role in assisting in this case, helping to position the patient, retract structures as needed, as well as suturing and cutting sutures when indicated. Her presence improved patient safety and decreased operative time. Delgado Spears MD /[id number]
== END 2021-02-07 09:45 | disposition home or self-care (01) | DRG 327 ==
LOC: JP.ED 04:21 → JP.MS 04:35
PROVIDERS: ADMIT Surgery; ATTEND Surgery
PROC: 0D160ZA Bypass Stomach to Jejunum, Open Approach (ICD-10-PCS; principal; 2021-02-06)
PROC: 0DB80ZZ Excision of Small Intestine, Open Approach (ICD-10-PCS; 2021-02-06)
PROC: 0WQF0ZZ Repair Abdominal Wall, Open Approach (ICD-10-PCS; 2021-02-06)
PROC: 0WQF0ZZ Repair Abdominal Wall, Open Approach (ICD-10-PCS; 2021-02-06)
PROC: 3E0M05Z Introduction of Adhesion Barrier into Peritoneal Cavity, Open Approach (ICD-10-PCS; 2021-02-06)
DX: K95.89 Other complications of other bariatric procedure (principal); K56.600 Partial intestinal obstruction, unspecified as to cause; Z68.41 Body mass index [BMI] 40.0-44.9, adult; K90.9 Intestinal malabsorption, unspecified; Y83.8 Other surgical procedures as the cause of abnormal reaction of the patient, or of later complication, without mention of misadventure at the time of the procedure; E66.01 Morbid (severe) obesity due to excess calories; Z98.84 Bariatric surgery status; E53.8 Deficiency of other specified B group vitamins; J45.909 Unspecified asthma, uncomplicated; K43.2 Incisional hernia without obstruction or gangrene; K42.9 Umbilical hernia without obstruction or gangrene; F31.9 Bipolar disorder, unspecified; K21.9 Gastro-esophageal reflux disease without esophagitis; M79.7 Fibromyalgia; F41.1 Generalized anxiety disorder; G89.29 Other chronic pain; M54.50 Low back pain, unspecified; G40.909 Epilepsy, unspecified, not intractable, without status epilepticus; F15.10 Other stimulant abuse, uncomplicated; Z79.899 Other long term (current) drug therapy; Z88.1 Allergy status to other antibiotic agents; Z88.0 Allergy status to penicillin; Z88.2 Allergy status to sulfonamides; Z88.8 Allergy status to other drugs, medicaments and biological substances; Z90.49 Acquired absence of other specified parts of digestive tract; F17.210 Nicotine dependence, cigarettes, uncomplicated; Z20.822 Contact with and (suspected) exposure to COVID-19
CPT/HCPCS: 36415; 74240; 74240-26; 80053; 80305-QW; 81025; 82306; 82525; 82607; 82728; 82746; 83036; 83735; 84100; 84590; 84630; 85025; 94640; 94762; 99285; A9270-GY; C9113; J0171; J0330; J0694; J1100; J1170; J1644; J2020; J2185; J2405; J2704; J2710; J2795; J2916; J3010; J3411; J3490; J7120; J7121; J7620-GY; Q9967; U0002

== ENCOUNTER 2021-03-04 12:26 | Emergency (ER) | payer MEDICAID ==
--- NOTE | 2021-03-04 14:35 | EDM.PDOC ---
ED HPI GENERAL MEDICAL PROBLEM - General Chief Complaint: Abdominal Pain Stated Complaint: DIZZY,WEAKNESS Time Seen by Provider: 03/04/21 14:33 Source of Information: Reports: Patient History Limitations: Reports: No Limitations - History of Present Illness INITIAL COMMENTS - FREE TEXT/NARRATIVE: pt had a bowel obstruction 1 week ago and she was doing well. She has been very lite headed the last 2 days. She has passed out a couple of times. Onset: Gradual, Other (last 2 dasys. her bp is 95 systolic. ) Duration: Hour(s): Location: Reports: Generalized Associated Symptoms: Reports: Weakness - Related Data Allergies Allergy/AdvReac Type Severity Reaction Status Date / Time amoxicillin [Amoxicillin] Allergy Hives Verified 03/04/21 13:53 guaifenesin Allergy Cannot Verified 03/04/21 13:53 Remember meclizine Allergy Hives Verified 03/04/21 13:53 Penicillins Allergy Hives Verified 03/04/21 13:53 Sulfa (Sulfonamide Allergy Other Verified 03/04/21 13:53 Antibiotics) sulfamethoxazole Allergy Hives Verified 03/04/21 13:53 [From Bactrim] trimethoprim [From Bactrim] Allergy Hives Verified 03/04/21 13:53 oxycodone [Oxycodone] AdvReac Nausea and Verified 03/04/21 13:53 Vomiting propoxyphene AdvReac Nausea and Verified 03/04/21 13:53 Vomiting Home Meds: Home Meds levETIRAcetam [Levetiracetam] 1,125 mg PO BID 08/13/19 [History] Albuterol/Ipratropium [Combivent Respimat] 1 puff INH Q6H PRN 09/06/19 [History] Metoclopramide HCl 1 tab PO Q6H PRN 09/06/19 [History] Zolpidem Tartrate 1 tab PO BEDTIME 09/06/19 [History] Butalbit/Acetamin/Caff/Codeine [Gvdyut-Laqc-Vlxzumwhpwg-Codein] 1 each PO ASDIRECTED 04/09/20 [History] ARIPiprazole [Abilify] 5 mg PO DAILY 12/13/20 [History] Zaleplon [Sonata] 10 mg PO DAILY 12/13/20 [History] ALPRAZolam [Xanax] 1 tab PO ASDIRECTED 02/05/21 [History] oxyCODONE HCl/Acetaminophen [Endocet 7.5-325 mg Tablet] 1 tab PO ASDIRECTED 02/05/21 [History] Acetaminophen [Tylenol Extra Strength] 500 mg PO Q8H PRN tablet 02/07/21 [Rx] Celecoxib [CeleBREX] 200 mg PO BID #28 cap 02/07/21 [Rx] Docusate Sodium [Colace] 100 mg PO BID #60 capsule 02/07/21 [Rx] bisacodyL [Dulcolax] 10 mg PO BID #60 tab 02/07/21 [Rx] Past Medical History HEENT History: Reports: Impaired Vision, Other (See Below) Other HEENT History: chronic dental pain Cardiovascular History: Reports: Hypertension Respiratory History: Reports: Asthma, Bronchitis, Recurrent, Pneumonia, Recurrent Gastrointestinal History: Reports: Bowel Obstruction, Cholelithiasis Genitourinary History: Reports: UTI, Recurrent 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: , Other (See Below) 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 History: Musculoskeletal History: Reports: Fracture Neurological History: Reports: Brain Injury, Headaches, Chronic, Migraines, Seizure, TIA Other Neuro History: minor stroke with meningitis Psychiatric History: Reports: Anxiety, Depression, Psych Hospitalization(s), Suicide Attempt, Suicidal Ideation Endocrine/Metabolic History: Reports: Obesity/BMI 30+ Hematologic History: Reports: Anemia, B12 Deficiency, Blood Transfusion(s), Folic Acid - Infectious Disease History Infectious Disease History: Reports: Chicken Pox - Past Surgical History Head Surgeries/Procedures: Reports: None HEENT Surgical History: Reports: Adenoidectomy, Tonsillectomy GI Surgical History: Reports: Bariatric Procedure, Cholecystectomy, Colon, Colonoscopy, EGD, Hernia, Abdominal, Hernia Repair/Other, Small Bowel Other GI Surgeries/Procedures: release SBO Female Surgical History: Reports: Breast Biopsy, D&C Neurological Surgical History: Reports: None Dermatological Surgical History: Reports: None Social & Family History - Family History Family Medical History: No Pertinent Family History - Tobacco Use Tobacco Use Status *Q: Light Tobacco User Years of Tobacco use: 14 Packs/Tins Daily: 0.5 - Caffeine Use Caffeine Use: Reports: None - Recreational Drug Use Recreational Drug Use: No - Living Situation & Occupation Living situation: Reports: Occupation: Unemployed ED ROS GENERAL - Review of Systems Review Of Systems: See Below Constitutional: Reports: Weakness, Other (pt has passed out twice at home. ) HEENT: Reports: No Symptoms Respiratory: Reports: No Symptoms Cardiovascular: Reports: Syncope, Other (bp is 95/60. ) Endocrine: Reports: No Symptoms GI/Abdominal: Reports: No Symptoms : Reports: No Symptoms Musculoskeletal: Reports: No Symptoms Skin: Reports: No Symptoms ED EXAM, GI/ABD - Physical Exam Exam: See Below Text/Narrative:: pt arrived stating that when she gets up she is very dizzy. She has not been vomiting but her intake is poor. She did have surgery for a bowel obstruction about 1 week ago. Exam Limited By: No Limitations General Appearance: Alert, Anxious, Moderate Distress Ears: Normal TMs Nose: Normal Inspection Throat/Mouth: Normal Inspection, Other (mouth is extrmely dry. e) Head: Atraumatic Neck: Normal Inspection Respiratory/Chest: No Respiratory Distress Cardiovascular: Regular Rate, Rhythm GI/Abdominal Exam: Soft (Female) Exam: Deferred Rectal (Female) Exam: Deferred Back Exam: Normal Inspection Extremities: Normal Inspection Neurological: Alert, Oriented, Normal Cognition Course - Vital Signs Last Recorded V/S: Last Vital Signs Temp 36.3 C 03/04/21 13:52 Pulse 86 03/04/21 16:42 Resp 18 03/04/21 13:52 BP 126/76 03/04/21 16:42 Pulse Ox 98 03/04/21 13:52 - Orders/Labs/Meds Labs: Laboratory Tests 03/04/21 03/04/21 03/04/21 Range/Units 14:33 14:46 14:46 WBC 11.9 H (4.5-11.0) K/uL RBC 4.52 (3.30-5.50) M/uL Hgb 12.9 (12.0-15.0) g/dL Hct 40.9 (36.0-48.0) % MCV 91 (80-98) fL MCH 29 (27-31) pg MCHC 32 (32-36) % Plt Count 346 (150-400) K/uL Neut % (Auto) 64.6 (36-66) % Lymph % (Auto) 21.0 L (24-44) % [place] % (Auto) 9.5 H (2-6) % Eos % (Auto) 4.5 H (2-4) % Baso % (Auto) 0.4 (0-1) % Sodium 140 (140-148) mmol/L Potassium 4.3 (3.6-5.2) mmol/L Chloride 106 (100-108) mmol/L Carbon Dioxide 25 (21-32) mmol/L Anion Gap 9.2 (5.0-14.0) mmol/L BUN 10 (7-18) mg/dL Creatinine 0.8 (0.6-1.0) mg/dL Est Cr Clr Drug Dosing 81.97 mL/min Estimated GFR (MDRD) > 60 (>60) Glucose 63 L (74-106) mg/dL Calcium 8.4 L (8.5-10.1) mg/dL Total Bilirubin 0.3 (0.2-1.0) mg/dL AST 17 (15-37) U/L ALT 28 (12-78) U/L Alkaline Phosphatase 102 (46-116) U/L Total Protein 5.9 L (6.4-8.2) g/dL Albumin 3.0 L (3.4-5.0) g/dL Globulin 2.9 (2.3-3.5) g/dL Albumin/Globulin Ratio 1.0 L (1.2-2.2) Urine Color Yellow (YELLOW) Urine Appearance Clear (CLEAR) Urine pH 6.0 (5.0-8.0) Ur Specific [place] 1.010 (1.008-1.030) Urine Protein Negative (NEGATIVE) mg/dL Urine Glucose (UA) Negative (NEGATIVE) mg/dL Urine Ketones Negative (NEGATIVE) mg/dL Urine Occult Blood Negative (NEGATIVE) Urine Nitrite Negative (NEGATIVE) Urine Bilirubin Negative (NEGATIVE) Urine Urobilinogen 0.2 (0.2-1.0) EU/dL Ur Leukocyte Esterase Negative (NEGATIVE) Urine RBC 0-5 (0-5) Urine WBC 0-5 (0-5) Ur Epithelial Cells Few Amorphous Sediment Occasional Urine Bacteria Occasional Urine Mucus Occasional Meds: Medications Discontinued Medications Generic Name Dose Route Start Last Admin Trade Name Freq PRN Reason Stop Dose Admin Sodium Chloride 1,000 mls @ 999 mls/hr 03/04/21 14:45 03/04/21 15:35 Normal Saline IV 999 mls/hr ASDIRECTED DOMINIQUE Administration Sodium Chloride 1,000 mls @ 999 mls/hr 03/04/21 15:30 03/04/21 15:35 Normal Saline IV 999 mls/hr ASDIRECTED DOMINIQUE Administration - Re-Assessments/Exams Free Text/Narrative Re-Assessment/Exam: 03/05/21 07:41 pt was given 2 liters of fluid. Her bp came up. Pt was able to ambulate and did not feel dizzy. She will need to push fluids when she gets home. Departure - Departure Time of Disposition: 16:59 Disposition: Home, Self-Care 01 Condition: Fair Clinical Impression: Dehydration, Hypotension - Discharge Information Instructions: Dehydration, Adult, [id number] Referrals: She Howard DO [Primary Care Provider] - Forms: ED Department Discharge Care Plan Goals: push fluids, both pedalyte and water. continue same meds. follow up with surgeon Sepsis Event Note (ED) - Evaluation Sepsis Screening Result: No Definite Risk
[2021-03-04] MEDS ORDERED: Sodium Chloride 0.9% 1,000 ML IV SCH ×2 (14:45→15:30)
[2021-03-04 16:56] VITALS: BP 126/76; PULSE 86
== END 2021-03-04 17:14 | disposition home or self-care (01) ==
LOC: JP.ED 12:26
DX: I95.9 Hypotension, unspecified (principal); E86.0 Dehydration; I10 Essential (primary) hypertension; E66.9 Obesity, unspecified; Z86.73 Personal history of transient ischemic attack (TIA), and cerebral infarction without residual deficits; Z68.41 Body mass index [BMI] 40.0-44.9, adult; Z88.0 Allergy status to penicillin; Z88.1 Allergy status to other antibiotic agents; Z88.2 Allergy status to sulfonamides; Z88.8 Allergy status to other drugs, medicaments and biological substances; Z88.5 Allergy status to narcotic agent
CPT/HCPCS: 36415; 80053; 81001; 85025; 99284; J7030

== ENCOUNTER 2021-06-27 13:59 | Emergency (ER) | payer MEDICAID ==
[2021-06-27 14:13] VITALS: BP 120/67; PULSE 62
[2021-06-27] MEDS ORDERED: Sodium Chloride 0.9% 10 ML Syringe FLUSH PRN (14:36)
[2021-06-27] MEDS ORDERED: Ondansetron 4 MG/2 ML SDV IVPUSH ONE (14:37)
[2021-06-27] MEDS ORDERED: Lactated Ringers 1,000 ML IV SCH (14:45)
[2021-06-27 15:53] LABS: CORONAVIRUS COVID-19 NAA POSITIVE (NEGATIVE)
== END 2021-06-27 16:05 | disposition home or self-care (01) ==
LOC: JP.ED 13:59
DX: U07.1 COVID-19 (principal); I10 Essential (primary) hypertension; E66.9 Obesity, unspecified; Z68.38 Body mass index [BMI] 38.0-38.9, adult; Z86.73 Personal history of transient ischemic attack (TIA), and cerebral infarction without residual deficits; Z88.0 Allergy status to penicillin; Z88.1 Allergy status to other antibiotic agents; Z88.8 Allergy status to other drugs, medicaments and biological substances; Z72.0 Tobacco use; Z20.822 Contact with and (suspected) exposure to COVID-19
CPT/HCPCS: 0241U; 36415; 80053; 81001; 81025; 83605; 83690; 85025; 96374; 99283; 99284-25; J2405; J3490; J7120

== ENCOUNTER 2021-07-06 20:01 | Emergency (ER) | payer MEDICAID ==
[2021-07-06 20:19] VITALS: BP 108/63; PULSE 115
[2021-07-06] MEDS ORDERED: Sodium Chloride 0.9% 10 ML Syringe FLUSH PRN (20:24)
[2021-07-06] MEDS: Sodium Chloride 0.9% 1,000 ML IV SCH (20:53)
[2021-07-06] MEDS: Calcium Gluconate 10% 1 GM/10 ML SDV IVPUSH ONE (21:36)
== END 2021-07-06 22:02 | disposition home or self-care (01) ==
LOC: JP.ED 20:01
DX: I95.1 Orthostatic hypotension (principal); E86.0 Dehydration; E83.51 Hypocalcemia; I10 Essential (primary) hypertension; E66.9 Obesity, unspecified; Z68.37 Body mass index [BMI] 37.0-37.9, adult; Z72.0 Tobacco use; Z86.73 Personal history of transient ischemic attack (TIA), and cerebral infarction without residual deficits; Z86.16 Personal history of COVID-19; Z88.0 Allergy status to penicillin; Z88.8 Allergy status to other drugs, medicaments and biological substances; Z88.2 Allergy status to sulfonamides; Z88.1 Allergy status to other antibiotic agents
CPT/HCPCS: 36415; 80053; 82728; 83605; 83615; 84145; 85025; 85379; 86140; 96374; 99283; 99284-25; J0610; J7030

== ENCOUNTER 2021-09-16 11:29 | Emergency (ER) | payer MEDICAID ==
[2021-09-16 12:34] VITALS: BP 98/48; PULSE 60
[2021-09-16] MEDS ORDERED: Ketorolac 30 MG/ML SDV IM ONE (12:47)
== END 2021-09-16 13:54 | disposition home or self-care (01) ==
LOC: JP.ED 11:29
DX: J02.8 Acute pharyngitis due to other specified organisms (principal); B37.9 Candidiasis, unspecified; F17.210 Nicotine dependence, cigarettes, uncomplicated; I10 Essential (primary) hypertension; Z79.899 Other long term (current) drug therapy; Z88.0 Allergy status to penicillin; Z88.8 Allergy status to other drugs, medicaments and biological substances
CPT/HCPCS: 87081; 87220; 87880; 96372; 99283; J1885

== ENCOUNTER 2022-02-12 22:08 | Emergency (ER) | payer MEDICAID ==
[2022-02-12 22:14] VITALS: BP 126/87; PULSE 82
[2022-02-12] MEDS ORDERED: levETIRAcetam 250 MG Tab ONE (22:31)
[2022-02-12] MEDS ORDERED: Ondansetron 4 MG/2 ML SDV IVPUSH ONE (22:35)
[2022-02-12] MEDS ORDERED: ALPRAZolam 0.25 MG Tab PO ONE (22:50)
[2022-02-13] MEDS ORDERED: levETIRAcetam 250 MG Tab PO ONE (22:19)
== END 2022-02-12 23:02 | disposition home or self-care (01) ==
LOC: JP.ED 22:08
DX: F41.0 Panic disorder [episodic paroxysmal anxiety] (principal); T42.4X5A Adverse effect of benzodiazepines, initial encounter; I10 Essential (primary) hypertension; J45.909 Unspecified asthma, uncomplicated; E66.9 Obesity, unspecified; Z68.36 Body mass index [BMI] 36.0-36.9, adult; Z72.0 Tobacco use; Z88.0 Allergy status to penicillin; Z88.8 Allergy status to other drugs, medicaments and biological substances; Z88.1 Allergy status to other antibiotic agents; Z88.2 Allergy status to sulfonamides; Z79.899 Other long term (current) drug therapy
CPT/HCPCS: 80305; 96374; 99284; A9270; J2405

== ENCOUNTER 2022-03-11 05:02 | Inpatient (IN) | payer MEDICAID ==
[2022-03-11] MEDS ORDERED: HYDROmorphone 0.5 MG/0.5 ML Syringe IVPUSH ONE (05:22)
[2022-03-11] MEDS ORDERED: Ondansetron 4 MG/2 ML SDV IVPUSH ONE (05:22)
[2022-03-11] MEDS ORDERED: Sodium Chloride 0.9% 10 ML Syringe FLUSH PRN (05:22)
[2022-03-11] MEDS ORDERED: Iopamidol 612 MG/ML 100 ML Bottle IV STA (05:44)
[2022-03-11] MEDS ORDERED: Sodium Chloride 0.9% 50 ML IV STA (05:45)
[2022-03-11 06:01] LABS: ESTIMATED GFR 98 mL/min (>60)
[2022-03-11] MEDS: Dextrose 5%-Lactated Ringers 1,000 ML IV SCH ×2 (07:45→15:21)
[2022-03-11] MEDS ORDERED: diphenhydrAMINE 25 MG Cap PO PRN (08:03)
[2022-03-11] MEDS ORDERED: Ondansetron 4 MG/2 ML SDV IVPUSH PRN (08:03)
[2022-03-11] MEDS ORDERED: diphenhydrAMINE 50 MG/ML SDV IVPUSH PRN (08:03)
[2022-03-11] MEDS ORDERED: Dextrose 5%-Lactated Ringers 1,000 ML IV SCH (08:15)
[2022-03-11] MEDS: HYDROmorphone/Normal Saline 6 MG/30 ML PCA Vial IV PRN ×2 (09:10→17:49)
[2022-03-11] MEDS ORDERED: Scopolamine 1.5 MG Transdermal Patch TRDERM PRN (09:10)
[2022-03-11] MEDS: levETIRAcetam 250 MG Tab PO SCH ×2 (09:30→20:40)
[2022-03-11] MEDS: Gabapentin 400 MG Cap PO SCH ×3 (09:30→20:41)
[2022-03-11] MEDS: Albuterol/Ipratropium 3.0-0.5 MG/3 ML Neb Soln NEB SCH ×3 (10:44→20:41)
[2022-03-11] MEDS: Ondansetron 4 MG/2 ML SDV IVPUSH PRN ×2 (10:51→15:20)
[2022-03-11] MEDS: ALPRAZolam 0.5 MG Tab PO PRN (11:02)
[2022-03-11] MEDS: Zolpidem 5 MG Tab PO PRN (20:40)
[2022-03-11] MEDS: cloNIDine 0.1 MG Tab PO SCH (20:41)
[2022-03-11] MEDS ORDERED: Zolpidem 5 MG Tab PO SCH (21:00)
[2022-03-12 05:35] LABS: ESTIMATED GFR 120 mL/min (>60)
[2022-03-12] MEDS: Albuterol/Ipratropium 3.0-0.5 MG/3 ML Neb Soln NEB SCH ×4 (07:02→21:10)
[2022-03-12] MEDS ORDERED: ceFAZolin 2 GM in Premix Bag 1 BAG IV ONE ×2 (07:15→12:15)
[2022-03-12] MEDS ORDERED: Ketamine 17 MG in Sodium Chloride 0.9% 19.83 ML IV SCH (07:30)
[2022-03-12] MEDS ORDERED: Ketamine 500 MG/5 ML MDV IV SCH ×2 (07:30→16:11)
[2022-03-12] MEDS ORDERED: Lidocaine 1% with EPINEPHrine 1:100,000 50 ML MDV ONE (08:09)
[2022-03-12] MEDS ORDERED: Bupivacaine 0.5% 30 ML SDV ONE (08:09)
[2022-03-12] MEDS ORDERED: Meropenem 500 MG SDV ONE (08:09)
[2022-03-12] MEDS: levETIRAcetam 250 MG Tab PO SCH ×2 (08:57→21:10)
[2022-03-12] MEDS: Gabapentin 400 MG Cap PO SCH ×3 (08:57→21:11)
[2022-03-12] MEDS: VYVANSE 70 MG PO SCH (08:58)
[2022-03-12] MEDS: Dextrose 5%-Lactated Ringers 1,000 ML IV SCH ×4 (09:05→23:20)
[2022-03-12] MEDS: ALPRAZolam 0.5 MG Tab PO PRN ×2 (09:05→21:22)
[2022-03-12] MEDS ORDERED: Propofol 200 MG/20 ML SDV ONE (09:30)
[2022-03-12] MEDS ORDERED: Neostigmine Methylsulfate 1 MG/ML 5 ML Syringe ONE (09:30)
[2022-03-12] MEDS ORDERED: Glycopyrrolate 0.2 MG/ML 5 ML MDV ONE (09:30)
[2022-03-12] MEDS ORDERED: Ondansetron 4 MG/2 ML SDV ONE (09:30)
[2022-03-12] MEDS ORDERED: fentaNYL 250 MCG/5 ML SDV ONE (09:30)
[2022-03-12] MEDS ORDERED: Rocuronium 50 MG/5 ML Vial ONE ×2 (09:30→12:55)
[2022-03-12] MEDS ORDERED: Succinylcholine 200 MG/10 ML MDV ONE (09:30)
[2022-03-12] MEDS ORDERED: Dexamethasone 4 MG/ML SDV ONE (09:30)
[2022-03-12] MEDS ORDERED: Linezolid 600 MG/300 ML Premix Bag IRR ONE (12:48)
[2022-03-12] MEDS ORDERED: Lactated Ringers 1,000 ML ONE (12:56)
[2022-03-12] MEDS ORDERED: fentaNYL 100 MCG/2 ML SDV ONE (13:40)
[2022-03-12] MEDS ORDERED: Mupirocin Oint 22 GM Tube TOP ONE (14:01)
[2022-03-12] MEDS: HYDROmorphone/Normal Saline 6 MG/30 ML PCA Vial IV PRN (15:08)
[2022-03-12] MEDS ORDERED: Albuterol/Ipratropium 3.0-0.5 MG/3 ML Neb Soln INH PRN (16:08)
[2022-03-12] MEDS: hydrOXYzine HCL 100 MG/2 ML SDV IM PRN (16:23)
[2022-03-12] MEDS: cefOXitin 2 GM in Sodium Chloride 0.9% 50 ML IV SCH (17:31)
[2022-03-12] MEDS: Acetaminophen 500 MG Tab PO SCH ×2 (17:37→21:11)
[2022-03-12] MEDS: Ibuprofen 600 MG Tab PO SCH (17:37)
[2022-03-12] MEDS: Sodium Ferric Gluconate Cmplex 250 MG in Sodium Chloride 0.9% 100 ML IV SCH (18:18)
[2022-03-12] MEDS: Formoterol/Mometasone 200-5 MCG 8.8 GM Inhaler IH SCH (21:10)
[2022-03-12] MEDS: cloNIDine 0.1 MG Tab PO SCH (21:11)
[2022-03-12] MEDS: Zolpidem 5 MG Tab PO PRN (21:22)
[2022-03-12] MEDS: Naloxone 0.4 MG/ML SDV IVPUSH PRN ×3 (22:53→23:16)
[2022-03-12] MEDS ORDERED: HYDROmorphone/Normal Saline 6 MG/30 ML PCA Vial IV PRN (23:55)
[2022-03-13] MEDS: cefOXitin 2 GM in Sodium Chloride 0.9% 50 ML IV SCH ×5 (00:07→23:40)
[2022-03-13] MEDS: Ibuprofen 600 MG Tab PO SCH ×5 (00:08→23:37)
[2022-03-13] MEDS: Ondansetron 4 MG/2 ML SDV IVPUSH PRN ×2 (00:11→19:37)
[2022-03-13] MEDS ORDERED: Naloxone 0.4 MG/ML SDV IVPUSH PRN (01:12)
[2022-03-13] MEDS ORDERED: Naloxone 0.4 MG in Dextrose 5%-Lactated Ringers 1,000 ML IV SCH (01:23)
[2022-03-13] MEDS: Naloxone 0.4 MG/ML SDV ONE ×2 (01:27→01:49)
[2022-03-13 03:25] LABS: ESTIMATED GFR 120 mL/min (>60)
[2022-03-13] MEDS ORDERED: Furosemide 20 MG/2 ML VIAL IVPUSH ONE ×3 (03:43→16:00)
[2022-03-13] MEDS: Acetaminophen 500 MG Tab PO SCH ×4 (03:59→21:28)
[2022-03-13] MEDS: Formoterol/Mometasone 200-5 MCG 8.8 GM Inhaler IH SCH ×2 (07:19→20:19)
[2022-03-13] MEDS: Albuterol/Ipratropium 3.0-0.5 MG/3 ML Neb Soln NEB SCH ×4 (07:20→21:23)
[2022-03-13] MEDS ORDERED: Dextrose 5%-Lactated Ringers 1,000 ML with Naloxone 0.4 MG IV SCH ×4 (09:30)
[2022-03-13] MEDS: Gabapentin 400 MG Cap PO SCH ×3 (09:34→20:20)
[2022-03-13] MEDS: levETIRAcetam 250 MG Tab PO SCH ×2 (09:34→20:19)
[2022-03-13] MEDS: Bisacodyl 5 MG Tab PO SCH ×2 (09:34→20:20)
[2022-03-13] MEDS: Docusate Sodium 100 MG Cap PO SCH ×3 (09:34→20:21)
[2022-03-13] MEDS: VERIFY SCOP PATCH TOP SCH (09:38)
[2022-03-13] MEDS: VYVANSE 70 MG PO SCH (09:39)
[2022-03-13] MEDS: ALPRAZolam 0.5 MG Tab PO PRN ×2 (09:50→19:38)
[2022-03-13] MEDS: Magnesium Sulfate/Water 2 GM/50 ML BAG IV SCH ×3 (09:54→21:27)
[2022-03-13] MEDS: hydrOXYzine HCL 100 MG/2 ML SDV IM PRN (10:42)
[2022-03-13] MEDS ORDERED: Cyclobenzaprine 10 MG Tab PO PRN (12:20)
[2022-03-13] MEDS ORDERED: Cupric Chloride 2 MG in Sodium Chloride 0.9% 250 ML IV SCH ×2 (15:09→15:30)
[2022-03-13] MEDS: Vitamin A 100,000 Units/2 ML SDV IM SCH (16:04)
[2022-03-13] MEDS: Dextrose 5%-Lactated Ringers 1,000 ML IV SCH (17:16)
[2022-03-13] MEDS: Sodium Ferric Gluconate Cmplex 250 MG in Sodium Chloride 0.9% 100 ML IV SCH (19:36)
[2022-03-13] MEDS: cloNIDine 0.1 MG Tab PO SCH (21:23)
[2022-03-14] MEDS: Magnesium Sulfate/Water 2 GM/50 ML BAG IV SCH ×2 (03:08→08:39)
[2022-03-14] MEDS: Acetaminophen 500 MG Tab PO SCH ×2 (03:08→09:48)
[2022-03-14] MEDS: Dextrose 5%-Lactated Ringers 1,000 ML IV SCH (03:50)
[2022-03-14] MEDS: cefOXitin 2 GM in Sodium Chloride 0.9% 50 ML IV SCH ×3 (05:01→12:48)
[2022-03-14] MEDS: Ibuprofen 600 MG Tab PO SCH (05:21)
[2022-03-14 05:27] LABS: ESTIMATED GFR 125 mL/min (>60)
[2022-03-14] MEDS: ALPRAZolam 0.5 MG Tab PO PRN (05:28)
[2022-03-14] MEDS: Formoterol/Mometasone 200-5 MCG 8.8 GM Inhaler IH SCH (07:00)
[2022-03-14] MEDS: Albuterol/Ipratropium 3.0-0.5 MG/3 ML Neb Soln NEB SCH ×2 (07:00→10:40)
[2022-03-14] MEDS ORDERED: Dextrose 5%-Lactated Ringers 1,000 ML IV SCH (08:30)
[2022-03-14] MEDS: Vitamin A 100,000 Units/2 ML SDV IM SCH ×2 (08:49→09:54)
[2022-03-14] MEDS ORDERED: Furosemide 20 MG/2 ML VIAL IVPUSH ONE (09:00)
[2022-03-14] MEDS: Gabapentin 400 MG Cap PO SCH (09:48)
[2022-03-14] MEDS: Docusate Sodium 100 MG Cap PO SCH (09:48)
[2022-03-14] MEDS: Bisacodyl 5 MG Tab PO SCH (09:48)
[2022-03-14] MEDS: VYVANSE 70 MG PO SCH (09:49)
[2022-03-14] MEDS: levETIRAcetam 250 MG Tab PO SCH (09:49)
[2022-03-14 11:11] VITALS: BP 104/57; PULSE 95
[2022-03-14] MEDS: VERIFY SCOP PATCH TOP SCH (11:28)
[2022-03-14] MEDS ORDERED: Celecoxib 200 MG Cap PO SCH (11:30)
== END 2022-03-14 12:30 | disposition left against medical advice (07) | DRG 329 ==
LOC: JP.ED 05:02 → JP.2SS 07:46
PROVIDERS: ADMIT Surgery; ATTEND Surgery
PROC: 0WUF0JZ Supplement Abdominal Wall with Synthetic Substitute, Open Approach (ICD-10-PCS; principal; 2022-03-12)
PROC: 0DB80ZZ Excision of Small Intestine, Open Approach (ICD-10-PCS; 2022-03-12)
PROC: 0DS80ZZ Reposition Small Intestine, Open Approach (ICD-10-PCS; 2022-03-12)
PROC: 0DBP0ZZ Excision of Rectum, Open Approach (ICD-10-PCS; 2022-03-12)
PROC: 0DBN0ZZ Excision of Sigmoid Colon, Open Approach (ICD-10-PCS; 2022-03-12)
PROC: 0WBF0ZZ Excision of Abdominal Wall, Open Approach (ICD-10-PCS; 2022-03-12)
PROC: 3E0M05Z Introduction of Adhesion Barrier into Peritoneal Cavity, Open Approach (ICD-10-PCS; 2022-03-12)
DX: K43.0 Incisional hernia with obstruction, without gangrene (principal); J95.821 Acute postprocedural respiratory failure; K56.2 Volvulus; J98.11 Atelectasis; H54.7 Unspecified visual loss; I10 Essential (primary) hypertension; F41.9 Anxiety disorder, unspecified; Z20.822 Contact with and (suspected) exposure to COVID-19; F32.A Depression, unspecified; D64.9 Anemia, unspecified; R56.9 Unspecified convulsions; Z86.73 Personal history of transient ischemic attack (TIA), and cerebral infarction without residual deficits; F17.200 Nicotine dependence, unspecified, uncomplicated; Z88.0 Allergy status to penicillin; Z88.2 Allergy status to sulfonamides; Z88.8 Allergy status to other drugs, medicaments and biological substances; Z87.01 Personal history of pneumonia (recurrent); Z79.899 Other long term (current) drug therapy; Z90.49 Acquired absence of other specified parts of digestive tract
CPT/HCPCS: 36415; 36600; 71045; 71046; 74177; 80053; 81025; 82728; 82803; 83605; 83735; 83880; 84100; 84145; 85025; 85027; 94640; 96374; 96375; 99285-25; A9270-GY; C1713; C1781; J0171; J0330; J0690; J0694; J1100; J1170; J1940; J2020; J2185; J2310; J2405; J2704; J2710; J2795; J2916; J3010; J3410; J3475; J3490; J7050; J7120; J7121; J7620; Q9967; U0002

== ENCOUNTER 2022-03-17 13:44 | Emergency (ER) | payer MEDICAID ==
[2022-03-17] MEDS ORDERED: Sodium Chloride 0.9% 1,000 ML IV ONE (15:43)
[2022-03-17] MEDS ORDERED: Sodium Chloride 0.9% 10 ML Syringe FLUSH PRN (15:43)
[2022-03-17] MEDS ORDERED: Sodium Chloride 0.9% 50 ML IV SCH (16:00)
[2022-03-17] MEDS ORDERED: Iopamidol 612 MG/ML 100 ML Bottle IV SCH (16:00)
[2022-03-17] MEDS ORDERED: Iopamidol 612 MG/ML 30 ML SDV PO ONE (16:04)
[2022-03-17] MEDS ORDERED: Ondansetron 4 MG Tab.DIS PO ONE (16:43)
[2022-03-17 18:34] VITALS: BP 117/71; PULSE 101
[2022-03-17] MEDS ORDERED: HYDROmorphone 0.5 MG/0.5 ML Syringe IVPUSH ONE (19:09)
[2022-03-17] MEDS: Sodium Chloride 0.9% 10 ML Syringe FLUSH ONE ×2 (19:42→19:54)
[2022-03-17] MEDS ORDERED: cefTRIAXone 1 GM in Sodium Chloride 0.9% 50 ML IV ONE (20:38)
== END 2022-03-17 21:37 | disposition home or self-care (01) ==
LOC: JP.ED 13:44
DX: R91.8 Other nonspecific abnormal finding of lung field (principal); I10 Essential (primary) hypertension; J45.909 Unspecified asthma, uncomplicated; E66.9 Obesity, unspecified; Z68.39 Body mass index [BMI] 39.0-39.9, adult; Z72.0 Tobacco use; Z88.0 Allergy status to penicillin; Z88.8 Allergy status to other drugs, medicaments and biological substances; Z88.1 Allergy status to other antibiotic agents; Z88.2 Allergy status to sulfonamides; Z79.899 Other long term (current) drug therapy
CPT/HCPCS: 36415; 74177; 85025; 86140; 96361; 96365; 96375; 99284; J0696; J1170; J3490; J7030; Q0162; Q9967

== ENCOUNTER 2022-06-15 22:55 | Emergency (ER) | payer MEDICAID ==
[2022-06-16 00:42] VITALS: BP 153/110; PULSE 124
== END 2022-06-16 01:31 | disposition home or self-care (01) ==
LOC: JP.ED 22:55
DX: M79.2 Neuralgia and neuritis, unspecified (principal); M77.8 Other enthesopathies, not elsewhere classified; G25.81 Restless legs syndrome; D50.9 Iron deficiency anemia, unspecified; I10 Essential (primary) hypertension; J45.909 Unspecified asthma, uncomplicated; K21.9 Gastro-esophageal reflux disease without esophagitis; Z88.0 Allergy status to penicillin; Z88.2 Allergy status to sulfonamides; Z88.8 Allergy status to other drugs, medicaments and biological substances; Z86.73 Personal history of transient ischemic attack (TIA), and cerebral infarction without residual deficits; Z86.16 Personal history of COVID-19
CPT/HCPCS: 99282

== ENCOUNTER 2022-08-12 10:51 | Emergency (ER) | payer MEDICAID ==
[2022-08-12 11:38] VITALS: BP 127/75; PULSE 77
== END 2022-08-12 12:40 | disposition home or self-care (01) ==
LOC: JP.ED 10:51
DX: K61.1 Rectal abscess (principal); I10 Essential (primary) hypertension; K21.9 Gastro-esophageal reflux disease without esophagitis; E66.9 Obesity, unspecified; Z68.41 Body mass index [BMI] 40.0-44.9, adult; Z86.73 Personal history of transient ischemic attack (TIA), and cerebral infarction without residual deficits; Z88.0 Allergy status to penicillin; Z88.5 Allergy status to narcotic agent; Z88.2 Allergy status to sulfonamides; Z88.1 Allergy status to other antibiotic agents; Z88.8 Allergy status to other drugs, medicaments and biological substances; Z72.0 Tobacco use
CPT/HCPCS: 46040; 87070; 87077; 87186; 87205; 99283

== ENCOUNTER 2022-11-20 21:13 | Emergency (ER) | payer MEDICAID ==
[2022-11-20] MEDS ORDERED: Ketorolac 30 MG/ML SDV IVPUSH ONE (22:10)
[2022-11-20] MEDS ORDERED: Sodium Chloride 0.9% 1,000 ML IV SCH (22:15)
[2022-11-20] MEDS ORDERED: Ondansetron 4 MG/2 ML SDV IVPUSH ONE (22:17)
[2022-11-20 22:31] VITALS: PULSE 83
[2022-11-20 22:31] LABS: BASOPHILS ABSOLUTE AUTO 0.04 K/uL (0.00-0.10); BASOPHILS PERCENT AUTO 0.6 % (0.1-1.3); EOSINOPHILS ABSOLUTE AUTO 0.13 K/uL (0.00-0.40); EOSINOPHILS PERCENT AUTO 1.9 % (0.0-5.4); HEMATOCRIT 37.3 % (34.3-46.0); HEMOGLOBIN 11.8 g/dL (11.2-15.5); IMMATURE GRAN ABSOLUTE AUTO 0.03 K/uL (0.00-0.23); IMMATURE GRAN PERCENT AUTO 0.4 % (0.0-0.7); LYMPHOCYTES ABSOLUTE AUTO 2.13 K/uL (0.8-3.3); LYMPHOCYTES PERCENT AUTO 30.5 % (11.4-47.7); MEAN CORPUSCULAR HEMOGLOBIN 32.2 pg (31.6-35.5); MEAN CORPUSCULAR HGB CONC 31.6 g/dL (31.6-35.5); MEAN CORPUSCULAR VOLUME 101.6 fL (81.4-99.0); MONOCYTES ABSOLUTE AUTO 0.55 K/uL (0.20-0.90); MONOCYTES PERCENT AUTO 7.9 % (3.3-12.6); NEUTROPHILS ABSOLUTE AUTO 4.11 K/uL (1.0-7.6); NEUTROPHILS PERCENT AUTO 58.7 % (40.0-78.1); PLATELET COUNT,PLT 235 K/uL (130-375); RED BLOOD CELL COUNT 3.67 M/uL (3.77-5.24)
[2022-11-20] MEDS ORDERED: Sodium Chloride 0.9% 10 ML Syringe FLUSH ONE (22:34)
[2022-11-20] MEDS ORDERED: Sodium Chloride 0.9% 50 ML IV SCH (22:45)
[2022-11-20] MEDS ORDERED: Iopamidol 612 MG/ML 100 ML Bottle IV SCH (22:45)
[2022-11-20] MEDS ORDERED: Ketorolac 30 MG/ML SDV IM ONE (22:48)
[2022-11-20] MEDS ORDERED: Ondansetron 4 MG Tab.DIS PO ONE (22:48)
[2022-11-20 22:52] LABS: A/G RATIO 1.1 (1.2-2.2); ALANINE AMINOTRANSFERASE,ALT 39 U/L (12-78); ALBUMIN 2.9 g/dL (3.4-5.0); ALKALINE PHOSPHATASE 100 U/L (46-116); AMYLASE 57 U/L (25-115); ANION GAP 9.2 mmol/L (5.0-14.0); ASPARTATE AMNIOTRANSFERASE,AST 32 U/L (15-37); BILIRUBIN TOTAL 0.3 mg/dL (0.2-1.0); BLOOD UREA NITROGEN,BUN 12 mg/dL (7-18); CARBON DIOXIDE,CO2 24 mmol/L (21-32); CHLORIDE,CL 108 mmol/L (100-108); CREATININE 0.7 mg/dL (0.6-1.0); EST CRCL DRUG DOSING (CG) 92.79 mL/min; ESTIMATED GFR 116 mL/min (>60); GLUCOSE RANDOM 94 mg/dL (74-106); MAGNESIUM 1.9 mg/dL (1.8-2.4); POTASSIUM,K 4.1 mmol/L (3.6-5.2); PROTEIN TOTAL,TP 5.6 g/dL (6.4-8.2); SODIUM,NA 141 mmol/L (140-148)
[2022-11-21 00:03] LABS: APPEARANCE,URINE CLOUDY (CLEAR); BILIRUBIN,URINE SMALL (NEGATIVE); COLOR,URINE YELLOW (YELLOW); GLUCOSE,URINE NEGATIVE (NEGATIVE); KETONES,URINE NEGATIVE (NEGATIVE); LEUKOCYTE ESTERASE,URINE SMALL (NEGATIVE); NITRITE,URINE NEGATIVE (NEGATIVE); OCCULT BLOOD,URINE NEGATIVE (NEGATIVE); PROTEIN,URINE 30 mg/dL (NEGATIVE); UROBILINOGEN,URINE 0.2 EU/dL (0.2-1.0)
[2022-11-21 00:09] LABS: AMORPHOUS SEDIMENT,URINE FEW; BACTERIA,URINE MANY; EPITHELIAL CELLS,URINE MANY; MUCUS,URINE MODERATE; RBC,URINE 0-5 (0-5)
[2022-11-21] MEDS ORDERED: Acetaminophen/oxyCODONE 325-10 MG Tab PO PRN (00:13)
[2022-11-21 00:37] VITALS: BP 141/102
== END 2022-11-21 00:36 | disposition home or self-care (01) ==
LOC: JP.ED 21:13
DX: N39.0 Urinary tract infection, site not specified (principal); F17.210 Nicotine dependence, cigarettes, uncomplicated; Z20.822 Contact with and (suspected) exposure to COVID-19
CPT/HCPCS: 36415; 74176; 80053; 81001; 81025; 82150; 83690; 83735; 84484; 85025; 87635; 93005; 96372; 99285; A9270; J1885; Q0162; U0002

== ENCOUNTER 2023-04-03 11:28 | Emergency (ER) | payer MEDICAID ==
[2023-04-03 11:47] VITALS: BP 149/89; PULSE 101
== END 2023-04-03 13:57 | disposition home or self-care (01) ==
LOC: JP.ED 11:28
DX: S62.637A Displaced fracture of distal phalanx of left little finger, initial encounter for closed fracture (principal); M62.838 Other muscle spasm; R29.6 Repeated falls; I10 Essential (primary) hypertension; K21.9 Gastro-esophageal reflux disease without esophagitis; J45.909 Unspecified asthma, uncomplicated; E66.9 Obesity, unspecified; Z90.49 Acquired absence of other specified parts of digestive tract; Z86.16 Personal history of COVID-19; Z79.899 Other long term (current) drug therapy; Z88.2 Allergy status to sulfonamides; Z88.0 Allergy status to penicillin; Z88.8 Allergy status to other drugs, medicaments and biological substances; Z68.31 Body mass index [BMI] 31.0-31.9, adult; W10.8XXA Fall (on) (from) other stairs and steps, initial encounter; Y93.01 Activity, walking, marching and hiking; Z86.73 Personal history of transient ischemic attack (TIA), and cerebral infarction without residual deficits
CPT/HCPCS: 72070; 72070-26; 72100; 72100-26; 73140-26-F4; 73140-F4; 99283; 99284

== ENCOUNTER 2023-05-05 12:22 | Emergency (ER) | payer MEDICAID ==
[2023-05-05 12:43] LABS: BASOPHILS PERCENT AUTO 0.2 % (0.1-1.3); EOSINOPHILS ABSOLUTE AUTO 0.04 K/uL (0.00-0.40); EOSINOPHILS PERCENT AUTO 0.3 % (0.0-5.4); HEMATOCRIT 31.2 % (34.3-46.0); HEMOGLOBIN 10.7 g/dL (11.2-15.5); IMMATURE GRAN PERCENT AUTO 0.8 % (0.0-0.7); LYMPHOCYTES ABSOLUTE AUTO 0.72 K/uL (0.8-3.3); LYMPHOCYTES PERCENT AUTO 5.6 % (11.4-47.7); MEAN CORPUSCULAR HEMOGLOBIN 32.5 pg (31.6-35.5); MEAN CORPUSCULAR HGB CONC 34.3 g/dL (31.6-35.5); MEAN CORPUSCULAR VOLUME 94.8 fL (81.4-99.0); MONOCYTES ABSOLUTE AUTO 0.56 K/uL (0.20-0.90); MONOCYTES PERCENT AUTO 4.4 % (3.3-12.6); NEUTROPHILS ABSOLUTE AUTO 11.35 K/uL (1.0-7.6); NEUTROPHILS PERCENT AUTO 88.7 % (40.0-78.1); PLATELET COUNT,PLT 114 K/uL (130-375); RED BLOOD CELL COUNT 3.29 M/uL (3.77-5.24); WHITE BLOOD CELL COUNT,WBC 12.8 K/uL (3.2-11.0)
[2023-05-05 12:44] LABS: BICARBONATE,VENOUS 18.8 mmol/L; PCO2 VENOUS 30.9 mm/Hg; PH,VENOUS 7.401 (7.350-7.450); PO2 VENOUS 93.9 mm/Hg
[2023-05-05 12:45] LABS: O2 SATURATION VENOUS 93.6
[2023-05-05 12:45] LABS: BASOPHILS ABSOLUTE AUTO 0.02 K/uL (0.00-0.10)
[2023-05-05 12:46] LABS: BASE EXCESS VENOUS -4.6 mm/L; CARBOXYHEMOGLOBIN 4.1 % (0.0-1.6); METHEMOGLOBIN 4.6 %; OXYHEMOGLOBIN 85.5 %; TOTAL HEMOGLOBIN 11.4 g/dL (12.0-16.0)
[2023-05-05 12:58] LABS: ANION GAP 14.3 mmol/L (5.0-14.0); BLOOD UREA NITROGEN,BUN 14 mg/dL (7-18); CARBON DIOXIDE,CO2 20 mmol/L (21-32); CHLORIDE,CL 102 mmol/L (100-108); CREATININE 1.1 mg/dL (0.6-1.0); ESTIMATED GFR 67 mL/min (>60); GLUCOSE RANDOM 101 mg/dL (74-106); POTASSIUM,K 3.3 mmol/L (3.6-5.2); SODIUM,NA 133 mmol/L (140-148)
[2023-05-05] MEDS: Sodium Chloride 0.9% 10 ML Syringe FLUSH PRN ×2 (13:09→13:54)
[2023-05-05] MEDS: Iopamidol 612 MG/ML 100 ML Bottle IV PRN (13:09)
[2023-05-05] MEDS: Sodium Chloride 0.9% 80 ML IV SCH (13:09)
[2023-05-05 13:16] VITALS: BP 139/79; PULSE 120
[2023-05-05] MEDS: Sodium Chloride 0.9% 500 ML IV ONE (13:53)
[2023-05-05 14:15] LABS: A/G RATIO 0.5 (1.2-2.2); ALBUMIN 1.6 g/dL (3.4-5.0); BILIRUBIN DIRECT 0.65 mg/dL (0.0-0.2); BILIRUBIN INDIRECT 0.35; PROTEIN TOTAL,TP 4.9 g/dL (6.4-8.2)
[2023-05-05 15:13] LABS: APPEARANCE,URINE CLEAR (CLEAR); BILIRUBIN,URINE NEGATIVE (NEGATIVE); COLOR,URINE YELLOW (YELLOW); GLUCOSE,URINE NEGATIVE (NEGATIVE); KETONES,URINE NEGATIVE (NEGATIVE); LEUKOCYTE ESTERASE,URINE MODERATE (NEGATIVE); NITRITE,URINE POSITIVE (NEGATIVE); OCCULT BLOOD,URINE TRACE-INTACT (NEGATIVE); PROTEIN,URINE NEGATIVE (NEGATIVE); UROBILINOGEN,URINE 0.2 EU/dL (0.2-1.0)
[2023-05-05 15:18] LABS: RBC,URINE 0-5 (0-5)
[2023-05-05 15:19] LABS: AMORPHOUS SEDIMENT,URINE NOT SEEN; BACTERIA,URINE MANY; EPITHELIAL CELLS,URINE RARE; MUCUS,URINE NOT SEEN; WBC,URINE >100 (0-5)
[2023-05-05 15:41] LABS: CORONAVIRUS COVID-19 NAA NEGATIVE (NEGATIVE); INFLUENZA A NAA NEGATIVE (NEGATIVE); INFLUENZA B NAA NEGATIVE (NEGATIVE); RESPIRATORY SYNCYTIAL VIR NAA NEGATIVE (NEGATIVE)
[2023-05-05] MEDS: Nitrofurantoin Monohydrate/Macrocrystalline 100 MG Cap PO ONE (16:19)
== END 2023-05-05 17:16 | disposition home or self-care (01) ==
LOC: JP.ED 12:22
DX: S32.029A Unspecified fracture of second lumbar vertebra, initial encounter for closed fracture (principal); S32.039A Unspecified fracture of third lumbar vertebra, initial encounter for closed fracture; S22.49XA Multiple fractures of ribs, unspecified side, initial encounter for closed fracture; N39.0 Urinary tract infection, site not specified; D64.9 Anemia, unspecified; E87.6 Hypokalemia; E88.09 Other disorders of plasma-protein metabolism, not elsewhere classified; I10 Essential (primary) hypertension; J45.909 Unspecified asthma, uncomplicated; E66.9 Obesity, unspecified; Z88.1 Allergy status to other antibiotic agents; Z88.0 Allergy status to penicillin; Z88.2 Allergy status to sulfonamides; Z88.8 Allergy status to other drugs, medicaments and biological substances; Z79.899 Other long term (current) drug therapy; Z86.19 Personal history of other infectious and parasitic diseases; Z86.16 Personal history of COVID-19; Z90.49 Acquired absence of other specified parts of digestive tract; Z68.36 Body mass index [BMI] 36.0-36.9, adult; W10.8XXA Fall (on) (from) other stairs and steps, initial encounter
CPT/HCPCS: 0241U; 36415; 70450; 71260; 72125; 72128; 74177; 76377; 80048; 80076; 81001; 82803; 85025; 99285; A9270; J3490; J7040; Q9967

== ENCOUNTER 2023-05-19 23:33 | Emergency (ER) | payer MEDICAID ==
[2023-05-19] MEDS ORDERED: Naloxone 0.4 MG/ML SDV IVPUSH PRN (23:48)
[2023-05-19] MEDS: HYDROmorphone 0.5 MG/0.5 ML Syringe IVPUSH ONE (23:53)
[2023-05-20 00:12] LABS: HEMATOCRIT 34.4 % (34.3-46.0); MEAN CORPUSCULAR HEMOGLOBIN 32.6 pg (31.6-35.5); MEAN CORPUSCULAR VOLUME 102.1 fL (81.4-99.0); PLATELET COUNT,PLT 569 K/uL (130-375); RED BLOOD CELL COUNT 3.37 M/uL (3.77-5.24); WHITE BLOOD CELL COUNT,WBC 22.9 K/uL (3.2-11.0)
[2023-05-20] MEDS: Sodium Chloride 0.9% 1,000 ML IV SCH (00:12)
[2023-05-20] MEDS: Ondansetron 4 MG/2 ML SDV IVPUSH ONE (00:16)
[2023-05-20 00:33] LABS: BAND ABSOLUTE MAN 1.15 K/uL; BAND PERCENT MAN 5 % (5-11); LYMPHOCYTES ABSOLUTE MAN 1.15 K/uL (0.8-3.3); LYMPHOCYTES PERCENT MAN 5 % (24-44); METAMYELOCYTE ABSOLUTE MAN 0.46 K/uL; METAMYELOCYTE PERCENT MAN 2 %; MONOCYTES ABSOLUTE MAN 0.46 K/uL (0.20-0.90); MONOCYTES PERCENT MAN 2 % (2-6); NEUTROPHILS ABSOLUTE MAN 19.69 K/uL (1.0-7.6); SEG NEUTROPHILS PERCENT MAN 86 % (36-66)
[2023-05-20 00:52] LABS: A/G RATIO 0.4 (1.2-2.2); ALANINE AMINOTRANSFERASE,ALT 18 U/L (12-78); ALBUMIN 1.9 g/dL (3.4-5.0); ALKALINE PHOSPHATASE 342 U/L (46-116); ASPARTATE AMNIOTRANSFERASE,AST 40 U/L (15-37); BILIRUBIN TOTAL 0.6 mg/dL (0.2-1.0); BLOOD UREA NITROGEN,BUN 8 mg/dL (7-18); CALCIUM 8.3 mg/dL (8.5-10.1); CARBON DIOXIDE,CO2 20 mmol/L (21-32); CHLORIDE,CL 98 mmol/L (100-108); CREATININE 1.2 mg/dL (0.6-1.0); EST CRCL DRUG DOSING (CG) 55.97 mL/min; ESTIMATED GFR 60 mL/min (>60); GLUCOSE RANDOM 85 mg/dL (74-106); POTASSIUM,K 3.1 mmol/L (3.6-5.2); PROTEIN TOTAL,TP 6.3 g/dL (6.4-8.2); SODIUM,NA 135 mmol/L (140-148)
[2023-05-20 00:58] LABS: ANION GAP 20.1 mmol/L (5.0-14.0); C-REACTIVE PROTEIN 36.36 mg/dL (<0.50)
[2023-05-20] MEDS: Sodium Chloride 0.9% 50 ML IV STA (01:24)
[2023-05-20] MEDS: Iopamidol 612 MG/ML 100 ML Bottle IV STA (01:24)
[2023-05-20] MEDS ORDERED: Naloxone 0.4 MG/ML SDV IVPUSH PRN (01:33)
[2023-05-20] MEDS: Vancomycin 2 GM in Sodium Chloride 0.9% 500 ML IV ONE (01:33)
[2023-05-20] MEDS: Acetaminophen 500 MG Tab PO ONE (01:36)
[2023-05-20] MEDS: HYDROmorphone 0.5 MG/0.5 ML Syringe IVPUSH ONE (01:39)
[2023-05-20] MEDS: Cefepime 2 GM in Sodium Chloride 0.9% 50 ML IV ONE (01:44)
[2023-05-20 02:05] VITALS: BP 123/70; PULSE 131
[2023-05-20] MEDS: Clindamycin in 0.9 % Sod Chlor 600 MG in Premix Bag 1 BAG IV ONE (02:30)
[2023-05-20] MEDS: NS + KCl 20mEq/L 1,000 ML IV SCH (02:30)
[2023-05-20 07:31] LABS: O2 SATURATION ARTERIAL 95.5 % (95.0-98.0); PCO2 ARTERIAL 25.2 mmHg (35.0-42.0); PO2 ARTERIAL 99.8 mmHg (75.0-100.0)
[2023-05-20 07:32] LABS: BICARBONATE,ARTERIAL 18.3 mmol/L (22.0-26.0); CARBOXYHEMOGLOBIN 2.6 % (0.0-1.6); METHEMOGLOBIN 3.6 %; OXYHEMOGLOBIN 89.6 %; TOTAL HEMOGLOBIN 8.9 g/dL (12.0-16.0)
[2023-05-20 07:34] LABS: APPEARANCE,URINE CLEAR (CLEAR); BILIRUBIN,URINE NEGATIVE (NEGATIVE); COLOR,URINE YELLOW (YELLOW); GLUCOSE,URINE NEGATIVE (NEGATIVE); KETONES,URINE NEGATIVE (NEGATIVE); LEUKOCYTE ESTERASE,URINE NEGATIVE (NEGATIVE); NITRITE,URINE NEGATIVE (NEGATIVE); OCCULT BLOOD,URINE NEGATIVE (NEGATIVE); PH,URINE 6.5 (5.0-8.0); PROTEIN,URINE NEGATIVE (NEGATIVE); RBC,URINE 0-5 (0-5)
[2023-05-20 07:35] LABS: AMORPHOUS SEDIMENT,URINE NOT SEEN; BACTERIA,URINE FEW; EPITHELIAL CELLS,URINE FEW; MUCUS,URINE RARE
== END 2023-05-20 03:00 ==
LOC: JP.ED 23:33
DX: N76.82 Fournier disease of vagina and vulva (principal); I10 Essential (primary) hypertension; K21.9 Gastro-esophageal reflux disease without esophagitis; E66.9 Obesity, unspecified; Z86.16 Personal history of COVID-19; Z79.899 Other long term (current) drug therapy; Z88.8 Allergy status to other drugs, medicaments and biological substances; Z88.0 Allergy status to penicillin; Z88.1 Allergy status to other antibiotic agents; Z88.2 Allergy status to sulfonamides; Z68.36 Body mass index [BMI] 36.0-36.9, adult
CPT/HCPCS: 36415; 36600; 74177; 80053; 81001; 82803; 83605; 83690; 84703; 85025; 86140; 86850; 86900; 86901; 87040; 96361; 96365; 96366; 96368; 96375; 96376; 99284; 99285; A9270; J0692; J1170; J2405; J3370; J3480; J3490; J7030; J7040; Q9967